=== PATIENT | male | born 1950 | race Two or more races ===

== ENCOUNTER 2025-01-05 12:51 | Inpatient (IN) | payer BC, MEDICARE ==
[~2025-01-05] VITALS: Ht 172.7 cm; Wt 51.1 kg
--- NOTE | 2025-01-05 13:01 | ED.PDOC ---
History of Present Illness HPI Comments 74-year-old male came to the ER stating that he has been having shortness a breath cough nausea vomiting for the past two days. Along with these symptoms he also has chest pain. His blood pressure on arrival was 120/61 with a heart rate of 140 saturation 94% on room air he is unable to take deep breaths. He is short of breath upon sitting more so after walking. Denies any other symptoms. Chief Complaint: Shortness of Breath Time Seen by MD: 12:56 Reviewed Notes: Nurses Notes, Medications, Allergies Allergies: Coded Allergies: NO KNOWN ALLERGIES (Unverified , 01/05/25) Information Source: Patient Mode of Arrival: Wheelchair Severity: Moderate Timing: Days Duration: Since onset Past Medical History PAST MEDICAL HISTORY: Denies Surgical History: Denies all surgeries Social History Smoker: Non-Smoker Alcohol: Denies ETOH Use Drugs: Denies Drug Use Constitutional: denies: chills, diaphoresis, fatigue, fever, malaise, sweats, weakness, others EENTM: denies: blurred vision, double vision, ear bleeding, ear discharge, ear drainage, ear pain, ear ringing, eye pain, eye redness, hearing loss, mouth pain, mouth swelling, nasal discharge, nose bleeding, nose congestion, nose pain, photophobia, tearing, throat pain, throat swelling, voice changes, others Respiratory: reports: cough, shortness of breath; denies: hemoptysis, orthopnea, SOB at rest, SOB with excertion, stridor, wheezing, others Cardiovascular: reports: chest pain; denies: dizzy spells, diaphoresis, Dyspnea on exertion, edema, irregular heart beat, left arm pain, lightheadedness, palpitations, PND, syncope, others Gastrointestinal: reports: nausea, vomiting; denies: abdomen distended, abdominal pain, blood streaked bowels, constipated, diarrhea, dysphagia, difficulty swallowing, hematemesis, melena, poor appetite, poor fluid intake, rectal bleeding, rectal pain, others Genitourinary: denies: burning, dysuria, flank pain, frequency, hematuria, incontinence, penile discharge, penile sore, pain, testicle pain, testicle swelling, urgency, others Neurological: denies: dizziness, fainting, headache, left sided numbness, left sided weakness, numbness, paresthesia, pre-existing deficit, right sided numbness, right sided weakness, seizure, speech problems, tingling, tremors, weakness, others Musculoskeletal: denies: back pain, gout, joint pain, joint swelling, muscle pain, muscle stiffness, neck pain, others Integumetry: denies: bruises, change in color, change in hair/nails, dryness, laceration, lesions, lumps, rash, wounds, others Allergic/Immunocompromised: denies: Difficulty Healing, Frequent Infections, Hives, Itching, others Hematologic/Lymphatic: denies: anemia, blood clots, easy bleeding, easy br uising, swollen glands, others Endocrine: denies: excessive hunger, excessive sweating, excessive thirst, excessive urination, flushing, intolerance to cold, intolerance to heat, unexplained weight gain, unexplained weight loss, others Psychiatric: denies: anxiety, bipolar disorder, depression, hopeless, panic disorder, schizophrenia, sleepless, suicidal, others Physical Exam General Appearance: Moderate Distress HEENT: Normal ENT Inspection, Pharynx Normal, TMs Normal Neck: Full Range of Motion, Non-Tender, Normal, Normal Inspection Respiratory: Other (Coarse breath sounds) Cardiovascular: Tachycardia Breast Exam: Deferred Gastrointestinal: No Organomegaly, Non Tender, No Pulsatile Mass, Normal Bowel Sounds, Soft Genitalia: Deferred Pelvic: Deferred Rectal: Deferred Extremities: No calf tenderness, Normal capillary refill, Normal inspection, Normal range of motion, Non-tender, No pedal edema Musculoskeletal : Apperance: Normal 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 Was a procedure done?: No Differential Dx Considerations may include: Pneumonia Electrolyte imbalance X-Ray, Labs, Meds, VS Vital Signs Date Time Temp Pulse Resp B/P (MAP) Pulse Ox O2 Delivery O2 Flow Rate FiO2 01/05/25 13:16 132 01/05/25 12:52 97.4 143 24 120/61 94 97.4 Lab Test 01/05/25 15:15 01/05/25 13:32 01/05/25 13:25 Range/Units Lactic Acid Level 3.7 *H 3.6 *H 0.4-2.0 mmol/L Troponin I High Sensitivity 15 15 </=54 ng/L White Blood Count 10.1 4.4-10.8 10^3/uL Red Blood Count 4.61 4.5-5.90 10^6/uL Hemoglobin 11.3 L 13.5-17.5 g/dL Hematocrit 35.4 L 41.0-53.0 % Mean Corpuscular Volume 76.7 L 80.0-100.0 fL Mean Corpuscular Hemoglobin 24.5 L 28.0-32.0 pg Mean Corpuscular Hemoglobin Concent 31.9 L 32.0-36.0 g/dL Red Cell Distribution Width 18.4 H 11.8-14.3 % Platelet Count 720 H 140-450 10^3/uL Mean Platelet Volume 7.1 6.9-10.8 fL Neutrophils (%) (Auto) 86.3 H 37.0-80.0 % Lymphocytes (%) (Auto) 5.3 L 10.0-50.0 % Monocytes (%) (Auto) 8.2 0.0-12.0 % Eosinophils (%) (Auto) 0.0 0.0-7.0 % Basophils (%) (Auto) 0.2 0.0-2.0 % Neutrophils # (Auto) 8.7 H 1.6-8.6 10 ^3/uL Lymphocytes # (Auto) 0.5 0.4-5.4 10 ^3/uL Monocytes # (Auto) 0.8 0-1.3 10 ^3/uL Eosinophils # (Auto) 0 0-0.8 10 ^3/uL Basophils # (Auto) 0 0-0.2 10 ^3/uL Nucleated Red Blood Cells 0.0 % Prothrombin Time 11.7 9.3-11.8 sec Prothrombin Time INR 1.12 0.9-1.15 Activated Partial Thromboplast Time 30.2 24.5-34.5 SEC Sodium Level 135 L 136-145 mmol/L Potassium Level 3.2 L 3.5-5.1 mmol/L Chloride Level 100 98-107 mmol/L Carbon Dioxide Level 26 20-31 mmol/L Anion Gap 9 5-15 Blood Urea Nitrogen 14 9-23 mg/dL Creatinine 0.82 0.700-1.30 mg/dL Glomerular Filtration Rate Calc 93 >90 mL/min BUN/Creatinine Ratio 17.1 10.0-20.0 Serum Glucose 170 H 74-106 mg/dL Calcium Level 9.0 8.7-10.4 mg/dL Current Medications Medications (Trade) Dose Ordered Sig/Paco Route Start Time Stop Time Status Last Admin Sodium Chloride 1,000 ml @ 1,000 mls/hr Q1H ONCE IV 01/05/25 15:00 01/05/25 15:59 DC 01/05/25 16:04 Patient alert pain Tachycardic. Shortness a breath. Placed on oxygen. Continues to cough. Possible pneumonia. Establish intravenous access. Was given steroid. Explained to the patient. Continue monitoring. [place] [address] Ph: [phone] DIAGNOSTIC IMAGING Diagnostic Imaging Report : [id number] Signed PATIENT: CARMELO CEVALLOSOACCT: [id number] UNIT: [id number] : 1950 LOC: ER ROOM / BED: / AGE / SEX: 74 / M ADM STATUS: REG ER SERVICE 1256 ORDERING PHYSICIAN: STEPHANIE ANAYA MD PROCEDURE(s): CXRP - CHEST PORTABLE REASON: sob ORDER NUMBER(s): [id number], ACCESSION NUMBER(s): [id number] AP portable chest CLINICAL INDICATION: sob FINDINGS: Heart size is normal. Bilateral upper lobe infiltrates with sparing of the lower lung zones. IMPRESSION: 1. Bilateral upper lobe infiltrates age uncertain as there are no old exams available for comparison. ATED BY: FAMILIA COLVIN MD DICTATED DATE/TIME: 01/05/251326 SIGNED BY: FAMILIA COLVIN MD SIGNED DATE/TIME: 01/05/251326 CC: Time of 1ST Reevaluation: 13:00 Reevaluation 1ST: Unchanged Patient Education/Counseling: Diagnosis, Treatment, Prognosis Family Education/Counseling: No Family Present SEPSIS Sepsis Screen Date sepsis recognized/suspect: Jan 05, 2025 Time Sepsis recognized/suspect: 1255 Recent Procedure: No On Antibiotic Therapy: No Respiratory Rate >20: Yes Heart Rate >90: Yes Temp<36 C (96.8 F) or >38.3 C: No SBP <90 or MAP <65 mmHG: No New Acute Mental Status Change: No Is the patient on CPAP, BIPAP,: No Physician Orders Chest Portable (01/05/25 12:56) Troponin-I Hs (01/05/25 15:56) Blood Culture (01/05/25 12:56) Sodium Chloride 0.9% (01/05/25 15:00) Accucheck (01/05/25 14:47) Notify Md If Map <65 Or Bp<90 (01/05/25 14:47) If Map<65 Start Vasopressor (01/05/25 14:47) Sepsis Reassesment After Fluid (01/05/25 15:47) Vital Signs Date Time Temp Pulse Resp B/P (MAP) Pulse Ox O2 Delivery O2 Flow Rate FiO2 01/05/25 13:16 132 01/05/25 12:52 97.4 143 24 120/61 94 97.4 Laboratory Tests Test 01/05/25 13:25 01/05/25 13:32 01/05/25 15:15 Lactic Acid Level 3.6 mmol/L (0.4-2.0) *H 3.7 mmol/L (0.4-2.0) *H White Blood Count 10.1 10^3/uL (4.4-10.8) Medications Medications Dose Ordered Sig/Paco Route Start Time Stop Time Status Last Admin Dose Admin Sodium Chloride 1,000 ml @ 1,000 mls/hr Q1H ONCE IV 01/05/25 15:00 01/05/25 15:59 DC 01/05/25 16:04 Departure 1 Departure Time of Disposition: 13:01 Impression: Primary Impression: Acute respiratory distress Additional Impressions: Pneumonitis Sepsis, unspecified organism Qualified Codes: A41.9 - Sepsis, unspecified organism Disposition: ADMITTED INPATIENT Admit to: Med Surg Condition: Guarded Critical Care Note Critical Care Time?: Yes (90 min-critical care time only) Stability Stability form required: No Heart Score Heart Score: Heart Score Response (Comments) Value History Slightly Suspicious 0 EKG Normal 0 Age >65 2 Risk Factors >3 or Hx ASHD 2 Troponin Normal limit 0 Total 4 I personally scribed for STEPHANIE ANAYA MD ([email or web address]) on 01/05/25 at 13:58. Electronically submitted by China Cruz [email or web address]). STEPHANIE ANAYA MD Jan 05, 2025 13:01
--- NOTE | 2025-01-05 13:30 | DVH ---
AP portable chest CLINICAL INDICATION: sob FINDINGS: Heart size is normal. Bilateral upper lobe infiltrates with sparing of the lower lung zones . IMPRESSION: 1. Bilateral upper lobe infiltrates age uncertain as there are no old exams available for comparison.
[2025-01-05 13:52] LABS: Hematocrit 35.4 % (41.0-53.0); Hemoglobin 11.3 g/dL (13.5-17.5); Mean Corpuscular Hemoglobin 24.5 pg (28.0-32.0); Mean Corpuscular Volume 76.7 fL (80.0-100.0); Nucleated Red Blood Cells % 0.0 %
[2025-01-05 14:02] LABS: Anion Gap 9 (5-15); Carbon Dioxide 26 mmol/L (20-31); Chloride 100 mmol/L (98-107)
[2025-01-05 14:03] LABS: Calcium 9.0 mg/dL (8.7-10.4)
[2025-01-05 14:04] LABS: Potassium 3.2 mmol/L (3.5-5.1); Sodium 135 mmol/L (136-145)
[2025-01-05 14:08] LABS: BUN/Creatinine Ratio 17.1 (10.0-20.0); Blood Urea Nitrogen 14 mg/dL (9-23); Glucose 170 mg/dL (74-106)
[2025-01-05 14:12] LABS: Lactic Acid w/Reflex 3.6 mmol/L (0.4-2.0)
[2025-01-05] MEDS: SODIUM CHLORIDE 0.9% 1,000 ML IV ONE ×2 (15:00→16:04)
[2025-01-05] MEDS ORDERED: VANCOMYCIN 1GM/200ML PM 200 ML IV ONE (15:00)
[2025-01-05] MEDS: SODIUM CHLORIDE 0.9% 1,000 ML IV SCH (15:30)
[2025-01-05] MEDS ORDERED: MORPHINE SULFATE INJ 2 MG/ml SYRG IV PRN (15:30)
[2025-01-05] MEDS ORDERED: ONDANSETRON HCL 4 MG/2 ML VIAL IV PRN (15:30)
[2025-01-05] MEDS ORDERED: VANCOMYCIN PER PHARMACY 0 MG IV SCH (15:30)
[2025-01-05] MEDS ORDERED: DOCUSATE SOD 100 MG CAP PO PRN (15:30)
[2025-01-05] MEDS ORDERED: NITROGLYCERIN 0.4 MG SL TAB SL PRN (15:30)
--- NOTE | 2025-01-05 15:38 | DVHHP2 ---
History of Present Illness Reason for Visit: chest pain throat pain and sob History of Present Illness 74-year-old male with limited documented medical history, known asthma, and no known surgical history, presents with a 5-month history of progressive throat pain, persistent cough, raspy voice, and unintentional weight loss of approximately 35 pounds. He reports difficulty eating, tolerating only small amounts at a time, with significant discomfort localized to the throat. He notes associated phlegm production without hemoptysis. History is limited due to the patients vague recall of prior medical evaluation, though he states he saw a physician approximately one month ago. He has a history of heavy tobacco use and continues to smoke daily. He admits to heavy alcohol consumption, last drink being last week, but is unable to quantify intake. He denies fever or chills but notes fatigue. In the ED, vitals notable for hypotension and O2 saturation of 94% on room air. Labs showed lactic acid 3.6 (elevated), potassium 3.2 (low), sodium 135 platelet count 720 (thrombocytosis), and unremarkable CBC otherwise. Troponin negative. Chest imaging revealed bilateral upper lobe pneumonia. He was diagnosed with sepsis, hypokalemia, thrombocytosis, and suspected underlying malignancy contributing to dysphagia and weight loss. Plan is to admit for further workup, initiate broad-spectrum antibiotics (vancomycin + piperacillin- tazobactam), evaluate for head/neck malignancy, and monitor for possible alcohol withdrawal. Past Medical History See HPI above Past Surgical History See HPI above Family History Reviewed, non-contributory to the management of this case. Lives: with Family Past Social History Patient does smoke by history he also drinks he states last drink was Thursday no drug use Review of Systems Constitutional: Yes: Weakness, Malaise; No: Fever, Chills, Sweats, Other Eyes: No: Pain, Vision change, Conjunctivae inflammation, Eyelid inflammation, Other, Redness ENT: Mouth pain, Throat pain; No: Ear pain, Ear discharge, Nose pain, Nose discharge, Nose congestion, Mouth swelling, Throat swelling, Other Respiratory: Cough, Shortness of breath, SOB with excertion; No: Dry, Wheezing, Hemoptysis, Pleuritic Pain, Sputum, Wheezing, Other Cardiovascular: Chest Pain; No: Palpitations, Orthopnea, Paroxysmal Noc. Dyspnea, Edema, Lt Headedness, Other Gastrointestinal: No: Nausea, Vomiting, Abdominal Pain, Diarrhea, Constipation, Melena, Hematochezia, Other Genitourinary: No Dysuria, No Frequency, No Incontinence, No Hematuria, No Retention, No Other Musculoskeletal: No: other, neck pain, shoulder pain, arm pain, back pain, hand pain, leg pain, foot pain Skin: No: Rash, Lesions, Jaundice, Bruising, Other Neurological: Weakness; No: Numbness, Incoordination, Change in speech, Confusion, Seizures, Other Allergies: Coded Allergies: NO KNOWN ALLERGIES (Unverified , 01/05/25) Medications Current Medications Medications Dose Ordered Sig/Paco Route Start Time Stop Time Status Last Admin Dose Admin Cefepime HCl 50 ml @ 12.5 mls/hr Q8HR IV 01/05/25 22:00 Exam Vital Signs Vital Signs Date Time Temp Pulse Resp B/P (MAP) Pulse Ox O2 Delivery O2 Flow Rate FiO2 01/05/25 13:16 132 01/05/25 12:52 97.4 24 120/61 94 97.4 General Appearance: Alert, Oriented X3, Cooperative, mild distress, Other (thin appearance ) HEENT: Atraumatic, PERRLA, EOMI, Mucous membr. moist/pink, Other (throat lump seen anterior neck airway patent no drooling able to handle secretions, no stridor heard ) Respiratory: Other (pt with diminshed lungs sound throughout) Cardiovascular: Regular rate, Normal S1, Normal S2, No murmurs Abdominal: Normal bowel sounds, Soft, No tenderness, No hepatospenomegaly, No masses Extremities: No clubbing, No cyanosis, No edema, Normal pulses, No tenderness/swelling Skin: No rashes, No breakdown, No significant lesion Neuro: Normal gait, Normal speech, Strength at 5/5 X4 ext, Normal tone, Sensation intact, Cranial nerves 3-12 NL Psych/Mental Status: Mental status NL, Mood NL Labs/Xrays Chest x-ray shows bilateral upper lobe infiltrates I reviewed labs, imaging CT scan abdomen pelvis, EKG and all diagnostic studies on this patient from ED records and the medical chart Labs Test 01/05/25 15:15 01/05/25 13:32 Range/Units White Blood Count 10.1 4.4-10.8 10^3/uL Red Blood Count 4.61 4.5-5.90 10^6/uL Hemoglobin 11.3 L 13.5-17.5 g/dL Hematocrit 35.4 L 41.0-53.0 % Mean Corpuscular Volume 76.7 L 80.0-100.0 fL Mean Corpuscular Hemoglobin 24.5 L 28.0-32.0 pg Mean Corpuscular Hemoglobin Concent 31.9 L 32.0-36.0 g/dL Red Cell Distribution Width 18.4 H 11.8-14.3 % Platelet Count 720 H 140-450 10^3/uL Mean Platelet Volume 7.1 6.9-10.8 fL Neutrophils (%) (Auto) 86.3 H 37.0-80.0 % Lymphocytes (%) (Auto) 5.3 L 10.0-50.0 % Monocytes (%) (Auto) 8.2 0.0-12.0 % Eosinophils (%) (Auto) 0.0 0.0-7.0 % Basophils (%) (Auto) 0.2 0.0-2.0 % Neutrophils # (Auto) 8.7 H 1.6-8.6 10 ^3/uL Lymphocytes # (Auto) 0.5 0.4-5.4 10 ^3/uL Monocytes # (Auto) 0.8 0-1.3 10 ^3/uL Eosinophils # (Auto) 0 0-0.8 10 ^3/uL Basophils # (Auto) 0 0-0.2 10 ^3/uL Nucleated Red Blood Cells 0.0 % Sodium Level 135 L 136-145 mmol/L Potassium Level 3.2 L 3.5-5.1 mmol/L Chloride Level 100 98-107 mmol/L Carbon Dioxide Level 26 20-31 mmol/L Anion Gap 9 5-15 Blood Urea Nitrogen 14 9-23 mg/dL Creatinine 0.82 0.700-1.30 mg/dL Glomerular Filtration Rate Calc 93 >90 mL/min BUN/Creatinine Ratio 17.1 10.0-20.0 Serum Glucose 170 H 74-106 mg/dL Calcium Level 9.0 8.7-10.4 mg/dL SEPSIS Sepsis Screen Date sepsis recognized/suspect: Jan 05, 2025 Time Sepsis recognized/suspect: 1254 Recent Procedure: No On Antibiotic Therapy: No Respiratory Rate >20: Yes Heart Rate >90: Yes Temp<36 C (96.8 F) or >38.3 C: No SBP <90 or MAP <65 mmHG: No New Acute Mental Status Change: No Is the patient on CPAP, BIPAP,: No Physician Orders Chest Portable (01/05/25 12:56) Urinalysis (01/05/25 12:56) Troponin-I Hs (01/05/25 13:56) Troponin-I Hs (01/05/25 15:56) Blood Culture (01/05/25 12:56) Sodium Chloride 0.9% (01/05/25 15:00) Sodium Chloride 0.9% (01/05/25 15:00) PTPTT (01/05/25 14:47) Accucheck (01/05/25 14:47) Vancomycin 1gm/200ml Pm (01/05/25 15:00) Cefepime 1gm/ 50ml (Maxipime 1gm/50ml) (01/05/25 22:00) Notify Md If Map <65 Or Bp<90 (01/05/25 14:47) If Map<65 Start Vasopressor (01/05/25 14:47) Sepsis Reassesment After Fluid (01/05/25 15:47) Vital Signs Date Time Temp Pulse Resp B/P (MAP) Pulse Ox O2 Delivery O2 Flow Rate FiO2 01/05/25 13:16 132 01/05/25 12:52 97.4 143 24 120/61 94 97.4 Laboratory Tests Test 01/05/25 13:25 01/05/25 13:32 01/05/25 15:15 Lactic Acid Level 3.6 mmol/L (0.4-2.0) *H Pending White Blood Count 10.1 10^3/uL (4.4-10.8) Assessment/Plan Assessment/Plan 74 yr old male with Sepsis secondary to bilateral pneumonia in the setting of significant weight loss, dysphagia, and suspected malignancy. acute Sepsis secondary to bilateral upper lobe pneumonia vs dehydration Admit to telemetry Broad-spectrum antibiotics: vancomycin + piperacillin-tazobactam Blood cultures 2 prior to antibiotics Monitor hemodynamics; consider fluids/vasopressors if persistent hypotension Serial lactate until normalization acute Bilateral Upper Lobe Pneumonia Continue empiric antibiotics vanco and zosyn Sputum culture, respiratory pathogen panel if pt have sputum Incentive spirometry and pulmonary hygiene O2 to maintain sats >92% ordered ct angio chest to eval for PE acute throat mass ordered ct neck with constrast ordered cea and ca 125 acute Severe Dysphagia with Throat Pain, Weight Loss possible head/neck malignancy (suspected) ordered CT neck with contrast fu results Speech/swallow evaluation fu recs NPO until swallow safety confirmed; nutrition consult for malnutrition once swallow test complete ordered cea and ca 125 acute Thrombocytosis likely reactive Monitor platelet trend Evaluate for iron deficiency and inflammatory cause Hematology consult if persistent after infection resolves acute Hypokalemia Replete potassium IV/PO to maintain >4.0 mmol/L ordered magnesium and correct if <2.0 Chronic Tobacco Use Counseling on cessation Nicotine replacement as needed Alcohol Use Disorder at risk for withdrawal CIWA protocol with PRN benzodiazepines Thiamine 100 mg IV, folate 1 mg IV daily in banana bag CHRONIC PROBLEM LIST Asthma Tobacco use disorder Alcohol use disorder FEN / PPx Fluids: IV NS bolus for hypotension, then maintenance as tolerated Electrolytes: Monitor and replete K and Mg as indicated Nutrition: NPO until swallow evaluation; initiate nutrition support if unsafe swallow DVT Prophylaxis: Enoxaparin 40 mg SC daily GI Prophylaxis: Pantoprazole 40 mg IV daily Disposition: Admit to telemetry for sepsis management, pneumonia treatment, dysphagia evaluation, and malignancy workup. Plan discussed with: Patient Date of Service: Jan 05, 2025 Billing Provider: SAMUEL IRWIN DNP Common Visit Codes: [id number] INP/OBS CARE (HIGH) SAMUEL IRWIN DNP Jan 05, 2025 15:38
[2025-01-05 15:40] LABS: INR 1.12 (0.9-1.15); Partial Thromboplastin Time 30.2 SEC (24.5-34.5); Prothrombin Time 11.7 sec (9.3-11.8)
[2025-01-05] MEDS: PIPERACILLIN-TAZOB 3.375GM 100 ML IV ONE (16:06)
[2025-01-05 16:09] LABS: Magnesium 1.7 mg/dL (1.6-2.6)
[2025-01-05] MEDS: ENOXAPARIN SOD 40 MG/0.4 ML SYRINGE SC SCH (16:09)
[2025-01-05] MEDS: POTASSIUM CHL 20 Meq TABLET PO ONE (16:09)
[2025-01-05 16:48] LABS: Urine Protein, UAD 1+ (Negative)
[2025-01-05 17:00] VITALS: PULSE 86; RESP 14; O2SAT 94
[2025-01-05] MEDS: VANCOMYCIN 1GM/250ML KIT 250 ML IV ONE (17:01)
[2025-01-05] MEDS: PANTOPRAZOLE 40 MG/10 ML VIAL INJ IV ONE (17:03)
--- NOTE | 2025-01-05 17:41 | DVH ---
CTA Chest with intravenous contrast INDICATION: eval for sob and cp r/o pe COMPARISON: XY CHEST PORTABLE on DOS: 01/05/25 TECHNIQUE: Multidetector spiral CTA of the chest was performed of the chest with intravenous contrast . PULMONARY ANGIOGRAPHY PROTOCOL was utilized using a bolus-tracking technique centered on the main p ulmonary artery. Axial, coronal and sagittal multiplanar and MIP reformats were performed. CONTRAST: Type of contrast: Omni 350 Contrast injected: 100 ml Radiation dose : Chest: CTDI volume is mGy. Dose-length product is mGy*cm The dose indicators for CT are the volume computed Tomography (CT) dose Index (CTDIvol) and the dose Length product (DLP), and are measured in units of mGy and mGy-cm, respectively. These indicators are not patient dose, but values generated from the CT scanner acquisition factors. The report includes radiation exposure data for exposures received during this examination. Findings: Pulmonary artery: No pulmonary embolism Lower neck: Normal thyroid. Lungs: Patchy bilateral consolidation with areas of cavitation greater in the upper lobes. Atelectasi s and scarring in the lung bases. Heart/Vascular Structures: Normal heart size. Trace pericardial effusion. Lymph Nodes: Mediastinal and hilar lymphadenopathy. Pleura: Small bilateral pleural effusions left greater than right. Musculoskeletal: No acute osseous abnormality. Soft tissues: Normal. Upper abdomen: Limited portions of the upper abdomen are unremarkable. IMPRESSION: 1. No pulmonary embolism. 2. Patchy bilateral consolidation with an upper lobe predominance and superimposed cavitation. Medias tinal and hilar lymphadenopathy. Small bilateral pleural effusions. Consider atypical infections to include fungal and mycobacterial (TB) disease. Neoplastic etiologies are not entirely excluded. Clini jennyfer correlation and continued follow-up is recommended. HS:Y
[2025-01-05] MEDS: IOHEXOL 350 MG/ML 100ML IJ ONE (18:02)
--- NOTE | 2025-01-05 18:06 | DVH ---
CT NECK WITH CONTRAST SOFT Indication: eval for acute throat pain and mass EXAM DATE: 01/05/2025 04:37 PM COMPARISON: None TECHNIQUE: CT of the neck intravenous contrast. RADIATION DOSE: CTDIvol: 10.2 mGy, DLP: 719 mGy*cm FINDINGS: Left frontal encephalomalacia. Parotid, cook short order, parapharyngeal spaces preserved. Submandibular glands unremarkable. No submenta l lymphadenopathy. Orbits and retrobulbar spaces are unremarkable. Thyroid gland unremarkable. Nasoph arynx, oropharynx, hypopharynx patent. Epiglottis unremarkable. Moderate cervical degenerative disc disease. Extensive Bilateral upper lobe pulmonary airspace consolidation, cavitation disease and bronchiectati c changes. This includes left upper lobe cavitary lesion with thick wall measuring 4.7 cm and right u pper lobe cavitary lesion with thick wall measuring 5.8 cm. Right paratracheal lymphadenopathy up to 14 mm. Pretracheal lymph nodes up to 11 mm. 10 mm aortopulmo nary lymph node. 10 mm right cervical jugulodigastric lymph node. Subcentimeter posterior cervical triangle lymph node s. IMPRESSION: 10 mm right cervical jugulodigastric lymph node. The bilateral lung apices demonstrate extensive airspace consolidation and thick wall cavitary lesion s with lesions measuring least 5.8 cm and 4.7 cm. Differential considerations include malignancy/nec rotic neoplasm, atypical infectious processes. Recommend oncology and infectious disease consultatio n to further evaluate. There is associated mediastinal lymphadenopathy.
[2025-01-05] MEDS: FOLIC ACID 1 MG, MAGNESIUM SULF SDV 50% 8 MEQ, MULTIPLE VITAMIN 10 ML, THIAMINE INJ 100... INJ SCH (20:06)
[2025-01-05] MEDS ORDERED: CEFEPIME 1GM/ 50ML 50 ML IV SCH (22:00)
[2025-01-06] MEDS: PIPERACILLIN-TAZOB 3.375GM 100 ML IV SCH (00:19)
[2025-01-06 04:27] LABS: Hematocrit 28.9 % (41.0-53.0); Hemoglobin 9.5 g/dL (13.5-17.5); Mean Corpuscular Hemoglobin 25.3 pg (28.0-32.0); Mean Corpuscular Volume 76.8 fL (80.0-100.0); Nucleated Red Blood Cells % 0.0 %
[2025-01-06 04:45] LABS: Alanine Aminotransferase 15 U/L (7-40); Albumin 2.7 g/dL (3.2-4.8); Alkaline Phosphatase 109 U/L (46-116); Anion Gap 7 (5-15); BUN/Creatinine Ratio 18.6 (10.0-20.0); Bilirubin, Total 0.5 mg/dL (0.2-1.0); Blood Urea Nitrogen 11 mg/dL (9-23); Calcium 8.0 mg/dL (8.7-10.4); Carbon Dioxide 24 mmol/L (20-31); Chloride 107 mmol/L (98-107); Glucose 101 mg/dL (74-106); Potassium 3.3 mmol/L (3.5-5.1); Sodium 138 mmol/L (136-145); Total Protein 5.8 g/dL (5.7-8.2)
[2025-01-06 08:00] VITALS: PULSE 67; RESP 18; O2SAT 95
[2025-01-06] MEDS: PANTOPRAZOLE 40 MG/10 ML VIAL INJ IV SCH (10:59)
--- NOTE | 2025-01-06 15:13 | DVHINCON2 ---
Date of service: Jan 06, [address] kasper Reason for Consultation suspected TB History of Present Illness History Source: Patient Exam Limitations: No limitations HPI patient is a 74-year old gentleman with a history of alcohol abuse and asthma who presented with breathing difficulties. he was seen in the emergency room where CT of the chest demonstrated cavities of the upper lobes bilaterally and he was isolated to rule out TB. additionally, he reports experiencing persistent cough and weight loss for the last 5 months, denies hemoptysis. pulmonology was consulted to assist in management. Past Medical History Cardiac: No pertinent Hx Pulmonary: Asthma Central Nervous System: No pertinent Hx GI: No pertinent Hx Hemotology/Oncology: No pertinent Hx Hepatobiliary: No pertinent Hx Psychiatric: No pertinent Hx Musculoskeletal: No pertinent Hx Rheumotologic: No pertinent Hx Infectious Disease: No peritnent Hx ENT: No pertinent Hx Renal/: No pertinent Hx Endocrine: No pertinent Hx Dermatology: No pertinent Hx Family History: No pertinent Hx Smoker: Positive Alocohol: None Drugs: None Lives with: With family Domestic Violence: Neg Review of Systems Constitutional: Weight loss Ears, Nose, & Throat: No symptom reported Eyes: No symptom reported Pulmonary/Respiratory: Dyspnea, Cough Cardiovascular: No symptom reported Gastrointestinal: No symptom reported Genitourinary: No symptom reported Musculoskeletal: No symptom reported Skin: No symptom reported Psychiatric: No symptom reported Endocrine: No symptom reported Hemotologic/Lymphatic: No symptom reported H&P Exam Vital Signs Vital Signs Date Time Temp Pulse Resp B/P (MAP) Pulse Ox O2 Delivery O2 Flow Rate FiO2 01/06/25 11:00 73 24 132/69 (90) 96 01/06/25 08:00 97.6 97.6 01/06/25 08:00 Room Air* 0 21 General Appeara: Well developed, Well nourished, Normal Appearance Head Exam: Normal inspection Neck Exam: Normal inspection, Non-tender, Normal alignment Eye Exam: bilateral eye Normal inspection, bilateral eye PERRL, bilateral eye EOMI Ear Exam: bilateral ear Auricle normal, bilateral ear Canal normal, bilateral ear TM normal Nasal Exam: Normal inspection Mouth: Normal Inspection Pulmonary/Respiratory: Normal inspection, Normal breath sounds, Chest non- tender, Lungs clear Cardiovascular/Chest: Normal inspection, Regular rate, Normal Rhythm Peripheral Pulses: 4+ Radial (R), 4+ Radial (L), 4+ Brachial (R), 4+ Brachial (L) Abdominal Exam: Normal bowel sounds Labs/Xrays Labs Test 01/06/25 04:07 01/05/25 17:18 01/05/25 15:50 01/05/25 15:46 Range/Units White Blood Count 7.2 # 4.4-10.8 10^3/uL Red Blood Count 3.76 L 4.5-5.90 10^6/uL Hemoglobin 9.5 #L 13.5-17.5 g/dL Hematocrit 28.9 #L 41.0-53.0 % Mean Corpuscular Volume 76.8 L 80.0-100.0 fL Mean Corpuscular Hemoglobin 25.3 L 28.0-32.0 pg Mean Corpuscular Hemoglobin Concent 33.0 32.0-36.0 g/dL Red Cell Distribution Width 18.2 H 11.8-14.3 % Platelet Count 532 H 140-450 10^3/uL Mean Platelet Volume 6.9 6.9-10.8 fL Neutrophils (%) (Auto) 81.6 H 37.0-80.0 % Lymphocytes (%) (Auto) 7.5 L 10.0-50.0 % Monocytes (%) (Auto) 10.4 0.0-12.0 % Eosinophils (%) (Auto) 0.3 0.0-7.0 % Basophils (%) (Auto) 0.2 0.0-2.0 % Neutrophils # (Auto) 5.8 1.6-8.6 10 ^3/uL Lymphocytes # (Auto) 0.5 0.4-5.4 10 ^3/uL Monocytes # (Auto) 0.7 0-1.3 10 ^3/uL Eosinophils # (Auto) 0 0-0.8 10 ^3/uL Basophils # (Auto) 0 0-0.2 10 ^3/uL Nucleated Red Blood Cells 0.0 % Sodium Level 138 136-145 mmol/L Potassium Level 3.3 L 3.5-5.1 mmol/L Chloride Level 107 98-107 mmol/L Carbon Dioxide Level 24 20-31 mmol/L Anion Gap 7 5-15 Blood Urea Nitrogen 11 9-23 mg/dL Creatinine 0.59 L 0.700-1.30 mg/dL Glomerular Filtration Rate Calc 103 >90 mL/min BUN/Creatinine Ratio 18.6 10.0-20.0 Serum Glucose 101 74-106 mg/dL Calcium Level 8.0 L 8.7-10.4 mg/dL Total Bilirubin 0.5 0.2-1.0 mg/dL Aspartate Amino Transferase (AST) 25 13-40 U/L Alanine Aminotransferase (ALT) 15 7-40 U/L Alkaline Phosphatase 109 46-116 U/L Total Protein 5.8 5.7-8.2 g/dL Albumin 2.7 L 3.2-4.8 g/dL Random Vancomycin Level 8.6 5-10 ug/mL Troponin I High Sensitivity 13 </=54 ng/L Urine Color Yellow Yellow Urine Clarity Turbid H Clear Urine pH 5.5 5.0-9.0 Urine Specific [place] 1.023 1.001-1.035 Urine Protein 1+ H Negative Urine Ketones Negative Negative Urine Blood Negative Negative /uL Urine Nitrite Negative Negative Urine Bilirubin 1+ Negative Urine Urobilinogen 4 H Negative mg/dL Urine Leukocyte Esterase Negative Negative /uL Urine RBC 2 0 - 3 /hpf Urine Microscopic WBC < 1 0-3 /HPF Urine Squamous Epithelial Cells Few <5 /hpf Urine Bacteria None seen None Seen /hpf Urine Hyaline Casts Few 0 - 2 /lpf Urine Mucus Few None Seen Urine Glucose Normal Normal mg/dL Phosphorus Level 2.3 L 2.4-5.1 mg/dL Magnesium Level 1.7 1.6-2.6 mg/dL Carcinoembryonic Antigen 0.99 <=5.0 ng/mL CA 125 Antigen 133.0 Not Estab. U/mL Plasma/Serum Blood Alcohol 4.7 <10 mg/dL Test 01/05/25 15:15 01/05/25 13:32 Range/Units Lactic Acid Level 3.7 *H 0.4-2.0 mmol/L Prothrombin Time 11.7 9.3-11.8 sec Prothrombin Time INR 1.12 0.9-1.15 Activated Partial Thromboplast Time 30.2 24.5-34.5 SEC Microbiology Date/Time Source Procedure Growth Status 01/05/25 13:32 Blood Blood Culture - Preliminary NO GROWTH AFTER 24 HOURS OF INCUBATION. Resulted Assessment/Plan Plan Impression Acute hypoxemic respiratory failure Rule out tuberculosis Pneumonia Lung cavities Patient seen and examined Events Low oxygen requirements On 2 liters nasal cannula Vital signs stable Isolated for ? TB Labs and imaging reviewed CT of the chest shows: Patchy bilateral consolidation with an upper lobe predominance and superimposed cavitation. Mediastinal and hilar lymphadenopathy. Small bilateral pleural effusions. No evidence of pulmonary embolism Management Supplemental oxygen Titrate to maintain sats 90% or above Incentive spirometry Broad spectrum antibiotics Recommend ID input Bronchodilators Monitor renal function Monitor electrolytes Supplement as needed Obtain HIV DVT prophylaxis Plan discussed with: Patient VANESSA DAWSON MD Jan 06, 2025 15:13
--- NOTE | 2025-01-06 15:42 | DVHSR ---
APPROVED REPORT EXAM: Two-dimensional and M-mode echocardiogram with Doppler and color Doppler. Blood Pressure: 134/76 mmHg INDICATION EF RISK FACTORS Height: 5'7", Weight: 119 DIMENSIONS LVDd4.3 (3.8-5.7cm)LA (2D)2.7 (1.9-4.0cm)Aortic Root3.5 (2.0-3.7cm) LVDs2.9 (2.5-4.0cm)LA (MM) (1.9-4.0cm)Aortic Cusp Exc2.2 (1.5-2.0cm) EF (%) 60.0 (55-70%)Rt. Atrium (1.9-4.0cm)Asc. Aorta cm IVSd0.8 (0.7-1.1cm)RV (D) (1.8-2.4cm) PWd1.0 (0.7-1.1cm) Mitral Valve MitralMitral Stenosis E/A ratio0.02D MVAcm2 Aortic Valve Aortic ValveAortic Stenosis LVOT Diameter2.5 (1.8-2.4cm)Doppler AVAcm2 Pulmonic Valve V20.52m/s Other Information Quality : Technically LimitedRhythm : Technically limited study due to body habitus. Conclusion lvef 55% normal rv fucntion no severe valve abnormaliteis noted
[2025-01-06 20:00] VITALS: PULSE 93; RESP 22; O2SAT 93
[2025-01-06] MEDS ORDERED: VANCOMYCIN 1.25GM/250ML 250 ML IV SCH (20:00)
--- NOTE | 2025-01-06 22:10 | DVHPN2 ---
Subjective Admitted admitted overnight for shortness for breath CT chest showed a apical cavitary lesion. Changes from previous H/P or p: No Changes Eyes: No Pain, No Vision change, No Conjunctivae inflammation, No Eyelid inflammation, No Other, No Redness ENT: No Ear pain, No Ear discharge, No Nose pain, No Nose discharge, No Nose congestion; Mouth pain; No Mouth swelling; Throat pain; No Throat swelling, No Other Cardiovascular: Chest Pain; No Palpitations, No Orthopnea, No Paroxysmal Noc. Dyspnea, No Edema, No Lt Headedness, No Other Respiratory: Cough; No Dry; Shortness of breath, SOB with excertion; No Wheezing, No Hemoptysis, No Pleuritic Pain, No Sputum, No Other Gastrointestinal: No Nausea, No Vomiting, No Abdominal Pain, No Diarrhea, No Constipation, No Melena, No Hematochezia, No Other Genitourinary: No Dysuria, No Frequency, No Incontinence, No Hematuria, No Retention, No Other Musculoskeletal: No other, No neck pain, No shoulder pain, No arm pain, No back pain, No hand pain, No leg pain, No foot pain Skin: No Rash, No Lesions, No Jaundice, No Bruising, No Other Objective Vitals Vital Signs Date Time Temp Pulse Resp B/P (MAP) Pulse Ox O2 Delivery O2 Flow Rate FiO2 01/06/25 20:00 93 22 93 Room Air* 0 21 01/06/25 20:00 98.0 148/97 (114) 98.0 Intake/Output Intake and Output 01/06/25 07:00 Intake Total 3193.729 ml Balance 3193.729 ml Intake IV Total 3193.729 ml Exam On isolation. Comfortable in bed. HEENT neck supple no JVD. Heart regular rate and rhythm S1-S2. Lungs fair air movement with rhonchi in the upper lungs. No wheezing. Abdomen soft positive bowel sounds. Extremities no edema. Medications Current Medications Medications Dose Ordered Sig/Paco Route Start Time Stop Time Status Last Admin Dose Admin Sodium Chloride 1,000 ml @ 120 mls/hr [id number] IV 01/05/25 15:30 01/06/25 17:24 120 MLS/HR Ondansetron HCl 4 mg Q4HP PRN IV 01/05/25 15:30 Docusate Sodium 100 mg BIDPRN PRN PO 01/05/25 15:30 Morphine Sulfate 2 mg Q4HPRN PRN IV 01/05/25 15:30 Enoxaparin Sodium 40 mg DAILY SC 01/05/25 15:30 01/06/25 10:59 40 MG Nitroglycerin 0.4 mg Q5MINP PRN SL 01/05/25 15:30 Vancomycin HCl 0 ml @ 0 mls/hr UD IV 01/05/25 15:30 Piperacillin Sod/ Tazobactam Sod 100 ml @ 25 mls/hr Q8H IV 01/06/25 00:00 01/06/25 17:08 25 MLS/HR Pantoprazole Sodium 40 mg DAILY IV 01/06/25 10:00 01/06/25 10:59 40 MG Folic Acid 1 mg/ Magnesium Sulfate 8 meq/ Multivitamins 10 ml/Thiamine HCl 100 mg/Sodium Chloride 1,013.2 ml @ 126.247 mls/hr DAILY@1800 INJ 01/05/25 18:00 01/05/25 20:06 126.247 MLS/HR Vancomycin HCl 250 ml @ 200 mls/hr DAILY@2000 IV 01/06/25 20:00 Laboratory Results Laboratory Tests 01/06/25 04:07 Chemistry Test 01/06/25 04:07 Albumin 2.7 g/dL (3.2-4.8) L Calcium Level 8.0 mg/dL (8.7-10.4) L Total Protein 5.8 g/dL (5.7-8.2) LFT Test 01/06/25 04:07 Alanine Aminotransferase (ALT) 15 U/L (7-40) Alkaline Phosphatase 109 U/L (46-116) Aspartate Amino Transferase (AST) 25 U/L (13-40) Total Bilirubin 0.5 mg/dL (0.2-1.0) Urinalysis Test 01/05/25 15:50 Urine Color Yellow (Yellow) Urine Clarity Turbid (Clear) H Urine pH 5.5 (5.0-9.0) Urine Specific [place] 1.023 (1.001-1.035) Urine Protein 1+ (Negative) H Urine Ketones Negative (Negative) Urine Blood Negative /uL (Negative) Urine Nitrite Negative (Negative) Urine Bilirubin 1+ (Negative) Urine Urobilinogen 4 mg/dL (Negative) H Urine Leukocyte Esterase Negative /uL (Negative) Urine RBC 2 /hpf (0 - 3) Urine Microscopic WBC < 1 /HPF (0-3) Urine Squamous Epithelial Cells Few /hpf (<5) Urine Bacteria None seen /hpf (None Seen) Urine Hyaline Casts Few /lpf (0 - 2) Urine Mucus Few (None Seen) Urine Glucose Normal mg/dL (Normal) Microbiology Microbiology Date/Time Source Procedure Growth Status 01/05/25 13:32 Blood Blood Culture - Preliminary NO GROWTH AFTER 24 HOURS OF INCUBATION. Resulted Assessment/Plan Assessment/Plan Given possibility of TB infectious etiology continue isolation. We will have Pulmonary consultation as well as Infectious Disease consultation. Continue broad-spectrum antibiotics. AFB and QuantiFERON TB test will be sent. Otherwise continue rest of supportive care and treatment he is on. Further clinical management per clinical course. Discussed with the nurse regarding care plan. Patient is seen and evaluated by me earlier today. Plan discussed with: Other My Orders Orders - TAWNY TORRES MD Procedure Category Date Status Time Sodium Chloride 0.9% PHA 01/06/25 Logged 22:15 Clear Liq Diet DIET 01/07/25 Transmitted Breakfast Complete Blood Count LAB 01/07/25 Verified 04:00 Comprehensive LAB 01/07/25 Verified Metabolic Panel 04:00 Quantiferon-Tb Gold LAB 01/06/25 Logged 22:03 Problem List: (1) Acute respiratory distress (2) Pneumonitis Date of Service: Jan 06, 2025 Billing Provider: TAWNY TORRES MD Common Visit Codes: [id number] INP/OBS CARE(MOD) TAWNY TORRES MD Jan 06, 2025 22:10
[2025-01-06] MEDS: SODIUM CHLORIDE 0.9% 1,000 ML IV SCH (23:00)
--- NOTE | 2025-01-06 23:10 | DVHINCON2 ---
Date of service: Jan 08, 2025 Allergies: Coded Allergies: NO KNOWN ALLERGIES (Unverified , 01/05/25) Home Meds Active Scripts Nystatin (Mouth-Throat) (Mycostatin (Mouth-Throat)) 500,000 Units/5 Ml Ss, 5 ML MT QID for 30 Days, #500 ML Prov:CARRILLO MENCHACA MD 01/16/25 Rifampin (Rifampin) 300 Mg Cap, 600 MG PO DAILY for 30 Days, #30 CAP Prov:CARRILLO MENCHACA MD 01/16/25 Isoniazid (Isoniazid) 300 Mg Tab, 300 MG PO DAILY for 30 Days, #30 TAB Prov:CARRILLO MENCHACA MD 01/16/25 Ethambutol Hcl (Ethambutol Hcl) 400 Mg Tab, 1200 MG PO DAILY for 30 Days, #90 TAB Prov:CARRILLO MENCHACA MD 01/16/25 Current Medications Current Medications Medications (Trade) Dose Ordered Sig/Paco Route PRN Reason Start Time Stop Time Status Last Admin Piperacillin Sod/ Tazobactam Sod 100 ml @ 25 mls/hr Q8H IV 01/06/25 00:00 01/06/25 17:08 Pantoprazole Sodium (Protonix) 40 mg DAILY IV 01/06/25 10:00 01/06/25 10:59 Vancomycin HCl 250 ml @ 200 mls/hr DAILY@2000 IV 01/06/25 20:00 Sodium Chloride 1,000 ml @ 70 mls/hr [id number] IV 01/06/25 22:15 Vital Signs Vital Signs Date Time Temp Pulse Resp B/P (MAP) Pulse Ox O2 Delivery O2 Flow Rate FiO2 01/06/25 20:00 93 22 93 Room Air* 0 21 01/06/25 20:00 98.0 148/97 (114) 98.0 Labs/Diagnostic Data Labs Test 01/06/25 15:50 01/06/25 04:07 01/05/25 17:18 01/05/25 15:50 Range/Units HIV (1&2) Antibody Negative Negative White Blood Count 7.2 # 4.4-10.8 10^3/uL Red Blood Count 3.76 L 4.5-5.90 10^6/uL Hemoglobin 9.5 #L 13.5-17.5 g/dL Hematocrit 28.9 #L 41.0-53.0 % Mean Corpuscular Volume 76.8 L 80.0-100.0 fL Mean Corpuscular Hemoglobin 25.3 L 28.0-32.0 pg Mean Corpuscular Hemoglobin Concent 33.0 32.0-36.0 g/dL Red Cell Distribution Width 18.2 H 11.8-14.3 % Platelet Count 532 H 140-450 10^3/uL Mean Platelet Volume 6.9 6.9-10.8 fL Neutrophils (%) (Auto) 81.6 H 37.0-80.0 % Lymphocytes (%) (Auto) 7.5 L 10.0-50.0 % Monocytes (%) (Auto) 10.4 0.0-12.0 % Eosinophils (%) (Auto) 0.3 0.0-7.0 % Basophils (%) (Auto) 0.2 0.0-2.0 % Neutrophils # (Auto) 5.8 1.6-8.6 10 ^3/uL Lymphocytes # (Auto) 0.5 0.4-5.4 10 ^3/uL Monocytes # (Auto) 0.7 0-1.3 10 ^3/uL Eosinophils # (Auto) 0 0-0.8 10 ^3/uL Basophils # (Auto) 0 0-0.2 10 ^3/uL Nucleated Red Blood Cells 0.0 % Sodium Level 138 136-145 mmol/L Potassium Level 3.3 L 3.5-5.1 mmol/L Chloride Level 107 98-107 mmol/L Carbon Dioxide Level 24 20-31 mmol/L Anion Gap 7 5-15 Blood Urea Nitrogen 11 9-23 mg/dL Creatinine 0.59 L 0.700-1.30 mg/dL Glomerular Filtration Rate Calc 103 >90 mL/min BUN/Creatinine Ratio 18.6 10.0-20.0 Serum Glucose 101 74-106 mg/dL Calcium Level 8.0 L 8.7-10.4 mg/dL Total Bilirubin 0.5 0.2-1.0 mg/dL Aspartate Amino Transferase (AST) 25 13-40 U/L Alanine Aminotransferase (ALT) 15 7-40 U/L Alkaline Phosphatase 109 46-116 U/L Total Protein 5.8 5.7-8.2 g/dL Albumin 2.7 L 3.2-4.8 g/dL Random Vancomycin Level 8.6 5-10 ug/mL Troponin I High Sensitivity 13 </=54 ng/L Urine Color Yellow Yellow Urine Clarity Turbid H Clear Urine pH 5.5 5.0-9.0 Urine Specific [place] 1.023 1.001-1.035 Urine Protein 1+ H Negative Urine Ketones Negative Negative Urine Blood Negative Negative /uL Urine Nitrite Negative Negative Urine Bilirubin 1+ Negative Urine Urobilinogen 4 H Negative mg/dL Urine Leukocyte Esterase Negative Negative /uL Urine RBC 2 0 - 3 /hpf Urine Microscopic WBC < 1 0-3 /HPF Urine Squamous Epithelial Cells Few <5 /hpf Urine Bacteria None seen None Seen /hpf Urine Hyaline Casts Few 0 - 2 /lpf Urine Mucus Few None Seen Urine Glucose Normal Normal mg/dL Test 01/05/25 15:46 01/05/25 15:15 01/05/25 13:32 Range/Units Phosphorus Level 2.3 L 2.4-5.1 mg/dL Magnesium Level 1.7 1.6-2.6 mg/dL Carcinoembryonic Antigen 0.99 <=5.0 ng/mL CA 125 Antigen 133.0 Not Estab. U/mL Plasma/Serum Blood Alcohol 4.7 <10 mg/dL Lactic Acid Level 3.7 *H 0.4-2.0 mmol/L Prothrombin Time 11.7 9.3-11.8 sec Prothrombin Time INR 1.12 0.9-1.15 Activated Partial Thromboplast Time 30.2 24.5-34.5 SEC Microbiology Date/Time Source Procedure Growth Status 01/05/25 13:32 Blood Blood Culture - Preliminary NO GROWTH AFTER 24 HOURS OF INCUBATION. Resulted Problems(with codes): (1) Positive QuantiFERON-TB Gold test (2) Cavitary lung disease (3) Cavitary pneumonia (4) Sepsis, unspecified organism (5) Acute respiratory distress (6) Pneumonitis Plan/Recommendation ASSESSMENT AND PLAN: ID Problem List: \-- Disseminated tuberculosis \-- Chronic cough \-- Weight loss, cachexia \-- Oropharyngeal candidiasis (thrush) \-- Upper lobe bilateral pneumonia/consolidations \-- Cervical lymphadenopathy \-- Alcohol use disorder \-- Heavy tobacco use Assessment: This is a 74 y.o. male, [place], with a past medical history notable for asthma, who presents with chronic cough, one day of hemoptysis, progressive weight loss (~35 pounds), weakness, and dysphagia. He is a heavy tobacco smoker and regularly drinks alcohol. On admission, he was hypoxic (SpO2 94% on room air), cachectic (weight 54.4 kg), and noted to have white thrush on lips and tongue, a palpable anterior neck mass, coarse lung sounds with diminished upper lobe breath sounds, and upper and lower extremity weakness (3/5 strength). Admission chest X-ray and CT imaging show bilateral upper lobe infiltrates with consolidations, and mediastinal and high-level lymphadenopathy; no pulmonary embolism; small bilateral pleural effusions. Soft tissue neck CT shows right cervical jugular lymphadenopathy (~10 mm). Laboratory findings include positive QuantiFERON gold, positive AFB (acid-fast bacillus) x2, and pathology results consistent with tuberculosis. HIV testing negative, as are blood cultures. There is evidence of cephalic vein thrombi bilaterally. He was initially started on vancomycin and Zosyn, but with low suspicion for bacterial pneumonia and a confirmed TB diagnosis, these were discontinued. Given findings, he is at high risk for disseminated tuberculosis. Nystatin is recomm ended for oral candidiasis. Plan: \-- Discontinue vancomycin, ceftriaxone, and Zosyn. \-- Initiate anti-TB regimen: rifampin, isoniazid (plus vitamin B6), pyrazinamide, ethambutol (RIPE), pending sensitivities. \-- Continue nystatin swish and swallow for oropharyngeal candidiasis. \-- Maintain isolation precautions for suspected/confirmed TB. Assess for discontinuation after 5 days of antibiotics, per infection control and public health recommendations. \-- Refer to Department of Public Health for outpatient therapy organization and discharge planning. \-- Plan for a total 69 month anti-TB therapy course. \-- Follow up on pending MTB PCR, AFB cultures, and rifampin/isoniazid sensitivity testing. \-- Follow up in Infectious Disease Clinic 2 weeks after discharge for ongoing management and therapy monitoring. \-- Monitor for possible fungal or additional mycobacterial infections, given immunocompromised state (weight loss, thrush). \-- Continue supportive care for cachexia and weakness. \-- Monitor for potential complications from cephalic vein thrombi. Isolation Precautions: Airborne isolation for tuberculosis. \*Assessment and plan was discussed with the patient as written above. \*Plan is subject to change pending incorporation of new incoming informatio n/diagnostics. Updates may be added as addendum at the bottom (OR TOP) of this note. Thank you for interesting consult. ID will continue to follow. Please contact Infectious Disease for any questions or concerns. Carrillo Menchaca M.D. [facility] Ph: ? \ History: The patient's chart and medications were reviewed in detail and the patient was seen and examined. History obtained from: patient and family. Nori Norwood is a 74 y.o. male with a history of asthma, presenting with progressive weakness, chronic cough, new hemoptysis (1 day), dysphagia, and ~35- pound weight loss. Lives with multiple family and non-family members. Chronic cough prompted admission. Noted to be a daily tobacco smoker and regular alcohol drinker. No recent travel to [place] (born there but has not visited in decades), no sick contacts or homelessness. On admission, found to have thrush, palpable right anterior neck mass, hypoxemia, cachexia, with laboratory, imaging, and pathology findings consistent with disseminated tuberculosis. Review of Systems: A complete 10-system review of systems was completed and negative except as noted in the HPI or here. ROS: -CONSTITUTIONAL: Positive for weight loss and weakness. -HEENT: Positive for dysphagia; thrush on exam. -RESPIRATORY: Positive for chronic cough, raspy voice, hemoptysis. -CV: Denies chest pain and palpitations. -GI: Denies abdominal pain, nausea, vomiting, and diarrhea. -: Denies dysuria and urinary frequency. -MSK: Positive for weakness in upper and lower extremities. -SKIN: Not discussed. -NEUROLOGICAL: Difficulty speaking, disoriented x4 on exam. -PSYCHIATRIC: Not discussed. Past Medical History: Past Medical History: Diagnosis Date Asthma Chronic cough Dysphagia Past Surgical History: Not provided in transcript. Home Medications: Not provided in transcript. Allergies: Not provided in transcript. Family History: Not provided in transcript. Social History: -Tobacco: Daily use, heavy tobacco smoker. -Alcohol: Regular use. -Living situation: With multiple family and non-family members. -Born in [place], but no recent travel. No history of homelessness. No sick contacts. Objective: Vital Signs on Arrival: Temp: Not provided. BP: 128/61 Pulse: 132 Resp: 24 SpO2: 94% on 2L nasal cannula Most Recent Vital Signs: Not provided. Admission Weight: 54.4 kg (Weight loss of approximately 35 lbs reported.) Physical Exam: General: Cachectic, NAD Neck: Palpable lump on anterior neck above the thyroid gland. HEENT: White thrush on lips and tongue. PERRL. Normal lids and conjunctiva. Moist mucous membranes. Oropharynx without lesions, exudates or excessive erythema otherwise. Normal appearance of the external aspects of the nose and ears. Heart: Regular rhythm, normal rate. No murmur. No lower extremity edema. Lungs: Coarse breath sounds, diminished breath sounds bilaterally in upper lobes. Normal respiratory effort. No wheezes. No crackles. Abdomen: Soft. Non-tender. Non-distended. No masses or abdominal hernia. Msk: Upper and lower extremity weakness, strength 3/5 bilaterally. No digital cyanosis. Normal tone in all 4 limbs. Skin: Warm and dry, no rashes. Neuro: Disoriented x4. Alert. No facial droop or slurred speech. Extra-ocular movements intact. Sensation intact to soft touch in all 4 limbs. Psych: Not discussed on exam. Lines: Not provided in transcript. Diagnostic Studies: Available diagnostic studies were reviewed personally. Significant relevant results and findings are outlined below or addressed in the Assessment and Plan above. Pertinent Imaging: -Chest X-ray: Bilateral envelope infiltrates/consolidations in upper lobes. -CT angiography: No PE. Bilateral patchy consolidations, mediastinal and high- level lymphadenopathy, small bilateral pleural effusions. -Soft tissue neck CT: 10 mm right cervical jugular lymph node. Laboratory: -WBC: 10.1 -Hemoglobin: 11.3 -BUN: 7 -Creatinine: 0.52 -AST: 22 -ALT: 12 -Alk phos: 94 -QuantiFERON gold: Positive -AFB x2: Positive -HIV: Negative -Blood cultures: No growth Other studies: -Lymph node biopsy: Consistent with tuberculosis. -Cephalic vein thrombi bilaterally seen. Plan discussed with: Patient CARRILLO MENCHACA MD Jan 06, 2025 23:10
[2025-01-06] MEDS: POTASSIUM CHLORIDE 20 MEQ, LIDOCAINE 1% (LOCAL ANESTH.) 2 ML in SODIUM CHL 0.9% 100 ML IV ONE (23:55)
[2025-01-07 04:42] LABS: Hemoglobin 8.7 g/dL (13.5-17.5); Nucleated Red Blood Cells % 0.0 %
[2025-01-07 04:44] LABS: Hematocrit 27.0 % (41.0-53.0); Mean Corpuscular Hemoglobin 24.9 pg (28.0-32.0); Mean Corpuscular Volume 77.8 fL (80.0-100.0)
[2025-01-07 05:04] LABS: Alanine Aminotransferase 12 U/L (7-40); Alkaline Phosphatase 94 U/L (46-116); Anion Gap 11 (5-15); BUN/Creatinine Ratio 13.5 (10.0-20.0); Carbon Dioxide 22 mmol/L (20-31); Sodium 141 mmol/L (136-145)
[2025-01-07 05:05] LABS: Bilirubin, Total 0.4 mg/dL (0.2-1.0)
[2025-01-07 05:06] LABS: Albumin 2.3 g/dL (3.2-4.8); Blood Urea Nitrogen 7 mg/dL (9-23); Calcium 7.5 mg/dL (8.7-10.4); Chloride 108 mmol/L (98-107); Glucose 73 mg/dL (74-106); Potassium 3.4 mmol/L (3.5-5.1); Total Protein 5.0 g/dL (5.7-8.2)
[2025-01-07] MEDS: VANCOMYCIN 1.25GM/250ML 250 ML IV SCH ×2 (07:09→15:31)
[2025-01-07 08:00] VITALS: PULSE 88; RESP 28; O2SAT 94
[2025-01-07] MEDS: POTASSIUM CHLORIDE 20 MEQ, LIDOCAINE 1% (LOCAL ANESTH.) 2 ML in SODIUM CHL 0.9% 100 ML IV ONE (08:31)
[2025-01-07 16:52] VITALS: BP 146/78; PULSE 83; RESP 18; TEMP 97.2; O2SAT 90
--- NOTE | 2025-01-07 17:04 | DVHPN2 ---
Progress Note - Dictate Date Seen: Jan 07, 2025 Medical Necessity Reason Pt with a Central, PICC or Fol: No vital signs Vital Sign Date Time Temp Pulse Resp B/P (MAP) Pulse Ox O2 Delivery O2 Flow Rate FiO2 01/07/25 14:00 80 22 132/67 (88) 95 01/07/25 13:00 98.2 98.2 01/07/25 08:00 Room Air* 0 21 Total Intake and Output 01/06/25 01/06/25 01/07/25 15:00 23:00 07:00 Intake Total 435 ml 631.235 ml Balance 435 ml 631.235 ml medications Current Medications Medications Dose Ordered Sig/Paco Route Start Time Stop Time Status Last Admin Dose Admin Ondansetron HCl 4 mg Q4HP PRN IV 01/05/25 15:30 Docusate Sodium 100 mg BIDPRN PRN PO 01/05/25 15:30 Morphine Sulfate 2 mg Q4HPRN PRN IV 01/05/25 15:30 Enoxaparin Sodium 40 mg DAILY SC 01/05/25 15:30 01/07/25 10:49 40 MG Nitroglycerin 0.4 mg Q5MINP PRN SL 01/05/25 15:30 Vancomycin HCl 0 ml @ 0 mls/hr UD IV 01/05/25 15:30 Piperacillin Sod/ Tazobactam Sod 100 ml @ 25 mls/hr Q8H IV 01/06/25 00:00 01/07/25 10:48 25 MLS/HR Pantoprazole Sodium 40 mg DAILY IV 01/06/25 10:00 01/07/25 10:49 40 MG Folic Acid 1 mg/ Magnesium Sulfate 8 meq/ Multivitamins 10 ml/Thiamine HCl 100 mg/Sodium Chloride 1,013.2 ml @ 126.247 mls/hr DAILY@1800 INJ 01/05/25 18:00 01/06/25 22:00 126.247 MLS/HR Sodium Chloride 1,000 ml @ 70 mls/hr [id number] IV 01/06/25 22:15 01/07/25 08:45 70 MLS/HR Vancomycin HCl 250 ml @ 200 mls/hr DAILY@1500 IV 01/07/25 15:00 01/07/25 15:31 200 MLS/HR laboratory and microbiology Laboratory Tests 01/07/25 04:30 Test 01/07/25 04:30 Range/Units Serum Glucose 73 L 74-106 mg/dL Assessment/Plan Impression Rule out tuberculosis Pneumonia Lung cavities Atelectasis Patient seen and examined Events Low oxygen requirements On room air No distress Isolated for ? TB Labs and imaging reviewed CT of the chest shows: Patchy bilateral consolidation with an upper lobe predominance and superimposed cavitation. Mediastinal and hilar lymphadenopathy. Small bilateral pleural effusions. No evidence of pulmonary embolism Management Supplemental oxygen as needed Titrate to maintain sats 90% or above Incentive spirometry Broad spectrum antibiotics Recommend ID input Bronchodilators Monitor renal function Monitor electrolytes Supplement as needed DVT prophylaxis Plan discussed with: Patient VANESSA DAWSNO MD Jan 07, 2025 17:04
--- NOTE | 2025-01-07 17:09 | DVHPN2 ---
Subjective I am assuming the care of the patient from today onwards. Patient is currently on contact and respiratory reverse isolation for ruling out tuberculosis. Changes from previous H/P or p: No Changes Eyes: No Pain, No Vision change, No Conjunctivae inflammation, No Eyelid inflammation, No Other, No Redness ENT: No Ear pain, No Ear discharge, No Nose pain, No Nose discharge, No Nose congestion; Mouth pain; No Mouth swelling; Throat pain; No Throat swelling, No Other Cardiovascular: Chest Pain; No Palpitations, No Orthopnea, No Paroxysmal Noc. Dyspnea, No Edema, No Lt Headedness, No Other Respiratory: Cough; No Dry; Shortness of breath, SOB with excertion; No Wheezing, No Hemoptysis, No Pleuritic Pain, No Sputum, No Other Gastrointestinal: No Nausea, No Vomiting, No Abdominal Pain, No Diarrhea, No Constipation, No Melena, No Hematochezia, No Other Genitourinary: No Dysuria, No Frequency, No Incontinence, No Hematuria, No Retention, No Other Musculoskeletal: No other, No neck pain, No shoulder pain, No arm pain, No back pain, No hand pain, No leg pain, No foot pain Skin: No Rash, No Lesions, No Jaundice, No Bruising, No Other Objective Vitals Vital Signs Date Time Temp Pulse Resp B/P (MAP) Pulse Ox O2 Delivery O2 Flow Rate FiO2 01/07/25 15:00 85 16 138/76 (96) 97 01/07/25 13:00 98.2 98.2 01/07/25 08:00 Room Air* 0 21 Intake/Output Intake and Output 01/07/25 07:00 Intake Total 1066.235 ml Balance 1066.235 ml Intake IV Total 1066.235 ml Medications Current Medications Medications Dose Ordered Sig/Paco Route Start Time Stop Time Status Last Admin Dose Admin Ondansetron HCl 4 mg Q4HP PRN IV 01/05/25 15:30 Docusate Sodium 100 mg BIDPRN PRN PO 01/05/25 15:30 Morphine Sulfate 2 mg Q4HPRN PRN IV 01/05/25 15:30 Enoxaparin Sodium 40 mg DAILY SC 01/05/25 15:30 01/07/25 10:49 40 MG Nitroglycerin 0.4 mg Q5MINP PRN SL 01/05/25 15:30 Vancomycin HCl 0 ml @ 0 mls/hr UD IV 01/05/25 15:30 Piperacillin Sod/ Tazobactam Sod 100 ml @ 25 mls/hr Q8H IV 01/06/25 00:00 01/07/25 10:48 25 MLS/HR Pantoprazole Sodium 40 mg DAILY IV 01/06/25 10:00 01/07/25 10:49 40 MG Folic Acid 1 mg/ Magnesium Sulfate 8 meq/ Multivitamins 10 ml/Thiamine HCl 100 mg/Sodium Chloride 1,013.2 ml @ 126.247 mls/hr DAILY@1800 INJ 01/05/25 18:00 01/06/25 22:00 126.247 MLS/HR Sodium Chloride 1,000 ml @ 70 mls/hr [id number] IV 01/06/25 22:15 01/07/25 08:45 70 MLS/HR Vancomycin HCl 250 ml @ 200 mls/hr DAILY@1500 IV 01/07/25 15:00 01/07/25 15:31 200 MLS/HR Laboratory Results Laboratory Tests 01/07/25 04:30 Chemistry Test 01/07/25 04:30 Albumin 2.3 g/dL (3.2-4.8) L Calcium Level 7.5 mg/dL (8.7-10.4) L Total Protein 5.0 g/dL (5.7-8.2) L LFT Test 01/07/25 04:30 Alanine Aminotransferase (ALT) 12 U/L (7-40) Alkaline Phosphatase 94 U/L (46-116) Aspartate Amino Transferase (AST) 22 U/L (13-40) Total Bilirubin 0.4 mg/dL (0.2-1.0) Urinalysis Test 01/05/25 15:50 Urine Color Yellow (Yellow) Urine Clarity Turbid (Clear) H Urine pH 5.5 (5.0-9.0) Urine Specific [place] 1.023 (1.001-1.035) Urine Protein 1+ (Negative) H Urine Ketones Negative (Negative) Urine Blood Negative /uL (Negative) Urine Nitrite Negative (Negative) Urine Bilirubin 1+ (Negative) Urine Urobilinogen 4 mg/dL (Negative) H Urine Leukocyte Esterase Negative /uL (Negative) Urine RBC 2 /hpf (0 - 3) Urine Microscopic WBC < 1 /HPF (0-3) Urine Squamous Epithelial Cells Few /hpf (<5) Urine Bacteria None seen /hpf (None Seen) Urine Hyaline Casts Few /lpf (0 - 2) Urine Mucus Few (None Seen) Urine Glucose Normal mg/dL (Normal) Microbiology Microbiology Date/Time Source Procedure Growth Status 01/05/25 13:32 Blood Blood Culture - Preliminary NO GROWTH AFTER 48 HOURS OF INCUBATION. Resulted Assessment/Plan Assessment/Plan 74-year-old male with a known history of asthma, presented to the hospital with a five month history of progressive throat pain neck pain, persistent cough raspy voice, unintentional weight loss of 35 lb with a known history of chronic tobacco use disorder found to have 1. Acute hypoxic respiratory failure secondary to bilateral upper lobe consolidation/cavitary lesions 2. Bilateral upper lobe consolidation 3. Bilateral lung cavities rule out atypical infection, rule out tuberculosis, rule out malignancy 4. Mediastinal lymphadenopathy 5 thrombocytosis likely reactive 6. Chronic tobacco use disorder 8. Chronic alcoholism 9. Iron-deficiency anemia -reverse isolation, rule out tuberculosis, follow up sputum for AFB, QuantiFERON TB test -pulmonary consultation and Infectious Disease consultation. Plan discussed with: Patient, Other Date of Service: Jan 07, 2025 Billing Provider: DOLLY LEZAMA MD Common Visit Codes: [id number] INP/OBS CARE(MOD) DOLLY LEZAMA MD Jan 07, 2025 17:09
[2025-01-07 17:30] VITALS: BP 146/78; PULSE 83; RESP 18; TEMP 97.2; O2SAT 90
[2025-01-07 20:00] VITALS: PULSE 87; RESP 18; O2SAT 98
[2025-01-07 21:00] VITALS: BP 159/90; PULSE 93; RESP 18; TEMP 98.1; O2SAT 97
[2025-01-08] VITALS (9 sets, daily range): BP systolic 108–162; BP diastolic 64–85; PULSE 72–103; RESP 15–20; TEMP 97.5–99; O2SAT 93–100
--- NOTE | 2025-01-08 12:40 | DVHPN2 ---
Subjective Patient is currently on contact and respiratory reverse isolation for ruling out tuberculosis. Also audible was hypoxic requiring 2 L of oxygen by continuous nasal cannula. Changes from previous H/P or p: No Changes Eyes: No Pain, No Vision change, No Conjunctivae inflammation, No Eyelid inflammation, No Other, No Redness ENT: No Ear pain, No Ear discharge, No Nose pain, No Nose discharge, No Nose congestion; Mouth pain; No Mouth swelling; Throat pain; No Throat swelling, No Other Cardiovascular: Chest Pain; No Palpitations, No Orthopnea, No Paroxysmal Noc. Dyspnea, No Edema, No Lt Headedness, No Other Respiratory: Cough; No Dry; Shortness of breath, SOB with excertion; No Wheezing, No Hemoptysis, No Pleuritic Pain, No Sputum, No Other Gastrointestinal: No Nausea, No Vomiting, No Abdominal Pain, No Diarrhea, No Constipation, No Melena, No Hematochezia, No Other Genitourinary: No Dysuria, No Frequency, No Incontinence, No Hematuria, No Retention, No Other Musculoskeletal: No other, No neck pain, No shoulder pain, No arm pain, No back pain, No hand pain, No leg pain, No foot pain Skin: No Rash, No Lesions, No Jaundice, No Bruising, No Other Objective Vitals Vital Signs Date Time Temp Pulse Resp B/P (MAP) Pulse Ox O2 Delivery O2 Flow Rate FiO2 01/08/25 08:56 103 140/70 (93) 94 01/08/25 08:35 97.8 20 97.8 01/08/25 08:00 Room Air* 0 21 Intake/Output Intake and Output 01/08/25 07:00 Intake Total 2202 ml Balance 2202 ml Intake Oral 1500 ml IV Total 702 ml # Voids 10 # Bowel Movements 4 Medications Current Medications Medications Dose Ordered Sig/Paco Route Start Time Stop Time Status Last Admin Dose Admin Ondansetron HCl 4 mg Q4HP PRN IV 01/05/25 15:30 Docusate Sodium 100 mg BIDPRN PRN PO 01/05/25 15:30 Morphine Sulfate 2 mg Q4HPRN PRN IV 01/05/25 15:30 Enoxaparin Sodium 40 mg DAILY SC 01/05/25 15:30 01/08/25 08:41 40 MG Nitroglycerin 0.4 mg Q5MINP PRN SL 01/05/25 15:30 Vancomycin HCl 0 ml @ 0 mls/hr UD IV 01/05/25 15:30 Piperacillin Sod/ Tazobactam Sod 100 ml @ 25 mls/hr Q8H IV 01/06/25 00:00 01/08/25 08:41 25 MLS/HR Pantoprazole Sodium 40 mg DAILY IV 01/06/25 10:00 01/08/25 08:41 40 MG Folic Acid 1 mg/ Magnesium Sulfate 8 meq/ Multivitamins 10 ml/Thiamine HCl 100 mg/Sodium Chloride 1,013.2 ml @ 126.247 mls/hr DAILY@1800 INJ 01/05/25 18:00 01/07/25 18:04 126.247 MLS/HR Sodium Chloride 1,000 ml @ 70 mls/hr [id number] IV 01/06/25 22:15 01/08/25 02:51 70 MLS/HR Vancomycin HCl 250 ml @ 200 mls/hr DAILY@1500 IV 01/07/25 15:00 01/07/25 15:31 200 MLS/HR Laboratory Results Laboratory Tests 01/07/25 04:30 Urinalysis Test 01/05/25 15:50 Urine Color Yellow (Yellow) Urine Clarity Turbid (Clear) H Urine pH 5.5 (5.0-9.0) Urine Specific [place] 1.023 (1.001-1.035) Urine Protein 1+ (Negative) H Urine Ketones Negative (Negative) Urine Blood Negative /uL (Negative) Urine Nitrite Negative (Negative) Urine Bilirubin 1+ (Negative) Urine Urobilinogen 4 mg/dL (Negative) H Urine Leukocyte Esterase Negative /uL (Negative) Urine RBC 2 /hpf (0 - 3) Urine Microscopic WBC < 1 /HPF (0-3) Urine Squamous Epithelial Cells Few /hpf (<5) Urine Bacteria None seen /hpf (None Seen) Urine Hyaline Casts Few /lpf (0 - 2) Urine Mucus Few (None Seen) Urine Glucose Normal mg/dL (Normal) Microbiology Microbiology Date/Time Source Procedure Growth Status 01/05/25 13:32 Blood Blood Culture - Preliminary NO GROWTH AFTER 48 HOURS OF INCUBATION. Resulted Assessment/Plan Assessment/Plan 74-year-old male with a known history of asthma, presented to the hospital with a five month history of progressive throat pain neck pain, persistent cough raspy voice, unintentional weight loss of 35 lb with a known history of chronic tobacco use disorder found to have 1. Acute hypoxic respiratory failure secondary to bilateral upper lobe consolidation/cavitary lesions 2. Bilateral upper lobe consolidation 3. Bilateral lung cavities rule out atypical infection, rule out tuberculosis, rule out malignancy 4. Mediastinal lymphadenopathy 5 thrombocytosis likely reactive 6. Chronic tobacco use disorder 8. Chronic alcoholism 9. Iron-deficiency anemia -reverse isolation, rule out tuberculosis, follow up sputum for AFB, QuantiFERON TB test -pulmonary consultation and Infectious Disease consultation. -pulmonary is considering bronchoscopy. Plan discussed with: Other (Patient's bedside RN) My Orders Orders - DOLLY LEZAMA MD Procedure Category Date Status Time Mechanical Soft Diet DIET 01/08/25 Transmitted Breakfast Date of Service: Jan 08, 2025 Billing Provider: DOLLY LEZAMA MD Common Visit Codes: [id number] INP/OBS CARE(MOD) DOLLY LEZAMA MD Jan 08, 2025 12:40
--- NOTE | 2025-01-08 15:56 | DVHPN2 ---
Progress Note - Dictate Date Seen: Jan 08, 2025 Medical Necessity Reason Pt with a Central, PICC or Fol: No vital signs Vital Sign Date Time Temp Pulse Resp B/P (MAP) Pulse Ox O2 Delivery O2 Flow Rate FiO2 01/08/25 13:00 99.0 93 20 123/72 (89) 95 99.0 01/08/25 08:00 Room Air* 0 21 Total Intake and Output 01/07/25 01/07/25 01/08/25 15:00 23:00 07:00 Intake Total 632 ml 370 ml 1200 ml Balance 632 ml 370 ml 1200 ml medications Current Medications Medications Dose Ordered Sig/Paco Route Start Time Stop Time Status Last Admin Dose Admin Ondansetron HCl 4 mg Q4HP PRN IV 01/05/25 15:30 Docusate Sodium 100 mg BIDPRN PRN PO 01/05/25 15:30 Morphine Sulfate 2 mg Q4HPRN PRN IV 01/05/25 15:30 Enoxaparin Sodium 40 mg DAILY SC 01/05/25 15:30 01/08/25 08:41 40 MG Nitroglycerin 0.4 mg Q5MINP PRN SL 01/05/25 15:30 Vancomycin HCl 0 ml @ 0 mls/hr UD IV 01/05/25 15:30 Piperacillin Sod/ Tazobactam Sod 100 ml @ 25 mls/hr Q8H IV 01/06/25 00:00 01/08/25 08:41 25 MLS/HR Pantoprazole Sodium 40 mg DAILY IV 01/06/25 10:00 01/08/25 08:41 40 MG Sodium Chloride 1,000 ml @ 70 mls/hr [id number] IV 01/06/25 22:15 01/08/25 15:49 70 MLS/HR Vancomycin HCl 250 ml @ 200 mls/hr DAILY@1500 IV 01/07/25 15:00 01/08/25 15:16 200 MLS/HR Folic Acid 1 mg DAILY PO 01/09/25 10:00 Multivitamins 1 tab DAILY PO 01/09/25 10:00 Magnesium Oxide 400 mg DAILY PO 01/09/25 10:00 Thiamine HCl 100 mg DAILY PO 01/09/25 10:00 laboratory and microbiology Laboratory Tests 01/07/25 04:30 Test 01/07/25 04:30 Range/Units Serum Glucose 73 L 74-106 mg/dL Assessment/Plan Impression Rule out tuberculosis Pneumonia Lung cavities Atelectasis Patient seen and examined Events Low oxygen requirements On room air No distress Isolated for ? TB Labs and imaging reviewed CT of the chest shows: Patchy bilateral consolidation with an upper lobe predominance and superimposed cavitation. Mediastinal and hilar lymphadenopathy. Small bilateral pleural effusions. No evidence of pulmonary embolism Management Supplemental oxygen as needed Titrate to maintain sats 90% or above Incentive spirometry Broad spectrum antibiotics Recommend ID input Suspected TB vs fungal disease Bronchodilators Monitor renal function Monitor electrolytes Supplement as needed DVT prophylaxis Plan discussed with: Patient VANESSA DAWSON MD Jan 08, 2025 15:56
[2025-01-08] MEDS: MULTIPLE VITAMIN TAB PO ONE (16:51)
[2025-01-08] MEDS: FOLIC ACID 1 MG TAB PO ONE (16:51)
[2025-01-08] MEDS: MAGNESIUM OXIDE 400 MG TAB PO ONE (16:51)
[2025-01-08] MEDS: THIAMINE HCL 100 MG TAB PO ONE (16:51)
[2025-01-09] VITALS (8 sets, daily range): BP systolic 112–156; BP diastolic 60–97; PULSE 78–127; RESP 15–20; TEMP 97.8–98.3; O2SAT 92–96
[2025-01-09] MEDS: MULTIPLE VITAMIN TAB PO SCH (09:32)
[2025-01-09] MEDS: MAGNESIUM OXIDE 400 MG TAB PO SCH (09:33)
[2025-01-09] MEDS: THIAMINE HCL 100 MG TAB PO SCH (09:33)
[2025-01-09] MEDS: FOLIC ACID 1 MG TAB PO SCH (09:33)
--- NOTE | 2025-01-09 12:34 | DVHPN2 ---
Progress Note - Dictate Date Seen: Jan 09, 2025 Medical Necessity Reason Pt with a Central, PICC or Fol: No vital signs Vital Sign Date Time Temp Pulse Resp B/P (MAP) Pulse Ox O2 Delivery O2 Flow Rate FiO2 01/09/25 08:52 97.9 121 20 140/71 (94) 93 97.9 01/09/25 08:00 Room Air* 0 21 Total Intake and Output 01/08/25 01/08/25 01/09/25 15:00 23:00 07:00 Intake Total 100 ml 1400 ml 150 ml Balance 100 ml 1400 ml 150 ml medications Current Medications Medications Dose Ordered Sig/Paco Route Start Time Stop Time Status Last Admin Dose Admin Ondansetron HCl 4 mg Q4HP PRN IV 01/05/25 15:30 Docusate Sodium 100 mg BIDPRN PRN PO 01/05/25 15:30 Morphine Sulfate 2 mg Q4HPRN PRN IV 01/05/25 15:30 Enoxaparin Sodium 40 mg DAILY SC 01/05/25 15:30 01/09/25 09:33 40 MG Nitroglycerin 0.4 mg Q5MINP PRN SL 01/05/25 15:30 Vancomycin HCl 0 ml @ 0 mls/hr UD IV 01/05/25 15:30 Piperacillin Sod/ Tazobactam Sod 100 ml @ 25 mls/hr Q8H IV 01/06/25 00:00 01/09/25 09:32 25 MLS/HR Pantoprazole Sodium 40 mg DAILY IV 01/06/25 10:00 01/09/25 09:32 40 MG Sodium Chloride 1,000 ml @ 70 mls/hr [id number] IV 01/06/25 22:15 01/08/25 15:49 70 MLS/HR Vancomycin HCl 250 ml @ 200 mls/hr DAILY@1500 IV 01/07/25 15:00 01/08/25 15:16 200 MLS/HR Folic Acid 1 mg DAILY PO 01/09/25 10:00 01/09/25 09:33 1 MG Multivitamins 1 tab DAILY PO 01/09/25 10:00 01/09/25 09:32 1 TAB Magnesium Oxide 400 mg DAILY PO 01/09/25 10:00 01/09/25 09:33 400 MG Thiamine HCl 100 mg DAILY PO 01/09/25 10:00 01/09/25 09:33 100 MG laboratory and microbiology Laboratory Tests 01/09/25 09:14 01/07/25 04:30 Test 01/07/25 04:30 Range/Units Serum Glucose 73 L 74-106 mg/dL Assessment/Plan Impression Rule out tuberculosis Pneumonia Lung cavities Atelectasis Patient seen and examined Events Low oxygen requirements On room air No distress Isolated for ? TB Labs and imaging reviewed CT of the chest shows: Patchy bilateral consolidation with an upper lobe predominance and superimposed cavitation. Mediastinal and hilar lymphadenopathy. Small bilateral pleural effusions. No evidence of pulmonary embolism Management Supplemental oxygen as needed Titrate to maintain sats 90% or above Incentive spirometry Broad spectrum antibiotics Recommend ID input Suspected TB vs fungal disease Bronchodilators Monitor renal function Monitor electrolytes Supplement as needed DVT prophylaxis Plan discussed with: Patient VANESSA DAWSON MD Jan 09, 2025 12:33
[2025-01-09 12:55] LABS: Chloride 106 mmol/L (98-107); Sodium 137 mmol/L (136-145)
[2025-01-09 12:56] LABS: Anion Gap 12 (5-15)
[2025-01-09 13:01] LABS: Glucose 77 mg/dL (74-106)
[2025-01-09 13:02] LABS: Magnesium 1.8 mg/dL (1.6-2.6)
[2025-01-09 13:04] LABS: BUN/Creatinine Ratio 8.5 (10.0-20.0); Blood Urea Nitrogen < 5 mg/dL (9-23); Calcium 8.0 mg/dL (8.7-10.4); Carbon Dioxide 19 mmol/L (20-31); Potassium 3.4 mmol/L (3.5-5.1)
[2025-01-09 13:55] LABS: Hematocrit 32.0 % (41.0-53.0); Hemoglobin 9.3 g/dL (13.5-17.5); Mean Corpuscular Hemoglobin 24.4 pg (28.0-32.0); Mean Corpuscular Volume 83.8 fL (80.0-100.0); Nucleated Red Blood Cells % 0.2 %
--- NOTE | 2025-01-09 15:47 | DVHPN2 ---
Subjective Patient is currently on contact and respiratory reverse isolation for ruling out tuberculosis. Also audible was hypoxic requiring 2 L of oxygen by continuous nasal cannula. So far none of the sputum sample has been sent. Changes from previous H/P or p: No Changes Eyes: No Pain, No Vision change, No Conjunctivae inflammation, No Eyelid inflammation, No Other, No Redness ENT: No Ear pain, No Ear discharge, No Nose pain, No Nose discharge, No Nose congestion; Mouth pain; No Mouth swelling; Throat pain; No Throat swelling, No Other Cardiovascular: Chest Pain; No Palpitations, No Orthopnea, No Paroxysmal Noc. Dyspnea, No Edema, No Lt Headedness, No Other Respiratory: Cough; No Dry; Shortness of breath, SOB with excertion; No Wheezing, No Hemoptysis, No Pleuritic Pain, No Sputum, No Other Gastrointestinal: No Nausea, No Vomiting, No Abdominal Pain, No Diarrhea, No Constipation, No Melena, No Hematochezia, No Other Genitourinary: No Dysuria, No Frequency, No Incontinence, No Hematuria, No Retention, No Other Musculoskeletal: No other, No neck pain, No shoulder pain, No arm pain, No back pain, No hand pain, No leg pain, No foot pain Skin: No Rash, No Lesions, No Jaundice, No Bruising, No Other Objective Vitals Vital Signs Date Time Temp Pulse Resp B/P (MAP) Pulse Ox O2 Delivery O2 Flow Rate FiO2 01/09/25 13:00 98.0 96 18 124/68 (86) 96 98.0 01/09/25 08:00 Room Air* 0 21 Intake/Output Intake and Output 01/09/25 07:00 Intake Total 1650 ml Balance 1650 ml Intake Oral 1300 ml IV Total 350 ml # Voids 7 # Bowel Movements 2 Medications Current Medications Medications Dose Ordered Sig/Paco Route Start Time Stop Time Status Last Admin Dose Admin Ondansetron HCl 4 mg Q4HP PRN IV 01/05/25 15:30 Docusate Sodium 100 mg BIDPRN PRN PO 01/05/25 15:30 Morphine Sulfate 2 mg Q4HPRN PRN IV 01/05/25 15:30 Enoxaparin Sodium 40 mg DAILY SC 01/05/25 15:30 01/09/25 09:33 40 MG Nitroglycerin 0.4 mg Q5MINP PRN SL 01/05/25 15:30 Vancomycin HCl 0 ml @ 0 mls/hr UD IV 01/05/25 15:30 Piperacillin Sod/ Tazobactam Sod 100 ml @ 25 mls/hr Q8H IV 01/06/25 00:00 01/09/25 09:32 25 MLS/HR Pantoprazole Sodium 40 mg DAILY IV 01/06/25 10:00 01/09/25 09:32 40 MG Sodium Chloride 1,000 ml @ 70 mls/hr [id number] IV 01/06/25 22:15 01/08/25 15:49 70 MLS/HR Vancomycin HCl 250 ml @ 200 mls/hr DAILY@1500 IV 01/07/25 15:00 01/09/25 15:16 200 MLS/HR Folic Acid 1 mg DAILY PO 01/09/25 10:00 01/09/25 09:33 1 MG Multivitamins 1 tab DAILY PO 01/09/25 10:00 01/09/25 09:32 1 TAB Magnesium Oxide 400 mg DAILY PO 01/09/25 10:00 01/09/25 09:33 400 MG Thiamine HCl 100 mg DAILY PO 01/09/25 10:00 01/09/25 09:33 100 MG Laboratory Results Laboratory Tests 01/09/25 09:14 01/09/25 13:09 Chemistry Test 01/09/25 09:14 Calcium Level 8.0 mg/dL (8.7-10.4) L Magnesium Level 1.8 mg/dL (1.6-2.6) Urinalysis Test 01/05/25 15:50 Urine Color Yellow (Yellow) Urine Clarity Turbid (Clear) H Urine pH 5.5 (5.0-9.0) Urine Specific [place] 1.023 (1.001-1.035) Urine Protein 1+ (Negative) H Urine Ketones Negative (Negative) Urine Blood Negative /uL (Negative) Urine Nitrite Negative (Negative) Urine Bilirubin 1+ (Negative) Urine Urobilinogen 4 mg/dL (Negative) H Urine Leukocyte Esterase Negative /uL (Negative) Urine RBC 2 /hpf (0 - 3) Urine Microscopic WBC < 1 /HPF (0-3) Urine Squamous Epithelial Cells Few /hpf (<5) Urine Bacteria None seen /hpf (None Seen) Urine Hyaline Casts Few /lpf (0 - 2) Urine Mucus Few (None Seen) Urine Glucose Normal mg/dL (Normal) Microbiology Microbiology Date/Time Source Procedure Growth Status 01/05/25 13:32 Blood Blood Culture - Preliminary NO GROWTH AFTER 72 HOURS OF INCUBATION. Resulted Assessment/Plan Assessment/Plan 74-year-old male with a known history of asthma, presented to the hospital with a five month history of progressive throat pain neck pain, persistent cough raspy voice, unintentional weight loss of 35 lb with a known history of chronic tobacco use disorder found to have 1. Acute hypoxic respiratory failure secondary to bilateral upper lobe consolidation/cavitary lesions 2. Bilateral upper lobe consolidation 3. Bilateral lung cavities rule out atypical infection, rule out tuberculosis, rule out malignancy 4. Mediastinal lymphadenopathy 5 thrombocytosis likely reactive 6. Chronic tobacco use disorder 8. Chronic alcoholism 9. Iron-deficiency anemia -reverse isolation, rule out tuberculosis, follow up sputum for AFB, QuantiFERON TB test -pulmonary consultation and Infectious Disease consultation. -pulmonary is considering bronchoscopy. Plan discussed with: Other My Orders Orders - DOLLY LEZAMA MD Procedure Category Date Status Time Basic Metabolic Panel LAB 01/10/25 Verified 06:00 Complete Blood Count LAB 01/10/25 Verified 06:00 Magnesium LAB 01/10/25 Verified 06:00 Date of Service: Jan 09, 2025 Billing Provider: DOLLY LEZAMA MD Common Visit Codes: [id number] DISCH DAY >30min DOLLY LEZAMA MD Jan 09, 2025 15:47
[2025-01-09] MEDS: POTASSIUM EFFERVESENT TAB 25 MEQ PO ONE (16:09)
[2025-01-10] VITALS (8 sets, daily range): BP systolic 122–148; BP diastolic 58–93; PULSE 68–134; RESP 17–18; TEMP 97.7–98; O2SAT 91–96
[2025-01-10 10:44] LABS: Nucleated Red Blood Cells % 0.0 %
[2025-01-10 10:46] LABS: Hematocrit 29.1 % (41.0-53.0); Hemoglobin 9.2 g/dL (13.5-17.5); Mean Corpuscular Hemoglobin 24.5 pg (28.0-32.0); Mean Corpuscular Volume 77.6 fL (80.0-100.0)
[2025-01-10 10:52] LABS: Chloride 107 mmol/L (98-107); Sodium 138 mmol/L (136-145)
[2025-01-10 10:53] LABS: Anion Gap 8 (5-15); Carbon Dioxide 23 mmol/L (20-31)
[2025-01-10 10:58] LABS: Glucose 96 mg/dL (74-106)
[2025-01-10 10:59] LABS: BUN/Creatinine Ratio 7.9 (10.0-20.0); Magnesium 1.7 mg/dL (1.6-2.6)
[2025-01-10 11:02] LABS: Blood Urea Nitrogen 7 mg/dL (9-23); Calcium 7.5 mg/dL (8.7-10.4); Potassium 3.0 mmol/L (3.5-5.1)
--- NOTE | 2025-01-10 13:51 | DVHPN2 ---
Subjective Patient is currently on contact and respiratory reverse isolation for ruling out tuberculosis. Also audible was hypoxic requiring 2 L of oxygen by continuous nasal cannula. I was told that are too sputum samples were collected. Changes from previous H/P or p: No Changes Eyes: No Pain, No Vision change, No Conjunctivae inflammation, No Eyelid inflammation, No Other, No Redness ENT: No Ear pain, No Ear discharge, No Nose pain, No Nose discharge, No Nose congestion; Mouth pain; No Mouth swelling; Throat pain; No Throat swelling, No Other Cardiovascular: Chest Pain; No Palpitations, No Orthopnea, No Paroxysmal Noc. Dyspnea, No Edema, No Lt Headedness, No Other Respiratory: Cough; No Dry; Shortness of breath, SOB with excertion; No Wheezing, No Hemoptysis, No Pleuritic Pain, No Sputum, No Other Gastrointestinal: No Nausea, No Vomiting, No Abdominal Pain, No Diarrhea, No Constipation, No Melena, No Hematochezia, No Other Genitourinary: No Dysuria, No Frequency, No Incontinence, No Hematuria, No Retention, No Other Musculoskeletal: No other, No neck pain, No shoulder pain, No arm pain, No back pain, No hand pain, No leg pain, No foot pain Skin: No Rash, No Lesions, No Jaundice, No Bruising, No Other Objective Vitals Vital Signs Date Time Temp Pulse Resp B/P (MAP) Pulse Ox O2 Delivery O2 Flow Rate FiO2 01/10/25 09:00 98.0 111 17 148/68 (94) 92 98.0 01/10/25 08:36 2.0 28 01/09/25 20:00 Nasal Cannula* Intake/Output Intake and Output 01/10/25 07:00 Intake Total 1800 ml Balance 1800 ml Intake Oral 1450 ml IV Total 350 ml # Voids 5 # Bowel Movements 3 Medications Current Medications Medications Dose Ordered Sig/Paco Route Start Time Stop Time Status Last Admin Dose Admin Ondansetron HCl 4 mg Q4HP PRN IV 01/05/25 15:30 Docusate Sodium 100 mg BIDPRN PRN PO 01/05/25 15:30 Morphine Sulfate 2 mg Q4HPRN PRN IV 01/05/25 15:30 Enoxaparin Sodium 40 mg DAILY SC 01/05/25 15:30 01/10/25 08:53 40 MG Nitroglycerin 0.4 mg Q5MINP PRN SL 01/05/25 15:30 Vancomycin HCl 0 ml @ 0 mls/hr UD IV 01/05/25 15:30 Piperacillin Sod/ Tazobactam Sod 100 ml @ 25 mls/hr Q8H IV 01/06/25 00:00 01/10/25 08:53 25 MLS/HR Pantoprazole Sodium 40 mg DAILY IV 01/06/25 10:00 01/10/25 08:53 40 MG Sodium Chloride 1,000 ml @ 70 mls/hr [id number] IV 01/06/25 22:15 01/10/25 08:54 70 MLS/HR Vancomycin HCl 250 ml @ 200 mls/hr DAILY@1500 IV 01/07/25 15:00 01/09/25 15:16 200 MLS/HR Folic Acid 1 mg DAILY PO 01/09/25 10:00 01/10/25 08:53 1 MG Multivitamins 1 tab DAILY PO 01/09/25 10:00 01/10/25 08:53 1 TAB Magnesium Oxide 400 mg DAILY PO 01/09/25 10:00 01/10/25 08:53 400 MG Thiamine HCl 100 mg DAILY PO 01/09/25 10:00 01/10/25 08:53 100 MG Laboratory Results Laboratory Tests 01/10/25 10:06 Chemistry Test 01/10/25 10:06 Calcium Level 7.5 mg/dL (8.7-10.4) L Magnesium Level 1.7 mg/dL (1.6-2.6) Urinalysis Test 01/05/25 15:50 Urine Color Yellow (Yellow) Urine Clarity Turbid (Clear) H Urine pH 5.5 (5.0-9.0) Urine Specific [place] 1.023 (1.001-1.035) Urine Protein 1+ (Negative) H Urine Ketones Negative (Negative) Urine Blood Negative /uL (Negative) Urine Nitrite Negative (Negative) Urine Bilirubin 1+ (Negative) Urine Urobilinogen 4 mg/dL (Negative) H Urine Leukocyte Esterase Negative /uL (Negative) Urine RBC 2 /hpf (0 - 3) Urine Microscopic WBC < 1 /HPF (0-3) Urine Squamous Epithelial Cells Few /hpf (<5) Urine Bacteria None seen /hpf (None Seen) Urine Hyaline Casts Few /lpf (0 - 2) Urine Mucus Few (None Seen) Urine Glucose Normal mg/dL (Normal) Microbiology Microbiology Date/Time Source Procedure Growth Status 01/05/25 13:32 Blood Blood Culture - Final NO GROWTH AFTER 5 DAYS OF INCUBATION. Complete Assessment/Plan Assessment/Plan 74-year-old male with a known history of asthma, presented to the hospital with a five month history of progressive throat pain neck pain, persistent cough raspy voice, unintentional weight loss of 35 lb with a known history of chronic tobacco use disorder found to have 1. Acute hypoxic respiratory failure secondary to bilateral upper lobe consolidation/cavitary lesions 2. Bilateral upper lobe consolidation 3. Bilateral lung cavities rule out atypical infection, rule out tuberculosis, rule out malignancy 4. Mediastinal lymphadenopathy 5 thrombocytosis likely reactive 6. Chronic tobacco use disorder 8. Chronic alcoholism 9. Iron-deficiency anemia -reverse isolation, rule out tuberculosis, follow up sputum for AFB, QuantiFERON TB test -pulmonary consultation appreciated, consult infectious disease specialist. -pulmonary is considering bronchoscopy. 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 RT 01/09/25 Transmitted Order 15:33 Afb Cult/Smear Broth ANURAG 01/11/25 Logged Suscep 05:00 Afb Cult/Smear Broth ANURAG 01/12/25 Logged Suscep 05:00 Date of Service: Jan 10, 2025 Billing Provider: DOLLY LEZAMA MD Common Visit Codes: [id number] INP/OBS CARE(MOD) DOLLY LEZAMA MD Jan 10, 2025 13:51
--- NOTE | 2025-01-10 17:48 | MEDREC ---
[facility] ASP Intervention Section I [facility] ASP Intervention: Review courses of therapy (Please consider a MRSA nares, if negative result, can de-escalate vancomycin ) GIULIA SHOOK [facility] RESIDENT Jan 10, 2025 17:48
--- NOTE | 2025-01-10 18:25 | DVHPN2 ---
Progress Note - Dictate Date Seen: Jan 10, 2025 Medical Necessity Reason Pt with a Central, PICC or Fol: No vital signs Vital Sign Date Time Temp Pulse Resp B/P (MAP) Pulse Ox O2 Delivery O2 Flow Rate FiO2 01/10/25 17:00 97.9 76 17 133/58 (83) 93 97.9 01/10/25 08:36 2.0 28 01/10/25 08:00 Room Air* Total Intake and Output 01/09/25 01/09/25 01/10/25 15:00 23:00 07:00 Intake Total 300 ml 1100 ml 400 ml Balance 300 ml 1100 ml 400 ml medications Current Medications Medications Dose Ordered Sig/Paco Route Start Time Stop Time Status Last Admin Dose Admin Ondansetron HCl 4 mg Q4HP PRN IV 01/05/25 15:30 Docusate Sodium 100 mg BIDPRN PRN PO 01/05/25 15:30 Morphine Sulfate 2 mg Q4HPRN PRN IV 01/05/25 15:30 Enoxaparin Sodium 40 mg DAILY SC 01/05/25 15:30 01/10/25 08:53 40 MG Nitroglycerin 0.4 mg Q5MINP PRN SL 01/05/25 15:30 Vancomycin HCl 0 ml @ 0 mls/hr UD IV 01/05/25 15:30 Piperacillin Sod/ Tazobactam Sod 100 ml @ 25 mls/hr Q8H IV 01/06/25 00:00 01/10/25 16:20 25 MLS/HR Pantoprazole Sodium 40 mg DAILY IV 01/06/25 10:00 01/10/25 08:53 40 MG Sodium Chloride 1,000 ml @ 70 mls/hr [id number] IV 01/06/25 22:15 01/10/25 08:54 70 MLS/HR Vancomycin HCl 250 ml @ 200 mls/hr DAILY@1500 IV 01/07/25 15:00 01/10/25 15:00 200 MLS/HR Folic Acid 1 mg DAILY PO 01/09/25 10:00 01/10/25 08:53 1 MG Multivitamins 1 tab DAILY PO 01/09/25 10:00 01/10/25 08:53 1 TAB Magnesium Oxide 400 mg DAILY PO 01/09/25 10:00 01/10/25 08:53 400 MG Thiamine HCl 100 mg DAILY PO 01/09/25 10:00 01/10/25 08:53 100 MG Potassium Chloride 40 meq Q2H PO 01/10/25 18:15 01/10/25 20:16 laboratory and microbiology Laboratory Tests 01/10/25 10:06 Test 01/10/25 10:06 Range/Units Serum Glucose 96 74-106 mg/dL Assessment/Plan Impression Rule out tuberculosis Pneumonia Lung cavities Atelectasis Patient seen and examined Events Low oxygen requirements On room air No distress Isolated for ? TB Labs and imaging reviewed CT of the chest shows: Patchy bilateral consolidation with an upper lobe predominance and superimposed cavitation. Mediastinal and hilar lymphadenopathy. Small bilateral pleural effusions. No evidence of pulmonary embolism Management Supplemental oxygen as needed Titrate to maintain sats 90% or above Incentive spirometry Broad spectrum antibiotics Recommend ID input Suspected TB vs fungal disease Bronchodilators Monitor renal function Monitor electrolytes Supplement as needed DVT prophylaxis Plan discussed with: Patient VANESSA DAWSON MD Jan 10, 2025 18:25
[2025-01-10] MEDS: POTASSIUM CHL 20 Meq TABLET PO SCH (18:31)
[2025-01-11] VITALS (8 sets, daily range): BP systolic 118–147; BP diastolic 64–90; PULSE 66–120; RESP 17–18; TEMP 97.1–98; O2SAT 93–100
[2025-01-11] MEDS ORDERED: SODIUM CHL 3% HYPERTONIC 500 ML BAG IN SCH (10:00)
[2025-01-11] MEDS: METOPROLOL SUCCINATE XL 50 MG TAB PO ONE (12:39)
--- NOTE | 2025-01-11 13:22 | ECG ---
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
--- NOTE | 2025-01-11 15:38 | DVHPN2 ---
Subjective Overnight events noted. Patient's TB test came back positive, also has a run of AFib started on aspirin and low dose of beta margi. Cardiology will be consulted. Changes from previous H/P or p: No Changes Eyes: No Pain, No Vision change, No Conjunctivae inflammation, No Eyelid inflammation, No Other, No Redness ENT: No Ear pain, No Ear discharge, No Nose pain, No Nose discharge, No Nose congestion; Mouth pain; No Mouth swelling; Throat pain; No Throat swelling, No Other Cardiovascular: Chest Pain; No Palpitations, No Orthopnea, No Paroxysmal Noc. Dyspnea, No Edema, No Lt Headedness, No Other Respiratory: Cough; No Dry; Shortness of breath, SOB with excertion; No Wheezing, No Hemoptysis, No Pleuritic Pain, No Sputum, No Other Gastrointestinal: No Nausea, No Vomiting, No Abdominal Pain, No Diarrhea, No Constipation, No Melena, No Hematochezia, No Other Genitourinary: No Dysuria, No Frequency, No Incontinence, No Hematuria, No Retention, No Other Musculoskeletal: No other, No neck pain, No shoulder pain, No arm pain, No back pain, No hand pain, No leg pain, No foot pain Skin: No Rash, No Lesions, No Jaundice, No Bruising, No Other Objective Vitals Vital Signs Date Time Temp Pulse Resp B/P (MAP) Pulse Ox O2 Delivery O2 Flow Rate FiO2 01/11/25 13:00 98.0 104 18 134/74 (94) 95 98.0 01/11/25 08:00 Room Air* 0 21 Intake/Output Intake and Output 01/11/25 07:00 Intake Total 2290 ml Output Total 1000 ml Balance 1290 ml Intake Oral 1740 ml IV Total 550 ml Output Urine Total 1000 ml # Voids 2 # Bowel Movements 2 Exam HEENT pupils are reactive Neck is supple CV is S1-S2 regular rate and rhythm Respiratory diminished breath sounds bases GI positive bowel sound Extremity no edema [employer] no motor deficit Medications Current Medications Medications Dose Ordered Sig/Paco Route Start Time Stop Time Status Last Admin Dose Admin Ondansetron HCl 4 mg Q4HP PRN IV 01/05/25 15:30 Docusate Sodium 100 mg BIDPRN PRN PO 01/05/25 15:30 Morphine Sulfate 2 mg Q4HPRN PRN IV 01/05/25 15:30 Enoxaparin Sodium 40 mg DAILY SC 01/05/25 15:30 01/11/25 09:50 40 MG Nitroglycerin 0.4 mg Q5MINP PRN SL 01/05/25 15:30 Vancomycin HCl 0 ml @ 0 mls/hr UD IV 01/05/25 15:30 Piperacillin Sod/ Tazobactam Sod 100 ml @ 25 mls/hr Q8H IV 01/06/25 00:00 01/11/25 09:48 25 MLS/HR Pantoprazole Sodium 40 mg DAILY IV 01/06/25 10:00 01/11/25 09:49 40 MG Sodium Chloride 1,000 ml @ 70 mls/hr [id number] IV 01/06/25 22:15 01/11/25 04:22 70 MLS/HR Vancomycin HCl 250 ml @ 200 mls/hr DAILY@1500 IV 01/07/25 15:00 01/11/25 15:20 200 MLS/HR Folic Acid 1 mg DAILY PO 01/09/25 10:00 01/11/25 09:49 1 MG Multivitamins 1 tab DAILY PO 01/09/25 10:00 01/11/25 09:49 1 TAB Magnesium Oxide 400 mg DAILY PO 01/09/25 10:00 01/11/25 09:49 400 MG Thiamine HCl 100 mg DAILY PO 01/09/25 10:00 01/11/25 09:49 100 MG Metoprolol Succinate 25 mg BID PO 01/11/25 22:00 Aspirin 81 mg DAILY PO 01/12/25 10:00 Enteral Nutritional Formula 240 ml TIDWM PO 01/11/25 18:00 Laboratory Results Laboratory Tests 01/10/25 10:06 01/11/25 13:59 Urinalysis Test 01/05/25 15:50 Urine Color Yellow (Yellow) Urine Clarity Turbid (Clear) H Urine pH 5.5 (5.0-9.0) Urine Specific [place] 1.023 (1.001-1.035) Urine Protein 1+ (Negative) H Urine Ketones Negative (Negative) Urine Blood Negative /uL (Negative) Urine Nitrite Negative (Negative) Urine Bilirubin 1+ (Negative) Urine Urobilinogen 4 mg/dL (Negative) H Urine Leukocyte Esterase Negative /uL (Negative) Urine RBC 2 /hpf (0 - 3) Urine Microscopic WBC < 1 /HPF (0-3) Urine Squamous Epithelial Cells Few /hpf (<5) Urine Bacteria None seen /hpf (None Seen) Urine Hyaline Casts Few /lpf (0 - 2) Urine Mucus Few (None Seen) Urine Glucose Normal mg/dL (Normal) Microbiology Microbiology Date/Time Source Procedure Growth Status 01/10/25 07:30 Sputum AFB Broth Culture Pending Resulted 01/10/25 07:30 Sputum Pending Resulted 01/10/25 07:30 Sputum - Final Resulted 01/10/25 07:30 Sputum Acid Fast Bacilli Culture Pending Resulted 01/05/25 13:32 Blood Blood Culture - Final NO GROWTH AFTER 5 DAYS OF INCUBATION. Complete Assessment/Plan Assessment/Plan 74-year-old male with a known history of asthma, presented to the hospital with a five month history of progressive throat pain neck pain, persistent cough raspy voice, unintentional weight loss of 35 lb with a known history of chronic tobacco use disorder found to have 1. Acute hypoxic respiratory failure secondary to bilateral upper lobe consolidation/cavitary lesions 2. Bilateral upper lobe consolidation 3. Bilateral lung cavities rule out atypical infection, rule out tuberculosis, rule out malignancy, sputum for AFB is positive. 4. Mediastinal lymphadenopathy 5 paroxysmal AFib currently rate controlled 6. Chronic tobacco use disorder 8. Chronic alcoholism 9. Iron-deficiency anemia 10. Thrombocytosis likely reactive -reverse isolation, rule out tuberculosis, follow up sputum for AFB, QuantiFERON TB test -pulmonary consultation appreciated, consult infectious disease specialist. -pulmonary is considering bronchoscopy. Plan discussed with: Patient, Other My Orders Orders - DOLLY LEZAMA MD Procedure Category Date Status Time * Cardiology Consult CONS 01/11/25 Transmitted 10:47 Metoprolol Xl PHA 01/11/25 In Process Succinate (Toprol Xl) 22:00 Aspirin Tablet PHA 01/12/25 In Process 10:00 Nutritional PHA 01/11/25 In Process Supplements (Ensure 18:00 Potassium LAB 01/11/25 Transmitted 15:36 Date of Service: Jan 11, 2025 Billing Provider: DOLLY LEZAMA MD Common Visit Codes: [id number] INP/OBS CARE(MOD) DOLLY LEZAMA MD Jan 11, 2025 15:38
--- NOTE | 2025-01-11 16:51 | DVHPN2 ---
Progress Note - Dictate Date Seen: Jan 11, 2025 Medical Necessity Reason Pt with a Central, PICC or Fol: No vital signs Vital Sign Date Time Temp Pulse Resp B/P (MAP) Pulse Ox O2 Delivery O2 Flow Rate FiO2 01/11/25 13:00 98.0 104 18 134/74 (94) 95 98.0 01/11/25 08:00 Room Air* 0 21 Total Intake and Output 01/10/25 01/10/25 01/11/25 14:59 22:59 06:59 Intake Total 580 ml 1210 ml 500 ml Output Total 1000 ml Balance 580 ml 210 ml 500 ml medications Current Medications Medications Dose Ordered Sig/Paco Route Start Time Stop Time Status Last Admin Dose Admin Ondansetron HCl 4 mg Q4HP PRN IV 01/05/25 15:30 Docusate Sodium 100 mg BIDPRN PRN PO 01/05/25 15:30 Morphine Sulfate 2 mg Q4HPRN PRN IV 01/05/25 15:30 Enoxaparin Sodium 40 mg DAILY SC 01/05/25 15:30 01/11/25 09:50 40 MG Nitroglycerin 0.4 mg Q5MINP PRN SL 01/05/25 15:30 Vancomycin HCl 0 ml @ 0 mls/hr UD IV 01/05/25 15:30 Piperacillin Sod/ Tazobactam Sod 100 ml @ 25 mls/hr Q8H IV 01/06/25 00:00 01/11/25 16:09 25 MLS/HR Pantoprazole Sodium 40 mg DAILY IV 01/06/25 10:00 01/11/25 09:49 40 MG Sodium Chloride 1,000 ml @ 70 mls/hr [id number] IV 01/06/25 22:15 01/11/25 04:22 70 MLS/HR Folic Acid 1 mg DAILY PO 01/09/25 10:00 01/11/25 09:49 1 MG Multivitamins 1 tab DAILY PO 01/09/25 10:00 01/11/25 09:49 1 TAB Magnesium Oxide 400 mg DAILY PO 01/09/25 10:00 01/11/25 09:49 400 MG Thiamine HCl 100 mg DAILY PO 01/09/25 10:00 01/11/25 09:49 100 MG Metoprolol Succinate 25 mg BID PO 01/11/25 22:00 Aspirin 81 mg DAILY PO 01/12/25 10:00 Enteral Nutritional Formula 240 ml TIDWM PO 01/11/25 18:00 laboratory and microbiology Laboratory Tests 01/11/25 13:59 01/10/25 10:06 Test 01/10/25 10:06 Range/Units Serum Glucose 96 74-106 mg/dL Assessment/Plan Impression Rule out tuberculosis Pneumonia Lung cavities Atelectasis Patient seen and examined Events Low oxygen requirements On room air No acute events Isolated for ? TB Labs and imaging reviewed Management Supplemental oxygen as needed Titrate to maintain sats 90% or above Incentive spirometry Broad spectrum antibiotics Recommend ID input Suspected TB vs fungal disease Bronchodilators Monitor renal function Monitor electrolytes Supplement as needed DVT prophylaxis Dietary Evaluation Review Comments: Add ensure High Protein oral supplement TIDWM Expected Outcomes/Goals: gradual wt gain, improved overall health condition Plan discussed with: Patient VANESSA DAWSON MD Jan 11, 2025 16:51
--- NOTE | 2025-01-11 17:42 | DVHINCON2 ---
Date Seen: Jan 11, 2025 Referring Physician MD Edie Reason for Consultation New onset atrial fibrillation History of Present Illness This is a Mongolian-speaking 74-year-old male patient who presents to emergency room with chief complaint of generalized weakness, persistent cough, and unin tentional weight loss for approximately five months. Cardiology has been consulted at this time for new onset atrial fibrillation. Initial twelve lead electrocardiogram done on admission reveals sinus tachycardia. Upon reviewing diagnostic cardiac sonographer, the patient noted to go into an episode of atrial fibrillation with heart rate reaching as high as 160s. The patient converted without any pharmacological intervention. At the time of assessment, the patient is back in a normal sinus rhythm. Initial troponin level of 15ng/L with flat trend thereafter. The patient denies any cardiac symptoms at time of assessment. Significant past medical history includes asthma, tobacco use, and heavy alcohol use. He denies any previous cardiac history. Past Medical History Past medical history reviewed. No other significant than mentioned above. Past Surgical History Denies any previous surgeries Family History Family history reviewed. Social History Patient has a 30 pack-year history, smokes approximately half a pack per day Patient admits to heavy alcohol use Denies any drug use Allergies: Coded Allergies: NO KNOWN ALLERGIES (Unverified , 01/05/25) Home Meds Denies taking any prescribed medications Current Medications Current Medications Medications (Trade) Dose Ordered Sig/Paco Route PRN Reason Start Time Stop Time Status Last Admin Sodium Chloride 5 ml DAILY IN 01/11/25 10:00 01/10/25 15:34 DC Potassium Chloride (Klor-Con Tablet) 40 meq Q2H PO 01/10/25 18:15 01/10/25 20:16 DC 01/10/25 20:38 Metoprolol Succinate (Toprol Xl) 25 mg BID PO 01/11/25 22:00 Aspirin 81 mg DAILY PO 01/12/25 10:00 Enteral Nutritional Formula (Ensure High Protein) 240 ml TIDWM PO 01/11/25 18:00 Review of Systems Constitutional: Generalized weakness Ears, Nose, & Throat: No symptom reported Eyes: No symptom reported Neurological: No symptoms reported Pulmonary/Respiratory: Cough Cardiovascular: No symptom reported Gastrointestinal: No symptom reported Genitourinary: No symptom reported Musculoskeletal: No symptom reported Skin: No symptom reported Psychiatric: No symptom reported Endocrine: No symptom reported Hematologic/Lymphatic: No symptom reported Vital Signs Vital Signs Date Time Temp Pulse Resp B/P (MAP) Pulse Ox O2 Delivery O2 Flow Rate FiO2 01/11/25 17:00 97.1 66 17 142/76 (98) 100 97.1 01/11/25 08:00 Room Air* 0 21 Physical Exam General Appearance: Cooperative. Well-developed. Well-nourished. No acute distress. Pulmonary/Respiratory: Clear, bilateral breaths sounds. Cardiovascular/Chest: Regular rate and rhythm. Peripheral Pulses: 2+ Radial (R). 2+ Radial (L). 2+ Pedal (R). 2+ Pedal (L) Abdominal Exam: Normal bowel sounds. Ankle Exam: 1+ pitting edema Lower extremities: 1+ pitting edema Neuro/Mental Status: A/OX4, coherent. Thoughts/Psych: Normal thought pattern. Appropriate mood and affect. Good judgment and insight. Appearance: No acute distress. Skin Exam: Normal inspection. Normal color. Warm and dry. Labs/Diagnostic Data Labs Test 01/11/25 13:59 01/10/25 13:46 01/10/25 10:06 01/10/25 07:30 Range/Units Potassium Level 3.5 3.5-5.1 mmol/L Creatinine 1.15 0.700-1.30 mg/dL Glomerular Filtration Rate Calc 68 >90 mL/min Vancomycin Level Trough 13.1 H 5-10 ug/mL White Blood Count 10.3 4.4-10.8 10^3/uL Red Blood Count 3.75 L 4.5-5.90 10^6/uL Hemoglobin 9.2 L 13.5-17.5 g/dL Hematocrit 29.1 L 41.0-53.0 % Mean Corpuscular Volume 77.6 #L 80.0-100.0 fL Mean Corpuscular Hemoglobin 24.5 L 28.0-32.0 pg Mean Corpuscular Hemoglobin Concent 31.5 L 32.0-36.0 g/dL Red Cell Distribution Width 19.1 H 11.8-14.3 % Platelet Count 469 H 140-450 10^3/uL Mean Platelet Volume 7.0 6.9-10.8 fL Neutrophils (%) (Auto) 85.1 H 37.0-80.0 % Lymphocytes (%) (Auto) 5.1 L 10.0-50.0 % Monocytes (%) (Auto) 9.7 0.0-12.0 % Eosinophils (%) (Auto) 0.0 0.0-7.0 % Basophils (%) (Auto) 0.1 0.0-2.0 % Neutrophils # (Auto) 8.8 H 1.6-8.6 10 ^3/uL Lymphocytes # (Auto) 0.5 0.4-5.4 10 ^3/uL Monocytes # (Auto) 1.0 0-1.3 10 ^3/uL Eosinophils # (Auto) 0 0-0.8 10 ^3/uL Basophils # (Auto) 0 0-0.2 10 ^3/uL Nucleated Red Blood Cells 0.0 % Sodium Level 138 136-145 mmol/L Chloride Level 107 98-107 mmol/L Carbon Dioxide Level 23 20-31 mmol/L Anion Gap 8 5-15 Blood Urea Nitrogen 7 L 9-23 mg/dL BUN/Creatinine Ratio 7.9 L 10.0-20.0 Serum Glucose 96 74-106 mg/dL Calcium Level 7.5 L 8.7-10.4 mg/dL Magnesium Level 1.7 1.6-2.6 mg/dL Miscellaneous Referred Test (Refrg) Sent to [facility] Test 01/07/25 04:30 01/06/25 15:50 01/06/25 04:07 01/05/25 17:18 Range/Units Total Bilirubin 0.4 0.2-1.0 mg/dL Aspartate Amino Transferase (AST) 22 13-40 U/L Alanine Aminotransferase (ALT) 12 7-40 U/L Alkaline Phosphatase 94 46-116 U/L Total Protein 5.0 L 5.7-8.2 g/dL Albumin 2.3 L 3.2-4.8 g/dL Coccidioides Antibody (Comp Fix) <1:2 <1:2 HIV (1&2) Antibody Negative Negative Random Vancomycin Level 8.6 5-10 ug/mL Troponin I High Sensitivity 13 </=54 ng/L Test 01/05/25 15:50 01/05/25 15:46 01/05/25 15:15 01/05/25 13:32 Range/Units Urine Color Yellow Yellow Urine Clarity Turbid H Clear Urine pH 5.5 5.0-9.0 Urine Specific [place] 1.023 1.001-1.035 Urine Protein 1+ H Negative Urine Ketones Negative Negative Urine Blood Negative Negative /uL Urine Nitrite Negative Negative Urine Bilirubin 1+ Negative Urine Urobilinogen 4 H Negative mg/dL Urine Leukocyte Esterase Negative Negative /uL Urine RBC 2 0 - 3 /hpf Urine Microscopic WBC < 1 0-3 /HPF Urine Squamous Epithelial Cells Few <5 /hpf Urine Bacteria None seen None Seen /hpf Urine Hyaline Casts Few 0 - 2 /lpf Urine Mucus Few None Seen Urine Glucose Normal Normal mg/dL Phosphorus Level 2.3 L 2.4-5.1 mg/dL Carcinoembryonic Antigen 0.99 <=5.0 ng/mL CA 125 Antigen 133.0 Not Estab. U/mL Plasma/Serum Blood Alcohol 4.7 <10 mg/dL Lactic Acid Level 3.7 *H 0.4-2.0 mmol/L Prothrombin Time 11.7 9.3-11.8 sec Prothrombin Time INR 1.12 0.9-1.15 Activated Partial Thromboplast Time 30.2 24.5-34.5 SEC Microbiology Date/Time Source Procedure Growth Status 01/10/25 07:30 Sputum AFB Broth Culture Pending Resulted 01/10/25 07:30 Sputum Pending Resulted 01/10/25 07:30 Sputum - Final Resulted 01/10/25 07:30 Sputum Acid Fast Bacilli Culture Pending Resulted 01/05/25 13:32 Blood Blood Culture - Final NO GROWTH AFTER 5 DAYS OF INCUBATION. Complete Assessment Transient atrial fibrillation, new onset, now normal sinus rhythm Rule out tuberculosis Acute hypoxic respiratory failure secondary to Pneumonia Acute anemia 10 mm right cervical jugulodigastric lymph node, ?Malignancy Heavy tobacco use Heavy alcohol use Plan/Recommendation We will continue with the following plan/recommendations (Dr. Alvarez): A transthoracic echocardiogram reveals an EF of 55% with no severe valve abnormalities. [id number] VASc score: 1 point, HAS-BLED score: 2 points. Case discussed with . At this time, patient does not meet criteria to initiate NOAC therapy. Atrial fibrillation event was transient. Continue with single antiplatelet therapy and beta-margi. There is no further inpatient cardiac workup indicated at this time. The patient should follow up with Cardiology in the outpatient setting upon discharge. Consider outpatient event monitor if deemed necessary. Thank you for allowing us to care for this patient. Please call with any questions or concerns. Critical care time spent: 44 minutes This medical document was created using an electronic medical record system with voice recognition software and computerized dictation system. Although this document has been carefully reviewed, there might still be some phonetic and typographical errors. Occasional wrong-word or ``sound-alike substitutions may have occurred due to the inherent limitations of voice recognition software. These areas are purely typographical due to imperfections of the software programs and do not reflect any compromise in the patient's medical care. Please read the chart carefully and recognize, using context, where these substitutions have occurred. Plan discussed with: Patient NYHA Physical activity limitations: NA Date of Service: Jan 11, 2025 Billing Provider: JEAN CARLOS LOBATO Cardiology Common Codes: [id number] INP/OBS CARE (High) Cardiology Consultation Codes: [id number] CONSULT <45MIN JEAN CARLOS LOBATO Jan 11, 2025 17:41
[2025-01-11] MEDS: Ensure HIGH Protein Chocolate 8oz Bottle PO SCH (18:01)
[2025-01-11] MEDS: METOPROLOL SUCCINATE XL 50 MG TAB PO SCH (23:05)
[2025-01-12] VITALS (8 sets, daily range): BP systolic 104–145; BP diastolic 56–80; PULSE 72–120; RESP 18–21; TEMP 97.5–98.2; O2SAT 91–100
--- NOTE | 2025-01-12 15:15 | DVHPN2 ---
Progress Note - Dictate Date Seen: Jan 12, 2025 Medical Necessity Reason Pt with a Central, PICC or Fol: No vital signs Vital Sign Date Time Temp Pulse Resp B/P (MAP) Pulse Ox O2 Delivery O2 Flow Rate FiO2 01/12/25 12:45 98.2 111 21 127/56 (79) 95 98.2 01/12/25 08:00 Room Air* 0 21 Total Intake and Output 01/11/25 01/11/25 01/12/25 15:00 23:00 07:00 Intake Total 340 ml 1880 ml 600 ml Output Total 1000 ml Balance 340 ml 880 ml 600 ml medications Current Medications Medications Dose Ordered Sig/Paco Route Start Time Stop Time Status Last Admin Dose Admin Ondansetron HCl 4 mg Q4HP PRN IV 01/05/25 15:30 Docusate Sodium 100 mg BIDPRN PRN PO 01/05/25 15:30 Morphine Sulfate 2 mg Q4HPRN PRN IV 01/05/25 15:30 Enoxaparin Sodium 40 mg DAILY SC 01/05/25 15:30 01/12/25 09:51 40 MG Nitroglycerin 0.4 mg Q5MINP PRN SL 01/05/25 15:30 Vancomycin HCl 0 ml @ 0 mls/hr UD IV 01/05/25 15:30 Piperacillin Sod/ Tazobactam Sod 100 ml @ 25 mls/hr Q8H IV 01/06/25 00:00 01/12/25 08:42 25 MLS/HR Pantoprazole Sodium 40 mg DAILY IV 01/06/25 10:00 01/12/25 09:50 40 MG Sodium Chloride 1,000 ml @ 70 mls/hr [id number] IV 01/06/25 22:15 01/12/25 08:38 70 MLS/HR Folic Acid 1 mg DAILY PO 01/09/25 10:00 01/12/25 09:50 1 MG Multivitamins 1 tab DAILY PO 01/09/25 10:00 01/12/25 09:50 1 TAB Magnesium Oxide 400 mg DAILY PO 01/09/25 10:00 01/12/25 09:50 400 MG Thiamine HCl 100 mg DAILY PO 01/09/25 10:00 01/12/25 09:50 100 MG Metoprolol Succinate 25 mg BID PO 01/11/25 22:00 01/12/25 09:53 25 MG Aspirin 81 mg DAILY PO 01/12/25 10:00 01/12/25 09:51 81 MG Enteral Nutritional Formula 240 ml TIDWM PO 01/11/25 18:00 01/12/25 11:59 240 ML laboratory and microbiology Laboratory Tests 01/12/25 14:02 01/11/25 13:59 01/10/25 10:06 Test 01/10/25 10:06 Range/Units Serum Glucose 96 74-106 mg/dL Assessment/Plan Impression Rule out tuberculosis Pneumonia Lung cavities Atelectasis Patient seen and examined Events Low oxygen requirements On room air No acute events Isolated for ? TB Labs and imaging reviewed Management Supplemental oxygen as needed Titrate to maintain sats 90% or above Incentive spirometry Broad spectrum antibiotics Recommend ID input Suspected TB vs fungal disease Bronchodilators Monitor renal function Monitor electrolytes Supplement as needed DVT prophylaxis Dietary Evaluation Review Comments: Add ensure High Protein oral supplement TIDWM Expected Outcomes/Goals: gradual wt gain, improved overall health condition Plan discussed with: Patient VANESSA DAWSON MD Jan 12, 2025 15:15
[2025-01-12] MEDS: VANCOMYCIN 1GM/250ML KIT 250 ML IV ONE (15:16)
--- NOTE | 2025-01-12 16:37 | DVHPN2 ---
Subjective Overnight events noted. Patient's TB test came back positive, also has a run of AFib started on aspirin and low dose of beta margi. Patient's primary RN Keesha Aguayo told me that patient has had a bloody bowel movement, we will check stool for occult blood test. Recheck CBC in a.m.. Changes from previous H/P or p: No Changes Eyes: No Pain, No Vision change, No Conjunctivae inflammation, No Eyelid inflammation, No Other, No Redness ENT: No Ear pain, No Ear discharge, No Nose pain, No Nose discharge, No Nose congestion; Mouth pain; No Mouth swelling; Throat pain; No Throat swelling, No Other Cardiovascular: Chest Pain; No Palpitations, No Orthopnea, No Paroxysmal Noc. Dyspnea, No Edema, No Lt Headedness, No Other Respiratory: Cough; No Dry; Shortness of breath, SOB with excertion; No Wheezing, No Hemoptysis, No Pleuritic Pain, No Sputum, No Other Gastrointestinal: No Nausea, No Vomiting, No Abdominal Pain, No Diarrhea, No Constipation, No Melena, No Hematochezia, No Other Genitourinary: No Dysuria, No Frequency, No Incontinence, No Hematuria, No Retention, No Other Musculoskeletal: No other, No neck pain, No shoulder pain, No arm pain, No back pain, No hand pain, No leg pain, No foot pain Skin: No Rash, No Lesions, No Jaundice, No Bruising, No Other Objective Vitals Vital Signs Date Time Temp Pulse Resp B/P (MAP) Pulse Ox O2 Delivery O2 Flow Rate FiO2 01/12/25 12:45 98.2 111 21 127/56 (79) 95 98.2 01/12/25 08:00 Room Air* 0 21 Intake/Output Intake and Output 01/12/25 07:00 Intake Total 2820 ml Output Total 1000 ml Balance 1820 ml Intake Oral 1700 ml IV Total 1120 ml Output Urine Total 1000 ml # Voids 3 # Bowel Movements 6 Exam HEENT pupils are reactive Neck is supple CV is S1-S2 regular rate and rhythm Respiratory diminished breath sounds bases GI positive bowel sound Extremity no edema [employer] no motor deficit Medications Current Medications Medications Dose Ordered Sig/Paco Route Start Time Stop Time Status Last Admin Dose Admin Ondansetron HCl 4 mg Q4HP PRN IV 01/05/25 15:30 Docusate Sodium 100 mg BIDPRN PRN PO 01/05/25 15:30 Morphine Sulfate 2 mg Q4HPRN PRN IV 01/05/25 15:30 Enoxaparin Sodium 40 mg DAILY SC 01/05/25 15:30 01/12/25 09:51 40 MG Nitroglycerin 0.4 mg Q5MINP PRN SL 01/05/25 15:30 Vancomycin HCl 0 ml @ 0 mls/hr UD IV 01/05/25 15:30 Piperacillin Sod/ Tazobactam Sod 100 ml @ 25 mls/hr Q8H IV 01/06/25 00:00 01/12/25 16:23 25 MLS/HR Pantoprazole Sodium 40 mg DAILY IV 01/06/25 10:00 01/12/25 09:50 40 MG Sodium Chloride 1,000 ml @ 70 mls/hr [id number] IV 01/06/25 22:15 01/12/25 08:38 70 MLS/HR Folic Acid 1 mg DAILY PO 01/09/25 10:00 01/12/25 09:50 1 MG Multivitamins 1 tab DAILY PO 01/09/25 10:00 01/12/25 09:50 1 TAB Magnesium Oxide 400 mg DAILY PO 01/09/25 10:00 01/12/25 09:50 400 MG Thiamine HCl 100 mg DAILY PO 01/09/25 10:00 01/12/25 09:50 100 MG Metoprolol Succinate 25 mg BID PO 01/11/25 22:00 01/12/25 09:53 25 MG Aspirin 81 mg DAILY PO 01/12/25 10:00 01/12/25 09:51 81 MG Enteral Nutritional Formula 240 ml TIDWM PO 01/11/25 18:00 01/12/25 11:59 240 ML Laboratory Results Laboratory Tests 01/10/25 10:06 01/11/25 13:59 01/12/25 14:02 Urinalysis Test 01/05/25 15:50 Urine Color Yellow (Yellow) Urine Clarity Turbid (Clear) H Urine pH 5.5 (5.0-9.0) Urine Specific [place] 1.023 (1.001-1.035) Urine Protein 1+ (Negative) H Urine Ketones Negative (Negative) Urine Blood Negative /uL (Negative) Urine Nitrite Negative (Negative) Urine Bilirubin 1+ (Negative) Urine Urobilinogen 4 mg/dL (Negative) H Urine Leukocyte Esterase Negative /uL (Negative) Urine RBC 2 /hpf (0 - 3) Urine Microscopic WBC < 1 /HPF (0-3) Urine Squamous Epithelial Cells Few /hpf (<5) Urine Bacteria None seen /hpf (None Seen) Urine Hyaline Casts Few /lpf (0 - 2) Urine Mucus Few (None Seen) Urine Glucose Normal mg/dL (Normal) Microbiology Microbiology Date/Time Source Procedure Growth Status 01/11/25 07:00 Sputum AFB Broth Culture Pending Resulted 01/11/25 07:00 Sputum - Final Resulted 01/11/25 07:00 Sputum - Final Resulted 01/11/25 07:00 Sputum Acid Fast Bacilli Culture Pending Resulted 01/05/25 13:32 Blood Blood Culture - Final NO GROWTH AFTER 5 DAYS OF INCUBATION. Complete Assessment/Plan Assessment/Plan 74-year-old male with a known history of asthma, presented to the hospital with a five month history of progressive throat pain neck pain, persistent cough raspy voice, unintentional weight loss of 35 lb with a known history of chronic tobacco use disorder found to have 1. Acute hypoxic respiratory failure secondary to bilateral upper lobe consolidation/cavitary lesions 2. Bilateral upper lobe consolidation 3. Bilateral lung cavities rule out atypical infection, rule out tuberculosis, rule out malignancy, sputum for AFB is positive. 4. Mediastinal lymphadenopathy 5 paroxysmal AFib currently rate controlled 6. Chronic tobacco use disorder 8. Chronic alcoholism 9. Iron-deficiency anemia 10. Thrombocytosis likely reactive 11. Episode of bright red blood in the stool -check stool occult blood test, monitor H&H. -reverse isolation, rule out tuberculosis, follow up sputum for AFB smear and culture, QuantiFERON TB test -pulmonary consultation appreciated, consult infectious disease specialist. Plan discussed with: Patient, Other (Bedside RN Keesha Aguayo.) Date of Service: Jan 12, 2025 Billing Provider: DOLLY LEZAMA MD Common Visit Codes: [id number] INP/OBS CARE(MOD) DOLLY LEZAMA MD Jan 12, 2025 16:37
[2025-01-13] VITALS (8 sets, daily range): BP systolic 78–142; BP diastolic 63–84; PULSE 68–124; RESP 16–18; TEMP 97.4–99.1; O2SAT 94–99
[2025-01-13] MEDS: ETHAMBUTOL HCL 400 MG TAB PO SCH (10:16)
[2025-01-13] MEDS: ISONIAZID 300 MG TAB PO SCH (10:17)
[2025-01-13] MEDS: rifAMPin 300 MG CAP PO SCH (10:17)
[2025-01-13] MEDS: PYRAZINAMIDE 500 MG TAB PO SCH (10:43)
--- NOTE | 2025-01-13 16:34 | DVHPN2 ---
Subjective Overnight events noted. Patient's TB test came back positive, also has a run of AFib started on aspirin and low dose of beta margi. Patient's primary RN Keesha Aguayo told me that patient has had a bloody bowel movement, we will check stool for occult blood test. Recheck CBC in a.m.. Changes from previous H/P or p: No Changes Eyes: No Pain, No Vision change, No Conjunctivae inflammation, No Eyelid inflammation, No Other, No Redness ENT: No Ear pain, No Ear discharge, No Nose pain, No Nose discharge, No Nose congestion; Mouth pain; No Mouth swelling; Throat pain; No Throat swelling, No Other Cardiovascular: Chest Pain; No Palpitations, No Orthopnea, No Paroxysmal Noc. Dyspnea, No Edema, No Lt Headedness, No Other Respiratory: Cough; No Dry; Shortness of breath, SOB with excertion; No Wheezing, No Hemoptysis, No Pleuritic Pain, No Sputum, No Other Gastrointestinal: No Nausea, No Vomiting, No Abdominal Pain, No Diarrhea, No Constipation, No Melena, No Hematochezia, No Other Genitourinary: No Dysuria, No Frequency, No Incontinence, No Hematuria, No Retention, No Other Musculoskeletal: No other, No neck pain, No shoulder pain, No arm pain, No back pain, No hand pain, No leg pain, No foot pain Skin: No Rash, No Lesions, No Jaundice, No Bruising, No Other Objective Vitals Vital Signs Date Time Temp Pulse Resp B/P (MAP) Pulse Ox O2 Delivery O2 Flow Rate FiO2 01/13/25 13:00 97.4 80 16 109/63 (78) 98 97.4 01/13/25 08:30 0.0 24 01/13/25 08:00 Room Air* Intake/Output Intake and Output 01/13/25 07:00 Intake Total 580 ml Balance 580 ml Intake Oral 480 ml IV Total 100 ml # Voids 2 # Bowel Movements 1 Exam HEENT pupils are reactive Neck is supple CV is S1-S2 regular rate and rhythm Respiratory diminished breath sounds bases GI positive bowel sound Extremity 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 Medications Current Medications Medications Dose Ordered Sig/Paco Route Start Time Stop Time Status Last Admin Dose Admin Ondansetron HCl 4 mg Q4HP PRN IV 01/05/25 15:30 Docusate Sodium 100 mg BIDPRN PRN PO 01/05/25 15:30 Morphine Sulfate 2 mg Q4HPRN PRN IV 01/05/25 15:30 Enoxaparin Sodium 40 mg DAILY SC 01/05/25 15:30 01/12/25 09:51 40 MG Nitroglycerin 0.4 mg Q5MINP PRN SL 01/05/25 15:30 Vancomycin HCl 0 ml @ 0 mls/hr UD IV 01/05/25 15:30 Cancel Pantoprazole Sodium 40 mg DAILY IV 01/06/25 10:00 01/13/25 09:25 40 MG Sodium Chloride 1,000 ml @ 70 mls/hr [id number] IV 01/06/25 22:15 01/13/25 11:41 70 MLS/HR Folic Acid 1 mg DAILY PO 01/09/25 10:00 01/13/25 09:25 1 MG Multivitamins 1 tab DAILY PO 01/09/25 10:00 01/13/25 09:25 1 TAB Magnesium Oxide 400 mg DAILY PO 01/09/25 10:00 01/13/25 09:25 400 MG Thiamine HCl 100 mg DAILY PO 01/09/25 10:00 01/13/25 09:25 100 MG Metoprolol Succinate 25 mg BID PO 01/11/25 22:00 01/13/25 09:26 25 MG Aspirin 81 mg DAILY PO 01/12/25 10:00 01/12/25 09:51 81 MG Enteral Nutritional Formula 240 ml TIDWM PO 01/11/25 18:00 01/13/25 12:10 240 ML Rifampin 600 mg DAILY PO 01/13/25 10:00 01/13/25 10:17 600 MG Isoniazid 300 mg DAILY PO 01/13/25 10:00 01/13/25 10:17 300 MG Ethambutol HCl 1,200 mg DAILY PO 01/13/25 10:00 01/13/25 10:16 1,200 MG Pyrazinamide 1,500 mg DAILY PO 01/13/25 10:00 01/13/25 10:43 1,500 MG Laboratory Results Laboratory Tests 01/10/25 10:06 01/11/25 13:59 01/13/25 12:50 Urinalysis Test 01/05/25 15:50 Urine Color Yellow (Yellow) Urine Clarity Turbid (Clear) H Urine pH 5.5 (5.0-9.0) Urine Specific [place] 1.023 (1.001-1.035) Urine Protein 1+ (Negative) H Urine Ketones Negative (Negative) Urine Blood Negative /uL (Negative) Urine Nitrite Negative (Negative) Urine Bilirubin 1+ (Negative) Urine Urobilinogen 4 mg/dL (Negative) H Urine Leukocyte Esterase Negative /uL (Negative) Urine RBC 2 /hpf (0 - 3) Urine Microscopic WBC < 1 /HPF (0-3) Urine Squamous Epithelial Cells Few /hpf (<5) Urine Bacteria None seen /hpf (None Seen) Urine Hyaline Casts Few /lpf (0 - 2) Urine Mucus Few (None Seen) Urine Glucose Normal mg/dL (Normal) Microbiology Microbiology Date/Time Source Procedure Growth Status 01/11/25 07:00 Sputum AFB Broth Culture Pending Resulted 01/11/25 07:00 Sputum - Final Resulted 01/11/25 07:00 Sputum - Final Resulted 01/11/25 07:00 Sputum Acid Fast Bacilli Culture Pending Resulted 01/05/25 13:32 Blood Blood Culture - Final NO GROWTH AFTER 5 DAYS OF INCUBATION. Complete Assessment/Plan Assessment/Plan 74-year-old male with a known history of asthma, presented to the hospital with a five month history of progressive throat pain neck pain, persistent cough raspy voice, unintentional weight loss of 35 lb with a known history of chronic tobacco use disorder found to have 1. Acute hypoxic respiratory failure secondary to bilateral upper lobe consolidation/cavitary lesions 2. Bilateral upper lobe consolidation 3. Bilateral lung cavities rule out atypical infection, rule out tuberculosis, rule out malignancy, sputum for AFB is positive. 4. Mediastinal lymphadenopathy 5 paroxysmal AFib currently rate controlled 6. Chronic tobacco use disorder 8. Chronic alcoholism 9. Iron-deficiency anemia 10. Thrombocytosis likely reactive 11. Episode of bright red blood in the stool -patient's came back to be positive, currently on reverse isolation, started on four drug regime Follow up Pulmonary and Infectious Disease recommendation. Plan discussed with: Patient, Other (Patient's bedside RN.) Date of Service: Jan 13, 2025 Billing Provider: DOLLY LEZAMA MD Common Visit Codes: [id number] INP/OBS CARE(MOD) DOLLY LEZAMA MD Jan 13, 2025 16:34
[2025-01-13] MEDS: VANCOMYCIN 1GM/250ML KIT 250 ML IV ONE (17:44)
[2025-01-14] VITALS (8 sets, daily range): BP systolic 115–140; BP diastolic 53–83; PULSE 65–94; RESP 16–20; TEMP 85.6–98.1; O2SAT 90–98
--- NOTE | 2025-01-14 08:34 | DVHPN2 ---
Consult Progress Note Date Seen: Jan 07, 2025 Objective vital signs Vital Sign Date Time Temp Pulse Resp B/P (MAP) Pulse Ox O2 Delivery O2 Flow Rate FiO2 01/14/25 05:00 97.7 68 16 136/68 (90) 96 97.7 01/13/25 20:00 Room Air* 0 21 Total Intake and Output 01/13/25 01/13/25 01/14/25 15:00 23:00 07:00 Intake Total 1200 ml 480 ml Balance 1200 ml 480 ml medications Current Medications Medications Dose Ordered Sig/Paco Route Start Time Stop Time Status Last Admin Dose Admin Ondansetron HCl 4 mg Q4HP PRN IV 01/05/25 15:30 Docusate Sodium 100 mg BIDPRN PRN PO 01/05/25 15:30 Morphine Sulfate 2 mg Q4HPRN PRN IV 01/05/25 15:30 Enoxaparin Sodium 40 mg DAILY SC 01/05/25 15:30 01/12/25 09:51 40 MG Nitroglycerin 0.4 mg Q5MINP PRN SL 01/05/25 15:30 Vancomycin HCl 0 ml @ 0 mls/hr UD IV 01/05/25 15:30 Cancel Pantoprazole Sodium 40 mg DAILY IV 01/06/25 10:00 01/13/25 09:25 40 MG Sodium Chloride 1,000 ml @ 70 mls/hr [id number] IV 01/06/25 22:15 01/13/25 11:41 70 MLS/HR Folic Acid 1 mg DAILY PO 01/09/25 10:00 01/13/25 09:25 1 MG Multivitamins 1 tab DAILY PO 01/09/25 10:00 01/13/25 09:25 1 TAB Magnesium Oxide 400 mg DAILY PO 01/09/25 10:00 01/13/25 09:25 400 MG Thiamine HCl 100 mg DAILY PO 01/09/25 10:00 01/13/25 09:25 100 MG Metoprolol Succinate 25 mg BID PO 01/11/25 22:00 01/13/25 21:50 25 MG Aspirin 81 mg DAILY PO 01/12/25 10:00 01/12/25 09:51 81 MG Enteral Nutritional Formula 240 ml TIDWM PO 01/11/25 18:00 01/13/25 17:40 240 ML Rifampin 600 mg DAILY PO 01/13/25 10:00 01/13/25 10:17 600 MG Isoniazid 300 mg DAILY PO 01/13/25 10:00 01/13/25 10:17 300 MG Ethambutol HCl 1,200 mg DAILY PO 01/13/25 10:00 01/13/25 10:16 1,200 MG Pyrazinamide 1,500 mg DAILY PO 01/13/25 10:00 01/13/25 10:43 1,500 MG laboratory and microbiology Laboratory Tests 01/13/25 12:50 01/11/25 13:59 01/10/25 10:06 Test 01/10/25 10:06 Range/Units Serum Glucose 96 74-106 mg/dL Dietary Evaluation Review Comments: Add ensure High Protein oral supplement TIDWM Expected Outcomes/Goals: gradual wt gain, improved overall health condition CARRILLO TORRES MD Jan 14, 2025 08:34
--- NOTE | 2025-01-14 13:02 | DVHPN2 ---
Progress Note - Dictate Date Seen: Jan 13, 2025 Medical Necessity Reason Pt with a Central, PICC or Fol: No vital signs Vital Sign Date Time Temp Pulse Resp B/P (MAP) Pulse Ox O2 Delivery O2 Flow Rate FiO2 01/14/25 09:48 70 125/72 01/14/25 09:00 98.1 16 97 98.1 01/14/25 08:00 Room Air* 0 21 Total Intake and Output 01/13/25 01/13/25 01/14/25 15:00 23:00 07:00 Intake Total 1200 ml 480 ml Balance 1200 ml 480 ml medications Current Medications Medications Dose Ordered Sig/Paco Route Start Time Stop Time Status Last Admin Dose Admin Ondansetron HCl 4 mg Q4HP PRN IV 01/05/25 15:30 Docusate Sodium 100 mg BIDPRN PRN PO 01/05/25 15:30 Morphine Sulfate 2 mg Q4HPRN PRN IV 01/05/25 15:30 Enoxaparin Sodium 40 mg DAILY SC 01/05/25 15:30 01/12/25 09:51 40 MG Nitroglycerin 0.4 mg Q5MINP PRN SL 01/05/25 15:30 Vancomycin HCl 0 ml @ 0 mls/hr UD IV 01/05/25 15:30 Cancel Pantoprazole Sodium 40 mg DAILY IV 01/06/25 10:00 01/14/25 09:45 40 MG Sodium Chloride 1,000 ml @ 70 mls/hr [id number] IV 01/06/25 22:15 01/13/25 11:41 70 MLS/HR Folic Acid 1 mg DAILY PO 01/09/25 10:00 01/14/25 09:45 1 MG Multivitamins 1 tab DAILY PO 01/09/25 10:00 01/14/25 09:46 1 TAB Magnesium Oxide 400 mg DAILY PO 01/09/25 10:00 01/14/25 09:46 400 MG Thiamine HCl 100 mg DAILY PO 01/09/25 10:00 01/14/25 09:45 100 MG Metoprolol Succinate 25 mg BID PO 01/11/25 22:00 01/14/25 09:48 25 MG Aspirin 81 mg DAILY PO 01/12/25 10:00 01/12/25 09:51 81 MG Enteral Nutritional Formula 240 ml TIDWM PO 01/11/25 18:00 01/14/25 09:45 240 ML Rifampin 600 mg DAILY PO 01/13/25 10:00 01/14/25 09:46 600 MG Isoniazid 300 mg DAILY PO 01/13/25 10:00 01/14/25 09:46 300 MG Ethambutol HCl 1,200 mg DAILY PO 01/13/25 10:00 01/14/25 09:47 1,200 MG Pyrazinamide 1,500 mg DAILY PO 01/13/25 10:00 01/14/25 09:47 1,500 MG laboratory and microbiology Laboratory Tests 01/13/25 12:50 01/11/25 13:59 01/10/25 10:06 Test 01/10/25 10:06 Range/Units Serum Glucose 96 74-106 mg/dL Assessment/Plan Impression Pulmonary tuberculosis weight loss Lung cavities Atelectasis Patient seen and examined Events sputum smear neg've for AFB IFN test pos've started on 4x therapy for TB on room air Management continue Rx abx Bronchodilators Monitor renal function Monitor electrolytes Supplement as needed DVT prophylaxis Dietary Evaluation Review Comments: Add ensure High Protein oral supplement TIDWM Expected Outcomes/Goals: gradual wt gain, improved overall health condition Plan discussed with: Other (rn) VANESSA DAWSON MD Jan 14, 2025 13:02
[2025-01-14 13:36] LABS: Hemoglobin 9.0 g/dL (13.5-17.5); Mean Corpuscular Volume 76.7 fL (80.0-100.0)
[2025-01-14 13:38] LABS: Hematocrit 27.7 % (41.0-53.0); Mean Corpuscular Hemoglobin 24.8 pg (28.0-32.0); Nucleated Red Blood Cells % 0.0 %
--- NOTE | 2025-01-14 16:59 | DVHPN2 ---
Subjective Overnight events noted. Patient is currently on four drug regime for tuberculosis. Changes from previous H/P or p: No Changes Eyes: No Pain, No Vision change, No Conjunctivae inflammation, No Eyelid inflammation, No Other, No Redness ENT: No Ear pain, No Ear discharge, No Nose pain, No Nose discharge, No Nose congestion; Mouth pain; No Mouth swelling; Throat pain; No Throat swelling, No Other Cardiovascular: Chest Pain; No Palpitations, No Orthopnea, No Paroxysmal Noc. Dyspnea, No Edema, No Lt Headedness, No Other Respiratory: Cough; No Dry; Shortness of breath, SOB with excertion; No Wheezing, No Hemoptysis, No Pleuritic Pain, No Sputum, No Other Gastrointestinal: No Nausea, No Vomiting, No Abdominal Pain, No Diarrhea, No Constipation, No Melena, No Hematochezia, No Other Genitourinary: No Dysuria, No Frequency, No Incontinence, No Hematuria, No Retention, No Other Musculoskeletal: No other, No neck pain, No shoulder pain, No arm pain, No back pain, No hand pain, No leg pain, No foot pain Skin: No Rash, No Lesions, No Jaundice, No Bruising, No Other Objective Vitals Vital Signs Date Time Temp Pulse Resp B/P (MAP) Pulse Ox O2 Delivery O2 Flow Rate FiO2 01/14/25 13:03 97.6 80 20 128/53 (78) 98 97.6 01/14/25 08:00 Room Air* 0 21 Intake/Output Intake and Output 01/14/25 07:00 Intake Total 1680 ml Balance 1680 ml Intake Oral 1680 ml # Voids 5 # Bowel Movements 5 Exam HEENT pupils are reactive Neck is supple CV is S1-S2 regular rate and rhythm Respiratory diminished breath sounds bases GI positive bowel sound Extremity no edema [employer] no motor deficit Medications Current Medications Medications Dose Ordered Sig/Paco Route Start Time Stop Time Status Last Admin Dose Admin Ondansetron HCl 4 mg Q4HP PRN IV 01/05/25 15:30 Docusate Sodium 100 mg BIDPRN PRN PO 01/05/25 15:30 Morphine Sulfate 2 mg Q4HPRN PRN IV 01/05/25 15:30 Enoxaparin Sodium 40 mg DAILY SC 01/05/25 15:30 01/12/25 09:51 40 MG Nitroglycerin 0.4 mg Q5MINP PRN SL 01/05/25 15:30 Vancomycin HCl 0 ml @ 0 mls/hr UD IV 01/05/25 15:30 Cancel Pantoprazole Sodium 40 mg DAILY IV 01/06/25 10:00 01/14/25 09:45 40 MG Sodium Chloride 1,000 ml @ 70 mls/hr [id number] IV 01/06/25 22:15 01/14/25 16:57 70 MLS/HR Folic Acid 1 mg DAILY PO 01/09/25 10:00 01/14/25 09:45 1 MG Multivitamins 1 tab DAILY PO 01/09/25 10:00 01/14/25 09:46 1 TAB Magnesium Oxide 400 mg DAILY PO 01/09/25 10:00 01/14/25 09:46 400 MG Thiamine HCl 100 mg DAILY PO 01/09/25 10:00 01/14/25 09:45 100 MG Metoprolol Succinate 25 mg BID PO 01/11/25 22:00 01/14/25 09:48 25 MG Aspirin 81 mg DAILY PO 01/12/25 10:00 01/12/25 09:51 81 MG Enteral Nutritional Formula 240 ml TIDWM PO 01/11/25 18:00 01/14/25 13:40 240 ML Rifampin 600 mg DAILY PO 01/13/25 10:00 01/14/25 09:46 600 MG Isoniazid 300 mg DAILY PO 01/13/25 10:00 01/14/25 09:46 300 MG Ethambutol HCl 1,200 mg DAILY PO 01/13/25 10:00 01/14/25 09:47 1,200 MG Pyrazinamide 1,500 mg DAILY PO 01/13/25 10:00 01/14/25 09:47 1,500 MG Laboratory Results Laboratory Tests 01/10/25 10:06 01/11/25 13:59 01/14/25 13:00 Urinalysis Test 01/05/25 15:50 Urine Color Yellow (Yellow) Urine Clarity Turbid (Clear) H Urine pH 5.5 (5.0-9.0) Urine Specific [place] 1.023 (1.001-1.035) Urine Protein 1+ (Negative) H Urine Ketones Negative (Negative) Urine Blood Negative /uL (Negative) Urine Nitrite Negative (Negative) Urine Bilirubin 1+ (Negative) Urine Urobilinogen 4 mg/dL (Negative) H Urine Leukocyte Esterase Negative /uL (Negative) Urine RBC 2 /hpf (0 - 3) Urine Microscopic WBC < 1 /HPF (0-3) Urine Squamous Epithelial Cells Few /hpf (<5) Urine Bacteria None seen /hpf (None Seen) Urine Hyaline Casts Few /lpf (0 - 2) Urine Mucus Few (None Seen) Urine Glucose Normal mg/dL (Normal) Microbiology Microbiology Date/Time Source Procedure Growth Status 01/11/25 07:00 Sputum AFB Broth Culture Pending Resulted 01/11/25 07:00 Sputum - Final Resulted 01/11/25 07:00 Sputum - Final Resulted 01/11/25 07:00 Sputum Acid Fast Bacilli Culture Pending Resulted 01/05/25 13:32 Blood Blood Culture - Final NO GROWTH AFTER 5 DAYS OF INCUBATION. Complete Assessment/Plan Assessment/Plan 74-year-old male with a known history of asthma, presented to the hospital with a five month history of progressive throat pain neck pain, persistent cough raspy voice, unintentional weight loss of 35 lb with a known history of chronic tobacco use disorder found to have 1. Acute hypoxic respiratory failure secondary to bilateral upper lobe consolidation/cavitary lesions 2. Bilateral upper lobe consolidation 3. Bilateral lung cavities rule out atypical infection, rule out tuberculosis, rule out malignancy, sputum for AFB is positive. 4. Mediastinal lymphadenopathy 5 paroxysmal AFib currently rate controlled 6. Chronic tobacco use disorder 8. Chronic alcoholism 9. Iron-deficiency anemia 10. Thrombocytosis likely reactive 11. Episode of bright red blood in the stool -patient's came back to be positive, currently on reverse isolation, started on four drug regime Follow up Pulmonary and Infectious Disease recommendation. Plan discussed with: Other (Patient's bedside CHAPARRITA Aguayo.) Date of Service: Jan 14, 2025 Billing Provider: DOLLY LEZAMA MD Common Visit Codes: [id number] INP/OBS CARE(MOD) DOLLY LEZAMA MD Jan 14, 2025 16:59
[2025-01-15] VITALS (8 sets, daily range): BP systolic 117–141; BP diastolic 66–75; PULSE 61–115; RESP 15–20; TEMP 96.4–98.1; O2SAT 92–96
--- NOTE | 2025-01-15 14:56 | DVHPN2 ---
Progress Note - Dictate Date Seen: Jan 15, 2025 Medical Necessity Reason Pt with a Central, PICC or Fol: No vital signs Vital Sign Date Time Temp Pulse Resp B/P (MAP) Pulse Ox O2 Delivery O2 Flow Rate FiO2 01/15/25 10:27 73 126/90 01/15/25 09:00 98.1 20 96 98.1 01/15/25 08:00 Room Air* 0 21 Total Intake and Output 01/14/25 01/14/25 01/15/25 15:00 23:00 07:00 Intake Total 670 ml Output Total 200 ml 400 ml Balance 470 ml -400 ml medications Current Medications Medications Dose Ordered Sig/Paco Route Start Time Stop Time Status Last Admin Dose Admin Ondansetron HCl 4 mg Q4HP PRN IV 01/05/25 15:30 Docusate Sodium 100 mg BIDPRN PRN PO 01/05/25 15:30 Enoxaparin Sodium 40 mg DAILY SC 01/05/25 15:30 01/15/25 10:25 40 MG Nitroglycerin 0.4 mg Q5MINP PRN SL 01/05/25 15:30 Vancomycin HCl 0 ml @ 0 mls/hr UD IV 01/05/25 15:30 Cancel Pantoprazole Sodium 40 mg DAILY IV 01/06/25 10:00 01/15/25 10:24 40 MG Folic Acid 1 mg DAILY PO 01/09/25 10:00 01/15/25 10:26 1 MG Multivitamins 1 tab DAILY PO 01/09/25 10:00 01/15/25 10:24 1 TAB Magnesium Oxide 400 mg DAILY PO 01/09/25 10:00 01/15/25 10:26 400 MG Thiamine HCl 100 mg DAILY PO 01/09/25 10:00 01/15/25 10:28 100 MG Metoprolol Succinate 25 mg BID PO 01/11/25 22:00 01/15/25 10:27 25 MG Aspirin 81 mg DAILY PO 01/12/25 10:00 01/15/25 10:26 81 MG Enteral Nutritional Formula 240 ml TIDWM PO 01/11/25 18:00 01/15/25 08:00 240 ML Rifampin 600 mg DAILY PO 01/13/25 10:00 01/15/25 10:26 600 MG Isoniazid 300 mg DAILY PO 01/13/25 10:00 01/15/25 10:28 300 MG Ethambutol HCl 1,200 mg DAILY PO 01/13/25 10:00 01/15/25 10:25 1,200 MG Pyrazinamide 1,500 mg DAILY PO 01/13/25 10:00 01/15/25 10:28 1,500 MG laboratory and microbiology Laboratory Tests 01/14/25 13:00 01/11/25 13:59 01/10/25 10:06 Test 01/10/25 10:06 Range/Units Serum Glucose 96 74-106 mg/dL Assessment/Plan Impression Pulmonary tuberculosis weight loss Lung cavities Atelectasis Patient seen and examined Events sputum smear neg've for AFB IFN test pos've started on 4x therapy for TB Management continue Rx abx Bronchodilators Monitor renal function Monitor electrolytes Supplement as needed DVT prophylaxis Dietary Evaluation Review Comments: Add ensure High Protein oral supplement TIDWM Expected Outcomes/Goals: gradual wt gain, improved overall health condition Plan discussed with: Patient VANESSA DAWSON MD Jan 15, 2025 14:55
--- NOTE | 2025-01-15 16:24 | DVHPN2 ---
Subjective Overnight events noted. Patient is currently on four drug regime for tuberculosis. Changes from previous H/P or p: No Changes Eyes: No Pain, No Vision change, No Conjunctivae inflammation, No Eyelid inflammation, No Other, No Redness ENT: No Ear pain, No Ear discharge, No Nose pain, No Nose discharge, No Nose congestion; Mouth pain; No Mouth swelling; Throat pain; No Throat swelling, No Other Cardiovascular: Chest Pain; No Palpitations, No Orthopnea, No Paroxysmal Noc. Dyspnea, No Edema, No Lt Headedness, No Other Respiratory: Cough; No Dry; Shortness of breath, SOB with excertion; No Wheezing, No Hemoptysis, No Pleuritic Pain, No Sputum, No Other Gastrointestinal: No Nausea, No Vomiting, No Abdominal Pain, No Diarrhea, No Constipation, No Melena, No Hematochezia, No Other Genitourinary: No Dysuria, No Frequency, No Incontinence, No Hematuria, No Retention, No Other Musculoskeletal: No other, No neck pain, No shoulder pain, No arm pain, No back pain, No hand pain, No leg pain, No foot pain Skin: No Rash, No Lesions, No Jaundice, No Bruising, No Other Objective Vitals Vital Signs Date Time Temp Pulse Resp B/P (MAP) Pulse Ox O2 Delivery O2 Flow Rate FiO2 01/15/25 13:00 98.0 115 18 118/75 (89) 94 98.0 01/15/25 08:00 Room Air* 0 21 Intake/Output Intake and Output 01/15/25 07:00 Intake Total 670 ml Output Total 600 ml Balance 70 ml Intake Oral 670 ml Output Urine Total 200 ml Urine/Stool Mix 400 ml # Bowel Movements 3 Exam HEENT pupils are reactive Neck is supple CV is S1-S2 regular rate and rhythm Respiratory diminished breath sounds bases GI positive bowel sound Extremity no edema [employer] no motor deficit Medications Current Medications Medications Dose Ordered Sig/Paco Route Start Time Stop Time Status Last Admin Dose Admin Ondansetron HCl 4 mg Q4HP PRN IV 01/05/25 15:30 Docusate Sodium 100 mg BIDPRN PRN PO 01/05/25 15:30 Enoxaparin Sodium 40 mg DAILY SC 01/05/25 15:30 01/15/25 10:25 40 MG Nitroglycerin 0.4 mg Q5MINP PRN SL 01/05/25 15:30 Vancomycin HCl 0 ml @ 0 mls/hr UD IV 01/05/25 15:30 Cancel Pantoprazole Sodium 40 mg DAILY IV 01/06/25 10:00 01/15/25 10:24 40 MG Folic Acid 1 mg DAILY PO 01/09/25 10:00 01/15/25 10:26 1 MG Multivitamins 1 tab DAILY PO 01/09/25 10:00 01/15/25 10:24 1 TAB Magnesium Oxide 400 mg DAILY PO 01/09/25 10:00 01/15/25 10:26 400 MG Thiamine HCl 100 mg DAILY PO 01/09/25 10:00 01/15/25 10:28 100 MG Metoprolol Succinate 25 mg BID PO 01/11/25 22:00 01/15/25 10:27 25 MG Aspirin 81 mg DAILY PO 01/12/25 10:00 01/15/25 10:26 81 MG Enteral Nutritional Formula 240 ml TIDWM PO 01/11/25 18:00 01/15/25 08:00 240 ML Rifampin 600 mg DAILY PO 01/13/25 10:00 01/15/25 10:26 600 MG Isoniazid 300 mg DAILY PO 01/13/25 10:00 01/15/25 10:28 300 MG Ethambutol HCl 1,200 mg DAILY PO 01/13/25 10:00 01/15/25 10:25 1,200 MG Pyrazinamide 1,500 mg DAILY PO 01/13/25 10:00 01/15/25 10:28 1,500 MG Laboratory Results Laboratory Tests 01/10/25 10:06 01/11/25 13:59 01/14/25 13:00 Urinalysis Test 01/05/25 15:50 Urine Color Yellow (Yellow) Urine Clarity Turbid (Clear) H Urine pH 5.5 (5.0-9.0) Urine Specific [place] 1.023 (1.001-1.035) Urine Protein 1+ (Negative) H Urine Ketones Negative (Negative) Urine Blood Negative /uL (Negative) Urine Nitrite Negative (Negative) Urine Bilirubin 1+ (Negative) Urine Urobilinogen 4 mg/dL (Negative) H Urine Leukocyte Esterase Negative /uL (Negative) Urine RBC 2 /hpf (0 - 3) Urine Microscopic WBC < 1 /HPF (0-3) Urine Squamous Epithelial Cells Few /hpf (<5) Urine Bacteria None seen /hpf (None Seen) Urine Hyaline Casts Few /lpf (0 - 2) Urine Mucus Few (None Seen) Urine Glucose Normal mg/dL (Normal) Microbiology Microbiology Date/Time Source Procedure Growth Status 01/11/25 07:00 Sputum AFB Broth Culture Pending Resulted 01/11/25 07:00 Sputum - Final Resulted 01/11/25 07:00 Sputum - Final Resulted 01/11/25 07:00 Sputum Acid Fast Bacilli Culture Pending Resulted 01/05/25 13:32 Blood Blood Culture - Final NO GROWTH AFTER 5 DAYS OF INCUBATION. Complete Assessment/Plan Assessment/Plan 74-year-old male with a known history of asthma, presented to the hospital with a five month history of progressive throat pain neck pain, persistent cough raspy voice, unintentional weight loss of 35 lb with a known history of chronic tobacco use disorder found to have 1. Acute hypoxic respiratory failure secondary to bilateral upper lobe consolidation/cavitary lesions 2. Bilateral upper lobe consolidation 3. Bilateral lung cavities rule out atypical infection, rule out tuberculosis, rule out malignancy, sputum for AFB is positive. 4. Mediastinal lymphadenopathy 5 paroxysmal AFib currently rate controlled 6. Chronic tobacco use disorder 8. Chronic alcoholism 9. Iron-deficiency anemia 10. Thrombocytosis likely reactive 11. Episode of bright red blood in the stool -patient's came back to be positive, currently on reverse isolation, started on four drug regime Follow up Pulmonary and Infectious Disease recommendation. Plan discussed with: Patient Date of Service: Jan 15, 2025 Billing Provider: DOLLY LEZAMA MD Common Visit Codes: [id number] INP/OBS CARE(MOD) DOLLY LEZAMA MD Jan 15, 2025 16:24
--- NOTE | 2025-01-15 19:22 | DVH ---
Bilateral Upper Extremity Venous Duplex Clinical History: R/O DVT Comparison: None Technique: Duplex Doppler evaluation of the venous system of the RIGHT lower neck and upper extremity including color Doppler and spectral/pulsed waveform analysis was performed. Findings: The internal jugular vein demonstrates appropriate compressibility and waveform variability. The subclavian vein is patent on color Doppler evaluation without intraluminal thrombus and demonstra janeen waveform variability. The visualized portion of the brachiocephalic vein is patent on color Doppler evaluation without intr aluminal thrombus and demonstrates waveform variability. The axillary vein demonstrates appropriate compressibility and waveform variability. The brachial veins demonstrate appropriate compressibility and patency on Doppler evaluation. The basilic vein demonstrates appropriate compressibility and patency on Doppler evaluation. The cephalic vein demonstrates thrombus noted in the cephalic veins bilaterally. Impression: 1. No deep venous thrombus identified in the RIGHT or left upper extremity vessels evaluated above. 2. Thrombus noted in the cephalic vein bilaterally is not considered a deep venous thrombosis. 3. If clinical concern/symptoms persist or worsen, short-interval follow-up study is suggested. HS:Y
[2025-01-16] VITALS (8 sets, daily range): BP systolic 127–146; BP diastolic 69–95; PULSE 71–104; RESP 16–20; TEMP 97.6–98.2; O2SAT 93–97
--- NOTE | 2025-01-16 16:16 | DVHPN2 ---
Subjective Overnight events noted. Patient is currently on four drug regime for tuberculosis. Changes from previous H/P or p: No Changes Eyes: No Pain, No Vision change, No Conjunctivae inflammation, No Eyelid inflammation, No Other, No Redness ENT: No Ear pain, No Ear discharge, No Nose pain, No Nose discharge, No Nose congestion; Mouth pain; No Mouth swelling; Throat pain; No Throat swelling, No Other Cardiovascular: Chest Pain; No Palpitations, No Orthopnea, No Paroxysmal Noc. Dyspnea, No Edema, No Lt Headedness, No Other Respiratory: Cough; No Dry; Shortness of breath, SOB with excertion; No Wheezing, No Hemoptysis, No Pleuritic Pain, No Sputum, No Other Gastrointestinal: No Nausea, No Vomiting, No Abdominal Pain, No Diarrhea, No Constipation, No Melena, No Hematochezia, No Other Genitourinary: No Dysuria, No Frequency, No Incontinence, No Hematuria, No Retention, No Other Musculoskeletal: No other, No neck pain, No shoulder pain, No arm pain, No back pain, No hand pain, No leg pain, No foot pain Skin: No Rash, No Lesions, No Jaundice, No Bruising, No Other Objective Vitals Vital Signs Date Time Temp Pulse Resp B/P (MAP) Pulse Ox O2 Delivery O2 Flow Rate FiO2 01/16/25 12:52 98.2 104 20 127/70 (89) 95 98.2 01/16/25 08:30 Room Air* 0 21 Intake/Output Intake and Output 01/16/25 07:00 Intake Total 1150 ml Balance 1150 ml Intake Oral 1150 ml # Voids 5 # Bowel Movements 3 Exam HEENT pupils are reactive Neck is supple CV is S1-S2 regular rate and rhythm Respiratory diminished breath sounds bases GI positive bowel sound Extremity no edema 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 motor 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 Medications Current Medications Medications Dose Ordered Sig/Paco Route Start Time Stop Time Status Last Admin Dose Admin Ondansetron HCl 4 mg Q4HP PRN IV 01/05/25 15:30 Docusate Sodium 100 mg BIDPRN PRN PO 01/05/25 15:30 Enoxaparin Sodium 40 mg DAILY SC 01/05/25 15:30 01/16/25 10:01 40 MG Nitroglycerin 0.4 mg Q5MINP PRN SL 01/05/25 15:30 Vancomycin HCl 0 ml @ 0 mls/hr UD IV 01/05/25 15:30 Cancel Pantoprazole Sodium 40 mg DAILY IV 01/06/25 10:00 01/15/25 10:24 40 MG Folic Acid 1 mg DAILY PO 01/09/25 10:00 01/16/25 09:57 1 MG Multivitamins 1 tab DAILY PO 01/09/25 10:00 01/16/25 09:57 1 TAB Magnesium Oxide 400 mg DAILY PO 01/09/25 10:00 01/16/25 09:57 400 MG Thiamine HCl 100 mg DAILY PO 01/09/25 10:00 01/16/25 09:57 100 MG Metoprolol Succinate 25 mg BID PO 01/11/25 22:00 01/16/25 09:59 25 MG Aspirin 81 mg DAILY PO 01/12/25 10:00 01/16/25 10:00 81 MG Enteral Nutritional Formula 240 ml TIDWM PO 01/11/25 18:00 01/16/25 09:27 240 ML Rifampin 600 mg DAILY PO 01/13/25 10:00 01/16/25 09:58 600 MG Isoniazid 300 mg DAILY PO 01/13/25 10:00 01/16/25 10:01 300 MG Ethambutol HCl 1,200 mg DAILY PO 01/13/25 10:00 01/16/25 10:00 1,200 MG Pyrazinamide 1,500 mg DAILY PO 01/13/25 10:00 01/16/25 10:00 1,500 MG Nystatin 5 ml QID MT 01/16/25 12:00 Laboratory Results Laboratory Tests 01/10/25 10:06 01/11/25 13:59 01/14/25 13:00 Urinalysis Test 01/05/25 15:50 Urine Color Yellow (Yellow) Urine Clarity Turbid (Clear) H Urine pH 5.5 (5.0-9.0) Urine Specific [place] 1.023 (1.001-1.035) Urine Protein 1+ (Negative) H Urine Ketones Negative (Negative) Urine Blood Negative /uL (Negative) Urine Nitrite Negative (Negative) Urine Bilirubin 1+ (Negative) Urine Urobilinogen 4 mg/dL (Negative) H Urine Leukocyte Esterase Negative /uL (Negative) Urine RBC 2 /hpf (0 - 3) Urine Microscopic WBC < 1 /HPF (0-3) Urine Squamous Epithelial Cells Few /hpf (<5) Urine Bacteria None seen /hpf (None Seen) Urine Hyaline Casts Few /lpf (0 - 2) Urine Mucus Few (None Seen) Urine Glucose Normal mg/dL (Normal) Microbiology Microbiology Date/Time Source Procedure Growth Status 01/11/25 07:00 Sputum AFB Broth Culture Pending Resulted 01/11/25 07:00 Sputum - Final Resulted 01/11/25 07:00 Sputum - Final Resulted 01/11/25 07:00 Sputum Acid Fast Bacilli Culture Pending Resulted 01/05/25 13:32 Blood Blood Culture - Final NO GROWTH AFTER 5 DAYS OF INCUBATION. Complete Assessment/Plan Assessment/Plan 74-year-old male with a known history of asthma, presented to the hospital with a five month history of progressive throat pain neck pain, persistent cough raspy voice, unintentional weight loss of 35 lb with a known history of chronic tobacco use disorder found to have 1. Acute hypoxic respiratory failure secondary to bilateral upper lobe consolidation/cavitary lesions 2. Bilateral upper lobe consolidation 3. Bilateral lung cavities rule out atypical infection, rule out tuberculosis, rule out malignancy, sputum for AFB is positive. 4. Mediastinal lymphadenopathy 5 paroxysmal AFib currently rate controlled 6. Chronic tobacco use disorder 8. Chronic alcoholism 9. Iron-deficiency anemia 10. Thrombocytosis likely reactive 11. Episode of bright red blood in the stool -patient's came back to be positive, currently on reverse isolation, started on four drug regime Follow up Pulmonary and Infectious Disease recommendation. Plan discussed with: Other (Patient's RN.) My Orders Orders - DOLLY LEZAMA MD Procedure Category Date Status Time Bi Lat Upper Dvt US 01/15/25 Resulted 17:39 Date of Service: Jan 16, 2025 Billing Provider: DOLLY LEZAMA MD Common Visit Codes: [id number] INP/OBS CARE(MOD) DOLLY LEZAMA MD Jan 16, 2025 16:16
[2025-01-16] MEDS: NYSTATIN (MOUTH-THROAT) 500,000 UNITS/5 ML SUSP MT SCH (17:47)
--- NOTE | 2025-01-16 18:26 | DVHPN2 ---
Progress Note - Dictate Date Seen: Jan 16, 2025 Medical Necessity Reason Pt with a Central, PICC or Fol: No vital signs Vital Sign Date Time Temp Pulse Resp B/P (MAP) Pulse Ox O2 Delivery O2 Flow Rate FiO2 01/16/25 17:00 97.9 96 18 146/76 (99) 94 97.9 01/16/25 08:30 Room Air* 0 21 Total Intake and Output 01/15/25 01/15/25 01/16/25 15:00 23:00 07:00 Intake Total 850 ml 300 ml Balance 850 ml 300 ml medications Current Medications Medications Dose Ordered Sig/Paco Route Start Time Stop Time Status Last Admin Dose Admin Ondansetron HCl 4 mg Q4HP PRN IV 01/05/25 15:30 Docusate Sodium 100 mg BIDPRN PRN PO 01/05/25 15:30 Enoxaparin Sodium 40 mg DAILY SC 01/05/25 15:30 01/16/25 10:01 40 MG Nitroglycerin 0.4 mg Q5MINP PRN SL 01/05/25 15:30 Vancomycin HCl 0 ml @ 0 mls/hr UD IV 01/05/25 15:30 Cancel Pantoprazole Sodium 40 mg DAILY IV 01/06/25 10:00 01/15/25 10:24 40 MG Folic Acid 1 mg DAILY PO 01/09/25 10:00 01/16/25 09:57 1 MG Multivitamins 1 tab DAILY PO 01/09/25 10:00 01/16/25 09:57 1 TAB Magnesium Oxide 400 mg DAILY PO 01/09/25 10:00 01/16/25 09:57 400 MG Thiamine HCl 100 mg DAILY PO 01/09/25 10:00 01/16/25 09:57 100 MG Metoprolol Succinate 25 mg BID PO 01/11/25 22:00 01/16/25 09:59 25 MG Aspirin 81 mg DAILY PO 01/12/25 10:00 01/16/25 10:00 81 MG Enteral Nutritional Formula 240 ml TIDWM PO 01/11/25 18:00 01/16/25 18:22 240 ML Rifampin 600 mg DAILY PO 01/13/25 10:00 01/16/25 09:58 600 MG Isoniazid 300 mg DAILY PO 01/13/25 10:00 01/16/25 10:01 300 MG Ethambutol HCl 1,200 mg DAILY PO 01/13/25 10:00 01/16/25 10:00 1,200 MG Pyrazinamide 1,500 mg DAILY PO 01/13/25 10:00 01/16/25 10:00 1,500 MG Nystatin 5 ml QID MT 01/16/25 12:00 01/16/25 17:47 5 ML laboratory and microbiology Laboratory Tests 01/14/25 13:00 01/11/25 13:59 01/10/25 10:06 Test 01/10/25 10:06 Range/Units Serum Glucose 96 74-106 mg/dL Assessment/Plan Impression Pulmonary tuberculosis weight loss Lung cavities Atelectasis Patient seen and examined Events sputum smear neg've for AFB IFN test pos've started on 4x therapy for TB Management continue Rx abx per ID Bronchodilators Monitor renal function Monitor electrolytes Supplement as needed DVT prophylaxis Dietary Evaluation Review Comments: Add ensure High Protein oral supplement TIDWM Expected Outcomes/Goals: gradual wt gain, improved overall health condition Plan discussed with: Patient VANESSA DAWSON MD Jan 16, 2025 18:26
--- NOTE | 2025-01-16 21:40 | DVHPN2 ---
Consult Progress Note Date Seen: Jan 11, 2025 Objective vital signs Vital Sign Date Time Temp Pulse Resp B/P (MAP) Pulse Ox O2 Delivery O2 Flow Rate FiO2 01/16/25 20:45 97.8 97 18 137/69 (91) 96 97.8 01/16/25 20:00 Room Air* 0 21 Total Intake and Output 01/15/25 01/15/25 01/16/25 15:00 23:00 07:00 Intake Total 850 ml 300 ml Balance 850 ml 300 ml medications Current Medications Medications Dose Ordered Sig/Paco Route Start Time Stop Time Status Last Admin Dose Admin Ondansetron HCl 4 mg Q4HP PRN IV 01/05/25 15:30 Docusate Sodium 100 mg BIDPRN PRN PO 01/05/25 15:30 Nitroglycerin 0.4 mg Q5MINP PRN SL 01/05/25 15:30 Vancomycin HCl 0 ml @ 0 mls/hr UD IV 01/05/25 15:30 Cancel Folic Acid 1 mg DAILY PO 01/09/25 10:00 01/16/25 09:57 1 MG Multivitamins 1 tab DAILY PO 01/09/25 10:00 01/16/25 09:57 1 TAB Magnesium Oxide 400 mg DAILY PO 01/09/25 10:00 01/16/25 09:57 400 MG Thiamine HCl 100 mg DAILY PO 01/09/25 10:00 01/16/25 09:57 100 MG Metoprolol Succinate 25 mg BID PO 01/11/25 22:00 01/16/25 09:59 25 MG Aspirin 81 mg DAILY PO 01/12/25 10:00 01/16/25 10:00 81 MG Enteral Nutritional Formula 240 ml TIDWM PO 01/11/25 18:00 01/16/25 18:22 240 ML Rifampin 600 mg DAILY PO 01/13/25 10:00 01/16/25 09:58 600 MG Isoniazid 300 mg DAILY PO 01/13/25 10:00 01/16/25 10:01 300 MG Ethambutol HCl 1,200 mg DAILY PO 01/13/25 10:00 01/16/25 10:00 1,200 MG Pyrazinamide 1,500 mg DAILY PO 01/13/25 10:00 01/16/25 10:00 1,500 MG Nystatin 5 ml QID MT 01/16/25 12:00 01/16/25 18:32 5 ML Pantoprazole Sodium 40 mg BID@0600,1700 PO 01/17/25 06:00 laboratory and microbiology Laboratory Tests 01/14/25 13:00 01/11/25 13:59 01/10/25 10:06 Test 01/10/25 10:06 Range/Units Serum Glucose 96 74-106 mg/dL Dietary Evaluation Review Comments: Add ensure High Protein oral supplement TIDWM Expected Outcomes/Goals: gradual wt gain, improved overall health condition CARRILLO TORRES MD Jan 16, 2025 21:40
[2025-01-16] MEDS ORDERED: ETHA400T20 PO (22:15)
[2025-01-16] MEDS ORDERED: ISON300T68 PO (22:15)
[2025-01-16] MEDS ORDERED: NYS5LQ MT (22:15)
[2025-01-16] MEDS ORDERED: RIFA300C58 PO (22:15)
[2025-01-17] VITALS (8 sets, daily range): BP systolic 123–157; BP diastolic 71–85; PULSE 78–110; RESP 17–18; TEMP 97.3–98.3; O2SAT 93–100
[2025-01-17] MEDS: PANTOPRAZOLE 40 MG TAB PO SCH (05:31)
[2025-01-17] MEDS: PYRIDOXINE HCL 50 MG TAB PO SCH (11:00)
--- NOTE | 2025-01-17 13:32 | DVHPN2 ---
Subjective Patient denies any symptoms at this time Reviewed: Care Plan, H&P, Labs Changes from previous H/P or p: No Changes General: Per HPI Eyes: No Pain, No Vision change, No Conjunctivae inflammation, No Eyelid inflammation, No Other, No Redness ENT: No Ear pain, No Ear discharge, No Nose pain, No Nose discharge, No Nose congestion; Mouth pain; No Mouth swelling; Throat pain; No Throat swelling, No Other Cardiovascular: Chest Pain; No Palpitations, No Orthopnea, No Paroxysmal Noc. Dyspnea, No Edema, No Lt Headedness, No Other Respiratory: Cough; No Dry; Shortness of breath, SOB with excertion; No Wheezing, No Hemoptysis, No Pleuritic Pain, No Sputum, No Other Gastrointestinal: No Nausea, No Vomiting, No Abdominal Pain, No Diarrhea, No Constipation, No Melena, No Hematochezia, No Other Genitourinary: No Dysuria, No Frequency, No Incontinence, No Hematuria, No Retention, No Other Musculoskeletal: No other, No neck pain, No shoulder pain, No arm pain, No back pain, No hand pain, No leg pain, No foot pain Skin: No Rash, No Lesions, No Jaundice, No Bruising, No Other Objective Vitals Vital Signs Date Time Temp Pulse Resp B/P (MAP) Pulse Ox O2 Delivery O2 Flow Rate FiO2 01/17/25 11:00 84 157/85 01/17/25 09:07 97.6 18 100 97.6 01/16/25 20:00 Room Air* 0 21 Intake/Output Intake and Output 01/17/25 07:00 Intake Total 850 ml Output Total 300 ml Balance 550 ml Intake Oral 850 ml Output Urine Total 300 ml # Voids 5 # Bowel Movements 2 General Appearance: Alert, Oriented X3, Cooperative, No acute distress HEENT: Atraumatic, PERRLA Cardiovascular: Normal S1, Normal S2 Abdomen: Normal bowel sounds, Soft, No tenderness, No hepatospenomegaly, No masses Musculoskeletal: Normal sensory function, Normal motor function Neuro: Normal gait, Normal speech Psych/Mental Status: Mental status NL, Mood NL Medications Current Medications Medications Dose Ordered Sig/Paco Route Start Time Stop Time Status Last Admin Dose Admin Ondansetron HCl 4 mg Q4HP PRN IV 01/05/25 15:30 Docusate Sodium 100 mg BIDPRN PRN PO 01/05/25 15:30 Nitroglycerin 0.4 mg Q5MINP PRN SL 01/05/25 15:30 Vancomycin HCl 0 ml @ 0 mls/hr UD IV 01/05/25 15:30 Cancel Folic Acid 1 mg DAILY PO 01/09/25 10:00 01/17/25 10:57 1 MG Multivitamins 1 tab DAILY PO 01/09/25 10:00 01/17/25 10:57 1 TAB Magnesium Oxide 400 mg DAILY PO 01/09/25 10:00 01/17/25 10:56 400 MG Thiamine HCl 100 mg DAILY PO 01/09/25 10:00 01/17/25 10:56 100 MG Metoprolol Succinate 25 mg BID PO 01/11/25 22:00 01/17/25 11:00 25 MG Aspirin 81 mg DAILY PO 01/12/25 10:00 01/17/25 10:58 81 MG Enteral Nutritional Formula 240 ml TIDWM PO 01/11/25 18:00 01/17/25 08:00 240 ML Rifampin 600 mg DAILY PO 01/13/25 10:00 01/17/25 10:59 600 MG Isoniazid 300 mg DAILY PO 01/13/25 10:00 01/17/25 10:59 300 MG Ethambutol HCl 1,200 mg DAILY PO 01/13/25 10:00 01/17/25 10:56 1,200 MG Pyrazinamide 1,500 mg DAILY PO 01/13/25 10:00 01/17/25 11:22 1,500 MG Nystatin 5 ml QID MT 01/16/25 12:00 01/17/25 05:31 5 ML Pantoprazole Sodium 40 mg BID@0600,1700 PO 01/17/25 06:00 01/17/25 10:57 40 MG Pyridoxine HCl 50 mg DAILY PO 01/17/25 10:00 01/17/25 11:00 50 MG Laboratory Results Laboratory Tests 01/10/25 10:06 01/11/25 13:59 01/14/25 13:00 Urinalysis Test 01/05/25 15:50 Urine Color Yellow (Yellow) Urine Clarity Turbid (Clear) H Urine pH 5.5 (5.0-9.0) Urine Specific [place] 1.023 (1.001-1.035) Urine Protein 1+ (Negative) H Urine Ketones Negative (Negative) Urine Blood Negative /uL (Negative) Urine Nitrite Negative (Negative) Urine Bilirubin 1+ (Negative) Urine Urobilinogen 4 mg/dL (Negative) H Urine Leukocyte Esterase Negative /uL (Negative) Urine RBC 2 /hpf (0 - 3) Urine Microscopic WBC < 1 /HPF (0-3) Urine Squamous Epithelial Cells Few /hpf (<5) Urine Bacteria None seen /hpf (None Seen) Urine Hyaline Casts Few /lpf (0 - 2) Urine Mucus Few (None Seen) Urine Glucose Normal mg/dL (Normal) Microbiology Microbiology Date/Time Source Procedure Growth Status 01/11/25 07:00 Sputum AFB Broth Culture Pending Resulted 01/11/25 07:00 Sputum - Final Resulted 01/11/25 07:00 Sputum - Final Resulted 01/11/25 07:00 Sputum - Final Resulted 01/11/25 07:00 Sputum Acid Fast Bacilli Culture Pending Resulted 01/05/25 13:32 Blood Blood Culture - Final NO GROWTH AFTER 5 DAYS OF INCUBATION. Complete Labs and/or images reviewed: Labs reviewed by me, Image(s) reviewed by me Assessment/Plan Assessment/Plan Impression: -acute hypoxic respiratory failure -active tuberculosis -thrombocytosis -mediastinal lymphadenopathy -paroxysmal atrial fibrillation -nicotine dependence -ETOH use -cachexia Plan: -patient has AFB positive for TB. Infectious disease doctor on board. -continue current regimen for tuberculosis -nutritional supplementation -notify Infectious Disease field care manager for discharge planning -PUD, DVT prophylaxis Total time spent with patient discussing and formulating plan of care: 35 minutes. This medical document was created using an electronic medical record system with [employer] dictation system. Although this document has been carefully reviewed, there may still be some phonetic and typographical errors. These areas are purely typographical due to imperfections of the software programs, and do not reflect any compromise in the patient's medical care. Plan discussed with: Patient, Other (RN) My Orders Orders - KIMBER HERNANDEZ NP Procedure Category Date Status Time Communication Order ORDERS 01/17/25 Verified 13:27 Date of Service: Jan 17, 2025 Billing Provider: KIMBER HERNANDEZ NP Common Visit Codes: [id number] INP/OBS CARE (HIGH) KIMBER HERNANDEZ NP Jan 17, 2025 13:32
--- NOTE | 2025-01-17 17:47 | DVHPN2 ---
Progress Note - Dictate Date Seen: Jan 17, 2025 Medical Necessity Reason Pt with a Central, PICC or Fol: No vital signs Vital Sign Date Time Temp Pulse Resp B/P (MAP) Pulse Ox O2 Delivery O2 Flow Rate FiO2 01/17/25 17:21 98.2 78 18 138/73 (94) 96 98.2 01/17/25 08:30 Room Air* 0 21 Total Intake and Output 01/16/25 01/16/25 01/17/25 15:00 23:00 07:00 Intake Total 400 ml 450 ml Output Total 300 ml Balance 400 ml 150 ml medications Current Medications Medications Dose Ordered Sig/Paco Route Start Time Stop Time Status Last Admin Dose Admin Ondansetron HCl 4 mg Q4HP PRN IV 01/05/25 15:30 Docusate Sodium 100 mg BIDPRN PRN PO 01/05/25 15:30 Nitroglycerin 0.4 mg Q5MINP PRN SL 01/05/25 15:30 Vancomycin HCl 0 ml @ 0 mls/hr UD IV 01/05/25 15:30 Cancel Folic Acid 1 mg DAILY PO 01/09/25 10:00 01/17/25 10:57 1 MG Multivitamins 1 tab DAILY PO 01/09/25 10:00 01/17/25 10:57 1 TAB Magnesium Oxide 400 mg DAILY PO 01/09/25 10:00 01/17/25 10:56 400 MG Thiamine HCl 100 mg DAILY PO 01/09/25 10:00 01/17/25 10:56 100 MG Metoprolol Succinate 25 mg BID PO 01/11/25 22:00 01/17/25 11:00 25 MG Aspirin 81 mg DAILY PO 01/12/25 10:00 01/17/25 10:58 81 MG Enteral Nutritional Formula 240 ml TIDWM PO 01/11/25 18:00 01/17/25 12:00 240 ML Rifampin 600 mg DAILY PO 01/13/25 10:00 01/17/25 10:59 600 MG Isoniazid 300 mg DAILY PO 01/13/25 10:00 01/17/25 10:59 300 MG Ethambutol HCl 1,200 mg DAILY PO 01/13/25 10:00 01/17/25 10:56 1,200 MG Pyrazinamide 1,500 mg DAILY PO 01/13/25 10:00 01/17/25 11:22 1,500 MG Nystatin 5 ml QID MT 01/16/25 12:00 01/17/25 05:31 5 ML Pantoprazole Sodium 40 mg BID@0600,1700 PO 01/17/25 06:00 01/17/25 10:57 40 MG Pyridoxine HCl 50 mg DAILY PO 01/17/25 10:00 01/17/25 11:00 50 MG laboratory and microbiology Laboratory Tests 01/14/25 13:00 01/11/25 13:59 01/10/25 10:06 Test 01/10/25 10:06 Range/Units Serum Glucose 96 74-106 mg/dL Assessment/Plan Impression Pulmonary tuberculosis weight loss Lung cavities Atelectasis Patient seen and examined Events sputum smear neg've for AFB IFN test pos've started on 4x therapy for TB Management continue Rx abx per ID Bronchodilators Monitor renal function Monitor electrolytes Supplement as needed DVT prophylaxis Dietary Evaluation Review Comments: Add ensure High Protein oral supplement TIDWM Expected Outcomes/Goals: gradual wt gain, improved overall health condition Plan discussed with: Patient VANESSA DAWSON MD Jan 17, 2025 17:47
--- NOTE | 2025-01-17 21:57 | DVHPN2 ---
Consult Progress Note Date Seen: Jan 11, 2025 Objective vital signs Vital Sign Date Time Temp Pulse Resp B/P (MAP) Pulse Ox O2 Delivery O2 Flow Rate FiO2 01/17/25 21:55 82 138/71 01/17/25 17:21 98.2 18 96 98.2 01/17/25 08:30 Room Air* 0 21 Total Intake and Output 01/16/25 01/16/25 01/17/25 15:00 23:00 07:00 Intake Total 400 ml 450 ml Output Total 300 ml Balance 400 ml 150 ml medications Current Medications Medications Dose Ordered Sig/Paco Route Start Time Stop Time Status Last Admin Dose Admin Ondansetron HCl 4 mg Q4HP PRN IV 01/05/25 15:30 Docusate Sodium 100 mg BIDPRN PRN PO 01/05/25 15:30 Nitroglycerin 0.4 mg Q5MINP PRN SL 01/05/25 15:30 Vancomycin HCl 0 ml @ 0 mls/hr UD IV 01/05/25 15:30 Cancel Folic Acid 1 mg DAILY PO 01/09/25 10:00 01/17/25 10:57 1 MG Multivitamins 1 tab DAILY PO 01/09/25 10:00 01/17/25 10:57 1 TAB Magnesium Oxide 400 mg DAILY PO 01/09/25 10:00 01/17/25 10:56 400 MG Thiamine HCl 100 mg DAILY PO 01/09/25 10:00 01/17/25 10:56 100 MG Metoprolol Succinate 25 mg BID PO 01/11/25 22:00 01/17/25 21:55 25 MG Aspirin 81 mg DAILY PO 01/12/25 10:00 01/17/25 10:58 81 MG Enteral Nutritional Formula 240 ml TIDWM PO 01/11/25 18:00 01/17/25 18:44 240 ML Rifampin 600 mg DAILY PO 01/13/25 10:00 01/17/25 10:59 600 MG Isoniazid 300 mg DAILY PO 01/13/25 10:00 01/17/25 10:59 300 MG Ethambutol HCl 1,200 mg DAILY PO 01/13/25 10:00 01/17/25 10:56 1,200 MG Pyrazinamide 1,500 mg DAILY PO 01/13/25 10:00 01/17/25 11:22 1,500 MG Nystatin 5 ml QID MT 01/16/25 12:00 01/17/25 21:54 5 ML Pantoprazole Sodium 40 mg BID@0600,1700 PO 01/17/25 06:00 01/17/25 10:57 40 MG Pyridoxine HCl 50 mg DAILY PO 01/17/25 10:00 01/17/25 11:00 50 MG laboratory and microbiology Laboratory Tests 01/14/25 13:00 01/11/25 13:59 01/10/25 10:06 Test 01/10/25 10:06 Range/Units Serum Glucose 96 74-106 mg/dL Dietary Evaluation Review Comments: Add ensure High Protein oral supplement TIDWM Expected Outcomes/Goals: gradual wt gain, improved overall health condition CARRILLO TORRES MD Jan 17, 2025 21:57
--- NOTE | 2025-01-17 22:03 | DVHPN2 ---
Consult Progress Note Date Seen: Jan 14, 2025 Objective vital signs Vital Sign Date Time Temp Pulse Resp B/P (MAP) Pulse Ox O2 Delivery O2 Flow Rate FiO2 01/17/25 21:55 82 138/71 01/17/25 17:21 98.2 18 96 98.2 01/17/25 08:30 Room Air* 0 21 Total Intake and Output 01/16/25 01/16/25 01/17/25 15:00 23:00 07:00 Intake Total 400 ml 450 ml Output Total 300 ml Balance 400 ml 150 ml medications Current Medications Medications Dose Ordered Sig/Paco Route Start Time Stop Time Status Last Admin Dose Admin Ondansetron HCl 4 mg Q4HP PRN IV 01/05/25 15:30 Docusate Sodium 100 mg BIDPRN PRN PO 01/05/25 15:30 Nitroglycerin 0.4 mg Q5MINP PRN SL 01/05/25 15:30 Vancomycin HCl 0 ml @ 0 mls/hr UD IV 01/05/25 15:30 Cancel Folic Acid 1 mg DAILY PO 01/09/25 10:00 01/17/25 10:57 1 MG Multivitamins 1 tab DAILY PO 01/09/25 10:00 01/17/25 10:57 1 TAB Magnesium Oxide 400 mg DAILY PO 01/09/25 10:00 01/17/25 10:56 400 MG Thiamine HCl 100 mg DAILY PO 01/09/25 10:00 01/17/25 10:56 100 MG Metoprolol Succinate 25 mg BID PO 01/11/25 22:00 01/17/25 21:55 25 MG Aspirin 81 mg DAILY PO 01/12/25 10:00 01/17/25 10:58 81 MG Enteral Nutritional Formula 240 ml TIDWM PO 01/11/25 18:00 01/17/25 18:44 240 ML Rifampin 600 mg DAILY PO 01/13/25 10:00 01/17/25 10:59 600 MG Isoniazid 300 mg DAILY PO 01/13/25 10:00 01/17/25 10:59 300 MG Ethambutol HCl 1,200 mg DAILY PO 01/13/25 10:00 01/17/25 10:56 1,200 MG Pyrazinamide 1,500 mg DAILY PO 01/13/25 10:00 01/17/25 11:22 1,500 MG Nystatin 5 ml QID MT 01/16/25 12:00 01/17/25 21:54 5 ML Pantoprazole Sodium 40 mg BID@0600,1700 PO 01/17/25 06:00 01/17/25 10:57 40 MG Pyridoxine HCl 50 mg DAILY PO 01/17/25 10:00 01/17/25 11:00 50 MG laboratory and microbiology Laboratory Tests 01/14/25 13:00 01/11/25 13:59 01/10/25 10:06 Test 01/10/25 10:06 Range/Units Serum Glucose 96 74-106 mg/dL Problem List/Assessment/Plan Problem List/Assessment/Plan patient seen at bedside full note follow, persistent cough ambulating w/ PT will treat presumtively as disseminated TB, however if patient able to get lymph node biopsy to confirm dissemination would attempt to acquire HIV ab negative, cocci ab negative Plan will check for hepatitis status AFB (4+ on 2 of 3 afb samples) MTB pcr x 2 positive (no rifampin resistance detected) will fu on culture sensitivities and speciation continue RIPE (minimum 5 days to come off isolation (defer to department of public health for additional recommendations for discharge)) dc on 30 days of RIPE + vitamin B6. acquire lymph node biopsy if possible and send of AFB stain and culturing and MTB pcr testing. Dietary Evaluation Review Comments: Add ensure High Protein oral supplement TIDWM Expected Outcomes/Goals: gradual wt gain, improved overall health condition CARRILLO TORRES MD Jan 17, 2025 22:03
[2025-01-18] VITALS (9 sets, daily range): BP systolic 132–154; BP diastolic 71–85; PULSE 72–98; RESP 16–19; TEMP 97.4–98.5; O2SAT 95–97
[2025-01-18 15:29] LABS: Hepatitis B Surface Antigen Negative (Negative)
--- NOTE | 2025-01-18 15:36 | DVHPN2 ---
Subjective Patient denies any symptoms at this time Reviewed: Care Plan, H&P, Labs Changes from previous H/P or p: No Changes General: Per HPI Eyes: No Pain, No Vision change, No Conjunctivae inflammation, No Eyelid inflammation, No Other, No Redness ENT: No Ear pain, No Ear discharge, No Nose pain, No Nose discharge, No Nose congestion; Mouth pain; No Mouth swelling; Throat pain; No Throat swelling, No Other Cardiovascular: Chest Pain; No Palpitations, No Orthopnea, No Paroxysmal Noc. Dyspnea, No Edema, No Lt Headedness, No Other Respiratory: Cough; No Dry; Shortness of breath, SOB with excertion; No Wheezing, No Hemoptysis, No Pleuritic Pain, No Sputum, No Other Gastrointestinal: No Nausea, No Vomiting, No Abdominal Pain, No Diarrhea, No Constipation, No Melena, No Hematochezia, No Other Genitourinary: No Dysuria, No Frequency, No Incontinence, No Hematuria, No Retention, No Other Musculoskeletal: No other, No neck pain, No shoulder pain, No arm pain, No back pain, No hand pain, No leg pain, No foot pain Skin: No Rash, No Lesions, No Jaundice, No Bruising, No Other Objective Vitals Vital Signs Date Time Temp Pulse Resp B/P (MAP) Pulse Ox O2 Delivery O2 Flow Rate FiO2 01/18/25 13:08 98.4 80 19 137/80 (99) 97 98.4 01/18/25 08:10 Room Air* 0 21 Intake/Output Intake and Output 01/18/25 07:00 Intake Total 1310 ml Output Total 5 ml Balance 1305 ml Intake Oral 1310 ml Output Urine Total 4 ml Stool Total 1 ml # Voids 3 # Bowel Movements 2 General Appearance: Alert, Oriented X3, Cooperative, No acute distress HEENT: Atraumatic, PERRLA Cardiovascular: Normal S1, Normal S2 Abdomen: Normal bowel sounds, Soft, No tenderness, No hepatospenomegaly, No masses Musculoskeletal: Normal sensory function, Normal motor function Neuro: Normal gait, Normal speech Psych/Mental Status: Mental status NL, Mood NL Medications Current Medications Medications Dose Ordered Sig/Paco Route Start Time Stop Time Status Last Admin Dose Admin Ondansetron HCl 4 mg Q4HP PRN IV 01/05/25 15:30 Docusate Sodium 100 mg BIDPRN PRN PO 01/05/25 15:30 Nitroglycerin 0.4 mg Q5MINP PRN SL 01/05/25 15:30 Vancomycin HCl 0 ml @ 0 mls/hr UD IV 01/05/25 15:30 Cancel Folic Acid 1 mg DAILY PO 01/09/25 10:00 01/18/25 10:51 1 MG Multivitamins 1 tab DAILY PO 01/09/25 10:00 01/18/25 10:51 1 TAB Magnesium Oxide 400 mg DAILY PO 01/09/25 10:00 01/18/25 10:51 400 MG Thiamine HCl 100 mg DAILY PO 01/09/25 10:00 01/18/25 10:51 100 MG Metoprolol Succinate 25 mg BID PO 01/11/25 22:00 01/18/25 10:52 25 MG Aspirin 81 mg DAILY PO 01/12/25 10:00 01/18/25 10:51 81 MG Enteral Nutritional Formula 240 ml TIDWM PO 01/11/25 18:00 01/18/25 12:50 240 ML Rifampin 600 mg DAILY PO 01/13/25 10:00 01/18/25 10:58 600 MG Isoniazid 300 mg DAILY PO 01/13/25 10:00 01/18/25 10:58 300 MG Ethambutol HCl 1,200 mg DAILY PO 01/13/25 10:00 01/18/25 10:50 1,200 MG Pyrazinamide 1,500 mg DAILY PO 01/13/25 10:00 01/18/25 10:55 1,500 MG Nystatin 5 ml QID MT 01/16/25 12:00 01/18/25 12:46 5 ML Pantoprazole Sodium 40 mg BID@0600,1700 PO 01/17/25 06:00 01/18/25 05:57 40 MG Pyridoxine HCl 50 mg DAILY PO 01/17/25 10:00 01/18/25 10:49 50 MG Laboratory Results Laboratory Tests 01/10/25 10:06 01/11/25 13:59 01/14/25 13:00 Urinalysis Test 01/05/25 15:50 Urine Color Yellow (Yellow) Urine Clarity Turbid (Clear) H Urine pH 5.5 (5.0-9.0) Urine Specific [place] 1.023 (1.001-1.035) Urine Protein 1+ (Negative) H Urine Ketones Negative (Negative) Urine Blood Negative /uL (Negative) Urine Nitrite Negative (Negative) Urine Bilirubin 1+ (Negative) Urine Urobilinogen 4 mg/dL (Negative) H Urine Leukocyte Esterase Negative /uL (Negative) Urine RBC 2 /hpf (0 - 3) Urine Microscopic WBC < 1 /HPF (0-3) Urine Squamous Epithelial Cells Few /hpf (<5) Urine Bacteria None seen /hpf (None Seen) Urine Hyaline Casts Few /lpf (0 - 2) Urine Mucus Few (None Seen) Urine Glucose Normal mg/dL (Normal) Microbiology Microbiology Date/Time Source Procedure Growth Status 01/11/25 07:00 Sputum AFB Broth Culture Pending Resulted 01/11/25 07:00 Sputum - Final Resulted 01/11/25 07:00 Sputum - Final Resulted 01/11/25 07:00 Sputum - Final Resulted 01/11/25 07:00 Sputum Acid Fast Bacilli Culture Pending Resulted 01/05/25 13:32 Blood Blood Culture - Final NO GROWTH AFTER 5 DAYS OF INCUBATION. Complete Labs and/or images reviewed: Labs reviewed by me, Image(s) reviewed by me Assessment/Plan Assessment/Plan Impression: -acute hypoxic respiratory failure -active tuberculosis -thrombocytosis -mediastinal lymphadenopathy -paroxysmal atrial fibrillation -nicotine dependence -ETOH use -cachexia Plan: Events: No events overnight. Discussed with Infectious control coordinator of the hospital. They discussed the case with [facility]. Plans for repeat AFB tomorrow. Continue current treatment plan. -patient has AFB positive for TB. Infectious disease doctor on board. -continue current regimen for tuberculosis -nutritional supplementation -notify Infectious Disease manager of sales for discharge planning -PUD, DVT prophylaxis Total time spent with patient discussing and formulating plan of care: 35 minutes. This medical document was created using an electronic medical record system with [employer] dictation system. Although this document has been carefully reviewed, there may still be some phonetic and typographical errors. These areas are purely typographical due to imperfections of the software programs, and do not reflect any compromise in the patient's medical care. Plan discussed with: Patient, Other (RN) Date of Service: Jan 18, 2025 Billing Provider: KIMBER HERNANDEZ NP Common Visit Codes: [id number] INP/OBS CARE(HIGH) KIMBER HERNANDEZ NP Jan 18, 2025 15:36
[2025-01-18 15:45] LABS: Hepatitis C Antibody Negative (Negative)
--- NOTE | 2025-01-18 17:40 | DVHPN2 ---
Progress Note - Dictate Date Seen: Jan 18, 2025 Medical Necessity Reason Pt with a Central, PICC or Fol: No vital signs Vital Sign Date Time Temp Pulse Resp B/P (MAP) Pulse Ox O2 Delivery O2 Flow Rate FiO2 01/18/25 16:33 98.5 82 19 132/81 (98) 96 98.5 01/18/25 08:10 Room Air* 0 21 Total Intake and Output 01/17/25 01/17/25 01/18/25 15:00 23:00 07:00 Intake Total 510 ml 800 ml Output Total 5 ml Balance 505 ml 800 ml medications Current Medications Medications Dose Ordered Sig/Paco Route Start Time Stop Time Status Last Admin Dose Admin Ondansetron HCl 4 mg Q4HP PRN IV 01/05/25 15:30 Docusate Sodium 100 mg BIDPRN PRN PO 01/05/25 15:30 Nitroglycerin 0.4 mg Q5MINP PRN SL 01/05/25 15:30 Vancomycin HCl 0 ml @ 0 mls/hr UD IV 01/05/25 15:30 Cancel Folic Acid 1 mg DAILY PO 01/09/25 10:00 01/18/25 10:51 1 MG Multivitamins 1 tab DAILY PO 01/09/25 10:00 01/18/25 10:51 1 TAB Magnesium Oxide 400 mg DAILY PO 01/09/25 10:00 01/18/25 10:51 400 MG Thiamine HCl 100 mg DAILY PO 01/09/25 10:00 01/18/25 10:51 100 MG Metoprolol Succinate 25 mg BID PO 01/11/25 22:00 01/18/25 10:52 25 MG Aspirin 81 mg DAILY PO 01/12/25 10:00 01/18/25 10:51 81 MG Enteral Nutritional Formula 240 ml TIDWM PO 01/11/25 18:00 01/18/25 12:50 240 ML Rifampin 600 mg DAILY PO 01/13/25 10:00 01/18/25 10:58 600 MG Isoniazid 300 mg DAILY PO 01/13/25 10:00 01/18/25 10:58 300 MG Ethambutol HCl 1,200 mg DAILY PO 01/13/25 10:00 01/18/25 10:50 1,200 MG Pyrazinamide 1,500 mg DAILY PO 01/13/25 10:00 01/18/25 10:55 1,500 MG Nystatin 5 ml QID MT 01/16/25 12:00 01/18/25 12:46 5 ML Pantoprazole Sodium 40 mg BID@0600,1700 PO 01/17/25 06:00 01/18/25 16:40 40 MG Pyridoxine HCl 50 mg DAILY PO 01/17/25 10:00 01/18/25 10:49 50 MG laboratory and microbiology Laboratory Tests 01/14/25 13:00 01/11/25 13:59 01/10/25 10:06 Test 01/10/25 10:06 Range/Units Serum Glucose 96 74-106 mg/dL Assessment/Plan Impression Pulmonary tuberculosis weight loss Lung cavities Atelectasis Patient seen and examined Events sputum smear neg've for AFB IFN test pos've No acute events started on 4x therapy for TB Management continue Rx abx per ID Bronchodilators Monitor renal function Monitor electrolytes Supplement as needed DVT prophylaxis Dietary Evaluation Review Comments: Add ensure High Protein oral supplement TIDWM Expected Outcomes/Goals: gradual wt gain, improved overall health condition Plan discussed with: Patient VANESSA DAWSON MD Jan 18, 2025 17:40
[2025-01-19] VITALS (12 sets, daily range): BP systolic 135–155; BP diastolic 70–84; PULSE 70–92; RESP 12–20; TEMP 97.3–98.8; O2SAT 93–100
[2025-01-19] MEDS: SODIUM CHL 3% HYPERTONIC 500 ML BAG IN ONE ×2 (08:52→09:15)
[2025-01-19] MEDS: ALBUTEROL SULF 2.5 MG/0.5ML(0.5%) NEB SOLN ONE (08:53)
[2025-01-19] MEDS: ALBUTEROL SULF 2.5 MG/0.5ML(0.5%) NEB SOLN NEB ONE (08:54)
--- NOTE | 2025-01-19 09:10 | DVHPN2 ---
Subjective Patient denies any symptoms at this time Reviewed: Care Plan, H&P, Labs Changes from previous H/P or p: No Changes General: Per HPI Eyes: No Pain, No Vision change, No Conjunctivae inflammation, No Eyelid inflammation, No Other, No Redness ENT: No Ear pain, No Ear discharge, No Nose pain, No Nose discharge, No Nose congestion; Mouth pain; No Mouth swelling; Throat pain; No Throat swelling, No Other Cardiovascular: Chest Pain; No Palpitations, No Orthopnea, No Paroxysmal Noc. Dyspnea, No Edema, No Lt Headedness, No Other Respiratory: Cough; No Dry; Shortness of breath, SOB with excertion; No Wheezing, No Hemoptysis, No Pleuritic Pain, No Sputum, No Other Gastrointestinal: No Nausea, No Vomiting, No Abdominal Pain, No Diarrhea, No Constipation, No Melena, No Hematochezia, No Other Genitourinary: No Dysuria, No Frequency, No Incontinence, No Hematuria, No Retention, No Other Musculoskeletal: No other, No neck pain, No shoulder pain, No arm pain, No back pain, No hand pain, No leg pain, No foot pain Skin: No Rash, No Lesions, No Jaundice, No Bruising, No Other Objective Vitals Vital Signs Date Time Temp Pulse Resp B/P (MAP) Pulse Ox O2 Delivery O2 Flow Rate FiO2 01/19/25 05:00 97.4 81 18 136/80 (98) 95 97.4 01/18/25 20:00 Room Air* 0 21 Intake/Output Intake and Output 01/19/25 07:00 Intake Total 1250 ml Balance 1250 ml Intake Oral 1250 ml # Voids 6 # Bowel Movements 1 General Appearance: Alert, Oriented X3, Cooperative, No acute distress HEENT: Atraumatic, PERRLA Cardiovascular: Normal S1, Normal S2 Abdomen: Normal bowel sounds, Soft, No tenderness, No hepatospenomegaly, No masses Musculoskeletal: Normal sensory function, Normal motor function Neuro: Normal gait, Normal speech Psych/Mental Status: Mental status NL, Mood NL Medications Current Medications Medications Dose Ordered Sig/Paco Route Start Time Stop Time Status Last Admin Dose Admin Ondansetron HCl 4 mg Q4HP PRN IV 01/05/25 15:30 Docusate Sodium 100 mg BIDPRN PRN PO 01/05/25 15:30 Nitroglycerin 0.4 mg Q5MINP PRN SL 01/05/25 15:30 Vancomycin HCl 0 ml @ 0 mls/hr UD IV 01/05/25 15:30 Cancel Folic Acid 1 mg DAILY PO 01/09/25 10:00 01/18/25 10:51 1 MG Multivitamins 1 tab DAILY PO 01/09/25 10:00 01/18/25 10:51 1 TAB Magnesium Oxide 400 mg DAILY PO 01/09/25 10:00 01/18/25 10:51 400 MG Thiamine HCl 100 mg DAILY PO 01/09/25 10:00 01/18/25 10:51 100 MG Metoprolol Succinate 25 mg BID PO 01/11/25 22:00 01/19/25 00:55 25 MG Aspirin 81 mg DAILY PO 01/12/25 10:00 01/18/25 10:51 81 MG Enteral Nutritional Formula 240 ml TIDWM PO 01/11/25 18:00 01/18/25 18:51 240 ML Rifampin 600 mg DAILY PO 01/13/25 10:00 01/18/25 10:58 600 MG Isoniazid 300 mg DAILY PO 01/13/25 10:00 01/18/25 10:58 300 MG Ethambutol HCl 1,200 mg DAILY PO 01/13/25 10:00 01/18/25 10:50 1,200 MG Pyrazinamide 1,500 mg DAILY PO 01/13/25 10:00 01/18/25 10:55 1,500 MG Nystatin 5 ml QID MT 01/16/25 12:00 01/19/25 06:18 5 ML Pantoprazole Sodium 40 mg BID@0600,1700 PO 01/17/25 06:00 01/19/25 06:19 40 MG Pyridoxine HCl 50 mg DAILY PO 01/17/25 10:00 01/18/25 10:49 50 MG Laboratory Results Laboratory Tests 01/10/25 10:06 01/11/25 13:59 01/14/25 13:00 Urinalysis Test 01/05/25 15:50 Urine Color Yellow (Yellow) Urine Clarity Turbid (Clear) H Urine pH 5.5 (5.0-9.0) Urine Specific [place] 1.023 (1.001-1.035) Urine Protein 1+ (Negative) H Urine Ketones Negative (Negative) Urine Blood Negative /uL (Negative) Urine Nitrite Negative (Negative) Urine Bilirubin 1+ (Negative) Urine Urobilinogen 4 mg/dL (Negative) H Urine Leukocyte Esterase Negative /uL (Negative) Urine RBC 2 /hpf (0 - 3) Urine Microscopic WBC < 1 /HPF (0-3) Urine Squamous Epithelial Cells Few /hpf (<5) Urine Bacteria None seen /hpf (None Seen) Urine Hyaline Casts Few /lpf (0 - 2) Urine Mucus Few (None Seen) Urine Glucose Normal mg/dL (Normal) Microbiology Microbiology Date/Time Source Procedure Growth Status 01/11/25 07:00 Sputum AFB Broth Culture Pending Resulted 01/11/25 07:00 Sputum - Final Resulted 01/11/25 07:00 Sputum - Final Resulted 01/11/25 07:00 Sputum - Final Resulted 01/11/25 07:00 Sputum Acid Fast Bacilli Culture Pending Resulted 01/05/25 13:32 Blood Blood Culture - Final NO GROWTH AFTER 5 DAYS OF INCUBATION. Complete Labs and/or images reviewed: Labs reviewed by me, Image(s) reviewed by me Assessment/Plan Assessment/Plan Impression: -acute hypoxic respiratory failure -active tuberculosis -thrombocytosis -mediastinal lymphadenopathy -paroxysmal atrial fibrillation -nicotine dependence -ETOH use -cachexia Plan: Events: Patient had mechanical fall yesterday. Small forehead laceration noted. Patient receiving 3% saline treatment to induce sputum for repeat AFB. Hold anticoagulation today. No motor deficits appreciated. -patient has AFB positive for TB. Infectious disease recommendations reviewed. -continue current regimen for tuberculosis -nutritional supplementation -notify Infectious Disease manager tax for discharge planning -PUD, DVT prophylaxis Total time spent with patient discussing and formulating plan of care: 35 minutes. This medical document was created using an electronic medical record system with [employer] dictation system. Although this document has been carefully reviewed, there may still be some phonetic and typographical errors. These areas are purely typographical due to imperfections of the software programs, and do not reflect any compromise in the patient's medical care. Plan discussed with: Patient, Other (RN) My Orders Orders - KIMBER HERNANDEZ NP Procedure Category Date Status Time Complete Blood Count LAB 01/19/25 Logged 09:06 Comprehensive LAB 01/19/25 Logged Metabolic Panel 09:06 Date of Service: Jan 19, 2025 Billing Provider: KIMBER HERNANDEZ NP Common Visit Codes: [id number] INP/OBS CARE(HIGH) KIMBER HERNANDEZ NP Jan 19, 2025 09:10
[2025-01-19 11:10] LABS: Hematocrit 29.9 % (41.0-53.0); Hemoglobin 9.2 g/dL (13.5-17.5); Mean Corpuscular Hemoglobin 24.6 pg (28.0-32.0); Mean Corpuscular Volume 79.7 fL (80.0-100.0); Nucleated Red Blood Cells % 0.2 %
[2025-01-19 11:36] LABS: Alanine Aminotransferase 24 U/L (7-40); Anion Gap 9 (5-15); BUN/Creatinine Ratio 21.3 (10.0-20.0); Bilirubin, Total 0.3 mg/dL (0.2-1.0); Blood Urea Nitrogen 20 mg/dL (9-23); Calcium 9.2 mg/dL (8.7-10.4); Carbon Dioxide 25 mmol/L (20-31); Chloride 103 mmol/L (98-107); Potassium 3.8 mmol/L (3.5-5.1); Sodium 137 mmol/L (136-145); Total Protein 5.9 g/dL (5.7-8.2)
[2025-01-19 11:38] LABS: Albumin 2.7 g/dL (3.2-4.8); Alkaline Phosphatase 160 U/L (46-116); Glucose 129 mg/dL (74-106)
--- NOTE | 2025-01-19 13:57 | ECG ---
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
--- NOTE | 2025-01-19 15:49 | DVHPN2 ---
Progress Note - Dictate Date Seen: Jan 19, 2025 Medical Necessity Reason Pt with a Central, PICC or Fol: No vital signs Vital Sign Date Time Temp Pulse Resp B/P (MAP) Pulse Ox O2 Delivery O2 Flow Rate FiO2 01/19/25 13:00 97.9 87 19 138/71 (93) 93 97.9 01/19/25 09:58 Room Air* 0 21 Total Intake and Output 01/18/25 01/18/25 01/19/25 15:00 23:00 07:00 Intake Total 700 ml 550 ml Balance 700 ml 550 ml medications Current Medications Medications Dose Ordered Sig/Paco Route Start Time Stop Time Status Last Admin Dose Admin Ondansetron HCl 4 mg Q4HP PRN IV 01/05/25 15:30 Docusate Sodium 100 mg BIDPRN PRN PO 01/05/25 15:30 Nitroglycerin 0.4 mg Q5MINP PRN SL 01/05/25 15:30 Vancomycin HCl 0 ml @ 0 mls/hr UD IV 01/05/25 15:30 Cancel Folic Acid 1 mg DAILY PO 01/09/25 10:00 01/19/25 10:33 1 MG Multivitamins 1 tab DAILY PO 01/09/25 10:00 01/19/25 10:34 1 TAB Magnesium Oxide 400 mg DAILY PO 01/09/25 10:00 01/19/25 10:34 400 MG Thiamine HCl 100 mg DAILY PO 01/09/25 10:00 01/19/25 10:32 100 MG Metoprolol Succinate 25 mg BID PO 01/11/25 22:00 01/19/25 10:35 25 MG Aspirin 81 mg DAILY PO 01/12/25 10:00 01/19/25 10:32 81 MG Enteral Nutritional Formula 240 ml TIDWM PO 01/11/25 18:00 01/19/25 12:00 240 ML Rifampin 600 mg DAILY PO 01/13/25 10:00 01/19/25 10:31 600 MG Isoniazid 300 mg DAILY PO 01/13/25 10:00 01/19/25 10:33 300 MG Ethambutol HCl 1,200 mg DAILY PO 01/13/25 10:00 01/19/25 10:32 1,200 MG Pyrazinamide 1,500 mg DAILY PO 01/13/25 10:00 01/19/25 10:34 1,500 MG Nystatin 5 ml QID MT 01/16/25 12:00 01/19/25 10:35 5 ML Pantoprazole Sodium 40 mg BID@0600,1700 PO 01/17/25 06:00 01/19/25 06:19 40 MG Pyridoxine HCl 50 mg DAILY PO 01/17/25 10:00 01/19/25 10:33 50 MG laboratory and microbiology Laboratory Tests 01/19/25 10:57 Test 01/19/25 10:57 Range/Units Serum Glucose 129 H 74-106 mg/dL Assessment/Plan Impression Pulmonary tuberculosis weight loss Lung cavities Atelectasis Patient seen and examined Events low oxygen requirements on room air no acute events sputum smear neg've for AFB IFN test pos've started on 4x therapy for TB Management continue Rx abx per ID Bronchodilators Monitor renal function Monitor electrolytes Supplement as needed DVT prophylaxis Dietary Evaluation Review Comments: Add ensure High Protein oral supplement TIDWM Expected Outcomes/Goals: gradual wt gain, improved overall health condition Plan discussed with: Patient VANESSA DAWSON MD Jan 19, 2025 15:49
--- NOTE | 2025-01-19 19:42 | DVHPN2 ---
Consult Progress Note Date Seen: Jan 17, 2025 Objective vital signs Vital Sign Date Time Temp Pulse Resp B/P (MAP) Pulse Ox O2 Delivery O2 Flow Rate FiO2 01/19/25 16:50 97.4 72 20 135/82 (99) 95 97.4 01/19/25 09:58 Room Air* 0 21 Total Intake and Output 01/18/25 01/18/25 01/19/25 15:00 23:00 07:00 Intake Total 700 ml 550 ml Balance 700 ml 550 ml medications Current Medications Medications Dose Ordered Sig/Paco Route Start Time Stop Time Status Last Admin Dose Admin Ondansetron HCl 4 mg Q4HP PRN IV 01/05/25 15:30 Docusate Sodium 100 mg BIDPRN PRN PO 01/05/25 15:30 Nitroglycerin 0.4 mg Q5MINP PRN SL 01/05/25 15:30 Vancomycin HCl 0 ml @ 0 mls/hr UD IV 01/05/25 15:30 Cancel Folic Acid 1 mg DAILY PO 01/09/25 10:00 01/19/25 10:33 1 MG Multivitamins 1 tab DAILY PO 01/09/25 10:00 01/19/25 10:34 1 TAB Magnesium Oxide 400 mg DAILY PO 01/09/25 10:00 01/19/25 10:34 400 MG Thiamine HCl 100 mg DAILY PO 01/09/25 10:00 01/19/25 10:32 100 MG Metoprolol Succinate 25 mg BID PO 01/11/25 22:00 01/19/25 10:35 25 MG Aspirin 81 mg DAILY PO 01/12/25 10:00 01/19/25 10:32 81 MG Enteral Nutritional Formula 240 ml TIDWM PO 01/11/25 18:00 01/19/25 18:00 240 ML Rifampin 600 mg DAILY PO 01/13/25 10:00 01/19/25 10:31 600 MG Isoniazid 300 mg DAILY PO 01/13/25 10:00 01/19/25 10:33 300 MG Ethambutol HCl 1,200 mg DAILY PO 01/13/25 10:00 01/19/25 10:32 1,200 MG Pyrazinamide 1,500 mg DAILY PO 01/13/25 10:00 01/19/25 10:34 1,500 MG Nystatin 5 ml QID MT 01/16/25 12:00 01/19/25 16:52 5 ML Pantoprazole Sodium 40 mg BID@0600,1700 PO 01/17/25 06:00 01/19/25 16:52 40 MG Pyridoxine HCl 50 mg DAILY PO 01/17/25 10:00 01/19/25 10:33 50 MG laboratory and microbiology Laboratory Tests 01/19/25 10:57 Test 01/19/25 10:57 Range/Units Serum Glucose 129 H 74-106 mg/dL Problem List/Assessment/Plan Problem List/Assessment/Plan patient seen at bedside full note follow, persistent cough ambulating w/ PT will treat presumtively as disseminated TB, however if patient able to get lymph node biopsy to confirm dissemination would attempt to acquire HIV ab negative, cocci ab negative Plan will check for hepatitis status AFB (4+ on 2 of 3 afb samples) MTB pcr x 2 positive (no rifampin resistance detected) will fu on culture sensitivities and speciation continue RIPE (sp 5 days to come off isolation (defer to department of public health requesting additional AFB sputum to confirm patient's is no longer contagious) dc on 30 days of RIPE + vitamin B6. acquire lymph node biopsy if possible and send of AFB stain and culturing and MTB pcr testing. Dietary Evaluation Review Comments: Add ensure High Protein oral supplement TIDWM Expected Outcomes/Goals: gradual wt gain, improved overall health condition CARRILLO TORRES MD Jan 19, 2025 19:42
[2025-01-20] VITALS (7 sets, daily range): BP systolic 122–141; BP diastolic 69–75; PULSE 68–91; RESP 14–18; TEMP 97.5–98; O2SAT 93–100
--- NOTE | 2025-01-20 10:20 | DVHPN2 ---
Subjective Patient denies any symptoms at this time Reviewed: Care Plan, H&P, Labs Changes from previous H/P or p: No Changes General: Per HPI Eyes: No Pain, No Vision change, No Conjunctivae inflammation, No Eyelid inflammation, No Other, No Redness ENT: No Ear pain, No Ear discharge, No Nose pain, No Nose discharge, No Nose congestion; Mouth pain; No Mouth swelling; Throat pain; No Throat swelling, No Other Cardiovascular: Chest Pain; No Palpitations, No Orthopnea, No Paroxysmal Noc. Dyspnea, No Edema, No Lt Headedness, No Other Respiratory: Cough; No Dry; Shortness of breath, SOB with excertion; No Wheezing, No Hemoptysis, No Pleuritic Pain, No Sputum, No Other Gastrointestinal: No Nausea, No Vomiting, No Abdominal Pain, No Diarrhea, No Constipation, No Melena, No Hematochezia, No Other Genitourinary: No Dysuria, No Frequency, No Incontinence, No Hematuria, No Retention, No Other Musculoskeletal: No other, No neck pain, No shoulder pain, No arm pain, No back pain, No hand pain, No leg pain, No foot pain Skin: No Rash, No Lesions, No Jaundice, No Bruising, No Other Objective Vitals Vital Signs Date Time Temp Pulse Resp B/P (MAP) Pulse Ox O2 Delivery O2 Flow Rate FiO2 01/20/25 05:00 98.0 88 18 138/75 (96) 100 98.0 01/19/25 20:00 Room Air* 0 21 Intake/Output Intake and Output 01/20/25 07:00 Intake Total 955 ml Output Total 900 ml Balance 55 ml Intake Oral 955 ml Output Urine Total 900 ml # Voids 5 General Appearance: Alert, Oriented X3, Cooperative, No acute distress HEENT: Atraumatic, PERRLA Cardiovascular: Normal S1, Normal S2 Abdomen: Normal bowel sounds, Soft, No tenderness, No hepatospenomegaly, No masses Musculoskeletal: Normal sensory function, Normal motor function Neuro: Normal gait, Normal speech Skin: Dry, Intact Psych/Mental Status: Mental status NL, Mood NL Medications Current Medications Medications Dose Ordered Sig/Paco Route Start Time Stop Time Status Last Admin Dose Admin Ondansetron HCl 4 mg Q4HP PRN IV 01/05/25 15:30 Docusate Sodium 100 mg BIDPRN PRN PO 01/05/25 15:30 Nitroglycerin 0.4 mg Q5MINP PRN SL 01/05/25 15:30 Vancomycin HCl 0 ml @ 0 mls/hr UD IV 01/05/25 15:30 Cancel Folic Acid 1 mg DAILY PO 01/09/25 10:00 01/19/25 10:33 1 MG Multivitamins 1 tab DAILY PO 01/09/25 10:00 01/19/25 10:34 1 TAB Magnesium Oxide 400 mg DAILY PO 01/09/25 10:00 01/19/25 10:34 400 MG Thiamine HCl 100 mg DAILY PO 01/09/25 10:00 01/19/25 10:32 100 MG Metoprolol Succinate 25 mg BID PO 01/11/25 22:00 01/19/25 22:00 25 MG Aspirin 81 mg DAILY PO 01/12/25 10:00 01/19/25 10:32 81 MG Enteral Nutritional Formula 240 ml TIDWM PO 01/11/25 18:00 01/19/25 18:00 240 ML Rifampin 600 mg DAILY PO 01/13/25 10:00 01/19/25 10:31 600 MG Isoniazid 300 mg DAILY PO 01/13/25 10:00 01/19/25 10:33 300 MG Ethambutol HCl 1,200 mg DAILY PO 01/13/25 10:00 01/19/25 10:32 1,200 MG Pyrazinamide 1,500 mg DAILY PO 01/13/25 10:00 01/19/25 10:34 1,500 MG Nystatin 5 ml QID MT 01/16/25 12:00 01/20/25 06:56 5 ML Pantoprazole Sodium 40 mg BID@0600,1700 PO 01/17/25 06:00 01/20/25 06:56 40 MG Pyridoxine HCl 50 mg DAILY PO 01/17/25 10:00 01/19/25 10:33 50 MG Laboratory Results Laboratory Tests 01/19/25 10:57 Chemistry Test 01/19/25 10:57 Albumin 2.7 g/dL (3.2-4.8) L Calcium Level 9.2 mg/dL (8.7-10.4) Total Protein 5.9 g/dL (5.7-8.2) LFT Test 01/19/25 10:57 Alanine Aminotransferase (ALT) 24 U/L (7-40) Alkaline Phosphatase 160 U/L (46-116) H Aspartate Amino Transferase (AST) 44 U/L (13-40) H Total Bilirubin 0.3 mg/dL (0.2-1.0) Urinalysis Test 01/05/25 15:50 Urine Color Yellow (Yellow) Urine Clarity Turbid (Clear) H Urine pH 5.5 (5.0-9.0) Urine Specific [place] 1.023 (1.001-1.035) Urine Protein 1+ (Negative) H Urine Ketones Negative (Negative) Urine Blood Negative /uL (Negative) Urine Nitrite Negative (Negative) Urine Bilirubin 1+ (Negative) Urine Urobilinogen 4 mg/dL (Negative) H Urine Leukocyte Esterase Negative /uL (Negative) Urine RBC 2 /hpf (0 - 3) Urine Microscopic WBC < 1 /HPF (0-3) Urine Squamous Epithelial Cells Few /hpf (<5) Urine Bacteria None seen /hpf (None Seen) Urine Hyaline Casts Few /lpf (0 - 2) Urine Mucus Few (None Seen) Urine Glucose Normal mg/dL (Normal) Microbiology Microbiology Date/Time Source Procedure Growth Status 01/11/25 07:00 Sputum AFB Broth Culture Pending Resulted 01/11/25 07:00 Sputum - Final Resulted 01/11/25 07:00 Sputum - Final Resulted 01/11/25 07:00 Sputum - Final Resulted 01/11/25 07:00 Sputum Acid Fast Bacilli Culture Pending Resulted 01/05/25 13:32 Blood Blood Culture - Final NO GROWTH AFTER 5 DAYS OF INCUBATION. Complete Labs and/or images reviewed: Labs reviewed by me, Image(s) reviewed by me Assessment/Plan Assessment/Plan Impression: -acute hypoxic respiratory failure -active tuberculosis -thrombocytosis -mediastinal lymphadenopathy -paroxysmal atrial fibrillation -nicotine dependence -ETOH use -cachexia Plan: Events: No events overnight. Awaiting repeat AFB obtained 01/19/25 -patient has AFB positive for TB. Infectious disease recommendations reviewed. -continue current regimen for tuberculosis -nutritional supplementation -notify Infectious Disease field case manager for discharge planning -PUD, DVT prophylaxis Total time spent with patient discussing and formulating plan of care: 35 minutes. This medical document was created using an electronic medical record system with [employer] system. Although this document has been carefully reviewed, there may still be some phonetic and typographical errors. These areas are purely typographical due to imperfections of the software programs, and do not reflect any compromise in the patient's medical care. Plan discussed with: Patient, Other (RN) Date of Service: Jan 20, 2025 Billing Provider: KIMBER HERNANDEZ NP Common Visit Codes: [id number] INP/OBS CARE(HIGH) KIMBER HERNANDEZ NP Jan 20, 2025 10:20
--- NOTE | 2025-01-20 23:21 | DVHPN2 ---
Progress Note - Dictate Date Seen: Jan 20, 2025 Medical Necessity Reason Pt with a Central, PICC or Fol: No Subjective Patient seen and examined at bedside. Breathing comfortably on room air. Overnight events reviewed. vital signs Vital Sign Date Time Temp Pulse Resp B/P (MAP) Pulse Ox O2 Delivery O2 Flow Rate FiO2 01/20/25 20:00 Room Air* 0 21 01/20/25 16:30 98.0 83 16 141/71 (94) 95 98.0 Total Intake and Output 01/19/25 01/19/25 01/20/25 15:00 23:00 07:00 Intake Total 355 ml 600 ml Output Total 900 ml Balance 355 ml -300 ml medications Current Medications Medications Dose Ordered Sig/Paco Route Start Time Stop Time Status Last Admin Dose Admin Ondansetron HCl 4 mg Q4HP PRN IV 01/05/25 15:30 Docusate Sodium 100 mg BIDPRN PRN PO 01/05/25 15:30 Nitroglycerin 0.4 mg Q5MINP PRN SL 01/05/25 15:30 Vancomycin HCl 0 ml @ 0 mls/hr UD IV 01/05/25 15:30 Cancel Folic Acid 1 mg DAILY PO 01/09/25 10:00 01/20/25 11:39 1 MG Multivitamins 1 tab DAILY PO 01/09/25 10:00 01/20/25 11:38 1 TAB Magnesium Oxide 400 mg DAILY PO 01/09/25 10:00 01/20/25 11:38 400 MG Thiamine HCl 100 mg DAILY PO 01/09/25 10:00 01/20/25 11:36 100 MG Metoprolol Succinate 25 mg BID PO 01/11/25 22:00 01/20/25 11:42 25 MG Aspirin 81 mg DAILY PO 01/12/25 10:00 01/20/25 11:39 81 MG Enteral Nutritional Formula 240 ml TIDWM PO 01/11/25 18:00 01/20/25 18:35 240 ML Rifampin 600 mg DAILY PO 01/13/25 10:00 01/20/25 11:39 600 MG Isoniazid 300 mg DAILY PO 01/13/25 10:00 01/20/25 11:40 300 MG Ethambutol HCl 1,200 mg DAILY PO 01/13/25 10:00 01/20/25 11:38 1,200 MG Pyrazinamide 1,500 mg DAILY PO 01/13/25 10:00 01/20/25 11:40 1,500 MG Nystatin 5 ml QID MT 01/16/25 12:00 01/20/25 18:34 5 ML Pantoprazole Sodium 40 mg BID@0600,1700 PO 01/17/25 06:00 01/20/25 18:34 40 MG Pyridoxine HCl 50 mg DAILY PO 01/17/25 10:00 01/20/25 11:37 50 MG objective Gen.: Patient lying in bed in no apparent distress. Breathing on room air. Head: Normocephalic, atraumatic. Eyes: EOMI/PERRLA. Ears: Normal hearing. Normal anatomy. Neck/trachea: Trachea midline, supple. Nose: Normal external anatomy. Mouth: Moist mucous membranes. Chest: Decreased air entry bilaterally. No wheezing or rhonchi. Cardiovascular: Positive S1, positive S2. Regular rate and rhythm. Abdomen: Positive bowel sounds in all 4 quadrants. Soft, non-tender, non- distended. : Deferred. Rectal: Deferred. Skin: Warm, dry. Intact. Extremities: 2+ radial pulses bilaterally. No lower extremity edema. Neuro: Awake, alert, oriented x3. No gross motor or sensory deficits. Cranial nerves II through XII intact. Gait not assessed. laboratory and microbiology Laboratory Tests 01/19/25 10:57 Test 01/19/25 10:57 Range/Units Serum Glucose 129 H 74-106 mg/dL Assessment/Plan Impression: Pulmonary tuberculosis Weight loss Lung cavities Atelectasis Events: Patient seen and examined at bedside. Low oxygen requirements Breathing on room air No acute events Sputum smear positive for AFB IFN test positive Started on 4x therapy for TB On TB regimen with Isoniazid/pyrazinamide/pyridoxine/rifampin/thiamine QuantiFERON Gold positive ID recommendations appreciated. Incentive spirometry Monitor renal function Monitor electrolytes; supplement as needed Magnesium supplementation Labs and imaging reviewed. Plan: Supplemental oxygen PRN Titrate to keep O2 sats above 92%. Continue Rx abx per ID TB regimen Bronchodilators Monitor renal function Monitor electrolytes Supplement as needed DVT prophylaxis Prognosis: Guarded given patient's multiple co-morbidities. Rest of plan per hospitalist and other consultants. Thank you, JOS Medina, for allowing me to participate in this patient's care. Further recommendations will depend on the patient's clinical course. Please do not hesitate to contact me if you have any questions or concerns. This medical document was created using an electronic medical record system with [employer] dictation system. Although these documentations are being carefully reviewed, there may still be some phonetic and typographical changes. The errors are purely typographical, due to imperfection on the software program, and do not reflect any compromise in the patient's medical care. Dietary Evaluation Review Comments: Add ensure High Protein oral supplement TIDWM Expected Outcomes/Goals: gradual wt gain, improved overall health condition Plan discussed with: Patient, Other (CHAPARRITA Chapman) VIVIAN OLIVA MD Jan 20, 2025 23:21
--- NOTE | 2025-01-20 23:31 | DVHPN2 ---
Consult Progress Note Date Seen: Jan 18, 2025 Objective vital signs Vital Sign Date Time Temp Pulse Resp B/P (MAP) Pulse Ox O2 Delivery O2 Flow Rate FiO2 01/20/25 20:00 Room Air* 0 21 01/20/25 16:30 98.0 83 16 141/71 (94) 95 98.0 Total Intake and Output 01/19/25 01/19/25 01/20/25 15:00 23:00 07:00 Intake Total 355 ml 600 ml Output Total 900 ml Balance 355 ml -300 ml medications Current Medications Medications Dose Ordered Sig/Paco Route Start Time Stop Time Status Last Admin Dose Admin Ondansetron HCl 4 mg Q4HP PRN IV 01/05/25 15:30 Docusate Sodium 100 mg BIDPRN PRN PO 01/05/25 15:30 Nitroglycerin 0.4 mg Q5MINP PRN SL 01/05/25 15:30 Vancomycin HCl 0 ml @ 0 mls/hr UD IV 01/05/25 15:30 Cancel Folic Acid 1 mg DAILY PO 01/09/25 10:00 01/20/25 11:39 1 MG Multivitamins 1 tab DAILY PO 01/09/25 10:00 01/20/25 11:38 1 TAB Magnesium Oxide 400 mg DAILY PO 01/09/25 10:00 01/20/25 11:38 400 MG Thiamine HCl 100 mg DAILY PO 01/09/25 10:00 01/20/25 11:36 100 MG Metoprolol Succinate 25 mg BID PO 01/11/25 22:00 01/20/25 11:42 25 MG Aspirin 81 mg DAILY PO 01/12/25 10:00 01/20/25 11:39 81 MG Enteral Nutritional Formula 240 ml TIDWM PO 01/11/25 18:00 01/20/25 18:35 240 ML Rifampin 600 mg DAILY PO 01/13/25 10:00 01/20/25 11:39 600 MG Isoniazid 300 mg DAILY PO 01/13/25 10:00 01/20/25 11:40 300 MG Ethambutol HCl 1,200 mg DAILY PO 01/13/25 10:00 01/20/25 11:38 1,200 MG Pyrazinamide 1,500 mg DAILY PO 01/13/25 10:00 01/20/25 11:40 1,500 MG Nystatin 5 ml QID MT 01/16/25 12:00 01/20/25 18:34 5 ML Pantoprazole Sodium 40 mg BID@0600,1700 PO 01/17/25 06:00 01/20/25 18:34 40 MG Pyridoxine HCl 50 mg DAILY PO 01/17/25 10:00 01/20/25 11:37 50 MG laboratory and microbiology Laboratory Tests 01/19/25 10:57 Test 01/19/25 10:57 Range/Units Serum Glucose 129 H 74-106 mg/dL Problem List/Assessment/Plan Problem List/Assessment/Plan patient seen at bedside full note follow, persistent cough ambulating w/ PT will treat presumtively as disseminated TB, however if patient able to get lymph node biopsy to confirm dissemination would attempt to acquire HIV ab negative, cocci ab negative Plan will check for hepatitis status AFB (4+ on 2 of 3 afb samples) MTB pcr x 2 positive (no rifampin resistance detected) will fu on culture sensitivities and speciation continue RIPE (sp 5 days to come off isolation (defer to department of public health requesting additional AFB sputum to confirm patient's is no longer contagious) dc on 30 days of RIPE + vitamin B6. acquire lymph node biopsy if possible and send of AFB stain and culturing and MTB pcr testing. Dietary Evaluation Review Comments: Add ensure High Protein oral supplement TIDWM Expected Outcomes/Goals: gradual wt gain, improved overall health condition CARRILLO TORRES MD Jan 20, 2025 23:31
[2025-01-21] VITALS (8 sets, daily range): BP systolic 119–158; BP diastolic 68–95; PULSE 76–92; RESP 15–18; TEMP 97.7–98.5; O2SAT 93–97
--- NOTE | 2025-01-21 13:11 | DVHPN2 ---
Subjective Patient was seen and evaluated by me. Patient is still on four drug regimen, we will follow up with the Infectious Disease nurse regarding discharge plan. Reviewed: Care Plan, H&P, Labs Changes from previous H/P or p: No Changes General: Per HPI Eyes: No Pain, No Vision change, No Conjunctivae inflammation, No Eyelid inflammation, No Other, No Redness ENT: No Ear pain, No Ear discharge, No Nose pain, No Nose discharge, No Nose congestion; Mouth pain; No Mouth swelling; Throat pain; No Throat swelling, No Other Cardiovascular: Chest Pain; No Palpitations, No Orthopnea, No Paroxysmal Noc. Dyspnea, No Edema, No Lt Headedness, No Other Respiratory: Cough; No Dry; Shortness of breath, SOB with excertion; No Wheezing, No Hemoptysis, No Pleuritic Pain, No Sputum, No Other Gastrointestinal: No Nausea, No Vomiting, No Abdominal Pain, No Diarrhea, No Constipation, No Melena, No Hematochezia, No Other Genitourinary: No Dysuria, No Frequency, No Incontinence, No Hematuria, No Retention, No Other Musculoskeletal: No other, No neck pain, No shoulder pain, No arm pain, No back pain, No hand pain, No leg pain, No foot pain Skin: No Rash, No Lesions, No Jaundice, No Bruising, No Other Objective Vitals Vital Signs Date Time Temp Pulse Resp B/P (MAP) Pulse Ox O2 Delivery O2 Flow Rate FiO2 01/21/25 11:36 92 141/75 01/21/25 09:30 Nasal Cannula 2.0 01/21/25 09:30 28 01/21/25 09:00 98.5 16 93 98.5 Intake/Output Intake and Output 01/21/25 07:00 Intake Total 450 ml Output Total 710 ml Balance -260 ml Intake Oral 450 ml Output Urine Total 710 ml # Voids 2 # Bowel Movements 3 Exam HEENT pupils are reactive Neck is supple CV is S1-S2 regular rate and rhythm Respiratory diminished breath sounds bases GI positive bowel sound Extremity no edema [employer] no motor deficit General Appearance: Alert, Oriented X3, Cooperative, No acute distress HEENT: Atraumatic, PERRLA Cardiovascular: Normal S1, Normal S2 Abdomen: Normal bowel sounds, Soft, No tenderness, No hepatospenomegaly, No masses Musculoskeletal: Normal sensory function, Normal motor function Neuro: Normal gait, Normal speech Skin: Dry, Intact Psych/Mental Status: Mental status NL, Mood NL Medications Current Medications Medications Dose Ordered Sig/Paco Route Start Time Stop Time Status Last Admin Dose Admin Ondansetron HCl 4 mg Q4HP PRN IV 01/05/25 15:30 Docusate Sodium 100 mg BIDPRN PRN PO 01/05/25 15:30 Nitroglycerin 0.4 mg Q5MINP PRN SL 01/05/25 15:30 Vancomycin HCl 0 ml @ 0 mls/hr UD IV 01/05/25 15:30 Cancel Folic Acid 1 mg DAILY PO 01/09/25 10:00 01/21/25 11:38 1 MG Multivitamins 1 tab DAILY PO 01/09/25 10:00 01/21/25 11:38 1 TAB Magnesium Oxide 400 mg DAILY PO 01/09/25 10:00 01/21/25 11:37 400 MG Thiamine HCl 100 mg DAILY PO 01/09/25 10:00 01/21/25 11:38 100 MG Metoprolol Succinate 25 mg BID PO 01/11/25 22:00 01/21/25 11:36 25 MG Aspirin 81 mg DAILY PO 01/12/25 10:00 01/21/25 11:37 81 MG Enteral Nutritional Formula 240 ml TIDWM PO 01/11/25 18:00 01/21/25 11:42 240 ML Rifampin 600 mg DAILY PO 01/13/25 10:00 01/21/25 11:33 600 MG Isoniazid 300 mg DAILY PO 01/13/25 10:00 01/21/25 11:39 300 MG Ethambutol HCl 1,200 mg DAILY PO 01/13/25 10:00 01/21/25 11:33 1,200 MG Pyrazinamide 1,500 mg DAILY PO 01/13/25 10:00 01/21/25 11:41 1,500 MG Nystatin 5 ml QID MT 01/16/25 12:00 01/21/25 11:34 5 ML Pantoprazole Sodium 40 mg BID@0600,1700 PO 01/17/25 06:00 01/21/25 06:45 40 MG Pyridoxine HCl 50 mg DAILY PO 01/17/25 10:00 01/21/25 11:34 50 MG Laboratory Results Laboratory Tests 01/19/25 10:57 Urinalysis Test 01/05/25 15:50 Urine Color Yellow (Yellow) Urine Clarity Turbid (Clear) H Urine pH 5.5 (5.0-9.0) Urine Specific [place] 1.023 (1.001-1.035) Urine Protein 1+ (Negative) H Urine Ketones Negative (Negative) Urine Blood Negative /uL (Negative) Urine Nitrite Negative (Negative) Urine Bilirubin 1+ (Negative) Urine Urobilinogen 4 mg/dL (Negative) H Urine Leukocyte Esterase Negative /uL (Negative) Urine RBC 2 /hpf (0 - 3) Urine Microscopic WBC < 1 /HPF (0-3) Urine Squamous Epithelial Cells Few /hpf (<5) Urine Bacteria None seen /hpf (None Seen) Urine Hyaline Casts Few /lpf (0 - 2) Urine Mucus Few (None Seen) Urine Glucose Normal mg/dL (Normal) Microbiology Microbiology Date/Time Source Procedure Growth Status 01/19/25 10:10 Sputum AFB Broth Culture Pending Resulted 01/19/25 10:10 Sputum - Final Resulted 01/19/25 10:10 Sputum - Final Resulted 01/19/25 10:10 Sputum Acid Fast Bacilli Culture Pending Resulted 01/05/25 13:32 Blood Blood Culture - Final NO GROWTH AFTER 5 DAYS OF INCUBATION. Complete Assessment/Plan Assessment/Plan 74-year-old male with a known history of asthma, presented to the hospital with a five month history of progressive throat pain neck pain, persistent cough, raspy voice, unintentional weight loss of 35 lb with a known history of chronic tobacco use disorder found to have 1. Acute hypoxic respiratory failure secondary to bilateral upper lobe consolidation/cavitary lesions, ruled in active tuberculosis 2. Bilateral upper lobe consolidation , ruled in active tuberculosis 3. Bilateral lung cavities secondary to active tuberculosis. 4. Mediastinal lymphadenopathy 5 paroxysmal AFib currently rate controlled 6. Chronic tobacco use disorder 8. Chronic alcoholism 9. Iron-deficiency anemia 10. Thrombocytosis likely reactive --continue reverse isolation, continue four drug tuberculosis regimen, follow up with the Pulmonary and Infectious Disease regarding discharge plan. Plan discussed with: Patient Date of Service: Jan 21, 2025 Billing Provider: DOLLY LEZAMA MD Common Visit Codes: [id number] INP/OBS CARE(MOD) DOLLY LEZAMA MD Jan 21, 2025 13:11
--- NOTE | 2025-01-21 23:49 | DVHPN2 ---
Progress Note - Dictate Date Seen: Jan 21, 2025 Medical Necessity Reason Pt with a Central, PICC or Fol: No Subjective Patient seen and examined at bedside. Breathing comfortably on room air. Overnight events reviewed. vital signs Vital Sign Date Time Temp Pulse Resp B/P (MAP) Pulse Ox O2 Delivery O2 Flow Rate FiO2 01/21/25 22:29 119/60 01/21/25 21:00 97.8 76 17 97 97.8 01/21/25 20:00 Room Air* 0 21 Total Intake and Output 01/20/25 01/20/25 01/21/25 15:00 23:00 07:00 Intake Total 400 ml 50 ml Output Total 710 ml Balance 400 ml -660 ml medications Current Medications Medications Dose Ordered Sig/Paco Route Start Time Stop Time Status Last Admin Dose Admin Ondansetron HCl 4 mg Q4HP PRN IV 01/05/25 15:30 Docusate Sodium 100 mg BIDPRN PRN PO 01/05/25 15:30 Nitroglycerin 0.4 mg Q5MINP PRN SL 01/05/25 15:30 Vancomycin HCl 0 ml @ 0 mls/hr UD IV 01/05/25 15:30 Cancel Folic Acid 1 mg DAILY PO 01/09/25 10:00 01/21/25 11:38 1 MG Multivitamins 1 tab DAILY PO 01/09/25 10:00 01/21/25 11:38 1 TAB Magnesium Oxide 400 mg DAILY PO 01/09/25 10:00 01/21/25 11:37 400 MG Thiamine HCl 100 mg DAILY PO 01/09/25 10:00 01/21/25 11:38 100 MG Metoprolol Succinate 25 mg BID PO 01/11/25 22:00 01/21/25 22:29 25 MG Aspirin 81 mg DAILY PO 01/12/25 10:00 01/21/25 11:37 81 MG Enteral Nutritional Formula 240 ml TIDWM PO 01/11/25 18:00 01/21/25 17:37 240 ML Rifampin 600 mg DAILY PO 01/13/25 10:00 01/21/25 11:33 600 MG Isoniazid 300 mg DAILY PO 01/13/25 10:00 01/21/25 11:39 300 MG Ethambutol HCl 1,200 mg DAILY PO 01/13/25 10:00 01/21/25 11:33 1,200 MG Pyrazinamide 1,500 mg DAILY PO 01/13/25 10:00 01/21/25 11:41 1,500 MG Nystatin 5 ml QID MT 01/16/25 12:00 01/21/25 22:21 5 ML Pantoprazole Sodium 40 mg BID@0600,1700 PO 01/17/25 06:00 01/21/25 17:37 40 MG Pyridoxine HCl 50 mg DAILY PO 01/17/25 10:00 01/21/25 11:34 50 MG objective Gen.: Patient lying in bed in no apparent distress. Breathing on room air. Head: Normocephalic, atraumatic. Eyes: EOMI/PERRLA. Ears: Normal hearing. Normal anatomy. Neck/trachea: Trachea midline, supple. Nose: Normal external anatomy. Mouth: Moist mucous membranes. Chest: Decreased air entry bilaterally. No wheezing or rhonchi. Cardiovascular: Positive S1, positive S2. Regular rate and rhythm. Abdomen: Positive bowel sounds in all 4 quadrants. Soft, non-tender, non- distended. : Deferred. Rectal: Deferred. Skin: Warm, dry. Intact. Extremities: 2+ radial pulses bilaterally. No lower extremity edema. Neuro: Awake, alert, oriented x3. No gross motor or sensory deficits. Cranial nerves II through XII intact. Gait not assessed. laboratory and microbiology Laboratory Tests 01/19/25 10:57 Test 01/19/25 10:57 Range/Units Serum Glucose 129 H 74-106 mg/dL Assessment/Plan Impression: Pulmonary tuberculosis Weight loss Lung cavities Atelectasis Events: Patient seen and examined at bedside. Low oxygen requirements Breathing on room air No acute overnight events Sputum smear positive for AFB IFN test positive Started on 4x therapy for TB Continue TB regimen with Isoniazid/pyrazinamide/pyridoxine/rifampin/thiamine QuantiFERON Gold positive ID recommendations appreciated. Incentive spirometry Monitor renal function Monitor electrolytes; supplement as needed Magnesium supplementation Labs and imaging reviewed. Plan: Supplemental oxygen PRN Titrate to keep O2 sats above 92%. Continue Rx abx per ID TB regimen Bronchodilators PRN Monitor renal function Monitor electrolytes Supplement as needed DVT prophylaxis Prognosis: Guarded given patient's multiple co-morbidities. Rest of plan per hospitalist and other consultants. Thank you, JOS Medina, for allowing me to participate in this patient's care. Further recommendations will depend on the patient's clinical course. Please do not hesitate to contact me if you have any questions or concerns. This medical document was created using an electronic medical record system with [employer] dictation system. Although these documentations are being carefully reviewed, there may still be some phonetic and typographical changes. The errors are purely typographical, due to imperfection on the software program, and do not reflect any compromise in the patient's medical care. Dietary Evaluation Review Comments: Add ensure High Protein oral supplement TIDWM Expected Outcomes/Goals: gradual wt gain, improved overall health condition Plan discussed with: Patient, Other (CHAPARRITA Chapman) VIVIAN OLIVA MD Jan 21, 2025 23:49
[2025-01-22] VITALS (9 sets, daily range): BP systolic 123–148; BP diastolic 69–79; PULSE 73–97; RESP 17–18; TEMP 97.4–97.9; O2SAT 94–97
--- NOTE | 2025-01-22 15:37 | DVHPN2 ---
Consult Progress Note Date Seen: Jan 19, 2025 Objective vital signs Vital Sign Date Time Temp Pulse Resp B/P (MAP) Pulse Ox O2 Delivery O2 Flow Rate FiO2 01/22/25 13:00 97.5 74 18 127/70 (89) 97 97.5 01/22/25 10:00 Room Air 0.0 01/22/25 10:00 21 Total Intake and Output 01/21/25 01/21/25 01/22/25 15:00 23:00 07:00 Intake Total 230 ml 600 ml Output Total 550 ml Balance 230 ml 50 ml medications Current Medications Medications Dose Ordered Sig/Paco Route Start Time Stop Time Status Last Admin Dose Admin Ondansetron HCl 4 mg Q4HP PRN IV 01/05/25 15:30 Docusate Sodium 100 mg BIDPRN PRN PO 01/05/25 15:30 Nitroglycerin 0.4 mg Q5MINP PRN SL 01/05/25 15:30 Vancomycin HCl 0 ml @ 0 mls/hr UD IV 01/05/25 15:30 Cancel Folic Acid 1 mg DAILY PO 01/09/25 10:00 01/22/25 11:20 1 MG Multivitamins 1 tab DAILY PO 01/09/25 10:00 01/22/25 11:18 1 TAB Magnesium Oxide 400 mg DAILY PO 01/09/25 10:00 01/22/25 11:19 400 MG Thiamine HCl 100 mg DAILY PO 01/09/25 10:00 01/22/25 11:19 100 MG Metoprolol Succinate 25 mg BID PO 01/11/25 22:00 01/22/25 11:20 25 MG Aspirin 81 mg DAILY PO 01/12/25 10:00 01/22/25 11:18 81 MG Enteral Nutritional Formula 240 ml TIDWM PO 01/11/25 18:00 01/22/25 11:20 240 ML Rifampin 600 mg DAILY PO 01/13/25 10:00 01/22/25 10:00 600 MG Isoniazid 300 mg DAILY PO 01/13/25 10:00 01/22/25 10:00 300 MG Ethambutol HCl 1,200 mg DAILY PO 01/13/25 10:00 01/22/25 11:19 1,200 MG Pyrazinamide 1,500 mg DAILY PO 01/13/25 10:00 01/22/25 10:00 1,500 MG Nystatin 5 ml QID MT 01/16/25 12:00 01/22/25 11:18 5 ML Pantoprazole Sodium 40 mg BID@0600,1700 PO 01/17/25 06:00 01/22/25 06:13 40 MG Pyridoxine HCl 50 mg DAILY PO 01/17/25 10:00 01/22/25 11:19 50 MG laboratory and microbiology Laboratory Tests 01/19/25 10:57 Test 01/19/25 10:57 Range/Units Serum Glucose 129 H 74-106 mg/dL Problem List/Assessment/Plan Problem List/Assessment/Plan patient seen at bedside full note follow, persistent cough ambulating w/ PT will treat presumtively as disseminated TB, however if patient able to get lymph node biopsy to confirm dissemination would attempt to acquire HIV ab negative, cocci ab negative Plan will check for hepatitis status AFB (4+ on 2 of 3 afb samples) MTB pcr x 2 positive (no rifampin resistance detected) will fu on culture sensitivities and speciation continue RIPE (sp 5 days to come off isolation (defer to department of public health requesting additional AFB sputum to confirm patient's is no longer contagious) dc on 30 days of RIPE + vitamin B6. acquire lymph node biopsy if possible and send of AFB stain and culturing and MTB pcr testing. Dietary Evaluation Review Comments: Add ensure High Protein oral supplement TIDWM Expected Outcomes/Goals: gradual wt gain, improved overall health condition CARRILLO TORRES MD Jan 22, 2025 15:37
--- NOTE | 2025-01-22 18:19 | DVHPN2 ---
Subjective Patient was seen and evaluated by me. Patient is still on four drug regimen, we will follow up with the Infectious Disease nurse regarding discharge plan. Reviewed: Care Plan, H&P, Labs Changes from previous H/P or p: No Changes General: Per HPI Eyes: No Pain, No Vision change, No Conjunctivae inflammation, No Eyelid inflammation, No Other, No Redness ENT: No Ear pain, No Ear discharge, No Nose pain, No Nose discharge, No Nose congestion; Mouth pain; No Mouth swelling; Throat pain; No Throat swelling, No Other Cardiovascular: Chest Pain; No Palpitations, No Orthopnea, No Paroxysmal Noc. Dyspnea, No Edema, No Lt Headedness, No Other Respiratory: Cough; No Dry; Shortness of breath, SOB with excertion; No Wheezing, No Hemoptysis, No Pleuritic Pain, No Sputum, No Other Gastrointestinal: No Nausea, No Vomiting, No Abdominal Pain, No Diarrhea, No Constipation, No Melena, No Hematochezia, No Other Genitourinary: No Dysuria, No Frequency, No Incontinence, No Hematuria, No Retention, No Other Musculoskeletal: No other, No neck pain, No shoulder pain, No arm pain, No back pain, No hand pain, No leg pain, No foot pain Skin: No Rash, No Lesions, No Jaundice, No Bruising, No Other Objective Vitals Vital Signs Date Time Temp Pulse Resp B/P (MAP) Pulse Ox O2 Delivery O2 Flow Rate FiO2 01/22/25 16:57 97.4 73 18 124/70 (88) 95 97.4 01/22/25 10:00 Room Air 0.0 01/22/25 10:00 21 Intake/Output Intake and Output 01/22/25 07:00 Intake Total 830 ml Output Total 550 ml Balance 280 ml Intake Oral 830 ml Output Urine Total 550 ml # Voids 5 # Bowel Movements 2 Exam HEENT pupils are reactive Neck is supple CV is S1-S2 regular rate and rhythm Respiratory diminished breath sounds bases GI positive bowel sound Extremity no edema IT [employer]CH[employer] no motor deficit General Appearance: Alert, Oriented X3, Cooperative, No acute distress HEENT: Atraumatic, PERRLA Cardiovascular: Normal S1, Normal S2 Abdomen: Normal bowel sounds, Soft, No tenderness, No hepatospenomegaly, No masses Musculoskeletal: Normal sensory function, Normal motor function Neuro: Normal gait, Normal speech Skin: Dry, Intact Psych/Mental Status: Mental status NL, Mood NL Medications Current Medications Medications Dose Ordered Sig/Paco Route Start Time Stop Time Status Last Admin Dose Admin Ondansetron HCl 4 mg Q4HP PRN IV 01/05/25 15:30 Docusate Sodium 100 mg BIDPRN PRN PO 01/05/25 15:30 Nitroglycerin 0.4 mg Q5MINP PRN SL 01/05/25 15:30 Vancomycin HCl 0 ml @ 0 mls/hr UD IV 01/05/25 15:30 Cancel Folic Acid 1 mg DAILY PO 01/09/25 10:00 01/22/25 11:20 1 MG Multivitamins 1 tab DAILY PO 01/09/25 10:00 01/22/25 11:18 1 TAB Magnesium Oxide 400 mg DAILY PO 01/09/25 10:00 01/22/25 11:19 400 MG Thiamine HCl 100 mg DAILY PO 01/09/25 10:00 01/22/25 11:19 100 MG Metoprolol Succinate 25 mg BID PO 01/11/25 22:00 01/22/25 11:20 25 MG Aspirin 81 mg DAILY PO 01/12/25 10:00 01/22/25 11:18 81 MG Enteral Nutritional Formula 240 ml TIDWM PO 01/11/25 18:00 01/22/25 17:58 240 ML Rifampin 600 mg DAILY PO 01/13/25 10:00 01/22/25 10:00 600 MG Isoniazid 300 mg DAILY PO 01/13/25 10:00 01/22/25 10:00 300 MG Ethambutol HCl 1,200 mg DAILY PO 01/13/25 10:00 01/22/25 11:19 1,200 MG Pyrazinamide 1,500 mg DAILY PO 01/13/25 10:00 01/22/25 10:00 1,500 MG Nystatin 5 ml QID MT 01/16/25 12:00 01/22/25 17:58 5 ML Pantoprazole Sodium 40 mg BID@0600,1700 PO 01/17/25 06:00 01/22/25 17:58 40 MG Pyridoxine HCl 50 mg DAILY PO 01/17/25 10:00 01/22/25 11:19 50 MG Laboratory Results Laboratory Tests 01/19/25 10:57 Urinalysis Test 01/05/25 15:50 Urine Color Yellow (Yellow) Urine Clarity Turbid (Clear) H Urine pH 5.5 (5.0-9.0) Urine Specific [place] 1.023 (1.001-1.035) Urine Protein 1+ (Negative) H Urine Ketones Negative (Negative) Urine Blood Negative /uL (Negative) Urine Nitrite Negative (Negative) Urine Bilirubin 1+ (Negative) Urine Urobilinogen 4 mg/dL (Negative) H Urine Leukocyte Esterase Negative /uL (Negative) Urine RBC 2 /hpf (0 - 3) Urine Microscopic WBC < 1 /HPF (0-3) Urine Squamous Epithelial Cells Few /hpf (<5) Urine Bacteria None seen /hpf (None Seen) Urine Hyaline Casts Few /lpf (0 - 2) Urine Mucus Few (None Seen) Urine Glucose Normal mg/dL (Normal) Microbiology Microbiology Date/Time Source Procedure Growth Status 01/20/25 16:07 Sputum AFB Broth Culture Pending Resulted 01/20/25 16:07 Sputum - Final Resulted 01/20/25 16:07 Sputum - Final Resulted 01/20/25 16:07 Sputum Acid Fast Bacilli Culture Pending Resulted 01/05/25 13:32 Blood Blood Culture - Final NO GROWTH AFTER 5 DAYS OF INCUBATION. Complete Assessment/Plan Assessment/Plan 74-year-old male with a known history of asthma, presented to the hospital with a five month history of progressive throat pain neck pain, persistent cough, raspy voice, unintentional weight loss of 35 lb with a known history of chronic tobacco use disorder found to have 1. Acute hypoxic respiratory failure secondary to bilateral upper lobe consolidation/cavitary lesions, ruled in active tuberculosis 2. Bilateral upper lobe consolidation , ruled in active tuberculosis 3. Bilateral lung cavities secondary to active tuberculosis. 4. Mediastinal lymphadenopathy 5 paroxysmal AFib currently rate controlled 6. Chronic tobacco use disorder 8. Chronic alcoholism 9. Iron-deficiency anemia 10. Thrombocytosis likely reactive, improving --continue reverse isolation, continue four drug tuberculosis regimen, follow up with the Pulmonary and Infectious Disease regarding discharge plan. -infectious disease nurse have to call department of health before discharge clearance for this patient. Plan discussed with: Patient Date of Service: Jan 22, 2025 Billing Provider: DOLLY LEZAMA MD Common Visit Codes: [id number] INP/OBS CARE(MOD) DOLLY LEZAMA MD Jan 22, 2025 18:19
[2025-01-23] VITALS (9 sets, daily range): BP systolic 123–145; BP diastolic 66–83; PULSE 6–84; RESP 17–20; TEMP 97.1–98.4; O2SAT 94–96
--- NOTE | 2025-01-23 00:02 | DVHPN2 ---
Progress Note - Dictate Date Seen: Jan 22, 2025 Medical Necessity Reason Pt with a Central, PICC or Fol: No Subjective Patient seen and examined at bedside. Breathing comfortably on room air. Overnight events reviewed. vital signs Vital Sign Date Time Temp Pulse Resp B/P (MAP) Pulse Ox O2 Delivery O2 Flow Rate FiO2 01/22/25 22:54 78 123/69 01/22/25 21:00 97.5 17 95 97.5 01/22/25 20:00 Room Air* 0 21 Total Intake and Output 01/22/25 01/22/25 01/23/25 15:00 23:00 07:00 Intake Total 337 ml 776 ml Output Total 1 ml Balance 337 ml 775 ml medications Current Medications Medications Dose Ordered Sig/Paco Route Start Time Stop Time Status Last Admin Dose Admin Ondansetron HCl 4 mg Q4HP PRN IV 01/05/25 15:30 Docusate Sodium 100 mg BIDPRN PRN PO 01/05/25 15:30 Nitroglycerin 0.4 mg Q5MINP PRN SL 01/05/25 15:30 Vancomycin HCl 0 ml @ 0 mls/hr UD IV 01/05/25 15:30 Cancel Folic Acid 1 mg DAILY PO 01/09/25 10:00 01/22/25 11:20 1 MG Multivitamins 1 tab DAILY PO 01/09/25 10:00 01/22/25 11:18 1 TAB Magnesium Oxide 400 mg DAILY PO 01/09/25 10:00 01/22/25 11:19 400 MG Thiamine HCl 100 mg DAILY PO 01/09/25 10:00 01/22/25 11:19 100 MG Metoprolol Succinate 25 mg BID PO 01/11/25 22:00 01/22/25 22:54 25 MG Aspirin 81 mg DAILY PO 01/12/25 10:00 01/22/25 11:18 81 MG Enteral Nutritional Formula 240 ml TIDWM PO 01/11/25 18:00 01/22/25 17:58 240 ML Rifampin 600 mg DAILY PO 01/13/25 10:00 01/22/25 10:00 600 MG Isoniazid 300 mg DAILY PO 01/13/25 10:00 01/22/25 10:00 300 MG Ethambutol HCl 1,200 mg DAILY PO 01/13/25 10:00 01/22/25 11:19 1,200 MG Pyrazinamide 1,500 mg DAILY PO 01/13/25 10:00 01/22/25 10:00 1,500 MG Nystatin 5 ml QID MT 01/16/25 12:00 01/22/25 23:01 5 ML Pantoprazole Sodium 40 mg BID@0600,1700 PO 01/17/25 06:00 01/22/25 17:58 40 MG Pyridoxine HCl 50 mg DAILY PO 01/17/25 10:00 01/22/25 11:19 50 MG objective Gen.: Patient lying in bed in no apparent distress. Breathing on room air. Head: Normocephalic, atraumatic. Eyes: EOMI/PERRLA. Ears: Normal hearing. Normal anatomy. Neck/trachea: Trachea midline, supple. Nose: Normal external anatomy. Mouth: Moist mucous membranes. Chest: Decreased air entry bilaterally. No wheezing or rhonchi. Cardiovascular: Positive S1, positive S2. Regular rate and rhythm. Abdomen: Positive bowel sounds in all 4 quadrants. Soft, non-tender, non- distended. : Deferred. Rectal: Deferred. Skin: Warm, dry. Intact. Extremities: 2+ radial pulses bilaterally. No lower extremity edema. Neuro: Awake, alert, oriented x3. No gross motor or sensory deficits. Cranial nerves II through XII intact. Gait not assessed. laboratory and microbiology Laboratory Tests 01/19/25 10:57 Test 01/19/25 10:57 Range/Units Serum Glucose 129 H 74-106 mg/dL Assessment/Plan Impression: Pulmonary tuberculosis Weight loss Lung cavities Atelectasis Events: Patient seen and examined at bedside. Remains on room air Supplemental oxygen PRN No acute overnight events Continue Rx abx per ID Continue TB regimen Follow up with [facility] and Infection Control Incentive spirometry Continue antifungal Protonix for GI ppx. Monitor renal function Monitor electrolytes; supplement as needed Magnesium supplementation Disposition per hospitalist. Labs and imaging reviewed. Plan: Supplemental oxygen PRN Titrate to keep O2 sats above 92%. Sputum smear positive for AFB IFN test positive Started on 4x therapy for TB Continue TB regimen with Isoniazid/pyrazinamide/pyridoxine/rifampin/thiamine QuantiFERON Gold positive ID recommendations appreciated. Continue Rx abx per ID TB regimen Bronchodilators PRN Monitor renal function Monitor electrolytes Supplement as needed GI/DVT prophylaxis Prognosis: Guarded given patient's multiple co-morbidities. Rest of plan per hospitalist and other consultants. Thank you, JOS Medina, for allowing me to participate in this patient's care. Further recommendations will depend on the patient's clinical course. Please do not hesitate to contact me if you have any questions or concerns. This medical document was created using an electronic medical record system with [employer] dictation system. Although these documentations are being carefully reviewed, there may still be some phonetic and typographical changes. The errors are purely typographical, due to imperfection on the software program, and do not reflect any compromise in the patient's medical care. Dietary Evaluation Review Comments: Add ensure High Protein oral supplement TIDWM Expected Outcomes/Goals: gradual wt gain, improved overall health condition Plan discussed with: Patient, Other (CHAPARRITA Dangelo) VIVIAN OLIVA MD Jan 23, 2025 00:02
[2025-01-23 10:16] LABS: Bilirubin, Total 0.7 mg/dL (0.2-1.0); Total Protein 5.7 g/dL (5.7-8.2)
[2025-01-23 10:17] LABS: Alanine Aminotransferase 97.0 U/L (7-40); Albumin 2.4 g/dL (3.2-4.8); Alkaline Phosphatase 164.0 U/L (46-116); Bilirubin, Direct 0.5 mg/dL (<0.3)
--- NOTE | 2025-01-23 15:09 | DVHDS2 ---
Discharge Summary Date of Admission Jan 05, 2025 at 15:25 Date of Discharge: Jan 26, 2025 Labs/Diagnostic Data: Laboratory Results Test 01/23/25 09:30 01/19/25 10:57 01/18/25 14:34 01/14/25 13:00 Total Bilirubin 0.7 mg/dL (0.2-1.0) Direct Bilirubin 0.5 mg/dL (<0.3) Aspartate Amino Transferase (AST) 115 U/L (13-40) Alanine Aminotransferase (ALT) 97 U/L (7-40) Alkaline Phosphatase 164 U/L (46-116) Total Protein 5.7 g/dL (5.7-8.2) Albumin 2.4 g/dL (3.2-4.8) White Blood Count 9.1 10^3/uL (4.4-10.8) Red Blood Count 3.75 10^6/uL (4.5-5.90) Hemoglobin 9.2 g/dL (13.5-17.5) Hematocrit 29.9 % (41.0-53.0) Mean Corpuscular Volume 79.7 fL (80.0-100.0) Mean Corpuscular Hemoglobin 24.6 pg (28.0-32.0) Mean Corpuscular Hemoglobin Concent 30.9 g/dL (32.0-36.0) Red Cell Distribution Width 19.9 % (11.8-14.3) Platelet Count 438 10^3/uL (140-450) Mean Platelet Volume 6.6 fL (6.9-10.8) Neutrophils (%) (Auto) 79.2 % (37.0-80.0) Lymphocytes (%) (Auto) 10.7 % (10.0-50.0) Monocytes (%) (Auto) 8.1 % (0.0-12.0) Eosinophils (%) (Auto) 1.0 % (0.0-7.0) Basophils (%) (Auto) 1.0 % (0.0-2.0) Neutrophils # (Auto) 7.2 10 ^3/uL (1.6-8.6) Lymphocytes # (Auto) 1.0 10 ^3/uL (0.4-5.4) Monocytes # (Auto) 0.7 10 ^3/uL (0-1.3) Eosinophils # (Auto) 0.1 10 ^3/uL (0-0.8) Basophils # (Auto) 0.1 10 ^3/uL (0-0.2) Nucleated Red Blood Cells 0.2 % Sodium Level 137 mmol/L (136-145) Potassium Level 3.8 mmol/L (3.5-5.1) Chloride Level 103 mmol/L (98-107) Carbon Dioxide Level 25 mmol/L (20-31) Anion Gap 9 (5-15) Blood Urea Nitrogen 20 mg/dL (9-23) Creatinine 0.94 mg/dL (0.700-1.30) Glomerular Filtration Rate Calc 86 mL/min (>90) BUN/Creatinine Ratio 21.3 (10.0-20.0) Serum Glucose 129 mg/dL (74-106) Calcium Level 9.2 mg/dL (8.7-10.4) Hepatitis A IgM Antibody Negative Hepatitis B Surface Antigen Negative (Negative) Hepatitis B Core IgM Antibody Negative (Negative) Hepatitis C Antibody Negative (Negative) Random Vancomycin Level 20.7 ug/mL (5-10) Test 01/13/25 09:00 01/12/25 14:02 01/10/25 10:06 01/10/25 07:30 Stool Occult Blood Positive (Negative) Stool Occult Blood Sample #3 (Negative) Vancomycin Level Trough 13.8 ug/mL (5-10) Magnesium Level 1.7 mg/dL (1.6-2.6) Miscellaneous Referred Test (Refrg) Sent to [facility] Test 01/07/25 04:30 01/06/25 15:50 01/05/25 17:18 01/05/25 15:50 TB Test (QFT) Gold Plus Positive (Negative) TB Test (QFT) Nil 0.56 IU/mL (.) TB Test (QFT) Mitogen >10.00 IU/mL (.) TB Test (QFT) Antigen 1 1.48 IU/mL (.) TB Test (QFT) Antigen 2 1.30 IU/mL (.) TB Test (QFT) Criteria Comment (.) Coccidioides Antibody (Comp Fix) <1:2 (<1:2) HIV (1&2) Antibody Negative (Negative) Troponin I High Sensitivity 13 ng/L (</=54) Urine Color Yellow (Yellow) Urine Clarity Turbid (Clear) Urine pH 5.5 (5.0-9.0) Urine Specific [place] 1.023 (1.001-1.035) Urine Protein 1+ (Negative) Urine Ketones Negative (Negative) Urine Blood Negative /uL (Negative) Urine Nitrite Negative (Negative) Urine Bilirubin 1+ (Negative) Urine Urobilinogen 4 mg/dL (Negative) Urine Leukocyte Esterase Negative /uL (Negative) Urine RBC 2 /hpf (0 - 3) Urine Microscopic WBC < 1 /HPF (0-3) Urine Squamous Epithelial Cells Few /hpf (<5) Urine Bacteria None seen /hpf (None Seen) Urine Hyaline Casts Few /lpf (0 - 2) Urine Mucus Few (None Seen) Urine Glucose Normal mg/dL (Normal) Test 01/05/25 15:46 01/05/25 15:15 01/05/25 13:32 Phosphorus Level 2.3 mg/dL (2.4-5.1) Carcinoembryonic Antigen 0.99 ng/mL (<=5.0) CA 125 Antigen 133.0 U/mL (Not Estab.) Plasma/Serum Blood Alcohol 4.7 mg/dL (<10) Lactic Acid Level 3.7 mmol/L (0.4-2.0) Prothrombin Time 11.7 sec (9.3-11.8) Prothrombin Time INR 1.12 (0.9-1.15) Activated Partial Thromboplast Time 30.2 SEC (24.5-34.5) Other Laboratory Tests 01/19/25 10:57 Brief Hx & Hospital Course: 74-year-old male with limited documented medical history, known asthma, and no known surgical history, presents with a 5-month history of progressive throat pain, persistent cough, raspy voice, and unintentional weight loss of approximately 35 pounds. He reports difficulty eating, tolerating only small amounts at a time, with significant discomfort localized to the throat. He notes associated phlegm production without hemoptysis. History is limited due to the patients vague recall of prior medical evaluation, though he states he saw a physician approximately one month ago. He has a history of heavy tobacco use and continues to smoke daily. He admits to heavy alcohol consumption, last drink being last week, but is unable to quantify intake. He denies fever or chills but notes fatigue. In the ED, vitals notable for hypotension and O2 saturation of 94% on room air. Labs showed lactic acid 3.6 (elevated), potassium 3.2 (low), sodium 135 platelet count 720 (thrombocytosis), and unremarkable CBC otherwise. Troponin negative. Chest imaging revealed bilateral upper lobe pneumonia. He was diagnosed with sepsis, hypokalemia, thrombocytosis, and suspected underlying malignancy contributing to dysphagia and weight loss. Plan is to admit for further workup, initiate broad-spectrum antibiotics (vancomycin + piperacillin- tazobactam), evaluate for head/neck malignancy, and monitor for possible alcohol withdrawal. He is admitted and patient is diagnosed and ruled in for acute TB infection. He is evaluated by Infectious Disease and vp compliance. His AFB sputums were positive. He received acute active TB treatment with the recommended regimen. Patient is being discharged home with these medications. he is cleared by Department of Health and Infectious Disease in the hospital. Patient is told about his infection and treatment including side effects of the medications. Patient is highly encouraged and recommended to be compliant with these medications and have a close follow up with the primary care physician and vp compliance. Patient verbalized understanding of this, and verbalized understanding of the medications discharge follow-up plan of care and agree with the discharge care plan as outlined Operations or Procedures CTA Chest with intravenous contrast INDICATION: eval for sob and cp r/o pe COMPARISON: XY CHEST PORTABLE on DOS: 01/05/25 TECHNIQUE: Multidetector spiral CTA of the chest was performed of the chest with intravenous contrast. PULMONARY ANGIOGRAPHY PROTOCOL was utilized using a bolus- tracking technique centered on the main pulmonary artery. Axial, coronal and sagittal multiplanar and MIP reformats were performed. CONTRAST: Type of contrast: Omni 350 Contrast injected: 100 ml Radiation dose : Chest: CTDI volume is mGy. Dose-length product is mGy*cm The dose indicators for CT are the volume computed Tomography (CT) dose Index (CTDIvol) and the dose Length product (DLP), and are measured in units of mGy and mGy-cm, respectively. These indicators are not patient dose, but values generated from the CT scanner acquisition factors. The report includes radiation exposure data for exposures received during this examination. Findings: Pulmonary artery: No pulmonary embolism Lower neck: Normal thyroid. Lungs: Patchy bilateral consolidation with areas of cavitation greater in the upper lobes. Atelectasis and scarring in the lung bases. Heart/Vascular Structures: Normal heart size. Trace pericardial effusion. Lymph Nodes: Mediastinal and hilar lymphadenopathy. Pleura: Small bilateral pleural effusions left greater than right. Musculoskeletal: No acute osseous abnormality. Soft tissues: Normal. Upper abdomen: Limited portions of the upper abdomen are unremarkable. IMPRESSION: 1. No pulmonary embolism. 2. Patchy bilateral consolidation with an upper lobe predominance and superimposed cavitation. Mediastinal and hilar lymphadenopathy. Small bilateral pleural effusions. Consider atypical infections to include fungal and mycobacterial (TB) disease. Neoplastic etiologies are not entirely excluded. Clinical correlation and continued follow-up is recommended. HS:Y Condition at Discharge: Stable Final Diagnosis/Problems List 1. Acute hypoxic respiratory failure secondary to bilateral upper lobe consolidation/cavitary lesions, ruled in active tuberculosis 2. Bilateral upper lobe consolidation , ruled in active tuberculosis 3. Bilateral lung cavities secondary to active tuberculosis. 4. Mediastinal lymphadenopathy 5 paroxysmal AFib currently rate controlled 6. Chronic tobacco use disorder 8. Chronic alcoholism 9. Iron-deficiency anemia 10. Thrombocytosis likely reactive, improving Discharge Disposition: Home with Health Services Discharge Instruct/Medications Diet: Regular Activity: No Restrictions, As Tolerated Follow Up/Referral: CARRILLO TORRES MD infectious physician doctor VIVIAN Nash MD lung doctor next week follow up TB infection Medications: Take all medications as prescribed for your infection Scheduled Ethambutol Hcl (Ethambutol Hcl), 1,200 MG PO DAILY Isoniazid (Isoniazid), 300 MG PO DAILY Nystatin (Mouth-Throat) (Mycostatin (Mouth-Throat)), 5 ML MT QID Rifampin (Rifampin), 600 MG PO DAILY Discharge Statement: "Patient was advised to return to the ER or call 911 if any headaches, dizziness, shortness of breath, chest pain, abdominal pain, bleeding, fevers, or worsening of medical condition. Patient was counseled about treatment plan, medications, possible side effects, patientverbalized understanding. All questions were answered to the best of my ability. This discharge took greater then 30 minutes in planning, reviewing documentation, counseling the patient, and discussing with other team members." ASSESSMENT ASSESSMENT Assessment 1. Acute hypoxic respiratory failure secondary to bilateral upper lobe consolidation/cavitary lesions, ruled in active tuberculosis 2. Bilateral upper lobe consolidation , ruled in active tuberculosis 3. Bilateral lung cavities secondary to active tuberculosis. 4. Mediastinal lymphadenopathy 5 paroxysmal AFib currently rate controlled 6. Chronic tobacco use disorder 8. Chronic alcoholism 9. Iron-deficiency anemia 10. Thrombocytosis likely reactive, improving Date of Service: Jan 26, 2025 Billing Provider: TAWNY TORRES MD Common Visit Codes: [id number] DISCH DAY >30min TAWNY TORRES MD Jan 23, 2025 15:09
--- NOTE | 2025-01-23 21:54 | DVHPN2 ---
Progress Note - Dictate Date Seen: Jan 23, 2025 Medical Necessity Reason Pt with a Central, PICC or Fol: No Subjective Patient seen and examined at bedside. Breathing comfortably on room air. Overnight events reviewed. vital signs Vital Sign Date Time Temp Pulse Resp B/P (MAP) Pulse Ox O2 Delivery O2 Flow Rate FiO2 01/23/25 20:54 97.1 84 20 127/66 (86) 94 97.1 01/23/25 10:00 Room Air 0.0 01/23/25 10:00 21 Total Intake and Output 01/22/25 01/22/25 01/23/25 15:00 23:00 07:00 Intake Total 337 ml 776 ml 320 ml Output Total 1 ml Balance 337 ml 775 ml 320 ml medications Current Medications Medications Dose Ordered Sig/Paco Route Start Time Stop Time Status Last Admin Dose Admin Ondansetron HCl 4 mg Q4HP PRN IV 01/05/25 15:30 Docusate Sodium 100 mg BIDPRN PRN PO 01/05/25 15:30 Nitroglycerin 0.4 mg Q5MINP PRN SL 01/05/25 15:30 Vancomycin HCl 0 ml @ 0 mls/hr UD IV 01/05/25 15:30 Cancel Folic Acid 1 mg DAILY PO 01/09/25 10:00 01/23/25 09:16 1 MG Multivitamins 1 tab DAILY PO 01/09/25 10:00 01/23/25 09:17 1 TAB Magnesium Oxide 400 mg DAILY PO 01/09/25 10:00 01/23/25 09:17 400 MG Thiamine HCl 100 mg DAILY PO 01/09/25 10:00 01/23/25 09:18 100 MG Metoprolol Succinate 25 mg BID PO 01/11/25 22:00 01/23/25 09:22 25 MG Aspirin 81 mg DAILY PO 01/12/25 10:00 01/23/25 09:21 81 MG Enteral Nutritional Formula 240 ml TIDWM PO 01/11/25 18:00 01/23/25 18:00 240 ML Rifampin 600 mg DAILY PO 01/13/25 10:00 01/23/25 09:24 600 MG Isoniazid 300 mg DAILY PO 01/13/25 10:00 01/23/25 09:24 300 MG Ethambutol HCl 1,200 mg DAILY PO 01/13/25 10:00 01/23/25 09:25 1,200 MG Pyrazinamide 1,500 mg DAILY PO 01/13/25 10:00 01/23/25 09:23 1,500 MG Nystatin 5 ml QID MT 01/16/25 12:00 01/23/25 16:47 5 ML Pantoprazole Sodium 40 mg BID@0600,1700 PO 01/17/25 06:00 01/23/25 16:47 40 MG Pyridoxine HCl 50 mg DAILY PO 01/17/25 10:00 01/23/25 09:23 50 MG objective Gen.: Patient lying in bed in no apparent distress. Breathing on room air. Head: Normocephalic, atraumatic. Eyes: EOMI/PERRLA. Ears: Normal hearing. Normal anatomy. Neck/trachea: Trachea midline, supple. Nose: Normal external anatomy. Mouth: Moist mucous membranes. Chest: Decreased air entry bilaterally. No wheezing or rhonchi. Cardiovascular: Positive S1, positive S2. Regular rate and rhythm. Abdomen: Positive bowel sounds in all 4 quadrants. Soft, non-tender, non- distended. : Deferred. Rectal: Deferred. Skin: Warm, dry. Intact. Extremities: 2+ radial pulses bilaterally. No lower extremity edema. Neuro: Awake, alert, oriented x3. No gross motor or sensory deficits. Cranial nerves II through XII intact. Gait not assessed. laboratory and microbiology Laboratory Tests 01/19/25 10:57 Test 01/19/25 10:57 Range/Units Serum Glucose 129 H 74-106 mg/dL Assessment/Plan Impression: Pulmonary tuberculosis Weight loss Lung cavities Atelectasis Events: Patient seen and examined at bedside. Remains on room air Supplemental oxygen PRN No acute overnight events BETH requests AFB smear and culture to be repeated. Order placed 3% NS for induction. Continue Rx abx per ID Continue TB regimen Follow up with BETH and Infection Control Incentive spirometry Continue antifungal Protonix for GI ppx. Monitor renal function Monitor electrolytes; supplement as needed Magnesium supplementation Disposition per hospitalist. Labs and imaging reviewed. Plan: Supplemental oxygen PRN Titrate to keep O2 sats above 92%. Sputum smear positive for AFB IFN test positive Started on 4x therapy for TB Continue TB regimen with Isoniazid/pyrazinamide/pyridoxine/rifampin/thiamine QuantiFERON Gold positive ID recommendations appreciated. Continue Rx abx per ID TB regimen Bronchodilators PRN Monitor renal function Monitor electrolytes Supplement as needed GI/DVT prophylaxis Prognosis: Guarded given patient's multiple co-morbidities. Rest of plan per hospitalist and other consultants. Thank you, JOS Medina, for allowing me to participate in this patient's care. Further recommendations will depend on the patient's clinical course. Please do not hesitate to contact me if you have any questions or concerns. This medical document was created using an electronic medical record system with [employer] dictation system. Although these documentations are being carefully reviewed, there may still be some phonetic and typographical changes. The errors are purely typographical, due to imperfection on the software program, and do not reflect any compromise in the patient's medical care. Dietary Evaluation Review Comments: Add ensure High Protein oral supplement TIDWM Expected Outcomes/Goals: gradual wt gain, improved overall health condition Plan discussed with: Patient, Other (CHAPARRITA Jin) VIVIAN OLIVA MD Jan 23, 2025 21:54
--- NOTE | 2025-01-23 22:12 | DVHPN2 ---
Subjective Sputum cultures sent but AFB reports are still pending. Patient is otherwise asymptomatic. Oxygenating normally on room air. Reviewed: Care Plan, H&P, Labs Changes from previous H/P or p: No Changes General: Per HPI Eyes: No Pain, No Vision change, No Conjunctivae inflammation, No Eyelid inflammation, No Other, No Redness ENT: No Ear pain, No Ear discharge, No Nose pain, No Nose discharge, No Nose congestion; Mouth pain; No Mouth swelling; Throat pain; No Throat swelling, No Other Cardiovascular: Chest Pain; No Palpitations, No Orthopnea, No Paroxysmal Noc. Dyspnea, No Edema, No Lt Headedness, No Other Respiratory: Cough; No Dry; Shortness of breath, SOB with excertion; No Wheezing, No Hemoptysis, No Pleuritic Pain, No Sputum, No Other Gastrointestinal: No Nausea, No Vomiting, No Abdominal Pain, No Diarrhea, No Constipation, No Melena, No Hematochezia, No Other Genitourinary: No Dysuria, No Frequency, No Incontinence, No Hematuria, No Retention, No Other Musculoskeletal: No other, No neck pain, No shoulder pain, No arm pain, No back pain, No hand pain, No leg pain, No foot pain Skin: No Rash, No Lesions, No Jaundice, No Bruising, No Other Objective Vitals Vital Signs Date Time Temp Pulse Resp B/P (MAP) Pulse Ox O2 Delivery O2 Flow Rate FiO2 01/23/25 20:54 97.1 84 20 127/66 (86) 94 97.1 01/23/25 10:00 Room Air 0.0 01/23/25 10:00 21 Intake/Output Intake and Output 01/23/25 07:00 Intake Total 1433 ml Output Total 1 ml Balance 1432 ml Intake Oral 1433 ml Stool Total 1 ml # Voids 6 Exam On isolation. Comfortable in bed. HEENT neck supple no JVD. Heart regular rate and rhythm S1-S2. Lungs fair air movement with rhonchi in the upper lungs. No wheezing. Abdomen soft positive bowel sounds. Extremities no edema. General Appearance: Alert, Oriented X3, Cooperative, No acute distress HEENT: Atraumatic, PERRLA Cardiovascular: Normal S1, Normal S2 Abdomen: Normal bowel sounds, Soft, No tenderness, No hepatospenomegaly, No masses Musculoskeletal: Normal sensory function, Normal motor function Neuro: Normal gait, Normal speech Skin: Dry, Intact Psych/Mental Status: Mental status NL, Mood NL Medications Current Medications Medications Dose Ordered Sig/Paco Route Start Time Stop Time Status Last Admin Dose Admin Ondansetron HCl 4 mg Q4HP PRN IV 01/05/25 15:30 Docusate Sodium 100 mg BIDPRN PRN PO 01/05/25 15:30 Nitroglycerin 0.4 mg Q5MINP PRN SL 01/05/25 15:30 Vancomycin HCl 0 ml @ 0 mls/hr UD IV 01/05/25 15:30 Cancel Folic Acid 1 mg DAILY PO 01/09/25 10:00 01/23/25 09:16 1 MG Multivitamins 1 tab DAILY PO 01/09/25 10:00 01/23/25 09:17 1 TAB Magnesium Oxide 400 mg DAILY PO 01/09/25 10:00 01/23/25 09:17 400 MG Thiamine HCl 100 mg DAILY PO 01/09/25 10:00 01/23/25 09:18 100 MG Metoprolol Succinate 25 mg BID PO 01/11/25 22:00 01/23/25 09:22 25 MG Aspirin 81 mg DAILY PO 01/12/25 10:00 01/23/25 09:21 81 MG Enteral Nutritional Formula 240 ml TIDWM PO 01/11/25 18:00 01/23/25 18:00 240 ML Rifampin 600 mg DAILY PO 01/13/25 10:00 01/23/25 09:24 600 MG Isoniazid 300 mg DAILY PO 01/13/25 10:00 01/23/25 09:24 300 MG Ethambutol HCl 1,200 mg DAILY PO 01/13/25 10:00 01/23/25 09:25 1,200 MG Pyrazinamide 1,500 mg DAILY PO 01/13/25 10:00 01/23/25 09:23 1,500 MG Nystatin 5 ml QID MT 01/16/25 12:00 01/23/25 16:47 5 ML Pantoprazole Sodium 40 mg BID@0600,1700 PO 01/17/25 06:00 01/23/25 16:47 40 MG Pyridoxine HCl 50 mg DAILY PO 01/17/25 10:00 01/23/25 09:23 50 MG Laboratory Results Laboratory Tests 01/19/25 10:57 Chemistry Test 01/23/25 09:30 Albumin 2.4 g/dL (3.2-4.8) L Total Protein 5.7 g/dL (5.7-8.2) LFT Test 01/23/25 09:30 Alanine Aminotransferase (ALT) 97 U/L (7-40) H Alkaline Phosphatase 164 U/L (46-116) H Aspartate Amino Transferase (AST) 115 U/L (13-40) H Direct Bilirubin 0.5 mg/dL (<0.3) H Total Bilirubin 0.7 mg/dL (0.2-1.0) Urinalysis Test 01/05/25 15:50 Urine Color Yellow (Yellow) Urine Clarity Turbid (Clear) H Urine pH 5.5 (5.0-9.0) Urine Specific [place] 1.023 (1.001-1.035) Urine Protein 1+ (Negative) H Urine Ketones Negative (Negative) Urine Blood Negative /uL (Negative) Urine Nitrite Negative (Negative) Urine Bilirubin 1+ (Negative) Urine Urobilinogen 4 mg/dL (Negative) H Urine Leukocyte Esterase Negative /uL (Negative) Urine RBC 2 /hpf (0 - 3) Urine Microscopic WBC < 1 /HPF (0-3) Urine Squamous Epithelial Cells Few /hpf (<5) Urine Bacteria None seen /hpf (None Seen) Urine Hyaline Casts Few /lpf (0 - 2) Urine Mucus Few (None Seen) Urine Glucose Normal mg/dL (Normal) Microbiology Microbiology Date/Time Source Procedure Growth Status 01/20/25 16:07 Sputum AFB Broth Culture Pending Resulted 01/20/25 16:07 Sputum - Final Resulted 01/20/25 16:07 Sputum - Final Resulted 01/20/25 16:07 Sputum Acid Fast Bacilli Culture Pending Resulted 01/05/25 13:32 Blood Blood Culture - Final NO GROWTH AFTER 5 DAYS OF INCUBATION. Complete Assessment/Plan Assessment/Plan 1. Acute hypoxic respiratory failure secondary to bilateral upper lobe consolidation/cavitary lesions, ruled in active tuberculosis 2. Bilateral upper lobe consolidation , ruled in active tuberculosis 3. Bilateral lung cavities secondary to active tuberculosis. 4. Mediastinal lymphadenopathy 5 paroxysmal AFib currently rate controlled 6. Chronic tobacco use disorder 8. Chronic alcoholism 9. Iron-deficiency anemia 10. Thrombocytosis likely reactive, improving --continue reverse isolation, continue four drug tuberculosis regimen, follow up with the Pulmonary and Infectious Disease regarding discharge plan. Once cleared by Infectious Disease team plan to discharge home Plan discussed with: Patient, Other My Orders Orders - TAWNY TORRES MD Procedure Category Date Status Time * Feeder Loader CONS 01/23/25 Transmitted Consult Discharge DISCHARGE 01/23/25 Transmitted 15:07 Follow Up In 1 Week ORDERS 01/23/25 Transmitted 15:07 Date of Service: Jan 23, 2025 Billing Provider: JIN MAGANA MD Common Visit Codes: [id number] INP/OBS CARE(MOD) TAWNY TORRES MD Jan 23, 2025 22:12
[2025-01-24] VITALS (9 sets, daily range): BP systolic 113–134; BP diastolic 70–79; PULSE 68–95; RESP 17–20; TEMP 97–98; O2SAT 92–96
--- NOTE | 2025-01-24 19:13 | DVHPN2 ---
Progress Note - Dictate Date Seen: Jan 24, 2025 Medical Necessity Reason Pt with a Central, PICC or Fol: No Subjective Patient seen and examined at bedside. Breathing comfortably on room air. Overnight events reviewed. vital signs Vital Sign Date Time Temp Pulse Resp B/P (MAP) Pulse Ox O2 Delivery O2 Flow Rate FiO2 01/24/25 17:00 98.0 79 18 126/79 (95) 94 98.0 01/24/25 10:00 Room Air 0.0 01/24/25 10:00 21 Total Intake and Output 01/23/25 01/23/25 01/24/25 15:00 23:00 07:00 Intake Total 962 ml 350 ml Output Total 450 ml Balance 962 ml -100 ml medications Current Medications Medications Dose Ordered Sig/Paco Route Start Time Stop Time Status Last Admin Dose Admin Ondansetron HCl 4 mg Q4HP PRN IV 01/05/25 15:30 Docusate Sodium 100 mg BIDPRN PRN PO 01/05/25 15:30 Nitroglycerin 0.4 mg Q5MINP PRN SL 01/05/25 15:30 Vancomycin HCl 0 ml @ 0 mls/hr UD IV 01/05/25 15:30 Cancel Folic Acid 1 mg DAILY PO 01/09/25 10:00 01/24/25 09:05 1 MG Multivitamins 1 tab DAILY PO 01/09/25 10:00 01/24/25 09:06 1 TAB Magnesium Oxide 400 mg DAILY PO 01/09/25 10:00 01/24/25 09:06 400 MG Thiamine HCl 100 mg DAILY PO 01/09/25 10:00 01/24/25 09:05 100 MG Metoprolol Succinate 25 mg BID PO 01/11/25 22:00 01/24/25 09:16 25 MG Aspirin 81 mg DAILY PO 01/12/25 10:00 01/24/25 09:09 81 MG Enteral Nutritional Formula 240 ml TIDWM PO 01/11/25 18:00 01/24/25 17:05 240 ML Rifampin 600 mg DAILY PO 01/13/25 10:00 01/24/25 09:09 600 MG Isoniazid 300 mg DAILY PO 01/13/25 10:00 01/24/25 09:11 300 MG Ethambutol HCl 1,200 mg DAILY PO 01/13/25 10:00 01/24/25 09:10 1,200 MG Pyrazinamide 1,500 mg DAILY PO 01/13/25 10:00 01/24/25 09:10 1,500 MG Nystatin 5 ml QID MT 01/16/25 12:00 01/24/25 17:05 5 ML Pantoprazole Sodium 40 mg BID@0600,1700 PO 01/17/25 06:00 01/24/25 17:05 40 MG Pyridoxine HCl 50 mg DAILY PO 01/17/25 10:00 01/24/25 09:09 50 MG objective Gen.: Patient lying in bed in no apparent distress. Breathing on room air. Head: Normocephalic, atraumatic. Eyes: EOMI/PERRLA. Ears: Normal hearing. Normal anatomy. Neck/trachea: Trachea midline, supple. Nose: Normal external anatomy. Mouth: Moist mucous membranes. Chest: Decreased air entry bilaterally. No wheezing or rhonchi. Cardiovascular: Positive S1, positive S2. Regular rate and rhythm. Abdomen: Positive bowel sounds in all 4 quadrants. Soft, non-tender, non- distended. : Deferred. Rectal: Deferred. Skin: Warm, dry. Intact. Extremities: 2+ radial pulses bilaterally. No lower extremity edema. Neuro: Awake, alert, oriented x3. No gross motor or sensory deficits. Cranial nerves II through XII intact. Gait not assessed. laboratory and microbiology Laboratory Tests 01/19/25 10:57 Test 01/19/25 10:57 Range/Units Serum Glucose 129 H 74-106 mg/dL Assessment/Plan Impression: Pulmonary tuberculosis Weight loss Lung cavities Atelectasis Events: Patient seen and examined at bedside. Remains on room air Supplemental oxygen PRN No acute overnight events BETH requested AFB smear and culture to be repeated. Order placed 3% NS for induction. Follow up ID recommendations Continue Rx abx per ID Continue TB regimen Follow up with BETH and Infection Control Incentive spirometry Continue antifungal Protonix for GI ppx. Monitor renal function Monitor electrolytes; supplement as needed Magnesium supplementation Disposition per hospitalist. Arrange home health. Labs and imaging reviewed. Plan: Supplemental oxygen PRN Titrate to keep O2 sats above 92%. Sputum smear positive for AFB IFN test positive Started on 4x therapy for TB Continue TB regimen with Isoniazid/pyrazinamide/pyridoxine/rifampin/thiamine QuantiFERON Gold positive ID recommendations appreciated. Continue Rx abx per ID TB regimen Bronchodilators PRN Monitor renal function Monitor electrolytes Supplement as needed GI/DVT prophylaxis Prognosis: Guarded given patient's multiple co-morbidities. Rest of plan per hospitalist and other consultants. Thank you, JOS Medina, for allowing me to participate in this patient's care. Further recommendations will depend on the patient's clinical course. Please do not hesitate to contact me if you have any questions or concerns. This medical document was created using an electronic medical record system with [employer] dictation system. Although these documentations are being carefully reviewed, there may still be some phonetic and typographical changes. The errors are purely typographical, due to imperfection on the software program, and do not reflect any compromise in the patient's medical care. Dietary Evaluation Review Comments: Add ensure High Protein oral supplement TIDWM Expected Outcomes/Goals: gradual wt gain, improved overall health condition Plan discussed with: Patient, Other (CHAPARRITA Jin) VIVIAN OLIVA MD Jan 24, 2025 19:13
--- NOTE | 2025-01-24 20:48 | DVHPN2 ---
Subjective Sputum cultures sent but AFB reports are still pending. Patient is otherwise asymptomatic. Oxygenating normally on room air. Department of Health and Infectious Disease team once final results of recent FB smear that was sent yesterday prior to discharge planning. Reviewed: Care Plan, H&P, Labs Changes from previous H/P or p: No Changes General: Per HPI Eyes: No Pain, No Vision change, No Conjunctivae inflammation, No Eyelid inflammation, No Other, No Redness ENT: No Ear pain, No Ear discharge, No Nose pain, No Nose discharge, No Nose congestion; Mouth pain; No Mouth swelling; Throat pain; No Throat swelling, No Other Cardiovascular: Chest Pain; No Palpitations, No Orthopnea, No Paroxysmal Noc. Dyspnea, No Edema, No Lt Headedness, No Other Respiratory: Cough; No Dry; Shortness of breath, SOB with excertion; No Wheezing, No Hemoptysis, No Pleuritic Pain, No Sputum, No Other Gastrointestinal: No Nausea, No Vomiting, No Abdominal Pain, No Diarrhea, No Constipation, No Melena, No Hematochezia, No Other Genitourinary: No Dysuria, No Frequency, No Incontinence, No Hematuria, No Retention, No Other Musculoskeletal: No other, No neck pain, No shoulder pain, No arm pain, No back pain, No hand pain, No leg pain, No foot pain Skin: No Rash, No Lesions, No Jaundice, No Bruising, No Other Objective Vitals Vital Signs Date Time Temp Pulse Resp B/P (MAP) Pulse Ox O2 Delivery O2 Flow Rate FiO2 01/24/25 17:00 98.0 79 18 126/79 (95) 94 98.0 01/24/25 10:00 Room Air 0.0 01/24/25 10:00 21 Intake/Output Intake and Output 01/24/25 07:00 Intake Total 1312 ml Output Total 450 ml Balance 862 ml Intake Oral 1312 ml Output Urine Total 450 ml # Voids 5 # Bowel Movements 1 Exam On isolation. Comfortable in bed. HEENT neck supple no JVD. Heart regular rate and rhythm S1-S2. Lungs fair air movement with rhonchi in the upper lungs. No wheezing. Abdomen soft positive bowel sounds. Extremities no edema. General Appearance: Alert, Oriented X3, Cooperative, No acute distress HEENT: Atraumatic, PERRLA Cardiovascular: Normal S1, Normal S2 Abdomen: Normal bowel sounds, Soft, No tenderness, No hepatospenomegaly, No masses Musculoskeletal: Normal sensory function, Normal motor function Neuro: Normal gait, Normal speech Skin: Dry, Intact Psych/Mental Status: Mental status NL, Mood NL Medications Current Medications Medications Dose Ordered Sig/Paco Route Start Time Stop Time Status Last Admin Dose Admin Ondansetron HCl 4 mg Q4HP PRN IV 01/05/25 15:30 Docusate Sodium 100 mg BIDPRN PRN PO 01/05/25 15:30 Nitroglycerin 0.4 mg Q5MINP PRN SL 01/05/25 15:30 Vancomycin HCl 0 ml @ 0 mls/hr UD IV 01/05/25 15:30 Cancel Folic Acid 1 mg DAILY PO 01/09/25 10:00 01/24/25 09:05 1 MG Multivitamins 1 tab DAILY PO 01/09/25 10:00 01/24/25 09:06 1 TAB Magnesium Oxide 400 mg DAILY PO 01/09/25 10:00 01/24/25 09:06 400 MG Thiamine HCl 100 mg DAILY PO 01/09/25 10:00 01/24/25 09:05 100 MG Metoprolol Succinate 25 mg BID PO 01/11/25 22:00 01/24/25 09:16 25 MG Aspirin 81 mg DAILY PO 01/12/25 10:00 01/24/25 09:09 81 MG Enteral Nutritional Formula 240 ml TIDWM PO 01/11/25 18:00 01/24/25 17:05 240 ML Rifampin 600 mg DAILY PO 01/13/25 10:00 01/24/25 09:09 600 MG Isoniazid 300 mg DAILY PO 01/13/25 10:00 01/24/25 09:11 300 MG Ethambutol HCl 1,200 mg DAILY PO 01/13/25 10:00 01/24/25 09:10 1,200 MG Pyrazinamide 1,500 mg DAILY PO 01/13/25 10:00 01/24/25 09:10 1,500 MG Nystatin 5 ml QID MT 01/16/25 12:00 01/24/25 17:05 5 ML Pantoprazole Sodium 40 mg BID@0600,1700 PO 01/17/25 06:00 01/24/25 17:05 40 MG Pyridoxine HCl 50 mg DAILY PO 01/17/25 10:00 01/24/25 09:09 50 MG Laboratory Results Laboratory Tests 01/19/25 10:57 Urinalysis Test 01/05/25 15:50 Urine Color Yellow (Yellow) Urine Clarity Turbid (Clear) H Urine pH 5.5 (5.0-9.0) Urine Specific [place] 1.023 (1.001-1.035) Urine Protein 1+ (Negative) H Urine Ketones Negative (Negative) Urine Blood Negative /uL (Negative) Urine Nitrite Negative (Negative) Urine Bilirubin 1+ (Negative) Urine Urobilinogen 4 mg/dL (Negative) H Urine Leukocyte Esterase Negative /uL (Negative) Urine RBC 2 /hpf (0 - 3) Urine Microscopic WBC < 1 /HPF (0-3) Urine Squamous Epithelial Cells Few /hpf (<5) Urine Bacteria None seen /hpf (None Seen) Urine Hyaline Casts Few /lpf (0 - 2) Urine Mucus Few (None Seen) Urine Glucose Normal mg/dL (Normal) Microbiology Microbiology Date/Time Source Procedure Growth Status 01/20/25 16:07 Sputum AFB Broth Culture Pending Resulted 01/20/25 16:07 Sputum - Final Resulted 01/20/25 16:07 Sputum - Final Resulted 01/20/25 16:07 Sputum Acid Fast Bacilli Culture Pending Resulted 01/05/25 13:32 Blood Blood Culture - Final NO GROWTH AFTER 5 DAYS OF INCUBATION. Complete Assessment/Plan Assessment/Plan 1. Acute hypoxic respiratory failure secondary to bilateral upper lobe consolidation/cavitary lesions, ruled in active tuberculosis 2. Bilateral upper lobe consolidation , ruled in active tuberculosis 3. Bilateral lung cavities secondary to active tuberculosis. 4. Mediastinal lymphadenopathy 5 paroxysmal AFib currently rate controlled 6. Chronic tobacco use disorder 8. Chronic alcoholism 9. Iron-deficiency anemia 10. Thrombocytosis likely reactive, improving Continue present TB treatment. Essentially waiting for department of Health and Infectious Disease control nurse to clear the patient for discharge. AFB culture that was sent yesterday pending. Otherwise no changes to present care plan. Plan discussed with: Patient, Other Date of Service: Jan 24, 2025 Billing Provider: TAWNY TORRES MD Common Visit Codes: [id number] INP/OBS CARE(MOD) TAWNY TORRES MD Jan 24, 2025 20:48
[2025-01-25] VITALS (9 sets, daily range): BP systolic 121–137; BP diastolic 67–83; PULSE 65–96; RESP 16–20; TEMP 97.5–98; O2SAT 94–97
[2025-01-25 11:40] LABS: Anion Gap 8 (5-15); BUN/Creatinine Ratio 12.2 (10.0-20.0); Blood Urea Nitrogen 12 mg/dL (9-23); Calcium 9.2 mg/dL (8.7-10.4); Carbon Dioxide 24 mmol/L (20-31); Chloride 102 mmol/L (98-107); Potassium 4.3 mmol/L (3.5-5.1); Total Protein 6.4 g/dL (5.7-8.2)
[2025-01-25 11:41] LABS: Alanine Aminotransferase 67 U/L (7-40); Albumin 2.8 g/dL (3.2-4.8); Alkaline Phosphatase 158 U/L (46-116); Bilirubin, Total 0.9 mg/dL (0.2-1.0); Glucose 138 mg/dL (74-106); Sodium 134 mmol/L (136-145)
--- NOTE | 2025-01-25 16:09 | DVHPN2 ---
Subjective Patient was seen and evaluated by me. Patient is being discharged today. Reviewed: Care Plan, H&P, Labs Changes from previous H/P or p: No Changes General: Per HPI Eyes: No Pain, No Vision change, No Conjunctivae inflammation, No Eyelid inflammation, No Other, No Redness ENT: No Ear pain, No Ear discharge, No Nose pain, No Nose discharge, No Nose congestion; Mouth pain; No Mouth swelling; Throat pain; No Throat swelling, No Other Cardiovascular: Chest Pain; No Palpitations, No Orthopnea, No Paroxysmal Noc. Dyspnea, No Edema, No Lt Headedness, No Other Respiratory: Cough; No Dry; Shortness of breath, SOB with excertion; No Wheezing, No Hemoptysis, No Pleuritic Pain, No Sputum, No Other Gastrointestinal: No Nausea, No Vomiting, No Abdominal Pain, No Diarrhea, No Constipation, No Melena, No Hematochezia, No Other Genitourinary: No Dysuria, No Frequency, No Incontinence, No Hematuria, No Retention, No Other Musculoskeletal: No other, No neck pain, No shoulder pain, No arm pain, No back pain, No hand pain, No leg pain, No foot pain Skin: No Rash, No Lesions, No Jaundice, No Bruising, No Other Objective Vitals Vital Signs Date Time Temp Pulse Resp B/P (MAP) Pulse Ox O2 Delivery O2 Flow Rate FiO2 01/25/25 13:00 97.5 78 18 130/67 (88) 97 97.5 01/25/25 10:00 Room Air 0.0 01/25/25 10:00 21 Intake/Output Intake and Output 01/25/25 07:00 Intake Total 954 ml Balance 954 ml Intake Oral 954 ml # Voids 8 # Bowel Movements 1 Exam HEENT pupils are reactive Neck is supple CV is S1-S2 regular rate and rhythm Respiratory diminished breath sounds bases GI positive bowel sound Extremity no edema [employer] TRA[employer] no motor deficit General Appearance: Alert, Oriented X3, Cooperative, No acute distress HEENT: Atraumatic, PERRLA Cardiovascular: Normal S1, Normal S2 Abdomen: Normal bowel sounds, Soft, No tenderness, No hepatospenomegaly, No masses Musculoskeletal: Normal sensory function, Normal motor function Neuro: Normal gait, Normal speech Skin: Dry, Intact Psych/Mental Status: Mental status NL, Mood NL Medications Current Medications Medications Dose Ordered Sig/Paco Route Start Time Stop Time Status Last Admin Dose Admin Ondansetron HCl 4 mg Q4HP PRN IV 01/05/25 15:30 Docusate Sodium 100 mg BIDPRN PRN PO 01/05/25 15:30 Nitroglycerin 0.4 mg Q5MINP PRN SL 01/05/25 15:30 Vancomycin HCl 0 ml @ 0 mls/hr UD IV 01/05/25 15:30 Cancel Folic Acid 1 mg DAILY PO 01/09/25 10:00 01/25/25 10:28 1 MG Multivitamins 1 tab DAILY PO 01/09/25 10:00 01/25/25 10:28 1 TAB Magnesium Oxide 400 mg DAILY PO 01/09/25 10:00 01/25/25 10:28 400 MG Thiamine HCl 100 mg DAILY PO 01/09/25 10:00 01/25/25 10:28 100 MG Metoprolol Succinate 25 mg BID PO 01/11/25 22:00 01/25/25 10:53 25 MG Aspirin 81 mg DAILY PO 01/12/25 10:00 01/25/25 10:29 81 MG Enteral Nutritional Formula 240 ml TIDWM PO 01/11/25 18:00 01/25/25 10:53 240 ML Rifampin 600 mg DAILY PO 01/13/25 10:00 01/25/25 10:28 600 MG Isoniazid 300 mg DAILY PO 01/13/25 10:00 01/25/25 10:28 300 MG Ethambutol HCl 1,200 mg DAILY PO 01/13/25 10:00 01/25/25 10:29 1,200 MG Pyrazinamide 1,500 mg DAILY PO 01/13/25 10:00 01/25/25 10:27 1,500 MG Nystatin 5 ml QID MT 01/16/25 12:00 01/25/25 10:32 5 ML Pantoprazole Sodium 40 mg BID@0600,1700 PO 01/17/25 06:00 01/25/25 06:18 40 MG Pyridoxine HCl 50 mg DAILY PO 01/17/25 10:00 01/25/25 10:29 50 MG Laboratory Results Laboratory Tests 01/19/25 10:57 01/25/25 11:20 Chemistry Test 01/25/25 11:20 Albumin 2.8 g/dL (3.2-4.8) L Calcium Level 9.2 mg/dL (8.7-10.4) Total Protein 6.4 g/dL (5.7-8.2) LFT Test 01/25/25 11:20 Alanine Aminotransferase (ALT) 67 U/L (7-40) H Alkaline Phosphatase 158 U/L (46-116) H Aspartate Amino Transferase (AST) 60 U/L (13-40) H Total Bilirubin 0.9 mg/dL (0.2-1.0) Urinalysis Test 01/05/25 15:50 Urine Color Yellow (Yellow) Urine Clarity Turbid (Clear) H Urine pH 5.5 (5.0-9.0) Urine Specific [place] 1.023 (1.001-1.035) Urine Protein 1+ (Negative) H Urine Ketones Negative (Negative) Urine Blood Negative /uL (Negative) Urine Nitrite Negative (Negative) Urine Bilirubin 1+ (Negative) Urine Urobilinogen 4 mg/dL (Negative) H Urine Leukocyte Esterase Negative /uL (Negative) Urine RBC 2 /hpf (0 - 3) Urine Microscopic WBC < 1 /HPF (0-3) Urine Squamous Epithelial Cells Few /hpf (<5) Urine Bacteria None seen /hpf (None Seen) Urine Hyaline Casts Few /lpf (0 - 2) Urine Mucus Few (None Seen) Urine Glucose Normal mg/dL (Normal) Microbiology Microbiology Date/Time Source Procedure Growth Status 01/24/25 13:09 Sputum Expectorated Sputum AFB Broth Culture Pending Resulted 01/24/25 13:09 Sputum Expectorated Sputum - Final Resulted 01/24/25 13:09 Sputum Expectorated Sputum - Final Resulted 01/24/25 13:09 Sputum Expectorated Sputum Acid Fast Bacilli Culture Pending Resulted 01/05/25 13:32 Blood Blood Culture - Final NO GROWTH AFTER 5 DAYS OF INCUBATION. Complete Assessment/Plan Assessment/Plan 74-year-old male with a known history of asthma, presented to the hospital with a five month history of progressive throat pain neck pain, persistent cough, raspy voice, unintentional weight loss of 35 lb with a known history of chronic tobacco use disorder found to have 1. Acute hypoxic respiratory failure secondary to bilateral upper lobe consolidation/cavitary lesions, ruled in active tuberculosis 2. Bilateral upper lobe consolidation , ruled in active tuberculosis 3. Bilateral lung cavities secondary to active tuberculosis. 4. Mediastinal lymphadenopathy 5 paroxysmal AFib currently rate controlled 6. Chronic tobacco use disorder 8. Chronic alcoholism 9. Iron-deficiency anemia 10. Thrombocytosis likely reactive, improving -patient is going to be discharged today. Patient is already cleared by department of Health Infectious Disease specialist. Plan discussed with: Patient Date of Service: Jan 25, 2025 Billing Provider: DOLLY LEZAMA MD Common Visit Codes: [id number] INP/OBS CARE(MOD) DOLLY LEZAMA MD Jan 25, 2025 16:09
--- NOTE | 2025-01-25 22:55 | DVHPN2 ---
Progress Note - Dictate Date Seen: Jan 25, 2025 Medical Necessity Reason Pt with a Central, PICC or Fol: No Subjective Patient seen and examined at bedside. Breathing comfortably on room air. Overnight events reviewed. vital signs Vital Sign Date Time Temp Pulse Resp B/P (MAP) Pulse Ox O2 Delivery O2 Flow Rate FiO2 01/25/25 21:00 97.9 96 17 137/78 (97) 94 97.9 01/25/25 10:00 Room Air 0.0 01/25/25 10:00 21 Total Intake and Output 01/24/25 01/24/25 01/25/25 15:00 23:00 07:00 Intake Total 474 ml 480 ml Balance 474 ml 480 ml medications Current Medications Medications Dose Ordered Sig/Paco Route Start Time Stop Time Status Last Admin Dose Admin Ondansetron HCl 4 mg Q4HP PRN IV 01/05/25 15:30 Docusate Sodium 100 mg BIDPRN PRN PO 01/05/25 15:30 Nitroglycerin 0.4 mg Q5MINP PRN SL 01/05/25 15:30 Vancomycin HCl 0 ml @ 0 mls/hr UD IV 01/05/25 15:30 Cancel Folic Acid 1 mg DAILY PO 01/09/25 10:00 01/25/25 10:28 1 MG Multivitamins 1 tab DAILY PO 01/09/25 10:00 01/25/25 10:28 1 TAB Magnesium Oxide 400 mg DAILY PO 01/09/25 10:00 01/25/25 10:28 400 MG Thiamine HCl 100 mg DAILY PO 01/09/25 10:00 01/25/25 10:28 100 MG Metoprolol Succinate 25 mg BID PO 01/11/25 22:00 01/25/25 10:53 25 MG Aspirin 81 mg DAILY PO 01/12/25 10:00 01/25/25 10:29 81 MG Enteral Nutritional Formula 240 ml TIDWM PO 01/11/25 18:00 01/25/25 17:59 240 ML Rifampin 600 mg DAILY PO 01/13/25 10:00 01/25/25 10:28 600 MG Isoniazid 300 mg DAILY PO 01/13/25 10:00 01/25/25 10:28 300 MG Ethambutol HCl 1,200 mg DAILY PO 01/13/25 10:00 01/25/25 10:29 1,200 MG Pyrazinamide 1,500 mg DAILY PO 01/13/25 10:00 01/25/25 10:27 1,500 MG Nystatin 5 ml QID MT 01/16/25 12:00 01/25/25 17:45 5 ML Pantoprazole Sodium 40 mg BID@0600,1700 PO 01/17/25 06:00 01/25/25 17:45 40 MG Pyridoxine HCl 50 mg DAILY PO 01/17/25 10:00 01/25/25 10:29 50 MG objective Gen.: Patient lying in bed in no apparent distress. Breathing on room air. Head: Normocephalic, atraumatic. Eyes: EOMI/PERRLA. Ears: Normal hearing. Normal anatomy. Neck/trachea: Trachea midline, supple. Nose: Normal external anatomy. Mouth: Moist mucous membranes. Chest: Decreased air entry bilaterally. No wheezing or rhonchi. Cardiovascular: Positive S1, positive S2. Regular rate and rhythm. Abdomen: Positive bowel sounds in all 4 quadrants. Soft, non-tender, non- distended. : Deferred. Rectal: Deferred. Skin: Warm, dry. Intact. Extremities: 2+ radial pulses bilaterally. No lower extremity edema. Neuro: Awake, alert, oriented x3. No gross motor or sensory deficits. Cranial nerves II through XII intact. Gait not assessed. laboratory and microbiology Laboratory Tests 01/25/25 11:20 01/19/25 10:57 Test 01/25/25 11:20 Range/Units Serum Glucose 138 H 74-106 mg/dL Assessment/Plan Impression: Pulmonary tuberculosis Weight loss Lung cavities Atelectasis Events: Patient seen and examined at bedside. Remains on room air Supplemental oxygen PRN Denies distress. Sitter at bedside for safety Patient is s/p fall. [facility] requested AFB smear and culture to be repeated. AFB culture sent 01/24 returned negative [place]. Follow up ID recommendations Continue Rx abx per ID Continue TB regimen Follow up with [facility] and Infection Control Incentive spirometry Continue antifungal Protonix for GI ppx. Monitor renal function Monitor electrolytes; supplement as needed Magnesium supplementation Disposition per hospitalist. Arrange home health. Labs and imaging reviewed. Plan: Supplemental oxygen PRN Titrate to keep O2 sats above 92%. Sputum smear positive for AFB IFN test positive Started on 4x therapy for TB Continue TB regimen with Isoniazid/pyrazinamide/pyridoxine/rifampin/thiamine QuantiFERON Gold positive ID recommendations appreciated. Continue Rx abx per ID TB regimen Bronchodilators PRN Monitor renal function Monitor electrolytes Supplement as needed GI/DVT prophylaxis Prognosis: Guarded given patient's multiple co-morbidities. Rest of plan per hospitalist and other consultants. Thank you, JOS Medina, for allowing me to participate in this patient's care. Further recommendations will depend on the patient's clinical course. Please do not hesitate to contact me if you have any questions or concerns. This medical document was created using an electronic medical record system with [employer] dictation system. Although these documentations are being carefully reviewed, there may still be some phonetic and typographical changes. The errors are purely typographical, due to imperfection on the software program, and do not reflect any compromise in the patient's medical care. Dietary Evaluation Review Comments: Add ensure High Protein oral supplement TIDWM Expected Outcomes/Goals: gradual wt gain, improved overall health condition Plan discussed with: Patient, Other (CHAPARRITA Kendall) VIVIAN OLIVA MD Jan 25, 2025 22:55
[2025-01-26 05:00] VITALS: BP 111/68; PULSE 60; RESP 18; TEMP 97.8; O2SAT 90
[2025-01-26 08:00] VITALS: PULSE 65; RESP 17
[2025-01-26 09:00] VITALS: BP 119/77; PULSE 82; RESP 18; TEMP 97.7; O2SAT 97
[2025-01-26 10:00] VITALS: O2SAT 95
[2025-01-26 11:56] VITALS: BP 126/65; PULSE 65; RESP 18; TEMP 97.6; O2SAT 95
--- NOTE | 2025-01-26 23:52 | DVHPN2 ---
Progress Note - Dictate Date Seen: Jan 26, 2025 Medical Necessity Reason Pt with a Central, PICC or Fol: No Subjective Patient seen and examined at bedside. Breathing comfortably on room air. Overnight events reviewed. vital signs Vital Sign Date Time Temp Pulse Resp B/P (MAP) Pulse Ox O2 Delivery O2 Flow Rate FiO2 01/26/25 11:56 97.6 65 18 95 01/26/25 10:00 Room Air 01/26/25 10:00 0 21 01/26/25 09:00 119/77 (91) Total Intake and Output 01/25/25 01/25/25 01/26/25 15:00 23:00 07:00 Intake Total 280 ml 320 ml 700 ml Output Total 0 ml Balance 280 ml 320 ml 700 ml medications Current Medications Medications Dose Ordered Sig/Paco Route Start Time Stop Time Status Last Admin Dose Admin Vancomycin HCl 0 ml @ 0 mls/hr UD IV 01/05/25 15:30 Cancel Pyrazinamide 1,500 mg DAILY PO 01/27/25 10:00 objective Gen.: Patient lying in bed in no apparent distress. Breathing on room air. Head: Normocephalic, atraumatic. Eyes: EOMI/PERRLA. Ears: Normal hearing. Normal anatomy. Neck/trachea: Trachea midline, supple. Nose: Normal external anatomy. Mouth: Moist mucous membranes. Chest: Decreased air entry bilaterally. No wheezing or rhonchi. Cardiovascular: Positive S1, positive S2. Regular rate and rhythm. Abdomen: Positive bowel sounds in all 4 quadrants. Soft, non-tender, non- distended. : Deferred. Rectal: Deferred. Skin: Warm, dry. Intact. Extremities: 2+ radial pulses bilaterally. No lower extremity edema. Neuro: Awake, alert, oriented x3. No gross motor or sensory deficits. Cranial nerves II through XII intact. Gait not assessed. laboratory and microbiology Laboratory Tests 01/25/25 11:20 01/19/25 10:57 Test 01/25/25 11:20 Range/Units Serum Glucose 138 H 74-106 mg/dL Assessment/Plan Impression: Pulmonary tuberculosis Weight loss Lung cavities Atelectasis Events: Patient seen and examined at bedside. Remains on room air Supplemental oxygen PRN Denies distress. Sitter at bedside for safety AFB culture sent 01/24 returned negative [place]. ID recommendations appreciated Rx abx per ID Complete TB regimen Follow up with [facility] and Infection Control Incentive spirometry Continue antifungal Protonix for GI ppx. Monitor renal function Monitor electrolytes; supplement as needed Magnesium supplementation Patient is stable for discharge from the pulmonary standpoint. Disposition per hospitalist. Arrange home health. Labs and imaging reviewed. Plan: Supplemental oxygen PRN Titrate to keep O2 sats above 92%. Sputum smear positive for AFB IFN test positive Started on 4x therapy for TB Continue TB regimen with Isoniazid/pyrazinamide/pyridoxine/rifampin/thiamine QuantiFERON Gold positive ID recommendations appreciated. Rx abx per ID Complete TB regimen Bronchodilators PRN Monitor renal function Monitor electrolytes Supplement as needed GI/DVT prophylaxis Prognosis: Guarded given patient's multiple co-morbidities. Rest of plan per hospitalist and other consultants. Thank you, JOS Medina, for allowing me to participate in this patient's care. Further recommendations will depend on the patient's clinical course. Please do not hesitate to contact me if you have any questions or concerns. This medical document was created using an electronic medical record system with [employer] dictation system. Although these documentations are being carefully reviewed, there may still be some phonetic and typographical changes. The errors are purely typographical, due to imperfection on the software program, and do not reflect any compromise in the patient's medical care. Dietary Evaluation Review Comments: Add ensure High Protein oral supplement TIDWM Expected Outcomes/Goals: gradual wt gain, improved overall health condition Plan discussed with: Patient, Other (CHAPARRITA Panda) VIVIAN OLIVA MD Jan 26, 2025 23:52
[2025-01-27] MEDS ORDERED: PYRAZINAMIDE 500 MG TAB PO SCH (10:00)
== END 2025-01-26 12:54 | disposition home health service (06) | DRG 867 ==
LOC: ER 12:51 → OVERFLOW 15:25 → TELE-EAST 01-07 16:00
PROVIDERS: ADMIT Internal Medicine; ATTEND Internal Medicine
DX: A19.9 Miliary tuberculosis, unspecified (principal); J96.01 Acute respiratory failure with hypoxia; R65.20 Severe sepsis without septic shock; B37.89 Other sites of candidiasis; R64 Cachexia; B37.0 Candidal stomatitis; Z68.1 Body mass index [BMI] 19.9 or less, adult; A15.0 Tuberculosis of lung; D50.9 Iron deficiency anemia, unspecified; F10.20 Alcohol dependence, uncomplicated; J45.909 Unspecified asthma, uncomplicated; E87.6 Hypokalemia; D75.839 Thrombocytosis, unspecified; J98.4 Other disorders of lung; I48.0 Paroxysmal atrial fibrillation; F17.200 Nicotine dependence, unspecified, uncomplicated; R59.0 Localized enlarged lymph nodes
CPT/HCPCS: 36415; 70491; 71045; 71275; 80048; 80053; 80074; 80076; 80202; 80320; 81001; 82270; 82378; 82565; 83605; 83735; 84100; 84132; 84484; 85025; 85610; 85730; 86304; 86635; 86703; 87040; 92610; 93005; 93306; 93970; 94640; 96365; 99291; 99292; G0378; J2003; J2470; J2543

== ENCOUNTER 2025-02-07 11:50 | Inpatient (IN) | payer MEDICARE ==
[~2025-02-07] VITALS: Ht 167.6 cm; Wt 45.9 kg
[~2025-02-07 11:50] MED LIST: ETHA400T20 PO; ISON300T68 PO; NYS5LQ MT; RIFA300C58 PO
--- NOTE | 2025-02-07 12:10 | ED.PDOC ---
History of Present Illness HPI Comments 74-year-old male presents to the ED via EMS with a chief complaint of generalized weakness onset two weeks. Per EMS, patient was diagnosed with tuberculosis one month ago. Patient states he has been experiencing generalized weakness for the past two weeks, as well as dizziness when he stands, worsens when he is walking or standing. EMS states patient had ortho stats positive with a BP of 92/60. PMHx HTN, TB, CHF. Only medication patient is taking is for TB. Denies fever, chills, abdominal pain, chest pain, shortness of breath, nausea, vomiting, diarrhea, dysuria, hematuria. No other symptoms or modifying factors present at this time. Time Seen by MD: 12:05 Reviewed Notes: Medications, Allergies Allergies: Coded Allergies: NO KNOWN ALLERGIES (Unverified , 01/05/25) Home Meds Active Scripts Nystatin (Mouth-Throat) (Mycostatin (Mouth-Throat)) 500,000 Units/5 Ml Ss, 5 ML MT QID for 30 Days, #500 ML Prov:CARRILLO TORRES MD 01/16/25 Rifampin (Rifampin) 300 Mg Cap, 600 MG PO DAILY for 30 Days, #30 CAP Prov:CARRILLO TORRES MD 01/16/25 Isoniazid (Isoniazid) 300 Mg Tab, 300 MG PO DAILY for 30 Days, #30 TAB Prov:CARRILLO TORRES MD 01/16/25 Ethambutol Hcl (Ethambutol Hcl) 400 Mg Tab, 1200 MG PO DAILY for 30 Days, #90 TAB Prov:CARRILLO TORRES MD 01/16/25 Information Source: Patient, Emergency Med Personnel Mode of Arrival: EMS Severity: Moderate Timing: Months Duration: Since onset Prehospital treatment: None Past Medical History PAST MEDICAL HISTORY: CHF, HTN Past Medical History (Other): TB Surgical History: Denies all surgeries Social History Smoker: Non-Smoker Alcohol: Denies ETOH Use Drugs: Denies Drug Use Lives In: Home Constitutional: reports: weakness; denies: chills, diaphoresis, fatigue, fever, malaise, sweats, others EENTM: denies: blurred vision, double vision, ear bleeding, ear discharge, ear drainage, ear pain, ear ringing, eye pain, eye redness, hearing loss, mouth pain, mouth swelling, nasal discharge, nose bleeding, nose congestion, nose pain, photophobia, tearing, throat pain, throat swelling, voice changes, others Respiratory: denies: cough, hemoptysis, orthopnea, SOB at rest, shortness of breath, SOB with excertion, stridor, wheezing, others Cardiovascular: denies: chest pain, dizzy spells, diaphoresis, Dyspnea on exertion, edema, irregular heart beat, left arm pain, lightheadedness, palpitations, PND, syncope, others Gastrointestinal: denies: abdomen distended, abdominal pain, blood streaked bowels, constipated, diarrhea, dysphagia, difficulty swallowing, hematemesis, melena, nausea, poor appetite, poor fluid intake, rectal bleeding, rectal pain, vomiting, others Genitourinary: denies: burning, dysuria, flank pain, frequency, hematuria, incontinence, penile discharge, penile sore, pain, testicle pain, testicle swelling, urgency, others Neurological: reports: dizziness, weakness; denies: fainting, headache, left sided numbness, left sided weakness, numbness, paresthesia, pre-existing deficit, right sided numbness, right sided weakness, seizure, speech problems, tingling, tremors, others Musculoskeletal: denies: back pain, gout, joint pain, joint swelling, muscle pain, muscle stiffness, neck pain, others Integumetry: denies: bruises, change in color, change in hair/nails, dryness, laceration, lesions, lumps, rash, wounds, others Allergic/Immunocompromised: denies: Difficulty Healing, Frequent Infections, Hives, Itching, others Hematologic/Lymphatic: denies: anemia, blood clots, easy bleeding, easy bruising, swollen glands, others Endocrine: denies: excessive hunger, excessive sweating, excessive thirst, excessive urination, flushing, intolerance to cold, intolerance to heat, unexplained weight gain, unexplained weight loss, others Psychiatric: denies: anxiety, bipolar disorder, depression, hopeless, panic disorder, schizophrenia, sleepless, suicidal, others All Other Systems: Reviewed and Negative Physical Exam General Appearance: Moderate Distress, Thin HEENT: Normal ENT Inspection, Pharynx Normal, TMs Normal Neck: Full Range of Motion, Non-Tender, Normal, Normal Inspection Respiratory: Chest Non-Tender, Lungs Clear, No Accessory Muscle Use, No Respiratory Distress, Normal Breath Sounds Cardiovascular: No Edema, No JVD, No Murmur, No Gallop, Normal Peripheral Pulses, Regular Rate/Rhythm Breast Exam: Deferred Gastrointestinal: No Organomegaly, Non Tender, No Pulsatile Mass, Normal Bowel Sounds, Soft Genitalia: Deferred Pelvic: Deferred Rectal: Deferred Extremities: No calf tenderness, Normal capillary refill, Normal inspection, Normal range of motion, Non-tender, No pedal edema Musculoskeletal : Apperance: Normal Neurologic: Alert, seismic interpreter II-XII nml as Tested, No Motor Deficits, Normal Affect, Normal Mood, No Sensory Deficits Cerebellar Function: NOT DONE Reflexes: NOT DONE Skin: Dry, Normal Color, Warm Peripheral Pulses: 3+ Radial (R), 3+ Radial (L) Lymphatic: No Adenopathy Was a procedure done? Was a procedure done?: No Differential Dx Considerations may include: Anemia Electrolyte imbalance X-Ray, Labs, Meds, VS Vital Signs Date Time Temp Pulse Resp B/P (MAP) Pulse Ox O2 Delivery O2 Flow Rate FiO2 02/07/25 13:13 93 17 122/74 (90) 97 02/07/25 12:55 Room Air* 0 21 02/07/25 12:32 107 02/07/25 12:16 103 02/07/25 12:00 97.9 111 16 92/60 95 97.9 Current Medications Medications (Trade) Dose Ordered Sig/Paco Route Start Time Stop Time Status Last Admin Sodium Chloride 1,000 ml @ 1,000 mls/hr Q1H ONCE IV 02/07/25 12:15 02/07/25 13:14 DC 02/07/25 12:48 Patient alert. Complaining of generalized weakness. Blood pressure low. Establish intravenous access. Was given fluids. He is taking TB medication. Explained to the patient. Continue monitoring. Time of 1ST Reevaluation: 12:35 Reevaluation 1ST: Unchanged Patient Education/Counseling: Diagnosis, Treatment, Prognosis Family Education/Counseling: No Family Present SEPSIS Sepsis Screen Physician Orders Troponin-I Hs (02/07/25 12:12) Complete Blood Count (02/07/25 12:12) Comprehensive Metabolic Panel (02/07/25 12:12) Chest Portable (02/07/25 12:12) Urinalysis (02/07/25 12:12) Sodium Chloride 0.9% (02/07/25 12:15) Troponin-I Hs (02/07/25 13:12) Troponin-I Hs (02/07/25 15:12) Electrocardigram (02/07/25 12:25) Corporation Secretary (02/07/25 ) Vital Signs Date Time Temp Pulse Resp B/P (MAP) Pulse Ox O2 Delivery O2 Flow Rate FiO2 02/07/25 13:13 93 17 122/74 (90) 97 02/07/25 12:55 Room Air* 0 21 02/07/25 12:32 107 02/07/25 12:16 103 02/07/25 12:00 97.9 111 16 92/60 95 97.9 Medications Medications Dose Ordered Sig/Paco Route Start Time Stop Time Status Last Admin Dose Admin Sodium Chloride 1,000 ml @ 1,000 mls/hr Q1H ONCE IV 02/07/25 12:15 02/07/25 13:14 DC 02/07/25 12:48 Departure 1 Departure Time of Disposition: 13:53 Impression: Primary Impression: TB (tuberculosis) Additional Impression: Generalized weakness Disposition: ADMITTED INPATIENT Admit to: Med Surg Condition: Guarded Critical Care Note Critical Care Time?: No Stability Stability form required: No Heart Score Heart Score: Heart Score Response (Comments) Value History Slightly Suspicious 0 EKG Normal 0 Age >65 2 Risk Factors >3 or Hx ASHD 2 Troponin Normal limit 0 Total 4 I personally scribed for STEPHANIE ANAYA MD ([email or web address]) on 02/07/25 at 12:10. Electronically submitted by Rhonda Hobbs ([email or web address]). STEPHANIE ANAYA MD Feb 07, 2025 12:10
[2025-02-07] MEDS: SODIUM CHLORIDE 0.9% 1,000 ML IV ONE ×2 (12:48→14:30)
--- NOTE | 2025-02-07 12:51 | DVH ---
EXAM: XY CHEST PORTABLE HISTORY: sob COMPARISON: XY CHEST PORTABLE on DOS: 01/05/25, chest CT dated 01/05/2025 TECHNIQUE: Portable upright AP view of the chest was performed. FINDINGS: Extensive bilateral upper lobe opacities are re-identified, similar to the previous chest x-ray and c hest CT dated 01/05/2025. Cavitary opacities are better characterized on prior CT scan. There is tent ing of the bilateral hemidiaphragms. No new infiltrates or pneumothorax. The heart is not enlarged. IMPRESSION: Extensive bilateral upper lobe opacities are re-identified, similar to that seen on chest x-ray and c hest CT dated 01/05/2025. The previous chest CT demonstrates that many of the infiltrates are cavitar y.
[2025-02-07 13:59] LABS: Nucleated Red Blood Cells % 0.2 %
[2025-02-07 14:01] LABS: Hematocrit 33.3 % (41.0-53.0); Hemoglobin 10.6 g/dL (13.5-17.5); Mean Corpuscular Hemoglobin 26.9 pg (28.0-32.0); Mean Corpuscular Volume 84.9 fL (80.0-100.0)
[2025-02-07 14:17] LABS: Alanine Aminotransferase 23 U/L (7-40); Anion Gap 11 (5-15); BUN/Creatinine Ratio 12.0 (10.0-20.0); Bilirubin, Total 1.0 mg/dL (0.2-1.0); Blood Urea Nitrogen 12 mg/dL (9-23); Total Protein 7.1 g/dL (5.7-8.2)
[2025-02-07 14:18] LABS: Albumin 2.9 g/dL (3.2-4.8); Alkaline Phosphatase 144 U/L (46-116); Calcium 8.7 mg/dL (8.7-10.4); Carbon Dioxide 21 mmol/L (20-31); Chloride 106 mmol/L (98-107); Glucose 69 mg/dL (74-106); Potassium 4.1 mmol/L (3.5-5.1); Sodium 138 mmol/L (136-145)
[2025-02-07 19:34] VITALS: PULSE 96; RESP 17; O2SAT 100
[2025-02-07] MEDS ORDERED: DOCUSATE SOD 100 MG CAP PO PRN (21:30)
[2025-02-07] MEDS ORDERED: ACETAMINOPHEN 325 MG TAB PO PRN (21:30)
[2025-02-07] MEDS ORDERED: HYDROcodone-ACET 5/325MG TAB PO PRN (21:30)
[2025-02-07] MEDS ORDERED: MORPHINE SULFATE INJ 2 MG/ml SYRG IV PRN (21:30)
[2025-02-07] MEDS ORDERED: NITROGLYCERIN 0.4 MG SL TAB SL PRN (21:30)
[2025-02-07] MEDS ORDERED: ONDANSETRON HCL 4 MG/2 ML VIAL IV PRN (21:30)
[2025-02-07] MEDS: ASCORBIC ACID 500 MG TAB PO SCH (22:00)
[2025-02-07 23:35] VITALS: BP 120/83; PULSE 77; RESP 15; O2SAT 98
[2025-02-08] VITALS (9 sets, daily range): BP systolic 111–136; BP diastolic 62–98; PULSE 77–97; RESP 15–19; TEMP 96.9–98; O2SAT 90–98
[2025-02-08 06:03] LABS: Hematocrit 30.3 % (41.0-53.0); Hemoglobin 10.0 g/dL (13.5-17.5); Mean Corpuscular Hemoglobin 27.5 pg (28.0-32.0); Mean Corpuscular Volume 83.6 fL (80.0-100.0); Nucleated Red Blood Cells % 0.1 %
[2025-02-08 06:07] LABS: Alanine Aminotransferase 22 U/L (7-40); Anion Gap 10 (5-15); BUN/Creatinine Ratio 14.1 (10.0-20.0); Blood Urea Nitrogen 14 mg/dL (9-23); Carbon Dioxide 21 mmol/L (20-31); Potassium 3.6 mmol/L (3.5-5.1); Sodium 139 mmol/L (136-145); Total Protein 6.4 g/dL (5.7-8.2)
[2025-02-08 06:08] LABS: Bilirubin, Total 0.7 mg/dL (0.2-1.0)
[2025-02-08 06:09] LABS: Albumin 2.7 g/dL (3.2-4.8); Alkaline Phosphatase 132 U/L (46-116); Calcium 8.5 mg/dL (8.7-10.4); Chloride 108 mmol/L (98-107); Glucose 82 mg/dL (74-106)
--- NOTE | 2025-02-08 09:42 | DVHPN2 ---
Progress Note - Dictate Date Seen: Feb 08, 2025 Medical Necessity Reason Pt with a Central, PICC or Fol: No vital signs Vital Sign Date Time Temp Pulse Resp B/P (MAP) Pulse Ox O2 Delivery O2 Flow Rate FiO2 02/08/25 05:00 98.0 85 17 136/82 (100) 98 98.0 02/08/25 00:39 Room Air* 0 21 Total Intake and Output 02/07/25 02/07/25 02/08/25 15:00 23:00 07:00 Intake Total 1000 ml 200 ml Balance 1000 ml 200 ml medications Current Medications Medications Dose Ordered Sig/Paco Route Start Time Stop Time Status Last Admin Dose Admin Acetaminophen 325 mg Q4HP PRN PO 02/07/25 21:30 Acetaminophen/ Hydrocodone Bitart 1 tab Q4HP PRN PO 02/07/25 21:30 Ondansetron HCl 4 mg Q4HP PRN IV 02/07/25 21:30 Docusate Sodium 100 mg BIDPRN PRN PO 02/07/25 21:30 Zinc Sulfate 220 mg DAILY PO 02/08/25 10:00 Ascorbic Acid 500 mg BID PO 02/07/25 22:00 02/07/25 22:00 Multivitamins 1 tab DAILY PO 02/08/25 10:00 Enoxaparin Sodium 30 mg DAILY SC 02/08/25 10:00 Nitroglycerin 0.4 mg Q5MINP PRN SL 02/07/25 21:30 Morphine Sulfate 2 mg Q30M PRN IV 02/07/25 21:30 Ethambutol HCl 1,200 mg DAILY PO 02/08/25 10:00 UNV Isoniazid 300 mg DAILY PO 02/08/25 10:00 UNV Nystatin 5 ml QID MT 02/08/25 12:00 UNV Patient Own Medication 600 mg DAILY PO 02/08/25 10:00 UNV Famotidine 40 mg DAILY PO 02/08/25 10:00 UNV laboratory and microbiology Laboratory Tests 02/08/25 05:18 Test 02/08/25 05:18 Range/Units Serum Glucose 82 74-106 mg/dL Problem List 1. Generalized weakness r/t TB Monitor, ID consult Dr. Menchaca 2. Dizziness r/t hypotension Monitor 3. Active TB Monitor, resume TB meds 4. paroxysmal A fib Monitor, monitor EKG. PPI, DVT prophylaxis 5. Chronic alcoholism Monitor, monitor ETOH withdrawals 6. Iron deficiency anemia Monitor 7. Smoker Monitor, smoking cessation 8. Hypoalbuminemia r/t moderate protein calorie malnutrition Monitor Assessment/Plan Subjective: Patient is awake and alert. Objective: Patient was admitted for shortness of breath. Patient currently on room air. He states he lives with his family and he was compliant taking his TB medications. Patient states his family also takes TB medications. He does not appear to be in any distress at this time. Plan: ID consult. Continue current treatment. Possible plan for discharge if patient remains stable overnight. Plan discussed with: Patient, Other JULIO CESAR MIGUEL NP Feb 08, 2025 09:42
--- NOTE | 2025-02-08 09:42 | DVHHP2 ---
Admitting Diagnosis: generalized weakness History of Present Illness 74-year-old male presents to the ED via EMS with a chief complaint of generalized weakness onset two weeks. Per EMS, patient was diagnosed with tuberculosis one month ago. Patient states he has been experiencing generalized weakness for the past two weeks, as well as dizziness when he stands, worsens when he is walking or standing. EMS states patient had ortho stats positive with a BP of 92/60. PMHx HTN, TB, CHF. Only medication patient is taking is for TB. Denies fever, chills, abdominal pain, chest pain, shortness of breath, nausea, vomiting, diarrhea, dysuria, hematuria. No other symptoms or modifying factors present at this time. While in the emergency department the patient was evaluated by the provider, As per provider: Labs, vital signs, and imagining monitored. Patient will be admitted for further evaluation and treatment. I discussed admission with the patient/family and is in agreement to treatment plan. Allergies: Coded Allergies: NO KNOWN ALLERGIES (Unverified , 01/05/25) Home Meds Active Scripts Nystatin (Mouth-Throat) (Mycostatin (Mouth-Throat)) 500,000 Units/5 Ml Ss, 5 ML MT QID for 30 Days, #500 ML Prov:CARRILLO MENCHACA MD 01/16/25 Rifampin (Rifampin) 300 Mg Cap, 600 MG PO DAILY for 30 Days, #30 CAP Prov:CARRILLO MENCHACA MD 01/16/25 Isoniazid (Isoniazid) 300 Mg Tab, 300 MG PO DAILY for 30 Days, #30 TAB Prov:CARRILLO MENCHACA MD 01/16/25 Ethambutol Hcl (Ethambutol Hcl) 400 Mg Tab, 1200 MG PO DAILY for 30 Days, #90 TAB Prov:CARRILLO MENCHACA MD 01/16/25 Current Medications Current Medications Medications (Trade) Dose Ordered Sig/Paco Route PRN Reason Start Time Stop Time Status Last Admin Acetaminophen (Tylenol Tablet) 325 mg Q4HP PRN PO MILD PAIN (1-3 PAIN SCALE) 02/07/25 21:30 Acetaminophen/ Hydrocodone Bitart ([place] 5/325MG Tab) 1 tab Q4HP PRN PO MODERATE PAIN (4-6 PAIN SCALE) 02/07/25 21:30 Ondansetron HCl (Zofran) 4 mg Q4HP PRN IV NAUSEA / VOMITING 02/07/25 21:30 Docusate Sodium (Colace Capsule) 100 mg BIDPRN PRN PO FOR CONSTIPATION 02/07/25 21:30 Zinc Sulfate 220 mg DAILY PO 02/08/25 10:00 02/08/25 11:20 Ascorbic Acid (Vitamin C Tablet) 500 mg BID PO 02/07/25 22:00 02/08/25 11:20 Multivitamins (Mvi Tab) 1 tab DAILY PO 02/08/25 10:00 02/08/25 11:20 Enoxaparin Sodium (Lovenox) 30 mg DAILY SC 02/08/25 10:00 02/08/25 11:20 Nitroglycerin (Ntrostat Sublingual) 0.4 mg Q5MINP PRN SL FOR CHEST PAIN 02/07/25 21:30 Morphine Sulfate 2 mg Q30M PRN IV FOR CHEST PAIN 02/07/25 21:30 Ethambutol HCl (Myambutol) 1,200 mg DAILY PO 02/08/25 10:00 02/08/25 13:42 Isoniazid (Isoniazid) 300 mg DAILY PO 02/08/25 10:00 02/08/25 13:42 Nystatin (Mycostatin (Mouth-Throat)) 5 ml QID MT 02/08/25 12:00 02/08/25 16:59 DC 02/08/25 13:42 Rifampin 300 mg BID PO 02/08/25 22:00 Famotidine (Pepcid Tablet) 40 mg DAILY PO 02/08/25 10:00 02/08/25 13:42 Pyridoxine HCl (Vitamin B-6 Tablet) 200 mg DAILY PO 02/08/25 17:00 02/08/25 18:24 Pyrazinamide (Pyrazinamide) 1,000 mg DAILY PO 02/08/25 17:00 02/08/25 18:24 Enteral Nutritional Formula (Ensure High Protein) 240 ml TIDWM PO 02/08/25 18:00 02/08/25 18:22 Micafungin Sodium 100 mg/Sodium Chloride 100 ml @ 100 mls/hr DAILY IV 02/09/25 10:00 Review of Systems Constitutional: denies chills, denies fever, denies malaise Eyes: denies eye pain, denies vision change ENT: denies ear pain, denies headache, denies nasal congestion, denies painful swallowing, denies voice change Cardiovascular: denies chest pain, denies edema, denies orthopnea, denies palpitations, denies paroxysmal nocturnal dyspnea Respiratory: denies cough, denies shortness of breath Gastrointestinal: denies constipation, denies diarrhea, denies nausea, denies vomiting Genitourinary: denies dysuria, denies frequent urination, denies urethral discharge Musculoskeletal: denies back pain, denies joint pain, denies muscle pain Skin: denies bruising, denies itching, denies rash Neurological: denies focal weakness, denies headache, denies sensory changes Psychiatric: denies anxiety, denies depression Endocrine: denies polydipsia, denies polyuria Hematologic/Lymphatic: denies easy bleeding, denies easy bruising, denies enlarged lymph nodes Allergic/Immunologic: denies allergy, denies hives Vital Signs Vital Signs Date Time Temp Pulse Resp B/P (MAP) Pulse Ox O2 Delivery O2 Flow Rate FiO2 02/08/25 21:00 97.7 86 17 130/68 (88) 98 97.7 02/08/25 08:00 Room Air* 0 21 Physical Exam General Appearance: alert, no distress HEENT: EOMI, PERRLA, normal external inspect of ears, no icterus, no nasal drainage Neck: no carotid bruit, no jugular venous distention (JVD), no lymphadenopathy Chest: normal thorax Respiratory: clear to auscultation, normal air movement Cardiovascular: regular rate and rhythm, no diastolic murmur, no jugular venous distention (JVD), no rub, no systolic murmur Abdominal: soft, no hepatomegaly, no mass, no splenomegaly, no tenderness Genitourinary: grossly normal external Musculoskeletal: no joint tenderness, no swelling Extremities: normal pulses, no calf tenderness, no clubbing, no cyanosis, no edema Skin: no bruising, no jaundice, no rash Neurological: alert, No focal deficit SEPSIS Sepsis Screen Date sepsis recognized/suspect: Feb 07, 2025 Time Sepsis recognized/suspect: 1938 Recent Procedure: No On Antibiotic Therapy: No Respiratory Rate >20: No Heart Rate >90: Yes Temp<36 C (96.8 F) or >38.3 C: No SBP <90 or MAP <65 mmHG: No New Acute Mental Status Change: No Is the patient on CPAP, BIPAP,: No Physician Orders Chest Portable (02/07/25 12:12) Urinalysis (02/07/25 12:12) City Assessor (02/07/25 ) Admit (02/07/25 21:18) Acetaminophen Tablet (Tylenol Tablet) (02/07/25 21:30) Hydrocodone-Acet 5/325mg Tab ([place] 5/32 (02/07/25 21:30) Ondansetron Hcl (Zofran) (02/07/25 21:30) Docusate Sodium Capsule (Colace Capsule) (02/07/25 21:30) Zinc Sulfate (02/08/25 10:00) Ascorbic Acid Tablet (Vitamin C Tablet) (02/07/25 22:00) Multiple Vitamin Tablet (Mvi Tab) (02/08/25 10:00) Cardiac Diet-2gna,Lofat,Lochol (02/08/25 Breakfast) Enoxaparin Sodium (Lovenox) (02/08/25 10:00) Nitroglycerin Sublingual (Ntrostat Subli (02/07/25 21:30) Morphine Sulfate Injection (02/07/25 21:30) Stat Ekg For Chest Pain (02/07/25 21:18) Notify Md Of Changes From Base (02/07/25 21:18) Insurance Account Manager For 24 Hours (02/07/25 21:18) Emergency Dysrhythmia Protocol (02/07/25 21:18) Rhythm Strips Once Every Shift (02/07/25 21:18) Oxygen By Nasal Cannula (02/07/25 21:18) * Infectious [place] Menchaca (02/07/25 21:20) Start Nursery Care Per Admissi (02/07/25 21:21) Ethambutol Hcl (Myambutol) (02/08/25 10:00) Isoniazid (Isoniazid) (02/08/25 10:00) Rifampin Capsule (02/08/25 22:00) * Infectious [place] Menchaca (02/08/25 09:29) Quantiferon-Tb Gold (02/08/25 09:30) Chest Without Contrast (02/08/25 09:31) Bi Lat Upper Dvt (02/08/25 09:31) Famotidine Tablet (Pepcid Tablet) (02/08/25 10:00) Pyridoxine Hcl Tablet (Vitamin B-6 Table (02/08/25 17:00) Pyrazinamide (Pyrazinamide) (02/08/25 17:00) Nutritional Supplements (02/08/25 16:56) Nutritional Supplements (Ensure High Pro (02/08/25 18:00) Micafungin Sodium (Mycamine) (02/09/25 10:00) Communication Order (02/08/25 16:56) Vital Signs Date Time Temp Pulse Resp B/P (MAP) Pulse Ox O2 Delivery O2 Flow Rate FiO2 02/08/25 21:00 97.7 86 17 130/68 (88) 98 97.7 02/08/25 17:00 97.3 84 19 124/80 (95) 93 97.3 02/08/25 13:00 96.9 95 17 129/98 (108) 94 96.9 02/08/25 09:00 97.9 88 19 111/67 (82) 94 97.9 02/08/25 08:05 87 02/08/25 08:00 Room Air* 0 21 02/08/25 05:00 98.0 85 17 136/82 (100) 98 98.0 02/08/25 01:00 97.4 97 17 120/62 (81) 90 97.4 02/08/25 00:39 77 15 98 Room Air* 0 21 02/07/25 23:35 77 15 120/83 (95) 98 02/07/25 23:00 89 23 128/61 (83) 98 02/07/25 20:00 95 21 145/81 (102) 99 02/07/25 20:00 95 02/07/25 19:34 98.1 96 17 136/83 (100) 100 98.1 02/07/25 19:34 96 17 100 Nasal Cannula* 2 28 02/07/25 16:00 104 02/07/25 13:13 93 17 122/74 (90) 97 02/07/25 12:55 Room Air* 0 21 02/07/25 12:32 107 02/07/25 12:16 103 02/07/25 12:00 97.9 111 16 92/60 95 97.9 Laboratory Tests Test 02/07/25 13:46 02/08/25 05:18 White Blood Count 5.8 10^3/uL (4.4-10.8) 4.7 10^3/uL (4.4-10.8) Medications Medications Dose Ordered Sig/Paco Route Start Time Stop Time Status Last Admin Dose Admin Enoxaparin Sodium 30 mg DAILY SC 02/08/25 10:00 02/08/25 11:20 Enteral Nutritional Formula 240 ml TIDWM PO 02/08/25 18:00 02/08/25 18:22 Ethambutol HCl 1,200 mg DAILY PO 02/08/25 10:00 02/08/25 13:42 Famotidine 40 mg DAILY PO 02/08/25 10:00 02/08/25 13:42 Isoniazid 300 mg DAILY PO 02/08/25 10:00 02/08/25 13:42 Micafungin Sodium 100 mg/Sodium Chloride 100 ml @ 100 mls/hr ONCE ONCE IV 02/08/25 17:00 02/08/25 17:59 DC 02/08/25 18:23 Multivitamins 1 tab DAILY PO 02/08/25 10:00 02/08/25 11:20 Nystatin 5 ml QID MT 02/08/25 12:00 02/08/25 16:59 DC 02/08/25 13:42 Pyrazinamide 1,000 mg DAILY PO 02/08/25 17:00 02/08/25 18:24 Pyridoxine HCl 200 mg DAILY PO 02/08/25 17:00 02/08/25 18:24 Zinc Sulfate 220 mg DAILY PO 02/08/25 10:00 02/08/25 11:20 Results Labs Test 02/08/25 18:00 02/08/25 05:18 02/07/25 16:49 Range/Units White Blood Count 4.7 4.4-10.8 10^3/uL Red Blood Count 3.62 L 4.5-5.90 10^6/uL Hemoglobin 10.0 L 13.5-17.5 g/dL Hematocrit 30.3 L 41.0-53.0 % Mean Corpuscular Volume 83.6 80.0-100.0 fL Mean Corpuscular Hemoglobin 27.5 L 28.0-32.0 pg Mean Corpuscular Hemoglobin Concent 32.9 32.0-36.0 g/dL Red Cell Distribution Width 24.5 H 11.8-14.3 % Platelet Count 375 140-450 10^3/uL Mean Platelet Volume 7.4 6.9-10.8 fL Neutrophils (%) (Auto) 64.8 37.0-80.0 % Lymphocytes (%) (Auto) 17.4 10.0-50.0 % Monocytes (%) (Auto) 13.6 H 0.0-12.0 % Eosinophils (%) (Auto) 2.8 0.0-7.0 % Basophils (%) (Auto) 1.4 0.0-2.0 % Neutrophils # (Auto) 3.1 1.6-8.6 10 ^3/uL Lymphocytes # (Auto) 0.8 0.4-5.4 10 ^3/uL Monocytes # (Auto) 0.6 0-1.3 10 ^3/uL Eosinophils # (Auto) 0.1 0-0.8 10 ^3/uL Basophils # (Auto) 0.1 0-0.2 10 ^3/uL Nucleated Red Blood Cells 0.1 % Sodium Level 139 136-145 mmol/L Potassium Level 3.6 3.5-5.1 mmol/L Chloride Level 108 H 98-107 mmol/L Carbon Dioxide Level 21 20-31 mmol/L Anion Gap 10 5-15 Blood Urea Nitrogen 14 9-23 mg/dL Creatinine 0.99 0.700-1.30 mg/dL Glomerular Filtration Rate Calc 81 >90 mL/min BUN/Creatinine Ratio 14.1 10.0-20.0 Serum Glucose 82 74-106 mg/dL Calcium Level 8.5 L 8.7-10.4 mg/dL Total Bilirubin 0.7 0.2-1.0 mg/dL Aspartate Amino Transferase (AST) 37 13-40 U/L Alanine Aminotransferase (ALT) 22 7-40 U/L Alkaline Phosphatase 132 H 46-116 U/L Total Protein 6.4 5.7-8.2 g/dL Albumin 2.7 L 3.2-4.8 g/dL Troponin I High Sensitivity 10 </=54 ng/L Microbiology Date/Time Source Procedure Growth Status 02/07/25 23:55 Nose MRSA Screen - Final Complete Plan 1. Generalized weakness r/t TB Monitor, ID consult Dr. Menchaca 2. Dizziness r/t hypotension Monitor 3. Active TB Monitor, resume TB meds 4. paroxysmal A fib Monitor, monitor EKG. PPI, DVT prophylaxis 5. Chronic alcoholism Monitor, monitor ETOH withdrawals 6. Iron deficiency anemia Monitor 7. Smoker Monitor, smoking cessation 8. Hypoalbuminemia r/t moderate protein calorie malnutrition Monitor Plan discussed with: Patient, Other JULIO CESAR MIGUEL NP Feb 08, 2025 09:41
--- NOTE | 2025-02-08 10:00 | ECG ---
[facility] Test Date: 2025-02-07 Test Time: 12:16:09 Pat Name: KAL CEVALLOS Department: Room: 0207T Gender: M Feather Sawyer: PEACE : 1950 Requested By: STEPHANIE ANAYA Order Number: [id number] Reading MD: David Ortiz Measurements Intervals [place] Rate: 103 P: 77 CA: 173 QRS: 56 QRSD: 92 T: 0 QT: 362 QTc: 474 Interpretive Statements Sinus tachycardia Consider anterior infarct Electronically Signed On 02-14-2025 18:58:57 PDT by David Ortiz Please click the below link to view image of tracing.
[2025-02-08] MEDS: MULTIPLE VITAMIN TAB PO SCH (11:20)
[2025-02-08] MEDS: ENOXAPARIN SOD 30 MG/0.3 ML SYRINGE SC SCH (11:20)
[2025-02-08] MEDS: ZINC SULFATE 220mg CAP or TAB PO SCH (11:20)
--- NOTE | 2025-02-08 13:01 | DVH ---
Bilateral Upper Extremity Venous Duplex Date: 02/08/2025 10:40 AM Clinical History: hx bila cephalic thrombus, need re-eval Comparison: US BI LAT UPPER DVT on DOS: 01/15/25, US ECHO 2D MODE CARDIAC DOP on DOS: 01/06/25, US BI LA T UPPER DVT on DOS: 01/15/25 Findings: The internal jugular vein demonstrates appropriate compressibility and waveform variability. The subclavian vein is patent on color Doppler evaluation without intraluminal thrombus and demonstra janeen waveform variability. The visualized portion of the brachiocephalic vein is patent on color Doppler evaluation without intr aluminal thrombus and demonstrates waveform variability. The axillary vein demonstrates appropriate compressibility and waveform variability. The brachial veins demonstrate appropriate compressibility and patency on Doppler evaluation. The basilic vein demonstrates appropriate compressibility and patency on Doppler evaluation. The cephalic vein demonstrates thrombus noted in the cephalic veins bilaterally. IMPRESSION: Stable bilateral thrombus in the cephalic veins.
[2025-02-08] MEDS: ISONIAZID 300 MG TAB PO SCH (13:42)
[2025-02-08] MEDS: ETHAMBUTOL HCL 400 MG TAB PO SCH (13:42)
[2025-02-08] MEDS: NYSTATIN (MOUTH-THROAT) 500,000 UNITS/5 ML SUSP MT SCH (13:42)
[2025-02-08] MEDS: FAMOTIDINE 20 MG TAB PO SCH (13:42)
--- NOTE | 2025-02-08 15:25 | DVH ---
EXAM: CT CHEST WITHOUT CONTRAST History: mediastinal lymphadenopathy, pos pna Comparison Study: None TECHNIQUE: Multidetector CT of the chest was performed. Imaging was performed without IV contrast. Ax ial, coronal, and sagittal multiplanar reformats were obtained from the axial data set by the technol ogmariama. Radiation Dose : CTDI vol 7.54 mGy, DLP 315.99 mGy*cm. Findings: Lungs: Numerous bilateral spiculated nodules with multiple bilateral cavitary lesions are similar to slightly improved compared to prior. Pleura: Unremarkable Heart/Great vessels: No cardiomegaly or pericardial effusion. Severe coronary atherosclerosis versus stents. Mediastinum: Multiple prominent mediastinal lymph nodes. Soft tissues/Bones: Unremarkable The partially visualized upper abdomen is within normal limits. Impression: 1. Similar to slightly improved numerous bilateral spiculated nodules and cavitary lesions, nonspecif ic. May reflect an infectious versus neoplastic etiology. Correlate with tissue sampling. 2. Mediastinal lymphadenopathy may be reactive versus metastatic.
--- NOTE | 2025-02-08 17:41 | DVHCONRES ---
Date Seen: Feb 08, 2025 Resident Creating Document: [place] RESIDENT Reason for Consultation TB management History of Present Illness Adrian Claros is a 77-year-old male with past medical history of osteoporosis, hypertension, dyslipidemia and recently diagnosed TB (01/17/2025), currently on RIPE therapy. The patient visit the ED with history of 1 month of generalized weakness, cough, sore throat, decrease in appetite and shortness of breath. 2 days ago the weakness and shortness of breath exacerbate, this prompt his visit to the ED. Initial evaluation showed Hb 10.0mg/dl, Xray showed Extensive bilateral upper lobe opacities. The CT chest demonstrates that many of the infiltrates are cavitary. The patient denies fever, chills, night sweats, hemoptysis or other symptoms. Past Medical History Osteoporosis, HTN, HPB. Past Surgical History Denies any surgery in the past. Family History Father of heart condition Social History No close sick contact No recent travel Patient grew up in [place] EOTH: quit 1 moth ago Smoker: 10-15 tobacco cigarettes per day. Drugs: denies any substance use. Sexual: no sexually active Allergies: Coded Allergies: NO KNOWN ALLERGIES (Unverified , 01/05/25) Home Meds Active Scripts Nystatin (Mouth-Throat) (Mycostatin (Mouth-Throat)) 500,000 Units/5 Ml Ss, 5 ML MT QID for 30 Days, #500 ML Prov:CARRILLO TORRES MD 01/16/25 Rifampin (Rifampin) 300 Mg Cap, 600 MG PO DAILY for 30 Days, #30 CAP Prov:CARRILLO TORRES MD 01/16/25 Isoniazid (Isoniazid) 300 Mg Tab, 300 MG PO DAILY for 30 Days, #30 TAB Prov:CARRILLO TORRES MD 01/16/25 Ethambutol Hcl (Ethambutol Hcl) 400 Mg Tab, 1200 MG PO DAILY for 30 Days, #90 TAB Prov:CARRILLO TORRES MD 01/16/25 Current Medications Current Medications Medications (Trade) Dose Ordered Sig/Paco Route PRN Reason Start Time Stop Time Status Last Admin Acetaminophen (Tylenol Tablet) 325 mg Q4HP PRN PO MILD PAIN (1-3 PAIN SCALE) 02/07/25 21:30 Acetaminophen/ Hydrocodone Bitart ([place] 5/325MG Tab) 1 tab Q4HP PRN PO MODERATE PAIN (4-6 PAIN SCALE) 02/07/25 21:30 Ondansetron HCl (Zofran) 4 mg Q4HP PRN IV NAUSEA / VOMITING 02/07/25 21:30 Docusate Sodium (Colace Capsule) 100 mg BIDPRN PRN PO FOR CONSTIPATION 02/07/25 21:30 Zinc Sulfate 220 mg DAILY PO 02/08/25 10:00 02/08/25 11:20 Ascorbic Acid (Vitamin C Tablet) 500 mg BID PO 02/07/25 22:00 02/08/25 11:20 Multivitamins (Mvi Tab) 1 tab DAILY PO 02/08/25 10:00 02/08/25 11:20 Enoxaparin Sodium (Lovenox) 30 mg DAILY SC 02/08/25 10:00 02/08/25 11:20 Nitroglycerin (Ntrostat Sublingual) 0.4 mg Q5MINP PRN SL FOR CHEST PAIN 02/07/25 21:30 Morphine Sulfate 2 mg Q30M PRN IV FOR CHEST PAIN 02/07/25 21:30 Ethambutol HCl (Myambutol) 1,200 mg DAILY PO 02/08/25 10:00 02/08/25 13:42 Isoniazid (Isoniazid) 300 mg DAILY PO 02/08/25 10:00 02/08/25 13:42 Nystatin (Mycostatin (Mouth-Throat)) 5 ml QID MT 02/08/25 12:00 02/08/25 16:59 DC 02/08/25 13:42 Rifampin 300 mg BID PO 02/08/25 22:00 Famotidine (Pepcid Tablet) 40 mg DAILY PO 02/08/25 10:00 02/08/25 13:42 Pyridoxine HCl (Vitamin B-6 Tablet) 200 mg DAILY PO 02/08/25 17:00 UNV Pyrazinamide (Pyrazinamide) 1,000 mg DAILY PO 02/08/25 17:00 UNV Enteral Nutritional Formula (Ensure High Protein) 240 ml TIDWM PO 02/08/25 18:00 UNV Micafungin Sodium 100 mg/Sodium Chloride 100 ml @ 100 mls/hr DAILY IV 02/09/25 10:00 UNV Review of Systems Constitutional: Yes: generalized weakness. Eyes: No: Pain, Vision change, Conjunctivae inflammation, Eyelid inflammation, Other, Redness ENT: Yes: Sore throat. No: Ear discharge, Nose pain, Nose discharge, Nose congestion, Mouth pain, Mouth swelling, Throat pain, Throat swelling, Respiratory: Dry Cough, Shortness of breath; No: Dry, SOB with exertion, Wheezing, Hemoptysis, Pleuritic Pain, Sputum, Wheezing, Other Cardiovascular: No Orthopnea, Edema Gastrointestinal: No: Nausea, Vomiting, Abdominal Pain, Diarrhea, Constipation, Melena, Hematochezia, Other Genitourinary: No Dysuria, No Frequency, No Incontinence, No Hematuria, No Retention, No Other Musculoskeletal: No: other, neck pain, shoulder pain, arm pain, back pain, hand pain, leg pain, foot pain Skin: No: Rash, Lesions, Jaundice, Bruising, Other Neurological: No: Weakness, Numbness, Incoordination, Change in speech, Confusion, Seizures, Other Vital Signs Vital Signs Date Time Temp Pulse Resp B/P (MAP) Pulse Ox O2 Delivery O2 Flow Rate FiO2 02/08/25 13:00 96.9 95 17 129/98 (108) 94 96.9 02/08/25 08:00 Room Air* 0 21 Physical Exam General Appearance: Alert, Oriented X3, Cooperative, Cachectic. HEENT: Oral: Dental cavities, tongue with whitish thin plaque. Atraumatic, PERRLA, EOMI Respiratory: Patient on room air, clear lung sounds, normal lung expansion. Cardiovascular: Regular rate, Normal S1, Normal S2 Abdominal: Normal bowel sounds, Soft, No tenderness, No hepatospenomegaly Extremities: No cyanosis, Normal pulses, Other (Bilateral leg edema) Skin: No rashes, No breakdown Neuro: Strength at 5/5 X4 ext, Normal tone, normal sensation. Labs/Diagnostic Data Labs Test 02/08/25 05:18 02/07/25 16:49 Range/Units White Blood Count 4.7 4.4-10.8 10^3/uL Red Blood Count 3.62 L 4.5-5.90 10^6/uL Hemoglobin 10.0 L 13.5-17.5 g/dL Hematocrit 30.3 L 41.0-53.0 % Mean Corpuscular Volume 83.6 80.0-100.0 fL Mean Corpuscular Hemoglobin 27.5 L 28.0-32.0 pg Mean Corpuscular Hemoglobin Concent 32.9 32.0-36.0 g/dL Red Cell Distribution Width 24.5 H 11.8-14.3 % Platelet Count 375 140-450 10^3/uL Mean Platelet Volume 7.4 6.9-10.8 fL Neutrophils (%) (Auto) 64.8 37.0-80.0 % Lymphocytes (%) (Auto) 17.4 10.0-50.0 % Monocytes (%) (Auto) 13.6 H 0.0-12.0 % Eosinophils (%) (Auto) 2.8 0.0-7.0 % Basophils (%) (Auto) 1.4 0.0-2.0 % Neutrophils # (Auto) 3.1 1.6-8.6 10 ^3/uL Lymphocytes # (Auto) 0.8 0.4-5.4 10 ^3/uL Monocytes # (Auto) 0.6 0-1.3 10 ^3/uL Eosinophils # (Auto) 0.1 0-0.8 10 ^3/uL Basophils # (Auto) 0.1 0-0.2 10 ^3/uL Nucleated Red Blood Cells 0.1 % Sodium Level 139 136-145 mmol/L Potassium Level 3.6 3.5-5.1 mmol/L Chloride Level 108 H 98-107 mmol/L Carbon Dioxide Level 21 20-31 mmol/L Anion Gap 10 5-15 Blood Urea Nitrogen 14 9-23 mg/dL Creatinine 0.99 0.700-1.30 mg/dL Glomerular Filtration Rate Calc 81 >90 mL/min BUN/Creatinine Ratio 14.1 10.0-20.0 Serum Glucose 82 74-106 mg/dL Calcium Level 8.5 L 8.7-10.4 mg/dL Total Bilirubin 0.7 0.2-1.0 mg/dL Aspartate Amino Transferase (AST) 37 13-40 U/L Alanine Aminotransferase (ALT) 22 7-40 U/L Alkaline Phosphatase 132 H 46-116 U/L Total Protein 6.4 5.7-8.2 g/dL Albumin 2.7 L 3.2-4.8 g/dL Troponin I High Sensitivity 10 </=54 ng/L Microbiology Date/Time Source Procedure Growth Status 02/07/25 23:55 Nose MRSA Screen - Final Complete Assessment #TB #Oral candidiasis #Protein malnutrition Plan/Recommendation Nutritional consult D/C isolation precautions (the patient last 3 Sputum culture AFB smear: negative from 01/19, 01/20, 01/24) Continue RIPE treatment. Pyrazinamide was added today to current regimen. D/C Nystatin and start Micafungin sodium 100mg IV Consider appetite stimulants Pyridoxine HCL 200mg po qd Continue with current medical management. Goals of care discussed with the patient > 35 min. Discussed plan of care with (Infectious disease specialist) Code status: Full code Plan discussed with: Patient, the patient agrees with the plan. Plan discussed with: Patient MINE [facility] RESIDENT Feb 08, 2025 17:41
[2025-02-08] MEDS: Ensure HIGH Protein Chocolate 8oz Bottle PO SCH (18:22)
[2025-02-08] MEDS: MICAFUNGIN SODIUM 100 MG in SODIUM CHL 0.9% 100 ML IV ONE (18:23)
[2025-02-08] MEDS: PYRIDOXINE HCL 50 MG TAB PO SCH (18:24)
[2025-02-08] MEDS: PYRAZINAMIDE 500 MG TAB PO SCH (18:24)
[2025-02-08] MEDS: rifAMPin 300 MG CAP PO SCH (21:35)
[2025-02-09] VITALS (8 sets, daily range): BP systolic 110–136; BP diastolic 66–86; PULSE 73–100; RESP 16–20; TEMP 97.4–98.1; O2SAT 97–98
--- NOTE | 2025-02-09 09:35 | DVHPN2 ---
Progress Note - Dictate Medical Necessity Reason Pt with a Central, PICC or Fol: No vital signs Vital Sign Date Time Temp Pulse Resp B/P (MAP) Pulse Ox O2 Delivery O2 Flow Rate FiO2 02/09/25 05:00 97.9 97 17 125/74 (91) 98 97.9 02/08/25 20:00 Room Air* 0 21 Total Intake and Output 02/08/25 02/08/25 02/09/25 15:00 23:00 07:00 Intake Total 500 ml 300 ml Balance 500 ml 300 ml medications Current Medications Medications Dose Ordered Sig/Paco Route Start Time Stop Time Status Last Admin Dose Admin Acetaminophen 325 mg Q4HP PRN PO 02/07/25 21:30 Acetaminophen/ Hydrocodone Bitart 1 tab Q4HP PRN PO 02/07/25 21:30 Ondansetron HCl 4 mg Q4HP PRN IV 02/07/25 21:30 Docusate Sodium 100 mg BIDPRN PRN PO 02/07/25 21:30 Zinc Sulfate 220 mg DAILY PO 02/08/25 10:00 02/08/25 11:20 220 MG Ascorbic Acid 500 mg BID PO 02/07/25 22:00 02/08/25 21:34 500 MG Multivitamins 1 tab DAILY PO 02/08/25 10:00 02/08/25 11:20 1 TAB Enoxaparin Sodium 30 mg DAILY SC 02/08/25 10:00 02/08/25 11:20 30 MG Nitroglycerin 0.4 mg Q5MINP PRN SL 02/07/25 21:30 Morphine Sulfate 2 mg Q30M PRN IV 02/07/25 21:30 Ethambutol HCl 1,200 mg DAILY PO 02/08/25 10:00 02/08/25 13:42 1,200 MG Isoniazid 300 mg DAILY PO 02/08/25 10:00 02/08/25 13:42 300 MG Rifampin 300 mg BID PO 02/08/25 22:00 02/08/25 21:35 300 MG Famotidine 40 mg DAILY PO 02/08/25 10:00 02/08/25 13:42 40 MG Pyridoxine HCl 200 mg DAILY PO 02/08/25 17:00 02/08/25 18:24 200 MG Pyrazinamide 1,000 mg DAILY PO 02/08/25 17:00 02/08/25 18:24 1,000 MG Enteral Nutritional Formula 240 ml TIDWM PO 02/08/25 18:00 02/08/25 18:22 240 ML Micafungin Sodium 100 mg/Sodium Chloride 100 ml @ 100 mls/hr DAILY IV 02/09/25 10:00 laboratory and microbiology Laboratory Tests 02/08/25 05:18 Test 02/08/25 05:18 Range/Units Serum Glucose 82 74-106 mg/dL Problem List 1. Generalized weakness r/t TB Monitor, ID consult Dr. Menchaca 2. Dizziness r/t hypotension Monitor 3. Active TB Monitor, resume TB meds 4. paroxysmal A fib Monitor, monitor EKG. PPI, DVT prophylaxis 5. Chronic alcoholism Monitor, monitor ETOH withdrawals 6. Iron deficiency anemia Monitor 7. Smoker Monitor, smoking cessation 8. Hypoalbuminemia r/t moderate protein calorie malnutrition Monitor Assessment/Plan Subjective: Patient is awake and alert. Objective: Patient was admitted for shortness of breath. Patient currently on room air. He states he lives with his family and he was compliant taking his TB medications. Patient states his family also takes TB medications. He does not appear to be in any distress at this time. Plan: ID consult. Continue current treatment. Possible plan for discharge if patient remains stable overnight. JULIO CESAR MIGUEL NP Feb 09, 2025 09:35
[2025-02-09] MEDS: MICAFUNGIN SODIUM 100 MG in SODIUM CHL 0.9% 100 ML IV SCH (10:38)
--- NOTE | 2025-02-09 11:17 | DVHCONRES ---
Date Seen: Feb 09, 2025 Resident Creating Document: TESSA GORDON RESIDENT Reason for Consultation TB management Past Medical History Osteoporosis, HTN, HPB. Past Surgical History Denies any surgery in the past. Family History Father of heart condition Social History No close sick contact No recent travel Patient grew up in [place] EOTH: quit 1 moth ago Smoker: 10-15 tobacco cigarettes per day. Drugs: denies any substance use. Sexual: no sexually active Allergies: Coded Allergies: NO KNOWN ALLERGIES (Unverified , 01/05/25) Home Meds Active Scripts Nystatin (Mouth-Throat) (Mycostatin (Mouth-Throat)) 500,000 Units/5 Ml Ss, 5 ML MT QID for 30 Days, #500 ML Prov:CARRILLO TORRES MD 01/16/25 Rifampin (Rifampin) 300 Mg Cap, 600 MG PO DAILY for 30 Days, #30 CAP Prov:CARRILLO TORRES MD 01/16/25 Isoniazid (Isoniazid) 300 Mg Tab, 300 MG PO DAILY for 30 Days, #30 TAB Prov:CARRILLO TORRES MD 01/16/25 Ethambutol Hcl (Ethambutol Hcl) 400 Mg Tab, 1200 MG PO DAILY for 30 Days, #90 TAB Prov:CARRILLO TORRES MD 01/16/25 Current Medications Current Medications Medications (Trade) Dose Ordered Sig/Paco Route PRN Reason Start Time Stop Time Status Last Admin Nystatin (Mycostatin (Mouth-Throat)) 5 ml QID MT 02/08/25 12:00 02/08/25 16:59 DC 02/08/25 13:42 Rifampin 300 mg BID PO 02/08/25 22:00 02/09/25 10:03 Pyridoxine HCl (Vitamin B-6 Tablet) 200 mg DAILY PO 02/08/25 17:00 02/08/25 18:24 Pyrazinamide (Pyrazinamide) 1,000 mg DAILY PO 02/08/25 17:00 02/09/25 10:02 Enteral Nutritional Formula (Ensure High Protein) 240 ml TIDWM PO 02/08/25 18:00 02/09/25 08:00 Micafungin Sodium 100 mg/Sodium Chloride 100 ml @ 100 mls/hr DAILY IV 02/09/25 10:00 Megestrol Acetate (Megace Oral Suspension) 400 mg BID PO 02/09/25 10:00 Review of Systems Constitutional: Yes: generalized weakness. Eyes: No: Pain, Vision change, Conjunctivae inflammation, Eyelid inflammation, Other, Redness ENT: Yes: Sore throat. No: Ear discharge, Nose pain, Nose discharge, Nose congestion, Mouth pain, Mouth swelling, Throat pain, Throat swelling, Respiratory: Dry Cough, Shortness of breath; No: Dry, SOB with exertion, Wheezing, Hemoptysis, Pleuritic Pain, Sputum, Wheezing, Other Cardiovascular: No Orthopnea, Edema Gastrointestinal: No: Nausea, Vomiting, Abdominal Pain, Diarrhea, Constipation, Melena, Hematochezia, Other Genitourinary: No Dysuria, No Frequency, No Incontinence, No Hematuria, No Retention, No Other Musculoskeletal: No: other, neck pain, shoulder pain, arm pain, back pain, hand pain, leg pain, foot pain Skin: No: Rash, Lesions, Jaundice, Bruising, Other Neurological: No: Weakness, Numbness, Incoordination, Change in speech, Confusion, Seizures, Other Vital Signs Vital Signs Date Time Temp Pulse Resp B/P (MAP) Pulse Ox O2 Delivery O2 Flow Rate FiO2 02/09/25 09:00 98.1 85 18 119/70 (86) 98 98.1 02/08/25 20:00 Room Air* 0 21 Physical Exam General Appearance: Alert, Oriented X3, Cooperative, Cachectic. HEENT: Oral: Dental cavities, tongue with whitish thin plaque. Atraumatic, PERRLA, EOMI Respiratory: Patient on room air, clear lung sounds, normal lung expansion. Cardiovascular: Regular rate, Normal S1, Normal S2 Abdominal: Normal bowel sounds, Soft, No tenderness, No hepatospenomegaly Extremities: No cyanosis, Normal pulses, Other (Bilateral leg edema) Skin: No rashes, No breakdown Neuro: Strength at 5/5 X4 ext, Normal tone, normal sensation. Labs/Diagnostic Data Labs Test 02/08/25 18:00 02/08/25 05:18 02/07/25 16:49 Range/Units White Blood Count 4.7 4.4-10.8 10^3/uL Red Blood Count 3.62 L 4.5-5.90 10^6/uL Hemoglobin 10.0 L 13.5-17.5 g/dL Hematocrit 30.3 L 41.0-53.0 % Mean Corpuscular Volume 83.6 80.0-100.0 fL Mean Corpuscular Hemoglobin 27.5 L 28.0-32.0 pg Mean Corpuscular Hemoglobin Concent 32.9 32.0-36.0 g/dL Red Cell Distribution Width 24.5 H 11.8-14.3 % Platelet Count 375 140-450 10^3/uL Mean Platelet Volume 7.4 6.9-10.8 fL Neutrophils (%) (Auto) 64.8 37.0-80.0 % Lymphocytes (%) (Auto) 17.4 10.0-50.0 % Monocytes (%) (Auto) 13.6 H 0.0-12.0 % Eosinophils (%) (Auto) 2.8 0.0-7.0 % Basophils (%) (Auto) 1.4 0.0-2.0 % Neutrophils # (Auto) 3.1 1.6-8.6 10 ^3/uL Lymphocytes # (Auto) 0.8 0.4-5.4 10 ^3/uL Monocytes # (Auto) 0.6 0-1.3 10 ^3/uL Eosinophils # (Auto) 0.1 0-0.8 10 ^3/uL Basophils # (Auto) 0.1 0-0.2 10 ^3/uL Nucleated Red Blood Cells 0.1 % Sodium Level 139 136-145 mmol/L Potassium Level 3.6 3.5-5.1 mmol/L Chloride Level 108 H 98-107 mmol/L Carbon Dioxide Level 21 20-31 mmol/L Anion Gap 10 5-15 Blood Urea Nitrogen 14 9-23 mg/dL Creatinine 0.99 0.700-1.30 mg/dL Glomerular Filtration Rate Calc 81 >90 mL/min BUN/Creatinine Ratio 14.1 10.0-20.0 Serum Glucose 82 74-106 mg/dL Calcium Level 8.5 L 8.7-10.4 mg/dL Total Bilirubin 0.7 0.2-1.0 mg/dL Aspartate Amino Transferase (AST) 37 13-40 U/L Alanine Aminotransferase (ALT) 22 7-40 U/L Alkaline Phosphatase 132 H 46-116 U/L Total Protein 6.4 5.7-8.2 g/dL Albumin 2.7 L 3.2-4.8 g/dL Troponin I High Sensitivity 10 </=54 ng/L Microbiology Date/Time Source Procedure Growth Status 02/07/25 23:55 Nose MRSA Screen - Final Complete Assessment Assessment #TB #Oral candidiasis #Protein malnutrition Plan/Recommendation Nutritional consult D/C isolation precautions (the patient last 3 Sputum culture AFB smear: negative from 01/19, 01/20, 01/24) Continue RIPE treatment. Pyrazinamide was added today to current regimen. D/C Nystatin and start Micafungin sodium 100mg IV Consider appetite stimulants Pyridoxine HCL 200mg po qd Continue with current medical management. Goals of care discussed with the patient > 35 min. Discussed plan of care with (Infectious disease specialist) Code status: Full code Plan discussed with: Patient TESSA GORDON RESIDENT Feb 09, 2025 11:16
[2025-02-09] MEDS: MEGESTROL ACET 400MG/10ML ORAL SUSP PO SCH (12:45)
--- NOTE | 2025-02-09 14:24 | DVHPNRES ---
Progress Note Date Seen: Feb 09, 2025 Resident Creating Document: TESSA GORDON Medical Necessity Reason Pt with a Central, PICC or Fol: No Subjective Review of Systems Patient was evaluated at bedside and primary team planning for discharge. off of isolation. Patient reports: No new complaints Objective vital signs Vital Sign Date Time Temp Pulse Resp B/P (MAP) Pulse Ox O2 Delivery O2 Flow Rate FiO2 02/09/25 13:00 98.0 100 18 123/78 (93) 98 98.0 02/09/25 08:00 Room Air* 0 21 Total Intake and Output 02/08/25 02/08/25 02/09/25 15:00 23:00 07:00 Intake Total 500 ml 300 ml Balance 500 ml 300 ml medications Current Medications Medications Dose Ordered Sig/Paco Route Start Time Stop Time Status Last Admin Dose Admin Acetaminophen 325 mg Q4HP PRN PO 02/07/25 21:30 Acetaminophen/ Hydrocodone Bitart 1 tab Q4HP PRN PO 02/07/25 21:30 Ondansetron HCl 4 mg Q4HP PRN IV 02/07/25 21:30 Docusate Sodium 100 mg BIDPRN PRN PO 02/07/25 21:30 Zinc Sulfate 220 mg DAILY PO 02/08/25 10:00 02/09/25 10:03 220 MG Ascorbic Acid 500 mg BID PO 02/07/25 22:00 02/09/25 10:02 500 MG Multivitamins 1 tab DAILY PO 02/08/25 10:00 02/09/25 10:03 1 TAB Enoxaparin Sodium 30 mg DAILY SC 02/08/25 10:00 02/09/25 10:03 30 MG Nitroglycerin 0.4 mg Q5MINP PRN SL 02/07/25 21:30 Morphine Sulfate 2 mg Q30M PRN IV 02/07/25 21:30 Ethambutol HCl 1,200 mg DAILY PO 02/08/25 10:00 02/09/25 10:03 1,200 MG Isoniazid 300 mg DAILY PO 02/08/25 10:00 02/09/25 10:02 300 MG Rifampin 300 mg BID PO 02/08/25 22:00 02/09/25 10:03 300 MG Famotidine 40 mg DAILY PO 02/08/25 10:00 02/09/25 10:02 40 MG Pyridoxine HCl 200 mg DAILY PO 02/08/25 17:00 02/09/25 12:45 200 MG Pyrazinamide 1,000 mg DAILY PO 02/08/25 17:00 02/09/25 10:02 1,000 MG Enteral Nutritional Formula 240 ml TIDWM PO 02/08/25 18:00 02/09/25 12:00 240 ML Micafungin Sodium 100 mg/Sodium Chloride 100 ml @ 100 mls/hr DAILY IV 02/09/25 10:00 Megestrol Acetate 400 mg BID PO 02/09/25 10:00 02/09/25 12:45 400 MG Examination General Appearance: Alert, Oriented X3, Cooperative, Cachectic. HEENT: Oral: Dental cavities, tongue with whitish thin plaque. Atraumatic, PERRLA, EOMI Respiratory: Patient on room air, clear lung sounds, normal lung expansion. Cardiovascular: Regular rate, Normal S1, Normal S2 Abdominal: Normal bowel sounds, Soft, No tenderness, No hepatospenomegaly Extremities: No cyanosis, Normal pulses, Other (Bilateral leg edema) Skin: No rashes, No breakdown Neuro: Strength at 5/5 X4 ext, Normal tone, normal sensation. laboratory and microbiology Laboratory Tests 02/08/25 05:18 Test 02/08/25 05:18 Range/Units Serum Glucose 82 74-106 mg/dL Microbiology Date/Time Source Procedure Growth Status 02/07/25 23:55 Nose MRSA Screen - Final Complete Labs and/or images reviewed: Labs reviewed by me, Image(s) reviewed by me Problem List/Assessment/Plan Problem List/Assessment/Plan Adrian Claros is a 77-year-old active smoker and ETOH abuser, originally from [place] male with past medical history of osteoporosis, hypertension, dyslipidemia and recently diagnosed TB (01/17/2025), currently on RIPE antitubercular therapy presented with history of 1 month of generalized weakness, cough, sore throat, decrease in appetite and shortness of breath which worsened to the point he did seek care at ER. Further workup revealed medication compliance with, active malnutrition, cachexia and worsening weakness. Primary team consulted for TB management. Assessment: #Presentation at ED with Sepsis / SIRS with known pulmonary TB, current workup pending with serology. #Dr. Menchaca's known patient on RIPE -DOTS therapy outpatient periera. #Previously AFB positive currently repeat sputum negative, culture pending. (the patient last 3 Sputum culture AFB smear: negative from 01/19, 01/20, 01/24) #Normocytic anemia likely anemia of chronic disease due to active infection. #Isolated monocities supportive of TB. #Moderate to severe protein energy malnutrition #Transaminitis on TB treatment #Stable bilateral thrombus in the cephalic veins on anticoagulation with Eliquis. #bilateral spiculated nodules and cavitary lesions with mediastinal lymphadenopathy may be reactive versus metastatic. #Hypoalbuminemia r/t moderate protein calorie malnutrition #Osteoporosis on bisphosphonates #Oral candidiasis #Paroxysmal Afib #Dyslipidemia #Essential HTN #BPH without active UTI Plan/Recommendation: #Repeat AFB sputum x2-3 (every 8 hours) to confirm response to therapy #Nutritional consult with high protein and appropriate nutrition. Consider mirtazapine for appetite stimulation if no improvement in appetite. Continue high protein supplements TID. #D/C isolation precautions discussed with the team. #Continue RIPE treatment Pyrazinamide was added, continue at discharge. #S/p Micafungin IV, Continue antifungal therapy to improve oral intake at discharge. #D/C Nystatin and start Micafungin sodium 100mg IV #vitamin B6 /Pyridoxine HCL 200mg po qd as possible neuropathy. #Continue with current medical management at discharge and close follow up with Dr. Nikolai pereira. #Monitor for adverse effects of anti-TB medications, repeat LFT in 1-2 weeks. #Health department reported. Discussed with Dr. Menchaca ID will sign off. The patient is appropriate to discharge as long as continues above treatment. Will follow ID outpatient kelli. Plan discussed with: Patient My Orders My Orders Orders - TESSA GORDON RESIDENT Procedure Category Date Status Time Complete Blood Count LAB 02/09/25 Logged 12:12 Comprehensive LAB 02/09/25 Logged Metabolic Panel 12:12 TESSA GORDON Feb 09, 2025 14:24 ANISA WILSON Feb 09, 2025 18:30
--- NOTE | 2025-02-09 16:49 | DVHDS2 ---
Discharge Summary Date of Admission Feb 07, 2025 at 21:18 Date of Discharge: Feb 09, 2025 Labs/Diagnostic Data: Laboratory Results Test 02/08/25 18:00 02/08/25 05:18 02/07/25 16:49 White Blood Count 4.7 10^3/uL (4.4-10.8) Red Blood Count 3.62 10^6/uL (4.5-5.90) Hemoglobin 10.0 g/dL (13.5-17.5) Hematocrit 30.3 % (41.0-53.0) Mean Corpuscular Volume 83.6 fL (80.0-100.0) Mean Corpuscular Hemoglobin 27.5 pg (28.0-32.0) Mean Corpuscular Hemoglobin Concent 32.9 g/dL (32.0-36.0) Red Cell Distribution Width 24.5 % (11.8-14.3) Platelet Count 375 10^3/uL (140-450) Mean Platelet Volume 7.4 fL (6.9-10.8) Neutrophils (%) (Auto) 64.8 % (37.0-80.0) Lymphocytes (%) (Auto) 17.4 % (10.0-50.0) Monocytes (%) (Auto) 13.6 % (0.0-12.0) Eosinophils (%) (Auto) 2.8 % (0.0-7.0) Basophils (%) (Auto) 1.4 % (0.0-2.0) Neutrophils # (Auto) 3.1 10 ^3/uL (1.6-8.6) Lymphocytes # (Auto) 0.8 10 ^3/uL (0.4-5.4) Monocytes # (Auto) 0.6 10 ^3/uL (0-1.3) Eosinophils # (Auto) 0.1 10 ^3/uL (0-0.8) Basophils # (Auto) 0.1 10 ^3/uL (0-0.2) Nucleated Red Blood Cells 0.1 % Sodium Level 139 mmol/L (136-145) Potassium Level 3.6 mmol/L (3.5-5.1) Chloride Level 108 mmol/L (98-107) Carbon Dioxide Level 21 mmol/L (20-31) Anion Gap 10 (5-15) Blood Urea Nitrogen 14 mg/dL (9-23) Creatinine 0.99 mg/dL (0.700-1.30) Glomerular Filtration Rate Calc 81 mL/min (>90) BUN/Creatinine Ratio 14.1 (10.0-20.0) Serum Glucose 82 mg/dL (74-106) Calcium Level 8.5 mg/dL (8.7-10.4) Total Bilirubin 0.7 mg/dL (0.2-1.0) Aspartate Amino Transferase (AST) 37 U/L (13-40) Alanine Aminotransferase (ALT) 22 U/L (7-40) Alkaline Phosphatase 132 U/L (46-116) Total Protein 6.4 g/dL (5.7-8.2) Albumin 2.7 g/dL (3.2-4.8) Troponin I High Sensitivity 10 ng/L (</=54) Other Laboratory Tests 02/08/25 05:18 Brief Hx & Hospital Course: 74-year-old male presents to the ED via EMS with a chief complaint of generalized weakness onset two weeks. Per EMS, patient was diagnosed with tuberculosis one month ago. Patient states he has been experiencing generalized weakness for the past two weeks, as well as dizziness when he stands, worsens when he is walking or standing. EMS states patient had ortho stats positive with a BP of 92/60. PMHx HTN, TB, CHF. Only medication patient is taking is for TB. Denies fever, chills, abdominal pain, chest pain, shortness of breath, nausea, vomiting, diarrhea, dysuria, hematuria. No other symptoms or modifying factors present at this time. While in the emergency department the patient was evaluated by the provider, As per provider: Labs, vital signs, and imagining monitored. Patient was admitted for shortness of breath. He did test positive for tuberculosis 3 weeks ago. Patient states he is compliant with taking his medications. Patient received breathing and antibiotics. Patient states his condition improved and he was requesting to be discharged home. Patient is to continue isolation at home for TB. The patient received proper medical treatment and medications. Vital signs, Imaging and Laboratory Work was monitored daily. All consults recommendations were followed as provided. There were no complaints or new complaints upon discharge, all questions and concerns were answered. Patient was advised to return to the ER or call 911 if any headaches, dizziness, shortness of breath, chest pain, bleeding, fevers, or worsening of medical condition. Patient/Family was counseled about treatment plan, medications, possible side effects, patient verbalized understanding. All questions were answered to the best of my ability. The patient symptoms improved and they are okay to be DC. Condition at Discharge: Good Final Diagnosis/Problems List 1. Generalized weakness r/t TB 2. Dizziness r/t hypotension 3. Active TB 4. paroxysmal A fib 5. Chronic alcoholism 6. Iron deficiency anemia 7. Smoker 8. Hypoalbuminemia r/t moderate protein calorie malnutrition Discharge Disposition: Home Discharge Instruct/Medications Scheduled Ethambutol Hcl (Ethambutol Hcl), 1,200 MG PO DAILY Isoniazid (Isoniazid), 300 MG PO DAILY Nystatin (Mouth-Throat) (Mycostatin (Mouth-Throat)), 5 ML MT QID Rifampin (Rifampin), 600 MG PO DAILY Discharge Statement: "Patient was advised to return to the ER or call 911 if any headaches, dizziness, shortness of breath, chest pain, abdominal pain, bleeding, fevers, or worsening of medical condition. Patient was counseled about treatment plan, medications, possible side effects, patientverbalized understanding. All questions were answered to the best of my ability. This discharge took greater then 30 minutes in planning, reviewing documentation, counseling the patient, and discussing with other team members." ASSESSMENT ASSESSMENT Assessment JULIO CESAR MIGUEL NP Feb 09, 2025 16:49
[2025-02-09 17:07] LABS: Hematocrit 33.7 % (41.0-53.0); Hemoglobin 10.7 g/dL (13.5-17.5); Mean Corpuscular Hemoglobin 27.4 pg (28.0-32.0); Mean Corpuscular Volume 86.1 fL (80.0-100.0); Nucleated Red Blood Cells % 0.1 %
[2025-02-09 17:22] LABS: Alanine Aminotransferase 43 U/L (7-40); Albumin 2.4 g/dL (3.2-4.8); Alkaline Phosphatase 137 U/L (46-116); Anion Gap 10 (5-15); BUN/Creatinine Ratio 16.5 (10.0-20.0); Bilirubin, Total 0.8 mg/dL (0.2-1.0); Blood Urea Nitrogen 14 mg/dL (9-23); Calcium 8.3 mg/dL (8.7-10.4); Carbon Dioxide 20 mmol/L (20-31); Chloride 107 mmol/L (98-107); Glucose 98 mg/dL (74-106); Potassium 4.1 mmol/L (3.5-5.1); Sodium 137 mmol/L (136-145); Total Protein 6.0 g/dL (5.7-8.2)
[2025-02-10 01:00] VITALS: BP 130/73; PULSE 85; RESP 16; TEMP 97.8; O2SAT 96
[2025-02-10 05:00] VITALS: BP 144/87; PULSE 89; RESP 16; TEMP 98; O2SAT 96
[2025-02-10 08:00] VITALS: PULSE 140; PULSE 50; RESP 16; O2SAT 96
[2025-02-10 09:00] VITALS: BP 121/78; PULSE 50; RESP 16; O2SAT 96
[2025-02-10 12:49] VITALS: BP 122/79; PULSE 107; RESP 21; TEMP 98.3; O2SAT 97
--- NOTE | 2025-02-10 15:29 | DVHPN2 ---
Progress Note Date Seen: Feb 10, 2025 Medical Necessity Reason Pt with a Central, PICC or Fol: No Subjective Review of Systems: CVS:Normal, RESPIRATORY:Normal, GI:Normal, NEURO:Normal Objective vital signs Vital Sign Date Time Temp Pulse Resp B/P (MAP) Pulse Ox O2 Delivery O2 Flow Rate FiO2 02/10/25 12:49 98.3 107 21 122/79 (93) 97 98.3 02/10/25 08:00 Room Air* 0 21 medications Current Medications Medications Dose Ordered Sig/Paco Route Start Time Stop Time Status Last Admin Dose Admin Acetaminophen 325 mg Q4HP PRN PO 02/07/25 21:30 Acetaminophen/ Hydrocodone Bitart 1 tab Q4HP PRN PO 02/07/25 21:30 Ondansetron HCl 4 mg Q4HP PRN IV 02/07/25 21:30 Docusate Sodium 100 mg BIDPRN PRN PO 02/07/25 21:30 Zinc Sulfate 220 mg DAILY PO 02/08/25 10:00 02/10/25 09:31 220 MG Ascorbic Acid 500 mg BID PO 02/07/25 22:00 02/10/25 09:31 500 MG Multivitamins 1 tab DAILY PO 02/08/25 10:00 02/10/25 09:31 1 TAB Enoxaparin Sodium 30 mg DAILY SC 02/08/25 10:00 02/10/25 09:33 30 MG Nitroglycerin 0.4 mg Q5MINP PRN SL 02/07/25 21:30 Morphine Sulfate 2 mg Q30M PRN IV 02/07/25 21:30 Ethambutol HCl 1,200 mg DAILY PO 02/08/25 10:00 02/10/25 09:31 1,200 MG Isoniazid 300 mg DAILY PO 02/08/25 10:00 02/10/25 09:32 300 MG Rifampin 300 mg BID PO 02/08/25 22:00 02/10/25 09:33 300 MG Famotidine 40 mg DAILY PO 02/08/25 10:00 02/10/25 09:31 40 MG Pyridoxine HCl 200 mg DAILY PO 02/08/25 17:00 02/09/25 12:45 200 MG Pyrazinamide 1,000 mg DAILY PO 02/08/25 17:00 02/10/25 09:32 1,000 MG Enteral Nutritional Formula 240 ml TIDWM PO 02/08/25 18:00 02/10/25 12:00 240 ML Micafungin Sodium 100 mg/Sodium Chloride 100 ml @ 100 mls/hr DAILY IV 02/09/25 10:00 Megestrol Acetate 400 mg BID PO 02/09/25 10:00 02/10/25 09:31 400 MG Examination: GENERAL:Normal, LUNGS:Normal, CVS:Normal, SKIN:Normal, NEURO:Normal laboratory and microbiology Laboratory Tests 02/09/25 16:41 Test 02/09/25 16:41 Range/Units Serum Glucose 98 74-106 mg/dL Microbiology Date/Time Source Procedure Growth Status 02/07/25 23:55 Nose MRSA Screen - Final Complete Labs and/or images reviewed: Labs reviewed by me, Image(s) reviewed by me Problem List/Assessment/Plan Problem List/Assessment/Plan The patient was admitted for shortness of breath and tested positive for tuberculosis 3 weeks ago. He has been compliant with his medication regimen and has been receiving breathing treatments during his hospital stay. The patient's condition has improved to the point where he is now cleared for discharge. However, he has become severely deconditioned during his hospitalization. As a result, he will be receiving physical therapy evaluation and treatment. Due to his generalized weakness from tuberculosis, he will be discharged to a long term facility once a placement becomes available. An infectious disease consult has been obtained to manage his tuberculosis care. Tuberculosis Assessment: Patient tested positive for tuberculosis 3 weeks ago and has been compliant with medications. He is receiving breathing treatments. The patient has developed generalized weakness due to tuberculosis. An infectious disease consult has been requested to continue management of tuberculosis. Plan: - Continue isoniazid 300 mg PO daily - Continue rifampin 300 mg PO BID - Consult infectious disease for ongoing tuberculosis management - Continue current tuberculosis medications Deconditioning Assessment: Patient has become severely deconditioned during hospitalization for tuberculosis treatment. Plan: - Obtain physical therapy evaluation - Discharge to long term facility for rehabilitation Hypotension Assessment: Patient has developed hypotension, which may be contributing to generalized weakness. Plan: - Administer medication for hypotension management Tobacco Use Assessment: Patient is a current smoker. 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 Nutrition Recommendation: 1) Consider Ensure Enlive 240ml TID 2) Discontinue zinc sulfate and vitamin C 3) Conitnue current plan of care Expected Outcomes/Goals: To gain/maintain body weight PO intake to meet at least 75% estimated needs Fu 3-5 days Interpretation of weight loss: >5% in 1 month Body Fat Depletion (Severe): Mod to Severe Depletion Muscle Mass (Severe): Mod to Severe Depletion Protein Calorie Malnutrition: Severe Is there a minimum of two crit: Yes Date of Service: Feb 10, 2025 Billing Provider: FELICIA VICENTE MD Common Visit Codes: 80095-YDUEKEP INP/OBS CARE (MOD) JORGE TADEO BUSINESS PERFORMANCE MANAGER Feb 10, 2025 15:29
[2025-02-10 16:57] VITALS: BP 126/74; PULSE 126; RESP 20; TEMP 98.3; O2SAT 93
--- NOTE | 2025-02-10 17:08 | DVHPN2 ---
Consult Progress Note Date Seen: Feb 10, 2025 Subjective Patient reports: No new complaints Other Systems: Patient was evaluated at bedside and primary team planning for discharge. off of isolation. Objective vital signs Vital Sign Date Time Temp Pulse Resp B/P (MAP) Pulse Ox O2 Delivery O2 Flow Rate FiO2 02/10/25 16:57 98.3 126 20 126/74 (91) 93 98.3 02/10/25 08:00 Room Air* 0 21 General Appearance: Alert, Oriented X3, Cooperative, Cachectic. HEENT: Oral: Dental cavities, tongue with whitish thin plaque. Atraumatic, PERRLA, EOMI Respiratory: Patient on room air, clear lung sounds, normal lung expansion. Cardiovascular: Regular rate, Normal S1, Normal S2 Abdominal: Normal bowel sounds, Soft, No tenderness, No hepatosplenomegaly Extremities: No cyanosis, Normal pulses, Other (Bilateral leg edema) Skin: No rashes, No breakdown Neuro: Strength at 5/5 X4 ext, Normal tone, normal sensation. medications Current Medications Medications Dose Ordered Sig/Paco Route Start Time Stop Time Status Last Admin Dose Admin Acetaminophen 325 mg Q4HP PRN PO 02/07/25 21:30 Acetaminophen/ Hydrocodone Bitart 1 tab Q4HP PRN PO 02/07/25 21:30 Ondansetron HCl 4 mg Q4HP PRN IV 02/07/25 21:30 Docusate Sodium 100 mg BIDPRN PRN PO 02/07/25 21:30 Zinc Sulfate 220 mg DAILY PO 02/08/25 10:00 02/10/25 09:31 220 MG Ascorbic Acid 500 mg BID PO 02/07/25 22:00 02/10/25 09:31 500 MG Multivitamins 1 tab DAILY PO 02/08/25 10:00 02/10/25 09:31 1 TAB Enoxaparin Sodium 30 mg DAILY SC 02/08/25 10:00 02/10/25 09:33 30 MG Nitroglycerin 0.4 mg Q5MINP PRN SL 02/07/25 21:30 Morphine Sulfate 2 mg Q30M PRN IV 02/07/25 21:30 Ethambutol HCl 1,200 mg DAILY PO 02/08/25 10:00 02/10/25 09:31 1,200 MG Isoniazid 300 mg DAILY PO 02/08/25 10:00 02/10/25 09:32 300 MG Rifampin 300 mg BID PO 02/08/25 22:00 02/10/25 09:33 300 MG Famotidine 40 mg DAILY PO 02/08/25 10:00 02/10/25 09:31 40 MG Pyridoxine HCl 200 mg DAILY PO 02/08/25 17:00 02/09/25 12:45 200 MG Pyrazinamide 1,000 mg DAILY PO 02/08/25 17:00 02/10/25 09:32 1,000 MG Enteral Nutritional Formula 240 ml TIDWM PO 02/08/25 18:00 02/10/25 12:00 240 ML Micafungin Sodium 100 mg/Sodium Chloride 100 ml @ 100 mls/hr DAILY IV 02/09/25 10:00 Megestrol Acetate 400 mg BID PO 02/09/25 10:00 02/10/25 09:31 400 MG laboratory and microbiology Laboratory Tests 02/09/25 16:41 Test 02/09/25 16:41 Range/Units Serum Glucose 98 74-106 mg/dL Problem List/Assessment/Plan Problem List/Assessment/Plan Adrian Claros is a 77-year-old active smoker and ETOH abuser, originally from [place] male with past medical history of osteoporosis, hypertension, dyslipidemia and recently diagnosed TB (01/17/2025), currently on RIPE antitubercular therapy presented with history of 1 month of generalized weakness, cough, sore throat, decrease in appetite and shortness of breath which worsened to the point he did seek care at ER. Further workup revealed medication compliance with, active malnutrition, cachexia and worsening weakness. Primary team consulted for TB management. Assessment: #Presentation at ED with Sepsis / SIRS with known pulmonary TB, current workup pending with serology. #Dr. Menchaca's known patient on RIPE -DOTS therapy outpatient pereira. #Previously AFB positive currently repeat sputum negative, culture pending. (the patient last 3 Sputum culture AFB smear: negative from 01/19, 01/20, 01/24) #Normocytic anemia likely anemia of chronic disease due to active infection. #Isolated monocytes supportive of TB. #Moderate to severe protein energy malnutrition #Transaminitis on TB treatment #Stable bilateral thrombus in the cephalic veins on anticoagulation with Eliquis. #bilateral spiculated nodules and cavitary lesions with mediastinal lymphadenopathy may be reactive versus metastatic. #Hypoalbuminemia r/t moderate protein calorie malnutrition #Osteoporosis on bisphosphonates #Oral candidiasis #Paroxysmal Afib #Dyslipidemia #Essential HTN #BPH without active UTI Plan/Recommendation: #Repeat AFB sputum x2-3 (every 8 hours) to confirm response to therapy #Nutritional consult with high protein and appropriate nutrition. Consider mirtazapine for appetite stimulation if no improvement in appetite. Continue high protein supplements TID. #D/C isolation precautions discussed with the team. #Continue RIPE treatment Pyrazinamide was added, continue at discharge. #S/p Micafungin IV, Continue antifungal therapy to improve oral intake at discharge. #D/C Nystatin and start Micafungin sodium 100mg IV #vitamin B6 /Pyridoxine HCL 200mg po qd as possible neuropathy. #Continue with current medical management at discharge and close follow up with Dr. Nikolai pereira. #Monitor for adverse effects of anti-TB medications, repeat LFT in 1-2 weeks. #Health department reported. #Will follow ID outpatient kelli. Discussed with Dr. Menchaca ID will sign off. The patient is appropriate to discharge as long as continues above treatment. Plan discussed with: Patient, Other (family bedside ) Dietary Evaluation Review Recommendations by RD: Increase Calorie Intake Comments: Pt meets criteria of severe protein-calorie malnutrition in the setting of acute illness based on severe wt loss 8.1kg/15% in 1 month and severe muscle wasting & moderate fat depletion. Nutrition Recommendation: 1) Consider Ensure Enlive 240ml TID 2) Discontinue zinc sulfate and vitamin C 3) Conitnue current plan of care Expected Outcomes/Goals: To gain/maintain body weight PO intake to meet at least 75% estimated needs Fu 3-5 days Interpretation of weight loss: >5% in 1 month Body Fat Depletion (Severe): Mod to Severe Depletion Muscle Mass (Severe): Mod to Severe Depletion Protein Calorie Malnutrition: Severe Is there a minimum of two crit: Yes ANISA WILSON RESIDENT Feb 10, 2025 17:08
--- NOTE | 2025-02-10 17:30 | DVHDS2 ---
Discharge Summary Date of Admission Feb 07, 2025 at 21:18 Date of Discharge: Feb 09, 2025 Labs/Diagnostic Data: Laboratory Results Test 02/09/25 16:41 02/08/25 18:00 02/07/25 16:49 White Blood Count 4.9 10^3/uL (4.4-10.8) Red Blood Count 3.91 10^6/uL (4.5-5.90) Hemoglobin 10.7 g/dL (13.5-17.5) Hematocrit 33.7 % (41.0-53.0) Mean Corpuscular Volume 86.1 fL (80.0-100.0) Mean Corpuscular Hemoglobin 27.4 pg (28.0-32.0) Mean Corpuscular Hemoglobin Concent 31.8 g/dL (32.0-36.0) Red Cell Distribution Width 24.7 % (11.8-14.3) Platelet Count 354 10^3/uL (140-450) Mean Platelet Volume 7.6 fL (6.9-10.8) Neutrophils (%) (Auto) 54.1 % (37.0-80.0) Lymphocytes (%) (Auto) 25.4 % (10.0-50.0) Monocytes (%) (Auto) 15.7 % (0.0-12.0) Eosinophils (%) (Auto) 3.0 % (0.0-7.0) Basophils (%) (Auto) 1.8 % (0.0-2.0) Neutrophils # (Auto) 2.7 10 ^3/uL (1.6-8.6) Lymphocytes # (Auto) 1.3 10 ^3/uL (0.4-5.4) Monocytes # (Auto) 0.8 10 ^3/uL (0-1.3) Eosinophils # (Auto) 0.2 10 ^3/uL (0-0.8) Basophils # (Auto) 0.1 10 ^3/uL (0-0.2) Nucleated Red Blood Cells 0.1 % Sodium Level 137 mmol/L (136-145) Potassium Level 4.1 mmol/L (3.5-5.1) Chloride Level 107 mmol/L (98-107) Carbon Dioxide Level 20 mmol/L (20-31) Anion Gap 10 (5-15) Blood Urea Nitrogen 14 mg/dL (9-23) Creatinine 0.85 mg/dL (0.700-1.30) Glomerular Filtration Rate Calc 92 mL/min (>90) BUN/Creatinine Ratio 16.5 (10.0-20.0) Serum Glucose 98 mg/dL (74-106) Calcium Level 8.3 mg/dL (8.7-10.4) Total Bilirubin 0.8 mg/dL (0.2-1.0) Aspartate Amino Transferase (AST) 92 U/L (13-40) Alanine Aminotransferase (ALT) 43 U/L (7-40) Alkaline Phosphatase 137 U/L (46-116) Total Protein 6.0 g/dL (5.7-8.2) Albumin 2.4 g/dL (3.2-4.8) Troponin I High Sensitivity 10 ng/L (</=54) Other Laboratory Tests 02/09/25 16:41 Brief Hx & Hospital Course: The patient was admitted for shortness of breath and tested positive for tuberculosis 3 weeks ago. He has been compliant with his medication regimen since the diagnosis. During his hospital stay, the patient received a breathing treatment, which has led to an improvement in his condition. Initially, the patient's family wanted him to be transferred to a prison. However, he did not qualify for prison care as he demonstrated the ability to walk down the [place] independently. The patient was evaluated and cleared by the infectious disease department during his hospital stay. Tuberculosis Assessment: Patient was diagnosed with tuberculosis 3 weeks ago and admitted for shortness of breath. He has been compliant with the prescribed medication regimen. The patient's condition has shown improvement during the hospital stay. The patient was seen and cleared by infectious disease. Plan: - Continue isoniazid 300 mg PO daily - Continue rifampin 300 mg PO BID - Follow up with PCP within one week of discharge Shortness of breath Assessment: Patient was admitted for shortness of breath, which was likely related to the tuberculosis diagnosis. The patient received a breathing treatment during the hospital stay, which has contributed to the improvement in his condition. Plan: - Physical therapy recommended for 30 minutes Discharge planning Assessment: The patient's family expressed a desire for the patient to be discharged to a prison. However, the patient did not qualify for prison placement as he demonstrated the ability to ambulate independently down the [place]. Plan: - Discharge to home - Follow up with PCP within one week of discharge Condition at Discharge: Good Final Diagnosis/Problems List 1. Generalized weakness r/t TB2. Dizziness r/t hypotension3. Active TB4. paroxysmal A fib5. Chronic alcoholism 6. Iron deficiency anemia7. Smoker8. Hypoalbuminemia r/t moderate protein calorie malnutrition Discharge Disposition: Home Discharge Instruct/Medications Diet: Cardiac 2g Na,low cholest Activity: Bed rest Follow Up/Referral: PCP WITHIN 1 WEEK Scheduled Ethambutol Hcl (Ethambutol Hcl), 1,200 MG PO DAILY Isoniazid (Isoniazid), 300 MG PO DAILY Nystatin (Mouth-Throat) (Mycostatin (Mouth-Throat)), 5 ML MT QID Rifampin (Rifampin), 600 MG PO DAILY Discharge Statement: "Patient was advised to return to the ER or call 911 if any headaches, dizziness, shortness of breath, chest pain, abdominal pain, bleeding, fevers, or worsening of medical condition. Patient was counseled about treatment plan, medications, possible side effects, patientverbalized understanding. All questions were answered to the best of my ability. This discharge took greater then 30 minutes in planning, reviewing documentation, counseling the patient, and discussing with other team members." ASSESSMENT ASSESSMENT Assessment 1. Generalized weakness r/t TB2. Dizziness r/t hypotension3. Active TB4. paroxysmal A fib5. Chronic alcoholism 6. Iron deficiency anemia7. Smoker8. Hypoalbuminemia r/t moderate protein calorie malnutrition [facility] Feb 10, 2025 17:30
[2025-02-16] MEDS ORDERED: RIFA300C58 PO (17:48)
[2025-02-16] MEDS ORDERED: ETHA400T20 PO ×2 (17:48)
[2025-02-16] MEDS ORDERED: ISON300T68 PO (17:48)
== END 2025-02-10 17:15 | disposition home or self-care (01) | DRG 178 ==
LOC: EDBD 11:50 → ER 11:50 → OVERFLOW 21:18 → TELE-EAST 23:34 → TELE-CENTR 02-09 16:12
PROVIDERS: ADMIT Nurse Practitioner; ATTEND Nurse Practitioner
DX: A15.9 Respiratory tuberculosis unspecified (principal); B37.0 Candidal stomatitis; F10.239 Alcohol dependence with withdrawal, unspecified; Z68.1 Body mass index [BMI] 19.9 or less, adult; E44.0 Moderate protein-calorie malnutrition; D50.9 Iron deficiency anemia, unspecified; I48.0 Paroxysmal atrial fibrillation; F17.200 Nicotine dependence, unspecified, uncomplicated; E88.09 Other disorders of plasma-protein metabolism, not elsewhere classified; M81.0 Age-related osteoporosis without current pathological fracture; E78.5 Hyperlipidemia, unspecified; N40.0 Benign prostatic hyperplasia without lower urinary tract symptoms; I50.9 Heart failure, unspecified; I11.0 Hypertensive heart disease with heart failure; Z79.899 Other long term (current) drug therapy; Z79.83 Long term (current) use of bisphosphonates; Z79.01 Long term (current) use of anticoagulants; D53.9 Nutritional anemia, unspecified
CPT/HCPCS: 36415; 71045; 71250; 80053; 84484; 85025; 87081; 93005; 93970; 96360; 96361; 97163; G0378; J2248